=== PATIENT | female | born 1940 | race Caucasian/White ===

== ENCOUNTER 2019-04-21 13:54 | Inpatient (IN) ==
[~2019-04-21 13:54] MED LIST: CEFAZOLIN 2000MG 2,000 MG/15 ML SYR IV SCH
[2019-04-21] MEDS ORDERED: ONDANSETRON INJ 2 MG/ML 2 ML VIAL IV STA (13:58)
[2019-04-21] MEDS ORDERED: SODIUM CHLORIDE 0.9% 1000ML 1,000 ML IV SCH ×2 (14:00→19:08)
[2019-04-21 14:19] LABS: Basophils # (auto) 0.02 K/uL (0-0.2); Basophils % (auto) 0.5 %; Eosinophils # (auto) 0.08 K/uL (0-0.5); Eosinophils % (auto) 1.9 %; Hematocrit (blood only) 34.7 % (37-47); Hemoglobin 12.6 g/dL (12.0-16.0); Immature Granulocytes # (auto) 0.01 K/uL (0.00-0.02); Immature Granulocytes % (auto) 0.2 %; Lymphocytes # (auto) 1.16 K/uL (1.2-3.4); Mean Corpuscular Hgb Conc 36.3 g/dL (32-36); Mean Corpuscular Volume 87.6 fL (80-100); Mean Platelet Volume 9.5 fL (7.4-10.4); Monocytes # (auto) 0.38 K/uL (0.11-0.59); Monocytes % (auto) 8.8 %; Neutrophils # (auto) 2.65 K/uL (1.4-6.5); Neutrophils % (auto) 61.6 %; Platelet Count 186 K/uL (130-400); RDW Standard Deviation 42.1 fL (36.4-46.3); Red Blood Count 3.96 M/uL (4.2-5.4)
[2019-04-21] MEDS: MoRPHine SULFATE 4 MG/ML 1 ML CARP\\VIAL IV PRN ×2 (14:19→15:04)
--- NOTE | 2019-04-21 14:33 | Emergency Department Note ---
Entered by Raeann Gifford acting as a scribe for Raffy Juarez DO History of Present Illness General Chief complaint: Hip Pain Source: patient Limitations: no limitations History of Present Illness Provider complaint: Hip Pain Onset (ago): hour(s) Location: hip and right Maximum Pain Intensity: 10 Relieved By: + rest Exacerbated By: + movement Associated symptoms: + denies other symptoms (-neck pain, -LOC); no headaches and no syncope Treatments prior to arrival: none The patient is an 79-year-old female who presented to the emergency department by ambulance for an evaluation after a fall. The patient fell from a standing position onto her right side. She suffered an injury to her right hip. The patient has very severe pain with any range of motion. She keeps the right leg flexed at the hip as well as the knee. The patient states that she has very minimal pain with holding the leg still. She has very severe pain with any movement or rotation. She lateralizes the pain to her right lateral hip. She denies any other injury. She has no neck pain headache. She has no loss of consciousness. The patient was unable to stand. The patient states that she took no pain medication prior to arrival. Home Medications Home Medications Medication Instructions Recorded Confirmed Type alendronate [Fosamax] 70 mg PO UD 04/21/19 04/21/19 History aspirin [Aspirin Low Dose] 81 mg PO DAILY 04/21/19 04/21/19 History cholecalciferol (vitamin D3) 2,000 unit PO DAILY 04/21/19 04/21/19 History [Vitamin D3] oxybutynin chloride 5 mg PO DAILY 04/21/19 04/21/19 History rosuvastatin [Crestor] 10 mg PO DAILY 04/21/19 04/21/19 History Allergies Allergy/AdvReac Type Severity Reaction Status Date / Time No Known Allergies Allergy Unverified 04/21/19 14:36 Past Med/Surg History Medical History Osteoporosis (Chronic) History of cataract (Chronic) Left eye History of hysterectomy (Chronic) Dyslipidemia (Chronic) Overactive bladder (Chronic) Surgical History History of bladder repair surgery (Chronic) 2008 History of lumpectomy of both breasts (Chronic) 1962 - Left breast lumpectomy - pt reports was benign 1980 - R breast lumpectomy - pt reports was benign History of tonsillectomy and adenoidectomy (Chronic) H/O eye surgery (Chronic) 1944 - Right eye surgery 1947 - Right eye surgery H/O malignant hyperthermia (Chronic) Family History Other Cancer Hypertension Malignant hyperthermia due to anesthesia Social History Preferred Language: [place]ese Communication Ability: Effective Customer Sales Representative Required: No Beliefs That Will Affect Care: Evangelical Evangelical Beliefs: Yazidism marital status: / Current Living Situation: Alone Feels Safe at Home: Yes Safety Concerns: Feels Safe At This Time Smoking Status: Former smoker Do You Dip or Chew Tobacco: No Smoking End Date: quit at age 59 Hx Alcohol Use: No Hx Substance Use: No Review of Systems See HPI for pertinent positives & negatives. and A total of 10 systems reviewed and were otherwise negative Physical Exam Vital Signs Vital Signs - 24 hr 04/21/19 14:04 04/21/19 15:05 04/21/19 15:12 Temperature 37.0 C Temperature Source Oral Sepsis Recent Fever Within 48 Hours No Sepsis New/Unexplained Change in Mental Status No Sepsis Action Taken by Nursing No Action Required Pulse Rate 87 Pulse Rate [Right Finger] 94 H Pulse Rate from SpO2 Sensor Respiratory Rate 19 16 Respiratory Effort / Characteristics Non-Labored Spontaneous Respiratory Depth Normal Respiratory Pattern Regular Blood Pressure 183/93 H Blood Pressure [Right Arm] 150/80 H Blood Pressure Mean 123 Blood Pressure Mean [Right Arm] 103 Pulse Oximetry 95 84 L 96 Oxygen Delivery Method Room Air Room Air Nasal Cannula Oxygen Flow Rate 2 04/21/19 15:30 04/21/19 15:42 04/21/19 16:00 Temperature Temperature Source Sepsis Recent Fever Within 48 Hours Sepsis New/Unexplained Change in Mental Status Sepsis Action Taken by Nursing Pulse Rate 87 117 H 85 Pulse Rate [Right Finger] Pulse Rate from SpO2 Sensor 88 96 H 82 Respiratory Rate 21 26 H 17 Respiratory Effort / Characteristics Respiratory Depth Respiratory Pattern Blood Pressure 149/83 H Blood Pressure [Right Arm] Blood Pressure Mean 105 Blood Pressure Mean [Right Arm] Pulse Oximetry 91 94 98 Oxygen Delivery Method Oxygen Flow Rate 04/21/19 16:01 Temperature Temperature Source Sepsis Recent Fever Within 48 Hours Sepsis New/Unexplained Change in Mental Status Sepsis Action Taken by Nursing Pulse Rate 82 Pulse Rate [Right Finger] Pulse Rate from SpO2 Sensor 82 Respiratory Rate 17 Respiratory Effort / Characteristics Respiratory Depth Respiratory Pattern Blood Pressure 124/81 Blood Pressure [Right Arm] Blood Pressure Mean 95 Blood Pressure Mean [Right Arm] Pulse Oximetry 96 Oxygen Delivery Method Oxygen Flow Rate GENERAL: Patient is awake and alert. She appears to be in significant pain. EYES: The conjunctivae are clear. The pupils are round and reactive. EARS, NOSE, MOUTH AND THROAT: The nose is without any evidence of any deformity. Mucous membranes are moist tongue is midline NECK: The neck is nontender and supple. RESPIRATORY: Normal respiratory effort is noted there is no evidence of wheezing rhonchi or rales CARDIOVASCULAR: Regular rate and rhythm noted there no murmurs rubs or gallops normal S1 normal S2 GASTROINTESTINAL: The abdomen is soft. Bowel sounds are present in all quadrants. Abdomen is nontender BACK: No midline tenderness or or step-off noted range of motion in flexion extension as well as rotation no signs of muscle spasm noted MUSCULOSKELETAL/EXTREMITIES: There is pain with range of motion testing of the right hip. Patient prefers to keep the hip in the flexed position. SKIN: There is no obvious evidence of any rash. There are no petechiae, pallor or cyanosis noted. Pulses are symmetric in both feet. NEUROLOGIC: Patient is awake alert and oriented x3. Course 1400: The patient was evaluated in room C5, and a complete history and physical examination were performed. 1513: I checked on the patient and updated her on her results. 1524: I discussed the patient's case with Halina [facility] Hospitalist who will evaluate the patient for further hospitalization. The patient will be admitted to Dr. Rhoades- Internal Medicine. Consultations Consultation #1: Halina Martínezist admitting to Dr. Rhoades- Internal Medicine Time: 15:24 Administered Medications Acetaminophen (Tylenol) 650 mg PO Q6H PRN PRN Reason: MILD Pain (Scale 1,2,3) Stop: 05/21/19 19:07 Last Admin: 04/22/19 08:09 Dose: 650 mg Documented by: [id number] Lactated Ringer's (Lr) 1,000 mls @ 80 mls/hr IV .[id number] [facility] Stop: 05/21/19 18:29 Last Admin: 04/22/19 08:08 Dose: 80 mls/hr Documented by: [id number] Infusion: 04/22/19 06:47 Dose: 0 mls/hr Documented by: [id number] Admin: 04/21/19 20:05 Dose: 80 mls/hr Documented by: [id number] Morphine Sulfate (Morphine Sulfate) 2 mg IV Q2H PRN PRN Reason: MODERATE Pain (Scale 4,5,6) Stop: 05/05/19 19:07 Last Admin: 04/22/19 12:11 Dose: 2 mg Documented by: [id number] Admin: 04/22/19 07:01 Dose: 2 mg Documented by: [id number] Admin: 04/22/19 04:19 Dose: 2 mg Documented by: [id number] Oxybutynin Chloride (Ditropan) 5 mg PO DAILY [facility] Stop: 05/22/19 08:59 Last Admin: 04/22/19 08:09 Dose: 5 mg Documented by: [id number] Rosuvastatin Calcium (Crestor) 10 mg PO DAILY [facility] Stop: 05/22/19 08:59 Last Admin: 04/22/19 08:09 Dose: 10 mg Documented by: [id number] Senna/Docusate Sodium (Senokot S) 2 tab PO HS [facility] Stop: 05/21/19 20:59 Last Admin: 04/21/19 20:41 Dose: 2 tab Documented by: [id number] Discontinued Medications Sodium Chloride (Nss 1000ml) 1,000 mls @ 150 mls/hr IV .[id number] [facility] Stop: 04/21/19 20:39 Last Infusion: 04/21/19 19:11 Dose: 0 mls/hr Documented by: [id number] Admin: 04/21/19 14:21 Dose: 150 mls/hr Documented by: [id number] Cefazolin Sodium (Ancef 2000mg) 2,000 mg in 15 mls @ 3.75 mls/min IV PREOP [facility]; Protocol Stop: 04/21/19 23:59 Last Admin: 04/21/19 19:52 Dose: Not Given Documented by: [id number] Sodium Chloride (Nss 1000ml) 1,000 mls @ 80 mls/hr IV .[id number] [facility] Stop: 04/22/19 07:37 Last Admin: 04/21/19 19:52 Dose: Not Given Documented by: [id number] Morphine Sulfate (Morphine Sulfate) 4 mg IV Q15M PRN PRN Reason: Pain Stop: 05/05/19 13:57 Last Admin: 04/21/19 15:04 Dose: 4 mg Documented by: [id number] Admin: 04/21/19 14:19 Dose: 4 mg Documented by: [id number] Ondansetron HCl (Zofran) 4 mg IV NOW STA Stop: 04/21/19 13:59 Last Admin: 04/21/19 14:19 Dose: 4 mg Documented by: [id number] Medical Decision Making Differential Diagnosis Etiologies such as fracture, dislocation, soft tissue injury, intra-abdominal, intrathoracic, intracranial as well as other traumatic pathologies were entertained. Medical Records Attestation: I reviewed the patient's medical records. Home Medications Current Medication List: was personally reviewed by me Laboratory Data Attestation: I reviewed the patient's lab results. Result diagrams: 04/22/19 06:57 04/22/19 06:57 Lab Results 04/21/19 04/21/19 04/21/19 Range/Units 14:08 14:08 14:08 WBC 4.30 L (4.8-10.8) K/uL RBC 3.96 L (4.2-5.4) M/uL Hgb 12.6 (12.0-16.0) g/dL Hct 34.7 L (37-47) % MCV 87.6 (80-100) fL MCH 31.8 (25-34) pg MCHC 36.3 H (32-36) g/dL RDW Std Deviation 42.1 (36.4-46.3) fL RDW Coeff of Miguel 13.0 (11.5-14.5) % Plt Count 186 (130-400) K/uL MPV 9.5 (7.4-10.4) fL Immature Gran % (Auto) 0.2 % Neut % (Auto) 61.6 % Lymph % (Auto) 27.0 % Brooks % (Auto) 8.8 % Eos % (Auto) 1.9 % Baso % (Auto) 0.5 % Immature Gran # (Auto) 0.01 (0.00-0.02) K/uL Neut # (Auto) 2.65 (1.4-6.5) K/uL Lymph # (Auto) 1.16 L (1.2-3.4) K/uL Brooks # (Auto) 0.38 (0.11-0.59) K/uL Eos # (Auto) 0.08 (0-0.5) K/uL Baso # (Auto) 0.02 (0-0.2) K/uL PT Cancelled INR Cancelled APTT Cancelled PTT Ratio Cancelled Sodium 142 (136-145) mmol/L Potassium 3.8 (3.5-5.1) mmol/L Chloride 107 (98-107) mmol/L Carbon Dioxide 25 (21-32) mmol/L Anion Gap 10.0 (3-11) BUN 10 (7-18) mg/dl Creatinine 0.83 (0.6-1.2) mg/dl Est Cr Clr Drug Dosing 49.0 ml/min Est GFR ( Amer) 77.2 Est GFR (Non-Af Amer) 66.6 BUN/Creatinine Ratio 12.1 (10-20) Glucose 92 (70-99) mg/dl Calcium 9.3 (8.5-10.1) mg/dl Troponin I < 0.015 (0-0.045) ng/ml Specimen Hemolysis Blood Type Antibody Screen 04/21/19 04/21/19 Range/Units 14:08 15:17 WBC (4.8-10.8) K/uL RBC (4.2-5.4) M/uL Hgb (12.0-16.0) g/dL Hct (37-47) % MCV (80-100) fL MCH (25-34) pg MCHC (32-36) g/dL RDW Std Deviation (36.4-46.3) fL RDW Coeff of Miguel (11.5-14.5) % Plt Count (130-400) K/uL MPV (7.4-10.4) fL Immature Gran % (Auto) % Neut % (Auto) % Lymph % (Auto) % Brooks % (Auto) % Eos % (Auto) % Baso % (Auto) % Immature Gran # (Auto) (0.00-0.02) K/uL Neut # (Auto) (1.4-6.5) K/uL Lymph # (Auto) (1.2-3.4) K/uL Brooks # (Auto) (0.11-0.59) K/uL Eos # (Auto) (0-0.5) K/uL Baso # (Auto) (0-0.2) K/uL PT 10.9 INR 1.1 APTT 25.6 PTT Ratio 0.9 Sodium (136-145) mmol/L Potassium (3.5-5.1) mmol/L Chloride (98-107) mmol/L Carbon Dioxide (21-32) mmol/L Anion Gap (3-11) BUN (7-18) mg/dl Creatinine (0.6-1.2) mg/dl Est Cr Clr Drug Dosing ml/min Est GFR ( Amer) Est GFR (Non-Af Amer) BUN/Creatinine Ratio (10-20) Glucose (70-99) mg/dl Calcium (8.5-10.1) mg/dl Troponin I (0-0.045) ng/ml Specimen Hemolysis Blood Type A Positive Antibody Screen NEGATIVE Imaging Data Radiologist's Impression: Radiology results as stated below per my review and the radiologist's interpretation: XR chest 1V portable HISTORY: 79 years-old Female fall acute chest trauma status post fall COMPARISON: None available TECHNIQUE: Supine AP view of the chest FINDINGS: Cardiomediastinal and hilar silhouettes are within normal limits. Calcification of the thoracic aortic arch. No pneumothorax, pleural effusion, focal airspace consolidation or overt pulmonary edema. Bones of the chest appear grossly intact. IMPRESSION: No acute process. The above report was generated using voice recognition software. It may contain grammatical, syntax or spelling errors. Electronically signed by: Alexandru Myers M.D. 04/21/2019 2:41 PM XR hip RT 2-3V w pelvis CLINICAL HISTORY: Fall. COMPARISON: None FINDINGS: The sacroiliac joints and symphysis pubis are intact. There is an acute displaced right femoral neck fracture. No additional fractures are identified within the pelvis or hips. There is no proximal left femoral fra cture. IMPRESSION: Acute displaced right femoral neck fracture. Electronically signed by: Terrance Rock M.D. 04/21/2019 2:41 PM ECG Data Attestation: I personally reviewed and interpreted this ECG as follows: Indication: other (+hip pain) Rate (beats per minute): 79 Findings: no acute ischemic change and no ectopy Comparison ECG Date: no prior available Blood Pressure Blood Pressure Findings: Elevated blood pressure Blood Pressure Disposition: elevated BP felt to be situational MDM Narrative The patient is an 79-year-old female who presented to the emergency department after a fall. The patient fell onto her right hip sustaining isolated right hip fracture. I discussed the patient's laboratory and radiographic studies with her. She was feeling much better after IV pain medication. I discussed her case with the on-call [facility] hospitalist as well as the on-call orthopedic physician for the group that her family member requested. They have agreed to evaluate the patient for further management as well as possible surgical management of this right hip fracture. I discussed this with the patient and she was agreeable to this plan. She was reevaluated multiple times. Impression & Plan Closed fracture of right hip, Fall Discharge Plan Visit Data *Final* Discharge Date/Time: 04/21/19 17:54 Chief Complaint: Hip Pain ED Provider: Raffy Juarez Discharge Problem: Closed fracture of right hip, Fall Patient Disposition: Admitted As Inpatient Discharge Instructions Interventions: ED Discharge Assessment Last Done: 04/21/19 17:54 Discharge Problem: Closed fracture of right hip Qualifiers: Encounter type: initial encounter Qualified Code(s): S72.001A - Fracture of unspecified part of neck of right femur, initial encounter for closed fracture Fall Qualifiers: Encounter type: initial encounter Qualified Code(s): W19.XXXA - Unspecified fall, initial encounter The scribe's documentation has been prepared under my direction and personally reviewed by me in its entirety. I confirm that the note above accurately reflects all work, treatment, procedures, and medical decision making performed by me.
--- NOTE | 2019-04-21 14:42 | XRay Report ---
XR hip RT 2-3V w pelvis CLINICAL HISTORY: Fall. COMPARISON: None FINDINGS: The sacroiliac joints and symphysis pubis are intact. There is an acute displaced right fe moral neck fracture. No additional fractures are identified within the pelvis or hips. There is no pr oximal left femoral fracture. IMPRESSION: Acute displaced right femoral neck fracture. Electronically signed by: Terrance Rock M.D. 04/21/2019 2:41 PM
[2019-04-21 14:43] LABS: BUN Creatinine Ratio 12.1 (10-20); Blood Urea Nitrogen 10 mg/dl (7-18); Calcium 9.3 mg/dl (8.5-10.1); Carbon Dioxide 25 mmol/L (21-32); Chloride 107 mmol/L (98-107); Est GFR (African American) 77.2; Est GFR (Non-African American) 66.6; Glucose 92 mg/dl (70-99); Potassium 3.8 mmol/L (3.5-5.1); Sodium 142 mmol/L (136-145); Troponin I < 0.015 ng/ml (0-0.045)
--- NOTE | 2019-04-21 14:43 | XRay Report ---
XR chest 1V portable HISTORY: 79 years-old Female fall acute chest trauma status post fall COMPARISON: None available TECHNIQUE: Supine AP view of the chest FINDINGS: Cardiomediastinal and hilar silhouettes are within normal limits. Calcification of the thoracic aorti c arch. No pneumothorax, pleural effusion, focal airspace consolidation or overt pulmonary edema. Bon es of the chest appear grossly intact. IMPRESSION: No acute process. The above report was generated using voice recognition software. It may contain grammatical, syntax o r spelling errors. Electronically signed by: Alexandru Myers M.D. 04/21/2019 2:41 PM
[2019-04-21 15:39] LABS: INR 1.1 (0.9-1.1); Partial Thromboplastin Ratio 0.9; Partial Thromboplastin Time 25.6 Seconds (21.0-31.0); Prothrombin Time 10.9 Seconds (9.0-12.0)
[2019-04-21 15:49] LABS: Appearance Urine Clear (Clear); Bilirubin Urine Negative (Negative); Blood Urine Negative (Negative); Color Urine Yellow; Glucose Urine UA Negative (Negative); Ketones Urine Negative (Negative); Leukocyte Esterase Urine Negative (Negative); Nitrite Urine Negative (Negative); Protein Urine Negative (Negative); Specific Gravity Urine 1.009 (1.000-1.030); Urobilinogen Urine Negative (Negative)
--- NOTE | 2019-04-21 16:33 | History & Physical Report ---
Date of Service April 21, 2019 Assessment & Plan (1) Closed right hip fracture: Pt presented with mechanical fall onto R hip In ER pt afebrile, P: 87-94, BP: 183/93 down to 150/80, 95% on RA down to 84% on RA after morphine 4mg IV given and up to 96% on 2L NC R HIP XRAY: Acute displaced right femoral neck fracture. -Bedrest -Morphine prn pain -Oxygen prn -Incentive spirometry -Ortho consult - communications lead made aware from ER (2) H/O malignant hyperthermia: Anesthesia consult (3) Dyslipidemia: -Continue statin (4) Overactive bladder: -Continue oxybutynin DVT Prophylaxis -SCDs as possible procedure Pt reports DNR/DNI but reports willing to be intubated for surgery as per discussion with pt Follows with Dr Martinez for routine care Pt was seen and care coordinated with Dr Rhoades. See addendum History of Present Illness Chief Complaint: R hip pain after fall Primary Care Provider: Shania Martinez, Pt is 79 y/o F with PMH dyslipidemia, osteoporosis, overactive bladder, h/o malignant hyperthermia presented to ER with c/o fall and right hip pain. Patient states prior to arrival she was cleaning her house when she turned and lost her balance falling onto her right hip. Patient states had some pain to her right hip and try to stand up and was unable to bear weight. Denies any extremity paresthesias. Denies hitting head. Denies any other injury. Pt denies any known cardiac history, DM, CHF, TIA or CVA. Denies fever/chills, diaphoresis, N/V/D/C, LARA, dizziness, syncope, vision changes, neck pain, CP, SOB, orthopnea, palpitations, cough, sore throat, choking, otalgia, rhinorrhea, abdominal pain, extremity edema, rashes, urinary symptoms. Allergies Allergy/AdvReac Type Severity Reaction Status Date / Time No Known Allergies Allergy Unverified 04/21/19 14:36 Home Medications Home Medications Medication Instructions Recorded Confirmed Type alendronate [Fosamax] 70 mg PO UD 04/21/19 04/21/19 History aspirin [Aspirin Low Dose] 81 mg PO DAILY 04/21/19 04/21/19 History cholecalciferol (vitamin D3) 2,000 unit PO DAILY 04/21/19 04/21/19 History [Vitamin D3] oxybutynin chloride 5 mg PO DAILY 04/21/19 04/21/19 History rosuvastatin [Crestor] 10 mg PO DAILY 04/21/19 04/21/19 History Past Med/Surg History Medical History Osteoporosis (Chronic) History of cataract (Chronic) Left eye History of hysterectomy (Chronic) Dyslipidemia (Chronic) Overactive bladder (Chronic) Surgical History History of bladder repair surgery (Chronic) 2008 History of lumpectomy of both breasts (Chronic) 1962 - Left breast lumpectomy - pt reports was benign 1980 - R breast lumpectomy - pt reports was benign History of tonsillectomy and adenoidectomy (Chronic) H/O eye surgery (Chronic) 1944 - Right eye surgery 1947 - Right eye surgery H/O malignant hyperthermia (Chronic) Family History Other Cancer Hypertension Malignant hyperthermia due to anesthesia Social History Preferred Language: R[place] Communication Ability: Effective Application Engineer Required: No Beliefs That Will Affect Care: Yazidism Yazidism Beliefs: Cheondoism Current Living Situation: Alone Feels Safe at Home: Yes Safety Concerns: Feels Safe At This Time Smoking Status: Former smoker Do You Dip or Chew Tobacco: No Smoking End Date: quit at age 59 Hx Alcohol Use: No Hx Substance Use: No Review of Systems Review of Systems: All systems reviewed & are unremarkable except as noted in HPI & below Physical Exam Physical Exam: General: no acute distress, WDWN Head: normocephalic, atraumatic Eyes: PERRL, EOM's intact, conjunctiva non-injected, anicteric ENT: normal inspection external ears, nose, mucous membranes moist Neck: supple, trachea midline, non-tender Lungs: Currently on 2L oxygen NC with 95% sat (hypoxia occurred after morphine administration), R:20, lungs clear, no respiratory distress, no wheezing/rhonchi/rales CV: RRR, no murmur, no pretibial edema Abd: normal BS, soft, non-tender Ext: RLE: shortened right leg, +tenderness to palpation right anterior hip, no ROM attempted, distal pulses intact, brisk capillary refill and sensation to light touch intact. Remaining extremities with normal appearance, ROM intact Neuro: A&O x 3, no focal deficits noted, normal affect Skin: warm, dry Results & Data Vital Signs (Past 12 Hours) Vital Signs Temp Pulse Pulse Resp BP BP Pulse Ox 04/21/19 15:42 117 H 26 H 94 04/21/19 15:30 87 21 149/83 H 91 04/21/19 15:12 96 04/21/19 15:05 94 H 16 150/80 H 84 L 04/21/19 14:04 37.0 C 87 19 183/93 H 95 Laboratory Results Short CBC 04/21/19 Range/Units 14:08 WBC 4.30 L (4.8-10.8) K/uL Hgb 12.6 (12.0-16.0) g/dL Hct 34.7 L (37-47) % Plt Count 186 (130-400) K/uL BMP 04/21/19 14:08 Sodium 142 Potassium 3.8 Chloride 107 Carbon Dioxide 25 BUN 10 Creatinine 0.83 Glucose 92 Calcium 9.3 Cardiac Enzymes 04/21/19 Range/Units 14:08 Troponin I < 0.015 (0-0.045) ng/ml Urine 04/21/19 Range/Units Unknown Urine Color Yellow Urine Appearance Clear (Clear) Urine pH 7.0 (4.5-7.5) Ur Specific Clemmons 1.009 (1.000-1.030) Urine Protein Negative (Negative) Urine Glucose (UA) Negative (Negative) Diagnostic Findings R HIP/PELVIS XRAY: IMPRESSION: Acute displaced right femoral neck fracture. CXR: IMPRESSION: No acute process. ECG Rate (beats per minute): 79 Rhythm: sinus rhythm Supervising Physician Co-Signing Physician Notes Patient is an 79-year-old female with history of malignant hyperthermia and other problems presents with history of right hip pain secondary to mechanical fall. Hip x-ray suggestive for acute displaced right femoral neck fracture. No history of head trauma, loss of consciousness, bowel bladder incontinence on exam patient is moderately built and nourished, no apparent distress, normocephalic atraumatic, lungs are clear to auscultation, S1-S2, no murmur, abdomen soft nontender, right hip tenderness, shortened right lower extremity, externally rotated, decreased range of motion due to pain, no pedal edema. orthopedics consulted for further management. N.p.o. after midnight. Pain control. Cautious use of anesthetic medications given history of malignant hyperthermia. I personally reviewed the record. Patient is interviewed and examined at bedside. Patient's care is coordinated with Halina Cox. Please refer to the documentation above for details of patient's presentation and for discussion of other issues.
[2019-04-21] MEDS ORDERED: MAGNESIUM HYDROXIDE SUSP 30 ML UDC PO PRN (19:08)
[2019-04-21] MEDS ORDERED: ACETAMINOPHEN 325 MG TAB PO PRN (19:08)
[2019-04-21] MEDS ORDERED: NALOXONE HCL 0.4 MG/1 ML VIAL/CARP IV PRN (19:08)
[2019-04-21] MEDS ORDERED: BISACODYL 10 MG SUPP PR PRN (19:08)
--- NOTE | 2019-04-21 19:36 | Anesthesiology Consultation ---
Date of Service April 21, 2019 Assessment & Plan (1) Encounter for pre-operative examination: Chart Review Chart Review: Acceptable Risk for Surgery and Patient NOT seen in Pre Admission Testing Will need to employ MH precautions in the OR. Patient also ok with temporarily suspending her DNR/DNI wishes in the perioperative period. Consent was obtained and patient agrees to SAB with sedation. She is NOT on a blood thinner and has no hx/o valvular disease. Consults Requested none History Height/Weight Height: 5 ft 3 in Weight: 64.9 kg Allergies Allergy/AdvReac Type Severity Reaction Status Date / Time No Known Allergies Allergy Unverified 04/21/19 14:36 Medications Home Medications Medication Instructions Recorded Confirmed Last Taken alendronate [Fosamax] 70 mg PO UD 04/21/19 04/21/19 Unknown aspirin [Aspirin Low Dose] 81 mg PO DAILY 04/21/19 04/21/19 04/21/19 cholecalciferol (vitamin D3) 2,000 unit PO DAILY 04/21/19 04/21/19 04/21/19 [Vitamin D3] oxybutynin chloride 5 mg PO DAILY 04/21/19 04/21/19 04/21/19 rosuvastatin [Crestor] 10 mg PO DAILY 04/21/19 04/21/19 04/21/19 Active Medications Generic Name Dose Route Start Last Admin Trade Name Freq PRN Reason Stop Dose Admin Lactated Ringer's 1,000 mls @ 80 mls/hr 04/21/19 18:30 04/21/19 20:05 Lr IV 05/21/19 18:29 80 mls/hr .[id number] [facility] Administration Past Medical History Medical History Osteoporosis (Chronic) History of cataract (Chronic) Left eye History of hysterectomy (Chronic) Dyslipidemia (Chronic) Overactive bladder (Chronic) Exercise / Class Metabolic Activity II 4-5 Yardwork/Stairs/Walk up hill (prior to injury) Past Family History Family History Other Cancer Hypertension Malignant hyperthermia due to anesthesia Past Surgical History Surgical History History of bladder repair surgery (Chronic) 2008 History of lumpectomy of both breasts (Chronic) 1962 - Left breast lumpectomy - pt reports was benign 1980 - breast lumpectomy - pt reports was benign History of tonsillectomy and adenoidectomy (Chronic) H/O eye surgery (Chronic) 1944 - Right eye surgery 1947 - Right eye surgery H/O malignant hyperthermia (Chronic) Patient's daughter had MH reaction as a child in [place]. Patient and her family members told to have MH precautions when undergoing anesthesia. Past Anesthesia History Malignant Hyperthermia History of PONV No Hx of PONV and No Hx of Motion Sickness Social History Smoking Status: Former smoker Do You Dip or Chew Tobacco: No Smoking End Date: quit at age 59 Hx Alcohol Use: No Hx Substance Use: No Physical Exam Vital Signs Last Vital Signs Temp 36.3 C L 04/21/19 18:24 Pulse 77 04/21/19 18:24 Resp 19 04/21/19 18:24 BP 152/73 H 04/21/19 18:24 Pulse Ox 90 04/21/19 18:24 ENMT Mouth: + dentures (full) Thyromental Distance: > or= 3.5 Finger Breadths Mallampati Class: II Neck normal visual inspection Respiratory normal respiratory effort Auscultation: lungs clear to auscultation bilaterally Cardiovascular Rate/Rhythm: regular rate and regular rhythm Heart Sounds: no murmur Neurologic moves all extremities Motor/Sensory: no sensory deficit Psychiatric Orientation: alert and oriented x 3 Testing Laboratory Results 04/21/19 14:08 04/21/19 14:08 04/21/19 04/21/19 04/21/19 14:08 14:08 15:17 PT Cancelled 10.9 INR Cancelled 1.1 APTT Cancelled 25.6 Urine Color Urine Appearance Urine pH Ur Specific [place] Urine Protein Urine Glucose (UA) Urine Ketones Urine Nitrite Ur Leukocyte Esterase Blood Type A Positive Antibody Screen NEGATIVE 04/21/19 Unknown PT INR APTT Urine Color Yellow Urine Appearance Clear Urine pH 7.0 Ur Specific [place] 1.009 Urine Protein Negative Urine Glucose (UA) Negative Urine Ketones Negative Urine Nitrite Negative Ur Leukocyte Esterase Negative Blood Type Antibody Screen Electrocardiogram Date: 04/21/19 Findings: + NSR @ (79) Normal sinus rhythm Low voltage QRS Borderline ECG No previous ECGs available
[2019-04-21] MEDS: LACTATED RINGER'S 1,000 ML IV SCH (20:05)
--- NOTE | 2019-04-21 20:34 | History and Physical Report ---
DATE OF ADMISSION: 04/21/2019 CHIEF COMPLAINT: Right hip pain. HISTORY OF PRESENT ILLNESS: Roma is delightful I am meeting her for the first time. She is 79 years of age, relatively healthy. There are some comorbidities, had a mechanical fall, suffered an acute injury to her right hip and suffered acute displaced right femoral neck fracture, Garden type classification III. She will be admitted to medical service and we are thankful for that. We will keep her at bed rest. We will feed her now and we will keep her n.p.o. after midnight, hopefully get into Surgery approximately 4:00 tomorrow afternoon. MEDICAL HISTORY: Positive for malignant hyperthermia, dyslipidemia, overactive bladder. No history of heart disease, diabetes, heart failure. Denies any fevers, sweats, chills. ALLERGIES: None. MEDICATIONS: Include Flomax, aspirin, vitamin D, oxybutynin and Crestor. PAST MEDICAL HISTORY: Includes osteoporosis and history of cataracts. PAST SURGICAL HISTORY: Hysterectomy, history of bladder repair, lumpectomy both breasts, tonsil and adenoidectomy and left eye surgery. FAMILY HISTORY: Carcinoma, hypertension. REVIEW OF SYSTEMS: Denies any current blurred vision, double vision. Denies chest pain, palpitations. She does have some shakes and shivers, but no fevers. Denies nausea, vomiting, urgency, frequency, or dysuria. OBJECTIVE: GENERAL: She is alert, oriented fearful. VITAL SIGNS: Blood pressure 140/80, pulse 80, respirations 16. CARDIAC: Normal S1, S2. No ectopy. In sinus rhythm. LUNGS: Clear. ABDOMEN: Soft, nontender. MUSCULOSKELETAL: She has pain with any type of motion about the right lower extremity, right hip. She has good pulses, good sensation with no vascular issues. LABORATORY STUDIES: White cell count 14.3, hemoglobin 12.6, hematocrit 34.7. X-rays demonstrate a displaced right femoral neck fracture. ASSESSMENT: Pleasant young lady 79 with other comorbidities significantly of malignant hyperthermia along with a right femoral neck fracture. We will feed the patient now, I have started some IV fluids. We will keep her n.p.o. after midnight. She will need an Anesthesiology consultation hopefully getting the surgery tomorrow sometime mid to late afternoon.
[2019-04-21] MEDS: DOCUSATE SODIUM/SENNA 50/8.6MG TAB PO SCH (20:41)
[2019-04-22] MEDS: MoRPHine SULFATE 2 MG/ML CARP IV PRN ×3 (04:19→12:11)
[2019-04-22] MEDS ORDERED: CEFAZOLIN 2000MG 2,000 MG/15 ML SYR IV SCH (06:00)
[2019-04-22 07:24] LABS: Hematocrit (blood only) 33.1 % (37-47); Mean Corpuscular Hgb Conc 36.3 g/dL (32-36); Mean Corpuscular Volume 89.9 fL (80-100); Platelet Count 144 K/uL (130-400); RDW Coefficient of Variation 13.1 % (11.5-14.5); RDW Standard Deviation 42.4 fL (36.4-46.3); Red Blood Count 3.68 M/uL (4.2-5.4); White Blood Count 6.68 K/uL (4.8-10.8)
[2019-04-22 07:59] LABS: BUN Creatinine Ratio 11.6 (10-20); Calcium 8.4 mg/dl (8.5-10.1); Creatinine Clr Calc Pharmacy 72.6 ml/min; Est GFR (African American) 102.1; Est GFR (Non-African American) 88.1; Potassium 3.5 mmol/L (3.5-5.1)
[2019-04-22] MEDS: LACTATED RINGER'S 1,000 ML IV SCH ×2 (08:08→19:08)
[2019-04-22] MEDS: ROSUVASTATIN CALCIUM 10 MG TAB PO SCH (08:09)
[2019-04-22] MEDS: OXYBUTYNIN CHLORIDE 5 MG TAB PO SCH (08:09)
--- NOTE | 2019-04-22 09:04 | Orthopedic Progress Note ---
Date of Service April 22, 2019 Assessment & Plan (1) Closed fracture of right hip: SHe was seen and examined by Dr. Rae today as well. She denies any pain in hip prior to this fx. She is npo. We will plan on hemiarthroplasty vs Total hip arthroplasty today. Procedure explained including risks, benefits, alternatives and she would like to proceed. Subjective She's c/o right hip pain. No other complaints. Physical Exam Physical Exam: alert and oriented. NAD. NVI. able to DF/PF appropriately. Results & Data Vital Signs (Past 12 Hours) Vital Signs Temp Pulse Pulse Resp BP Pulse Ox Pulse Ox 04/22/19 08:00 37.3 C 98 H 16 128/64 93 04/22/19 07:40 98 04/21/19 23:59 36.9 C 81 16 129/72 98 (1) Closed fracture of right hip Encounter type: initial encounter Qualified Code(s): S72.001A - Fracture of unspecified part of neck of right femur, initial encounter for closed fracture
--- NOTE | 2019-04-22 09:05 | History & Physical Bridge Note ---
Date of Service April 22, 2019 History & Physical Bridge Note I have examined the patient, reviewed the History & Physical and in the interval since the performance of the History & Physical I have noted the following changes of clinical significance: no changes noted
--- NOTE | 2019-04-22 09:42 | Hospitalist Progress Note ---
Date of Service April 22, 2019 Assessment & Plan (1) Closed fracture of right hip: Right hip fracture after mechanical fall. Likely age related pathologic / osteoporotic right femoral neck fracture. Repair per Orthopedic Surgery. (2) Malignant hyperthermia susceptibility: Daughter had episode of malignant hyperthermia years ago. Family members were tested (patient doesn't remember name of test). Patient and her other children were told that they were malignant hyperthermia susceptible, but testing for patient's siblings was reportedly negative. Anesthesia consulted and aware to follow MH precautions. (3) Dyslipidemia: Continue rosuvastatin. (4) Osteoporosis: Check vitamin D level. (5) DVT prophylaxis: SCD's preop. Will coordinate with Ortho postop. (6) Discharge planning issues: Discharge disposition to be determined after postop PT / OT evals. Family Medicine follow-up with Dr. Martinez. Subjective Recheck for right hip fracture . Patient seen in their room around 12:50. Severe right hip pain; analgesics help for a while. Review of Systems: Constitutional- no fever. Cardiac- no chest pain. Pulmonary- no cough or SOB. GI- no nausea, vomiting, diarrhea, melena, hematochezia. - Trotter cath Otherwise, as noted above. Physical Exam Constitutional: no acute distress Respiratory: no respiratory distress Auscultation: lungs clear to auscultation bilaterally Cardiovascular: Rate/Rhythm: regular rate and regular rhythm Heart Sounds: no gallop, no murmur and no cardiac rub Vessels: no JVD Extremities: no calf tenderness and no edema Gastrointestinal (Abdomen): normal bowel sounds, soft, nontender, no hepatosplenomegaly Musculoskeletal: Hip: + hip abnormal to inpsection (pain right hip with movement) Skin: no rashes, warm and dry Psychiatric: Orientation: alert and oriented x 3 Results & Data Vital Signs (Past 12 Hours) Vital Signs Temp Pulse Pulse Resp BP Pulse Ox Pulse Ox 04/22/19 08:00 37.3 C 98 H 16 128/64 93 04/22/19 07:40 98 04/21/19 23:59 36.9 C 81 16 129/72 98 Laboratory Results Short CBC 04/21/19 04/22/19 Range/Units 14:08 06:57 WBC 4.30 L 6.68 (4.8-10.8) K/uL Hgb 12.6 12.0 (12.0-16.0) g/dL Hct 34.7 L 33.1 L (37-47) % Plt Count 186 144 (130-400) K/uL BMP 04/21/19 04/22/19 14:08 06:57 Sodium 142 141 Potassium 3.8 3.5 Chloride 107 109 H Carbon Dioxide 25 24 BUN 10 7 Creatinine 0.83 0.56 L Glucose 92 93 Calcium 9.3 8.4 L Cardiac Enzymes 04/21/19 Range/Units 14:08 Troponin I < 0.015 (0-0.045) ng/ml Urine 04/21/19 Range/Units Unknown Urine Color Yellow Urine Appearance Clear (Clear) Urine pH 7.0 (4.5-7.5) Ur Specific [place] 1.009 (1.000-1.030) Urine Protein Negative (Negative) Urine Glucose (UA) Negative (Negative) (1) Closed fracture of right hip Encounter type: initial encounter Qualified Code(s): S72.001A - Fracture of unspecified part of neck of right femur, initial encounter for closed fracture
[2019-04-22] MEDS ORDERED: fentaNYL citrate 100 MCG/2 ML VIAL ONE (13:16)
[2019-04-22] MEDS ORDERED: MIDAZOLAM HCL 1 MG/ML 2ML VIAL ONE (13:16)
[2019-04-22] MEDS ORDERED: PROPOFOL IV EMULSION 10 MG/ML 20 ML VIAL IV ONE ×2 (13:18→13:20)
[2019-04-22] MEDS ORDERED: BACITRACIN INJ 50,000 UNIT VIAL ONE (14:05)
[2019-04-22] MEDS ORDERED: BUPIVACAINE/EPINEPHRINE 0.5% MPF 1:200,000 30 ML VIAL ONE (14:05)
[2019-04-22] MEDS ORDERED: MoRPHine SULFATE PF 1 MG/ML 10 ML AMP/VIAL ONE (14:08)
[2019-04-22] MEDS ORDERED: BUPIVACAINE 0.5 % 5 MG/1 ML PF 10ML VIAL ONE (14:10)
[2019-04-22] MEDS ORDERED: NALOXONE HCL 0.08 MG in SYRINGE 1.8 ML IV PRN (14:54)
[2019-04-22] MEDS ORDERED: KETOROLAC TROMETHAMINE 15 MG/ML VIAL IV PRN (14:54)
[2019-04-22] MEDS ORDERED: NALBUPHINE HCL INJ 10 MG/ML AMP IV PRN (14:54)
[2019-04-22] MEDS ORDERED: LACTATED RINGER'S 500 ML IV PRN (14:54)
[2019-04-22] MEDS ORDERED: MEPERIDINE HCL 25 MG/ML CARP IV PRN (14:54)
[2019-04-22] MEDS ORDERED: NALOXONE HCL 1 MG in SODIUM CHLORIDE 0.9% 1000ML 1,000 ML IV PRN (14:54)
[2019-04-22] MEDS ORDERED: ePHEDrine sulfate 50 MG/ML AMP IV PRN (14:54)
[2019-04-22] MEDS ORDERED: MoRPHine SULFATE PF 1 MG/ML 10 ML AMP/VIAL INT SPINAL ONE (14:54)
[2019-04-22] MEDS ORDERED: NALOXONE HCL 0.4 MG/1 ML VIAL/CARP IV PRN ×2 (14:54→18:35)
[2019-04-22] MEDS ORDERED: DiphenhydrAMINE HCL 50 MG/ML VIAL IV PRN (14:54)
[2019-04-22] MEDS ORDERED: DC INTRASPINAL MORPHINE SCH (15:00)
[2019-04-22] MEDS ORDERED: NO NARCOTICS OR SEDATIVES SCH (15:00)
[2019-04-22] MEDS ORDERED: SODIUM CHLORIDE 0.9% 1000ML 1,000 ML IV SCH (15:00)
[2019-04-22] MEDS ORDERED: ONDANSETRON INJ 2 MG/ML 2 ML VIAL ONE (15:39)
--- NOTE | 2019-04-22 16:19 | Post Operative Brief Note ---
Immediate Post Op Note v1 Date of Surgery April 22, 2019 Pre & Post Diagnosis Operation Date: 04/22/19 07:05 Pre-Op Diagnosis: Right hip fracture Post-Op Diagnosis: Right hip fracture Procedure Operation Date: 04/22/19 07:05 Actual Procedures p Right Bipolar Hip Hemiarthroplasty - Cemented(Right) - Raphael Rae MD Surgeon Raphael Rae MD Contract Associate Dilip, PAC Estimated Blood Loss 150 Findings Consistent with Post-Op Diagnosis Fluids 1500 cc Specimens Right Femoral Head Drains Trotter Catheter Anesthesia Type Spinal MAC Complications none Disposition Accompanied Patient To Recovery: Yes Disposition: Recovery Room
--- NOTE | 2019-04-22 17:01 | XRay Report ---
RIGHT HIP 2 VIEWS CLINICAL HISTORY: Postoperative examination. FINDINGS AP and crosstable lateral portable views of the right hip are obtained. A unipolar right hip arthroplasty is in near-anatomic alignment. No acute fracture is identified. There are expected post operative changes overlying the right hip including skin clips, subcutaneous gas, and soft tissue swe lling. IMPRESSION: Expected postoperative findings status post right hip arthroplasty. No acute fracture is seen. Electronically signed by: Cody Desai M.D. 04/22/2019 5:00 PM
--- NOTE | 2019-04-22 17:25 | Anesthesiology Progress Note ---
Date of Service April 22, 2019 Anesthesia Post Procedure Vital Signs Vital Signs: Temp Pulse Pulse Pulse Resp BP BP 04/22/19 17:15 102 H 22 103/66 04/22/19 17:05 103 H 22 102/51 L 04/22/19 17:00 103 H 17 105/67 04/22/19 16:50 107 H 20 115/70 04/22/19 16:40 96 H 18 119/63 04/22/19 16:30 107 H 20 115/70 04/22/19 16:22 37.1 C 106 H 18 102/79 04/22/19 13:38 37.7 C H 95 H 19 133/74 04/22/19 11:13 36.9 C 88 16 120/60 04/22/19 08:00 37.3 C 98 H 16 128/64 04/22/19 07:40 04/21/19 23:59 36.9 C 81 16 129/72 04/21/19 18:24 36.3 C L 77 19 152/73 H 04/21/19 18:02 127/72 04/21/19 18:00 77 18 04/21/19 17:32 81 16 04/21/19 17:31 83 17 125/64 04/21/19 17:30 84 20 Pulse Ox Pulse Ox 04/22/19 17:15 93 04/22/19 17:05 94 04/22/19 17:00 94 04/22/19 16:50 95 04/22/19 16:40 96 04/22/19 16:30 95 04/22/19 16:22 100 04/22/19 13:38 96 04/22/19 11:13 94 04/22/19 08:00 93 04/22/19 07:40 98 04/21/19 23:59 98 04/21/19 18:24 90 04/21/19 18:02 04/21/19 18:00 93 04/21/19 17:32 90 04/21/19 17:31 89 L 04/21/19 17:30 88 L Pain Intensity Right Hip: Pain Intensity: 0 Transfer of Care Handoff Completed per policy Notes Mental Status: alert / awake / arousable Patient Amnestic to Procedure: Yes Nausea / Vomiting: adequately controlled Pain: adequately controlled Airway Patency, RR, SpO2: stable & adequate BP & HR: stable & adequate Hydration State: stable & adequate Neuraxial Anesthesia: was administered and sensory block is resolving Anesthetic Complications: no major complications apparent and Pt Satisfied with anesthetic care Notes: The patient was given Duramorph in her spinal. She has some postop itchiness, but her pain is well controlled. Her HR has been 90s to 100s which is her baseline and SBP is in the 100s. She will have continuous pulse oximetry on the floor.
[2019-04-22] MEDS ORDERED: METOPROLOL TARTRATE 1 MG/ML VIAL IV ONE (17:49)
[2019-04-22] MEDS ORDERED: METOPROLOL TARTRATE 1 MG/ML VIAL IV STA (18:09)
[2019-04-22] MEDS ORDERED: COUGH DROP (SUGAR FREE) LOZ 24 LOZ/1 BOX BUCCAL PRN (18:35)
[2019-04-22] MEDS ORDERED: BISACODYL 10 MG SUPP PR PRN (18:35)
[2019-04-22] MEDS ORDERED: PROMETHAZINE HCL 12.5 MG in SODIUM CHLORIDE 0.9% 50 ML IV STA (19:54)
--- NOTE | 2019-04-22 20:20 | XRay Report ---
XR chest 1V portable CLINICAL HISTORY: 79 years-old Female presenting with sob. congestion?. TECHNIQUE: Portable upright AP view of the chest was obtained. COMPARISON: 04/21/2019. FINDINGS: Atherosclerosis of the aortic arch. Cardiac silhouette top normal in size. Mild pulmonary vascular co ngestion. Lungs are hyperinflated. No focal opacity. No pleural effusion or pneumothorax. Osteopenia. Upper abdomen normal. IMPRESSION: 1. Findings suggest emphysema. No focal infiltrate to suggest pneumonia. 2. Mild volume overload. No aleyda pulmonary edema. Electronically signed by: Ac Epstein M.D. 04/22/2019 8:19 PM
[2019-04-22] MEDS: ONDANSETRON INJ 2 MG/ML 2 ML VIAL IV PRN (20:22)
[2019-04-22] MEDS: SENNA 8.6 MG TAB PO SCH (20:54)
[2019-04-22] MEDS: ASPIRIN 81 MG ECTAB PO SCH (20:54)
[2019-04-22] MEDS: DOCUSATE SODIUM/SENNA 50/8.6MG TAB PO SCH (20:54)
[2019-04-22] MEDS: CEFAZOLIN 1000MG 1,000 MG/7.5 ML SYR IV SCH (22:16)
[2019-04-23] MEDS: LACTATED RINGER'S 1,000 ML IV SCH ×3 (05:04→13:50)
[2019-04-23] MEDS: CEFAZOLIN 1000MG 1,000 MG/7.5 ML SYR IV SCH (05:09)
--- NOTE | 2019-04-23 05:18 | Operative Report ---
DATE OF OPERATION: 04/22/2019 SURGEON: Raphael Rae MD ANIMAL CARE SPECIALIST: KYLAH Ospina PREOPERATIVE DIAGNOSIS: Right displaced femoral neck fracture. POSTOPERATIVE DIAGNOSIS: Right displaced femoral neck fracture. PROCEDURE PERFORMED: Right cemented bipolar hip arthroplasty. COMPLICATIONS: None. ESTIMATED BLOOD LOSS: 150 mL. FLUID REPLACEMENT: 1500 mL crystalloid fluid replacement. ANESTHESIA: Spinal. DRAINS: None. SPECIMENS: Right femoral head sent for pathology. OPERATIVE INDICATIONS: The patient is an 79-year-old fairly active, independent female who sustained a fall yesterday. She was apparently cleaning her house when she turned and lost her balance and fell on the right hip. She had acute onset of pain and was unable to ambulate afterwards. She was brought to Emergency Room. X-rays revealed a displaced femoral neck fracture. The patient was admitted by the hospitalist service, medically optimized and indicated for surgical treatment. She had no preexisting hip pain. OPERATIVE IMPLANTS: Operative implants consisted of: 1. A Katelynn size 11 LDFX fracture stem. 2. A size 9 distal centralizer. 3. A 28 mm/ +3.5 articular ball. 4. A 45 mm bipolar shell and liner. 5. A small cement restrictor. OPERATIVE PROCEDURE: The patient was taken to the operating room, identified and placed on the Operating Room table in supine position. All contact areas were appropriately padded. I.V. antibiotics were provided by anesthesia team. A spinal anesthetic had been implemented in the holding area. Trotter catheter had been previously placed. The patient was then placed in the left lateral decubitus position. An axillary roll was placed. Stlberg hip positioner was used for positioning. Right hip and leg were then prepped and draped in usual sterile fashion. A posterolateral approach of the right hip was then performed through a curvilinear incision centered over the greater trochanter. Sharp dissection was carried through the subcutaneous tissue down to the level of the IT band and gluteal fascia. The IT band and gluteal fascia were then incised longitudinally in line with skin incision. The underlying greater trochanteric bursa was excised. The piriformis and external rotators were tagged and taken off the posterior aspect of the hip joint capsule. Great care was taken throughout the procedure to protect the sciatic nerve at all times. Posterior capsulotomy was then performed leaving flaps to be repaired later. Hip was internally rotated. Femoral neck osteotomy cut was made below the fracture site. The femoral neck was removed. The femoral head was removed. I then sized the acetabulum to a size 45. Attention was then drawn to the femur. The proximal femur was entered with a cookie cutter followed by canal finder. I used the lateralizing reamer. The femur was then broached with a size 10 and progressing up to 11. We used a calcar reamer to smoothen off the calcar. I then trialed the hip and +3.5 articular ball seemed to provide optimal stability and leg lengths and soft tissue tension. Hip was fully stable in full extension and external rotation and flexion to 90 degrees and internal rotation over [address] I elected to place these implants. All trial implants were removed. I irrigated the wound extensively. A small cement restrictor was placed 15 cm down the canal. The canal was irrigated and cleaned. A double batch of [place] G cement was mixed and injected into the canal. A size 11 Katelynn LDFX fracture stem was placed with a 9 centralizer. We did antivert this slightly. All extraneous cement was removed. Once the cement hardened, +3.5/28 mm metal articular ball followed by a 45 bipolar shell and liner were placed. Hip was located and once again found to be stable. Attention was then drawn toward closing. The wound was irrigated with copious amount of pulsatile lavage solution. I did inject locally with 40 mL of 0.5% Marcaine with epinephrine. The posterior capsule was then meticulously repaired with #2 Ti-Cron suture. The external rotators were reapproximated to the posterior aspect of the hip abductors with #2 Ti-Cron suture. The IT band and gluteal fascia were then closed with #1 PDS suture in running fashion. The subcutaneous tissues were then closed with 2 layers, the deep layer #1 Vicryl suture and subcutaneous tissue with 2-0 Dexon suture in a buried interrupted fashion. The skin was closed with skin kassandra. Leg was then cleaned, dried and a sterile dressing of Xeroform, 4 x 4's, sterile ABD pad and foam tape was applied. The patient was then transferred to the recovery room in a stable condition. The patient tolerated the procedure well. No complications. All needle and sponge counts were correct at the end of the operation. I attest to the content of the Intraoperative Record and any orders documented therein. Any exception s are noted below.
--- NOTE | 2019-04-23 07:35 | Orthopedic Progress Note ---
Date of Service April 23, 2019 Assessment & Plan (1) Closed fracture of right hip: She was seen and examined by Dr. Rae today. Pain is controlled. continue dvt prophylaxis (teds, scds and aspirin) PT/OT WBAT and total hip precautions Discharge planning Subjective POD 1 from right hip hemiarthroplasty for fx. No pain today. No complaints at all. Physical Exam Physical Exam: alert and oriented. NAD Dressing clean dry and intact hip located/aligned well NVI. able to DF/PF Results & Data Vital Signs (Past 12 Hours) Vital Signs Temp Pulse Pulse Resp BP Pulse Ox Pulse Ox 04/23/19 07:24 37.2 C 111 H 22 93/57 L 93 04/23/19 06:20 98 H 18 95 04/23/19 05:17 98 H 18 96 04/23/19 05:05 100 04/23/19 04:37 18 95 04/23/19 04:25 106 H 18 95 04/23/19 03:37 16 98 04/23/19 03:30 98 H 16 98 04/23/19 03:03 36.9 C 108 H 18 92/57 L 99 04/23/19 02:25 98 H 16 96 04/23/19 01:23 104 H 16 94 04/23/19 00:25 103 H 16 92 91 04/22/19 23:08 36.9 C 106 H 17 96/60 L 94 04/22/19 21:25 18 92 04/22/19 21:06 36.6 C 115 H 20 95/60 L 90 04/22/19 20:25 36.8 C 109 H 18 92/60 L 93 (1) Closed fracture of right hip Encounter type: initial encounter Qualified Code(s): S72.001A - Fracture of unspecified part of neck of right femur, initial encounter for closed fracture
[2019-04-23 07:54] LABS: Basophils # (auto) 0.01 K/uL (0-0.2); Basophils % (auto) 0.1 %; Eosinophils # (auto) 0.01 K/uL (0-0.5); Eosinophils % (auto) 0.1 %; Hematocrit (blood only) 29.2 % (37-47); Immature Granulocytes # (auto) 0.01 K/uL (0.00-0.02); Immature Granulocytes % (auto) 0.1 %; Lymphocytes # (auto) 0.59 K/uL (1.2-3.4); Lymphocytes % (auto) 7.8 %; Mean Corpuscular Hgb Conc 34.2 g/dL (32-36); Mean Corpuscular Volume 91.3 fL (80-100); Mean Platelet Volume 10.3 fL (7.4-10.4); Monocytes # (auto) 0.54 K/uL (0.11-0.59); Monocytes % (auto) 7.2 %; Neutrophils # (auto) 6.37 K/uL (1.4-6.5); Neutrophils % (auto) 84.7 %; Platelet Count 127 K/uL (130-400); RDW Coefficient of Variation 13.4 % (11.5-14.5); RDW Standard Deviation 44.2 fL (36.4-46.3); White Blood Count 7.53 K/uL (4.8-10.8)
[2019-04-23 08:18] LABS: BUN Creatinine Ratio 14.6 (10-20); Calcium 8.3 mg/dl (8.5-10.1); Creatinine Clr Calc Pharmacy 54.9 ml/min; Est GFR (African American) 88.7; Est GFR (Non-African American) 76.5; Potassium 3.7 mmol/L (3.5-5.1)
[2019-04-23] MEDS: ASPIRIN 81 MG ECTAB PO SCH ×2 (08:52→22:02)
[2019-04-23] MEDS: OXYBUTYNIN CHLORIDE 5 MG TAB PO SCH (08:52)
[2019-04-23] MEDS: ROSUVASTATIN CALCIUM 10 MG TAB PO SCH (08:52)
[2019-04-23] MEDS: ONDANSETRON INJ 2 MG/ML 2 ML VIAL IV PRN ×3 (08:52→21:59)
[2019-04-23] MEDS: SODIUM CHLORIDE 0.9% 500 ML IV ONE ×2 (14:51→16:50)
--- NOTE | 2019-04-23 15:57 | XRay Report ---
XR chest 1V portable CLINICAL HISTORY: Chest pain. COMPARISON STUDY: Chest radiograph April 22, 2019. FINDINGS: Lung volumes are normal. There is no pneumothorax or pleural effusion. A density projecting over the right lower lung is likely on the patient. Pulmonary vascular congestion with possible mild pulmonary edema is unchanged. Mild cardiomegaly is again noted. IMPRESSION: No change in pulmonary vascular congestion with possible mild pulmonary edema. Electronically signed by: Terrance Rock M.D. 04/23/2019 3:56 PM
[2019-04-23] MEDS: MoRPHine SULFATE 2 MG/ML CARP IV PRN (16:56)
[2019-04-23] MEDS ORDERED: ALUMINUM/MAGNESIUM/SIMETH (MAALOX MAX) 30 ML UDC PO PRN (17:20)
[2019-04-23] MEDS ORDERED: NITROGLYCERIN SL 0.4 MG/TAB TAB SL PRN (17:20)
[2019-04-23 17:46] LABS: Hematocrit (blood only) 26.9 % (37-47); Hemoglobin 9.4 g/dL (12.0-16.0)
[2019-04-23 17:57] LABS: INR 1.1 (0.9-1.1); Partial Thromboplastin Ratio 1.2; Partial Thromboplastin Time 31.7 Seconds (21.0-31.0); Prothrombin Time 11.3 Seconds (9.0-12.0)
--- NOTE | 2019-04-23 17:57 | Cardiology Consultation ---
Date of Consultation April 23, 2019 Assessment & Plan (1) Chest pain: 79-year-old female with no known past history of coronary heart disease presented with a mechanical fall and underwent hemiarthroplasty of a right hip fracture. Today is postoperative day 1. She had been receiving DVT prophylaxis with aspirin, compression stockings, and sequential pneumatic compression devices. She notes midline chest pressure. Blood pressure is mildly low with systolic reading in the range of 105. On further discussion, the patient states that a few months ago her spouse . She therefore moved from [place] back to [place]. She describes having had on and off again chest pain when she was packing but she had not seen medical care for this. Current pain is typical. She describes it as a pressure. Given her development of sinus tachycardia, low blood pressure, and the fact that she is 1 day removed from orthopedic surgery, I recommend proceeding with a CT angiogram of the chest to exclude venous thromboembolic disease. Dr. Olivas has a page out to Dr Rae to update him. As long as he is deemed allowable from a postoperative orthopedic surgery standpoint, will start unfractionated heparin without bolus for possible venous thromboembolic disease as well as treatment of myocardial ischemia. Although the patient's postoperative state and tachycardia suggest pulmonary embolism, she does recall a history of similar discomfort that makes this sounds like it could also be angina. There are no changes on EKG to suggest ST segment elevation, and emergent cardiac catheterization is not indicated at present. We will gently hydrate her, and treat her medically. She will be made n.p.o. Cardiac catheterization will be considered tomorrow depending upon her course. She has previously expressed that she is a DNR. History of Present Illness Attending Physician: Bebeto Olivas MD History of Present Illness Roma Silver is an 79 year old female seen in stat cardiology consultation per the request of Dr Olivas for the evaluation of chest pain. Patient has a history of dyslipidemia overactive bladder, malignant hypertherm ia. She presented to the emergency department on 04/21/2019 complaining of right hip pain. She was cleaning her house when she lost her balance falling onto her right hip. She subsequent underwent cemented right hemiarthroplasty performed by Dr. Rae yesterday 04/22/2019. Earlier today the patient had been seen on the orthopedic unit by Dr. Olivas and assessed for chest discomfort and transien t low blood pressure. She was transferred to the telemetry unit and received a bolus of IV fluid with transient palliation of her symptoms. She now has had recurrent of midline chest discomfort. Allergies Allergy/AdvReac Type Severity Reaction Status Date / Time hydromorphone [From Dilaudid] Allergy Severe Anaphylaxis Verified 04/22/19 13:46 Home Medications Home Medications Medication Instructions Recorded Confirmed Type alendronate [Fosamax] 70 mg PO UD 04/21/19 04/21/19 History aspirin [Aspirin Low Dose] 81 mg PO DAILY 04/21/19 04/21/19 History cholecalciferol (vitamin D3) 2,000 unit PO DAILY 04/21/19 04/21/19 History [Vitamin D3] oxybutynin chloride 5 mg PO DAILY 04/21/19 04/21/19 History rosuvastatin [Crestor] 10 mg PO DAILY 04/21/19 04/21/19 History Patient History Medical History Osteoporosis (Chronic) History of cataract (Chronic) Left eye History of hysterectomy (Chronic) Dyslipidemia (Chronic) Overactive bladder (Chronic) Surgical History History of bladder repair surgery (Chronic) 2008 History of lumpectomy of both breasts (Chronic) 1962 - Left breast lumpectomy - pt reports was benign 1980 - R breast lumpectomy - pt reports was benign History of tonsillectomy and adenoidectomy (Chronic) H/O eye surgery (Chronic) 1944 - Right eye surgery 1947 - Right eye surgery H/O malignant hyperthermia (Chronic) Family History Other Cancer Hypertension Malignant hyperthermia due to anesthesia Social History Preferred Language: Thai Communication Ability: Effective Strapping Machine Tender Required: No Beliefs That Will Affect Care: Rastafarian Rastafarian Beliefs: Baptist marital status: / Current Living Situation: Alone Feels Safe at Home: Yes Safety Concerns: Feels Safe At This Time Smoking Status: Former smoker Do You Dip or Chew Tobacco: No Smoking End Date: quit at age 59 Hx Alcohol Use: No Hx Substance Use: No Physical Exam Physical Exam: General: no acute distress and stated age Eyes: conjunctiva are pink and non-injected, sclera clear Neck: normal jugular venous pulse, no hepatojugular reflux Chest: normal shape and normal respiratory effort Lungs: clear to auscultation and percussion Cardiac Exam: - regular heart sounds, no murmurs, rubs, or gallops, no jugular venous distention Abdomen: abdomen soft, non-tender, no abnormal masses and no hepatosplenomegaly Extremities: no edema and no cyanosis Neuro:awake, coversant, follows commands, no focal motor deficits Psych: appropriate affect and insight. Results & Data Vital Signs (Past 12 Hours) Vital Signs Temp Pulse Pulse Resp BP BP Pulse Ox 04/23/19 17:39 97 H 20 123/73 94 04/23/19 15:49 98 H 110/67 105/64 04/23/19 15:20 04/23/19 15:01 36.4 C L 91 H 17 90/51 L 94 04/23/19 11:48 36.7 C 105 H 22 92/54 L 92 04/23/19 07:25 14 98 04/23/19 07:24 37.2 C 111 H 22 93/57 L 93 04/23/19 06:20 98 H 18 95 Pulse Ox 04/23/19 17:39 04/23/19 15:49 04/23/19 15:20 94 04/23/19 15:01 04/23/19 11:48 04/23/19 07:25 98 04/23/19 07:24 04/23/19 06:20 Laboratory Results CBC 04/23/19 04/23/19 Range/Units 07:10 17:33 WBC 7.53 (4.8-10.8) K/uL RBC 3.20 L (4.2-5.4) M/uL Hgb 10.0 L 9.4 L (12.0-16.0) g/dL Hct 29.2 L 26.9 L (37-47) % Plt Count 127 L (130-400) K/uL Neut # (Auto) 6.37 (1.4-6.5) K/uL Lymph # (Auto) 0.59 L (1.2-3.4) K/uL [place] # (Auto) 0.54 (0.11-0.59) K/uL Eos # (Auto) 0.01 (0-0.5) K/uL Baso # (Auto) 0.01 (0-0.2) K/uL Comprehensive Metabolic Panel 04/23/19 Range/Units 07:10 Sodium 140 (136-145) mmol/L Potassium 3.7 (3.5-5.1) mmol/L Chloride 105 (98-107) mmol/L Carbon Dioxide 27 (21-32) mmol/L BUN 11 D (7-18) mg/dl Creatinine 0.74 (0.6-1.2) mg/dl Glucose 110 H (70-99) mg/dl Calcium 8.3 L (8.5-10.1) mg/dl Intake and Output 04/23/19 04/23/19 04/23/19 06:59 14:59 22:59 Intake Total 794.667 / 3184.000 2675 / 3170.833 495.833 / 3170.833 Output Total 150 / 975 1000 / 1000 Balance 644.667 / 2209.000 1675 / 2170.833 495.833 / 2170.833 Intake: IV 794.667 / 5491.534 7189 / 2495.833 495.833 / 2495.833 Lr 1,000 ml @ 400 mls/hr IV . 794.667 / 5986.470 1342 / 1999 Q2H30M [facility] Rx#:[id number] Nss 500 ml @ 250 mls/hr IV .Q2H 495.833 / 495.833 ONE Rx#:[id number] Oral 675 / 675 Output: Urine Amount (Catheter) 150 / 775 1000 / 1000 Trotter/Indwelling 150 / 775 1000 / 1000 Diagnostic Findings EKG performed at the bedside 04/23/2019 at 1730 reviewed immediately by the undersigned revealed sinus tachycardia 102 bpm, subtle lateral ST segment depression noted that is a bit more prominent in lead I, and somewhat similar to the previously noted morphology in the lateral precordial leads. Preoperative EKG performed 04/21/2019 revealed sinus rhythm at [address] segments in the lateral leads. Medications Administered Current Inpatient Medications Acetaminophen (Tylenol) 650 mg PO Q6H PRN PRN Reason: Mild Pain (Scale 1,2,3) Stop: 05/22/19 18:34 Al Hydrox/Mg Hydrox/Simethicone (Maalox Max) 30 ml PO Q6H PRN PRN Reason: Indigestion Stop: 05/23/19 17:19 Last Admin: 04/23/19 17:45 Dose: 30 ml Documented by: Aspirin (Ecotrin Ectab) 81 mg PO BID [facility] Stop: 05/22/19 20:59 Last Admin: 04/23/19 08:52 Dose: 81 mg Documented by: Bisacodyl (Dulcolax) 10 mg [place] DAILY PRN PRN Reason: Constipation Stop: 05/22/19 18:34 Sodium Chloride (Nss 1000ml) 500 mls @ 500 mls/hr IV .Q1H ONE Stop: 04/23/19 18:38 Magnesium Hydroxide (Milk Of Magnesia) 30 ml PO DAILY PRN PRN Reason: Constipation Stop: 05/22/19 18:34 Menthol (Nice) 1 isaiah BUCCAL Q2H PRN PRN Reason: Sore Throat Stop: 05/22/19 18:34 Metoprolol Tartrate (Lopressor) 12.5 mg PO ONE ONE Stop: 04/23/19 17:40 Metoprolol Tartrate (Lopressor) 12.5 mg PO BID [facility] Stop: 05/24/19 08:59 Morphine Sulfate (Morphine Sulfate) 2 mg IV Q2H PRN PRN Reason: MODERATE Pain (Scale 4,5,6) Stop: 05/05/19 19:07 Last Admin: 04/23/19 16:56 Dose: 2 mg Documented by: Naloxone HCl (Narcan) 0.1 mg IV UD PRN PRN Reason: Opioid Overdose Stop: 05/22/19 18:34 Nitroglycerin (Nitrostat) 0.4 mg SL PRN PRN PRN Reason: Chest Pain Stop: 05/23/19 17:19 Ondansetron HCl (Zofran) 4 mg IV Q6H PRN PRN Reason: Nausea And Vomiting Stop: 05/23/19 08:59 Last Admin: 04/23/19 09:50 Dose: 4 mg Documented by: Oxybutynin Chloride (Ditropan) 5 mg PO DAILY [facility] Stop: 05/22/19 08:59 Last Admin: 04/23/19 08:52 Dose: 5 mg Documented by: Polyethylene Glycol (Miralax Powder Packet) 17 gm PO Q6 [facility] Stop: 05/24/19 05:59 Rosuvastatin Calcium (Crestor) 10 mg PO DAILY [facility] Stop: 05/22/19 08:59 Last Admin: 04/23/19 08:52 Dose: 10 mg Documented by: Senna/Docusate Sodium (Senokot S) 2 tab PO [facility] Stop: 05/21/19 20:59 Last Admin: 04/22/19 20:54 Dose: Not Given Documented by: Sennosides (Senokot) 17.2 mg PO [facility] Stop: 05/22/19 20:59 Last Admin: 04/22/19 20:54 Dose: Not Given Documented by:
[2019-04-23] MEDS ORDERED: ASPIRIN 81 MG CHEW PO STA (17:59)
[2019-04-23] MEDS ORDERED: SODIUM CHLORIDE 0.9% 1000ML 500 ML IV ONE (18:00)
[2019-04-23] MEDS ORDERED: METOPROLOL TARTRATE 25 MG TAB PO ONE (18:00)
[2019-04-23 18:02] LABS: BUN Creatinine Ratio 16.1 (10-20); Calcium 7.8 mg/dl (8.5-10.1); Creatinine Clr Calc Pharmacy 52.1 ml/min; Est GFR (African American) 83.2; Est GFR (Non-African American) 71.8; Potassium 3.5 mmol/L (3.5-5.1)
[2019-04-23] MEDS ORDERED: OPTIRAY 320 125ml IV PRN (18:07)
[2019-04-23 18:11] LABS: Troponin I 0.943 ng/ml (0-0.045)
--- NOTE | 2019-04-23 18:24 | CT Scan Report ---
CT angio chest PE protocol CT DOSE: 254.40 mGy.cm HISTORY: 79 years-old Female with PE. Acute shortness of breath with recent hip surgery TECHNIQUE: Multiple CTA images of the chest were obtained after the intravenous administration of 86 ml Optiray 320. Coronal and sagittal MIPS were obtained from the axial data set and were submitted f or review. All measurements were obtained according to NASCET criteria. A dose lowering technique wa s utilized adhering to the principles of ALARA. COMPARISON: Chest radiograph of same day FINDINGS: CTA: Heart is mildly enlarged. No large pericardial effusion. Extensive coronary arterial calcifications a re noted. Left heart structures and thoracic aorta are not well opacified to continue to contrast macy us timing. Moderate mixed plaque formation of the aorta without aneurysm or dissection identified. Re flux of contrast into the IVC and hepatic veins. The pulmonary arterial free is opacified to level th e subsegmental branches. Filling defects are noted within segmental and subsegmental branches of the posterior basal, lateral basal and superior segments of the right lower lobe with additional subsegme ntal pulmonary emboli of the apical posterior segment left upper lobe. There is mild straightening of the intraventricular septum. CT CHEST: 1.3 cm posterior left thyroid hypoechoic nodule. Nonspecific prominent hilar and subcarinal lymph nod es measure up to 8 mm. Trace bilateral pleural effusions. Severe emphysema with chronic fibrotic degroot ge. Mild bilateral bronchial wall thickening. No suspicious pulmonary nodules or masses. Mild depende nt subsegmental bibasilar atelectasis. Wedge-shaped groundglass opacity of the posterior basal segmen t right lower lobe, image 66 series 4. Central airways appear to be patent. Mild circumferential wall thickening of the distal esophagus. No acute process of the imaged upper ab domen. Hepatic steatosis. Breast parenchyma and soft tissues appear unremarkable. Degenerative change s of the shoulders and spine. IMPRESSION: 1. Segmental and subsegmental right sided with subsegmental left-sided acute-appearing pulmonary embo li. Additionally, there is straightening of the intraventricular septum suspicious for right heart st rain. 2. Trace bilateral pleural effusions with subsegmental bibasilar atelectasis. Findings suspicious for developing pulmonary infarct about the posterior basal segment of the right lower lobe. 3. Nonspecific mild wall thickening of the distal esophagus. 4. Hepatic steatosis. The above report was generated using voice recognition software. It may contain grammatical, syntax o r spelling errors. Electronically signed by: Alexandru Myers M.D. 04/23/2019 6:23 PM
[2019-04-23] MEDS ORDERED: Heparin IV Low Dose WITH Bolus IV SCH (18:45)
[2019-04-23] MEDS ORDERED: HEPARIN IV BOLUS 3,000 UNITS in SYRINGE 0 ML IV ONE (19:00)
[2019-04-23] MEDS ORDERED: MoRPHine SULFATE 2 MG/ML CARP IV STA (19:07)
[2019-04-23] MEDS: Heparin Adult LOW DOSE Wt-Based Dextrose 5% 25,000 units/500 mL IV SCH (19:20)
--- NOTE | 2019-04-23 20:47 | Ultrasound Report ---
US venous doppler LE CLINICAL HISTORY: 79 years-old Female presenting with pulmonary emboli, evaluate for ETT. TECHNIQUE: Real-time grayscale and color and spectral Doppler ultrasound imaging of the veins of the bilateral lower extremities was performed. Compression and augmentation were also utilized. COMPARISON: None. FINDINGS: RIGHT: Common femoral vein: Patent. Greater saphenous vein (superficial): Patent. Deep femoral vein: Patent. Femoral vein: Patent. Popliteal vein: Patent. Calf veins: Filling defect consistent with thrombus within one of 2 duplicated right peroneal veins. LEFT: Common femoral vein: Patent. Greater saphenous vein (superficial): Patent. Deep femoral vein: Patent. Femoral vein: Patent. Popliteal vein: Patent. Calf veins: Patent. Other: Exaggerated phasicity in the right common femoral vein. Superficial vein within the right popl iteal fossa containing a filling defect consistent with thrombus. This is occlusive or nearly occlusi ve and acute appearing. Note also made of a suspected right popliteal cyst. Superficial vein in the m edial left calf also contains a filling defect concerning for superficial venous thrombosis. This is also acute-appearing. IMPRESSION: 1. Deep venous thrombosis within one of two duplicated right peroneal veins. No other more proximal right lower extremity DVT. 2. No evidence of deep venous thrombosis within the left lower extremity. 3. Acute superficial venous thrombosis in the right popliteal fossa and medial left calf. 4. Exaggerated phasicity in the common femoral veins suggest tricuspid regurgitation or right heart failure. The report will be called/faxed according to standard departmental protocol for a critical finding. Electronically signed by: Ac Epstein M.D. 04/23/2019 8:46 PM
--- NOTE | 2019-04-23 21:36 | Hospitalist Progress Note ---
Date of Service April 23, 2019 Assessment & Plan (1) Closed fracture of right hip: Right hip fracture after mechanical fall. Likely age related pathologic / osteoporotic right femoral neck fracture. Right cemented bipolar hip arthroplasty performed by Dr. Rae on 04/22/2019. POD # 1. (2) Malignant hyperthermia susceptibility: Daughter had episode of malignant hyperthermia years ago. Family members were tested (patient doesn't remember name of test). Patient and her other children were told that they were malignant hyperthermia susceptible, but testing for patient's siblings was reportedly negative. Anesthesia consulted and aware to follow MH precautions. (3) Pulmonary emboli: CTA chest demonstrated bilateral segmental/subsegmental with RV strain. Venous duplex lower extremities demonstrated DVT within 1 of 2 duplicated right peroneal veins as well as superficial thrombosis in the right popliteal fossa and left medial calf. VTE developed despite preop prophylaxis with SCDs and postop prophylaxis with aspirin + SCDs. Patient is only 24 hours postop from repair of her hip fracture, but benefits of anticoagulation outweigh the risk. IV heparin per low-dose protocol initiated. Platelet count 127,000 this morning and will need to be monitored closely. Echocardiogram ordered for further evaluation of RV strain. Elevated troponin 0.9 most likely secondary to pulmonary emboli. However, CT demonstrates coronary calcifications and patient certainly may have coronary artery disease as well. Anticipate transition to oral anticoagulant if IV heparin is tolerated. (4) DVT (deep venous thrombosis): As discussed above. (5) Altered mental status: Episodes of confusion after receiving analgesics earlier in the evening. Episode of more severe confusion associate with dysarthria, apparent right gaze preference, and extension of lower extremities around 2100 while receiving IV heparin. Neurologic symptoms probably improved. CT of head negative for hemorrhage. CTA of cervical and intracranial vessels considered, but not ordered because of recent diet administration with CTA of chest. Case discussed with Neurology. Patient not a candidate for thrombolytic therapy because of right hip repair with spinal anesthesia approximately 24 hours prior to event. No apparent need for consideration of cerebrovascular interventional procedures because of prompt improvement of neurologic symptoms. Check EEG in the morning. MRI recommended. Will defer ordering it until the morning because of her confu tito, acute pulmonary emboli, and need for close monitoring. Check carotid duplex. Check echocardiogram. Patient already already receiving aspirin. Patient already on statin. Check lipid profile. PT/OT/CAR GREASER evaluations when condition permits. (6) Dyslipidemia: Continue rosuvastatin. (7) Osteoporosis: Vitamin D level = 16. (8) DVT prophylaxis: SCD's preop. ASA + SCD's postop. Now on IV heparin. (9) Discharge planning issues: Discharge disposition to be determined after postop PT / OT evals. Pt lives by herself. Anticipate need for skilled care or inpt rehab. Family Medicine follow-up with Dr. Martinez. Subjective Recheck for multiple problems. Patient initially seen this morning during breakfast. She was out of bed in chair. Systolic blood pressures in the 90s, but no lightheadedness or other symptoms. She was seen again later in the morning. Heart rate was between 100 110 and systolic BPs were running in the 90s to 100 range. No chest pain, cough, shortness of breath, nausea, vomiting. Oxygenating well on 3 L nasal cannula. Received bolus of IV fluids for orthostasis. Oxygenation improving with deep breaths and incentive spirometry. Patient experienced chest pain after eating lunch. Chest pain described as midsternal burning/pressure that radiated posteriorly. The pain was not pleuritic in nature. No associated dyspnea, diaphoresis, nausea, vomiting. Oxygenation remained stable on 3 L nasal cannula. Pain improved without administration of any medications or other interventions. EKG showed sinus rhythm, minimal ST depression in lateral leads. Chest x-ray did not show any acute findings. Patient was transferred to the PCU for monitoring and further evaluation. Patient developed worsening chest pain after transfer to the PCU. EKG showed slightly more pronounced ST depression in lateral leads. Cardiology was consulted. Aspirin and metoprolol were ordered. CTA of chest was performed and showed bilateral segmental/subsegmental pulmonary emboli with evidence of RV strain. Anticoagulation indicated, but patient only 24 hours postop from ORIF right hip. Discussed with Ortho. Benefits of anticoagulation outweigh the risk. Patient was started on IV heparin. Son was visiting and given update. Received a dose of IV morphine with some confusion which subsequently improved. Around 2100 nursing staff observe an episode where the patient was confused, dysarthric, eyes gazing to the left, and extending both lower extremities. At the time of my assessment a few minutes later dysarthria and gaze preference had resolved. Patient was anxious and confused. Motor strength was 5/5 bilaterally. Plantar reflexes were downgoing bilaterally. Heparin was held. Stat CT of head was negative for bleed. Physical Exam Constitutional: no acute distress at time of initial evaluation this morning Respiratory: no respiratory distress Auscultation: lungs clear to auscultation bilaterally Cardiovascular: Rate/Rhythm: regular rate and regular rhythm Heart Sounds: no gallop, no murmur and no cardiac rub Vessels: no JVD Extremities: no calf tenderness and no edema Gastrointestinal (Abdomen): normal bowel sounds, soft, nontender, no hepatosplenomegaly Musculoskeletal: Hip: + hip abnormal to inpsection (right hip bandaged) Skin: no rashes, warm and dry Psychiatric: Orientation: alert and oriented x 3 Results & Data Vital Signs (Past 12 Hours) Vital Signs Temp Pulse Pulse Pulse Resp BP BP 04/23/19 20:00 04/23/19 19:15 98 H 18 106/69 04/23/19 19:14 106/67 04/23/19 17:52 105 H 110/68 04/23/19 17:39 97 H 20 123/73 04/23/19 17:16 96 H 96/65 L 04/23/19 15:49 98 H 110/67 105/64 04/23/19 15:20 04/23/19 15:01 36.4 C L 91 H 17 90/51 L 04/23/19 11:48 36.7 C 105 H 22 92/54 L Pulse Ox Pulse Ox 04/23/19 20:00 95 04/23/19 19:15 95 04/23/19 19:14 04/23/19 17:52 04/23/19 17:39 94 04/23/19 17:16 04/23/19 15:49 04/23/19 15:20 94 04/23/19 15:01 94 04/23/19 11:48 92 Laboratory Results Laboratory Results - last 24 hr 04/23/19 04/23/19 04/23/19 07:10 07:10 07:10 WBC 7.53 RBC 3.20 L Hgb 10.0 L Hct 29.2 L MCV 91.3 MCH 31.3 MCHC 34.2 RDW Std Deviation 44.2 RDW Coeff of Miguel 13.4 Plt Count 127 L MPV 10.3 Immature Gran % (Auto) 0.1 Neut % (Auto) 84.7 Lymph % (Auto) 7.8 [place] % (Auto) 7.2 Eos % (Auto) 0.1 Baso % (Auto) 0.1 Immature Gran # (Auto) 0.01 Neut # (Auto) 6.37 Lymph # (Auto) 0.59 L [place] # (Auto) 0.54 Eos # (Auto) 0.01 Baso # (Auto) 0.01 Platelet Estimate PT INR APTT PTT Ratio Sodium 140 Potassium 3.7 Chloride 105 Carbon Dioxide 27 Anion Gap 8.0 BUN 11 D Creatinine 0.74 Est Cr Clr Drug Dosing 54.9 Est GFR ( Amer) 88.7 Est GFR (Non-Af Amer) 76.5 BUN/Creatinine Ratio 14.6 Glucose 110 H POC Glucose Estimat Average Glucose Hemoglobin A1c Calcium 8.3 L Troponin I 25-OH Vitamin D Total 16.8 L Blood Type Antibody Screen 04/23/19 04/23/19 04/23/19 17:33 17:33 17:33 WBC RBC Hgb 9.4 L Hct 26.9 L MCV MCH MCHC RDW Std Deviation RDW Coeff of Miguel Plt Count MPV Immature Gran % (Auto) Neut % (Auto) Lymph % (Auto) [place] % (Auto) Eos % (Auto) Baso % (Auto) Immature Gran # (Auto) Neut # (Auto) Lymph # (Auto) [place] # (Auto) Eos # (Auto) Baso # (Auto) Platelet Estimate PT 11.3 INR 1.1 APTT 31.7 H PTT Ratio 1.2 Sodium 135 L Potassium 3.5 Chloride 103 Carbon Dioxide 25 Anion Gap 7.0 BUN 13 Creatinine 0.78 Est Cr Clr Drug Dosing 52.1 Est GFR ( Amer) 83.2 Est GFR (Non-Af Amer) 71.8 BUN/Creatinine Ratio 16.1 Glucose 113 H POC Glucose Estimat Average Glucose Hemoglobin A1c Calcium 7.8 L Troponin I 0.943 H* 25-OH Vitamin D Total Blood Type Antibody Screen 04/23/19 04/23/19 04/24/19 17:33 21:23 00:11 WBC 6.34 RBC 2.76 L Hgb 8.8 L Hct 24.7 L MCV 89.5 MCH 31.9 MCHC 35.6 RDW Std Deviation 43.6 RDW Coeff of Miguel 13.3 Plt Count 97 L MPV 9.6 Immature Gran % (Auto) Neut % (Auto) Lymph % (Auto) [place] % (Auto) Eos % (Auto) Baso % (Auto) Immature Gran # (Auto) Neut # (Auto) Lymph # (Auto) [place] # (Auto) Eos # (Auto) Baso # (Auto) Platelet Estimate Decreased L PT INR APTT PTT Ratio Sodium Potassium Chloride Carbon Dioxide Anion Gap BUN Creatinine Est Cr Clr Drug Dosing Est GFR ( Amer) Est GFR (Non-Af Amer) BUN/Creatinine Ratio Glucose POC Glucose 146 H Estimat Average Glucose Pending Hemoglobin A1c Pending Calcium Troponin I 25-OH Vitamin D Total Blood Type Antibody Screen 04/24/19 04/24/19 04/24/19 00:11 00:11 00:11 WBC RBC Hgb Hct MCV MCH MCHC RDW Std Deviation RDW Coeff of Miguel Plt Count MPV Immature Gran % (Auto) Neut % (Auto) Lymph % (Auto) [place] % (Auto) Eos % (Auto) Baso % (Auto) Immature Gran # (Auto) Neut # (Auto) Lymph # (Auto) [place] # (Auto) Eos # (Auto) Baso # (Auto) Platelet Estimate PT INR APTT 68.6 H* PTT Ratio 2.5 Sodium Potassium Chloride Carbon Dioxide Anion Gap BUN Creatinine Est Cr Clr Drug Dosing Est GFR ( Amer) Est GFR (Non-Af Amer) BUN/Creatinine Ratio Glucose POC Glucose Estimat Average Glucose Hemoglobin A1c Calcium Troponin I 0.772 H* 25-OH Vitamin D Total Blood Type A Positive Antibody Screen NEGATIVE (1) Closed fracture of right hip Encounter type: initial encounter Qualified Code(s): S72.001A - Fracture of unspecified part of neck of right femur, initial encounter for closed fracture
--- NOTE | 2019-04-23 21:58 | CT Scan Report ---
CT head/brain wo con CLINICAL HISTORY: 79 years-old Female presenting with altered mental status, r/o bleed. TECHNIQUE: Multidetector CT imaging of the head was performed without the use of intravenous contrast . IV contrast: None. One or more dose lowering techniques were used consistent with the principles of ALARA (as low as reasonably achievable), including automatic exposure control, mA or kV adjustment t o individual patient size, and/or use of iterative reconstruction. COMPARISON: None. CT DOSE (mGy.cm): The estimated cumulative dose is 729.78 mGycm. FINDINGS: Surg Physician Asst topogram: The patient is edentulous. Proportional ventricular and sulcal prominence, likely age-related parenchymal volume loss. Asymmetri c dilatation of the temporal horn of the left lateral ventricle likely implies greater left temporal lobe atrophy. No hemorrhage. Periventricular and subcortical white matter hypoattenuation, nonspecifi c but likely indicative of chronic small vessel ischemic change. No acute territorial infarct. No mas s effect or midline shift. No extra-axial fluid collection. Paranasal sinuses and mastoid air cells c lear. Calvarium intact. IMPRESSION: 1. Asymmetric left temporal lobe atrophy. 2. Chronic small vessel ischemic change. 3. No acute intracranial pathology. Electronically signed by: Ac Epstein M.D. 04/23/2019 9:57 PM
[2019-04-23] MEDS: SENNA 8.6 MG TAB PO SCH (22:02)
[2019-04-23] MEDS: DOCUSATE SODIUM/SENNA 50/8.6MG TAB PO SCH (22:02)
[2019-04-23] MEDS ORDERED: LACTATED RINGER'S 500 ML IV ONE (22:05)
[2019-04-23] MEDS ORDERED: PHARMACIST DISCHARGE MED REC CONSULT PRN (22:14)
[2019-04-24 00:22] LABS: Hematocrit (blood only) 24.7 % (37-47); Hemoglobin 8.8 g/dL (12.0-16.0); Mean Corpuscular Hgb Conc 35.6 g/dL (32-36); Mean Corpuscular Volume 89.5 fL (80-100); RDW Coefficient of Variation 13.3 % (11.5-14.5); RDW Standard Deviation 43.6 fL (36.4-46.3); Red Blood Count 2.76 M/uL (4.2-5.4); White Blood Count 6.34 K/uL (4.8-10.8)
[2019-04-24 00:42] LABS: Partial Thromboplastin Ratio 2.5
[2019-04-24 00:46] LABS: Mean Platelet Volume 9.6 fL (7.4-10.4); Platelet Count 97 K/uL (130-400)
[2019-04-24 00:47] LABS: Platelet Estimate Decreased (Normal)
[2019-04-24 01:30] LABS: Partial Thromboplastin Time 68.6 Seconds (21.0-31.0)
[2019-04-24] MEDS ORDERED: HEPARIN SODIUM/DEXTROSE 25,000 UNITS/500 ML BAG IV SCH (01:45)
[2019-04-24] MEDS: Heparin Adult LOW DOSE Wt-Based Dextrose 5% 25,000 units/500 mL IV SCH (01:47)
[2019-04-24] MEDS: D5W AND LACTATED RINGERS 1,000 ML IV SCH ×4 (01:48→21:37)
[2019-04-24] MEDS: POLYETHYLENE (MIRALAX) 17 GM PACK PO SCH ×4 (06:06→23:11)
[2019-04-24 06:10] LABS: Eosinophils # (auto) 0.01 K/uL (0-0.5); Eosinophils % (auto) 0.2 %; Hemoglobin 8.5 g/dL (12.0-16.0); Immature Granulocytes # (auto) 0.01 K/uL (0.00-0.02); Immature Granulocytes % (auto) 0.2 %; Lymphocytes # (auto) 0.49 K/uL (1.2-3.4); Lymphocytes % (auto) 7.7 %; Mean Corpuscular Hgb Conc 35.4 g/dL (32-36); Mean Corpuscular Volume 88.6 fL (80-100); Mean Platelet Volume 9.5 fL (7.4-10.4); Monocytes # (auto) 0.48 K/uL (0.11-0.59); Monocytes % (auto) 7.5 %; Neutrophils # (auto) 5.41 K/uL (1.4-6.5); Neutrophils % (auto) 84.4 %; Platelet Count 111 K/uL (130-400); RDW Coefficient of Variation 13.2 % (11.5-14.5); RDW Standard Deviation 42.8 fL (36.4-46.3); Red Blood Count 2.71 M/uL (4.2-5.4)
[2019-04-24 06:15] LABS: Estimated Average Glucose 105 mg/dl; Hemoglobin A1C 5.3 % (4.5-5.6)
[2019-04-24 06:33] LABS: Partial Thromboplastin Ratio 1.9
[2019-04-24 06:46] LABS: BUN Creatinine Ratio 16.4 (10-20); Calcium 7.5 mg/dl (8.5-10.1); Creatinine Clr Calc Pharmacy 51.5 ml/min; Est GFR (African American) 81.9; Est GFR (Non-African American) 70.7; Potassium 3.5 mmol/L (3.5-5.1)
[2019-04-24 06:57] LABS: Magnesium 1.9 mg/dl (1.8-2.4); Troponin I 0.515 ng/ml (0-0.045)
[2019-04-24] MEDS: METOPROLOL TARTRATE 25 MG TAB PO SCH ×2 (07:52→20:25)
[2019-04-24] MEDS: ASPIRIN 81 MG ECTAB PO SCH (08:16)
[2019-04-24] MEDS: OXYBUTYNIN CHLORIDE 5 MG TAB PO SCH (08:16)
[2019-04-24] MEDS: ROSUVASTATIN CALCIUM 10 MG TAB PO SCH (08:16)
[2019-04-24] MEDS: ONDANSETRON INJ 2 MG/ML 2 ML VIAL IV PRN (08:19)
--- NOTE | 2019-04-24 08:49 | Progress Note ---
DATE: 04/24/2019 SUBJECTIVE: An 79-year-old female postop day 2 from a right cemented bipolar hip arthroplasty for fracture. She had a pretty rough day yesterday. She has some chest pain and was transferred down to the PCU. She had a workup which revealed pulmonary embolism as well as a DVT and concern for a DC. She is doing much better today. She did have some temporary neurological deficits which seemed to have resolved. No new complaints today. Denies any chest pain or current shortness of breath. Hip pain is quite well controlled. Major complaint is just some nausea. OBJECTIVE: VITAL SIGNS: Temperature 36.7. Vital signs stable. GENERAL: Physical examination shows a pleasant elderly female. She is lying in bed and was lying on her side when I went to see her this morning. She is awake, alert and oriented. EXTREMITIES: Examination of the right hip reveals the hip to be located. The dressing is clean, dry and intact. Thigh is soft and supple. She is neurologically intact. LABORATORY DATA: Hemoglobin is 8.5, hematocrit 24.0. Electrolytes are stable. CT scan of her chest reveals pulmonary embolism. Ultrasound of lower extremity reveals some more superficial thrombosis. She also apparently has some distal thrombosis. No real deep vein thrombosis. Head CT, negative for acute bleed or trauma, neurological abnormalities. ASSESSMENT: An 79-year-old female postop day 2 from right cemented bipolar hip arthroplasty with an acute pulmonary embolism, right heart strain. She seems to have gotten over the acute event and seems quite stable currently. PLAN: 1. DVT prophylaxis including thigh-high TEDs, SCDs, and now on heparin and she will need aggressive anticoagulation for this pulmonary embolism. Options include Coumadin versus a newer anticoagulation such as Xarelto or Eliquis. 2. PT/OT. She can weightbear as tolerated. She really needs to obey hip precautions. We need to emphasize this as she is lying in bed in quite an awkward position this morning. 3. Pain control seems to be doing okay with current pain regimen. I would really limit any narcotics to avoid confusion issues. She seems to be easily confused and I would stick to Tylenol for pain. Her pain seems to be well controlled. 4. Medical management as per the medicine service. 5. Disposition: She will likely need a rehab stay. Certainly seems to be medically stabilized before considering transfer. Any orthopedic questions can be directed to me at [phone]. I need to see her 2 weeks out from her surgery date.
--- NOTE | 2019-04-24 11:58 | Cardiology Progress Note ---
Date of Service April 24, 2019 Assessment & Plan (1) Pulmonary emboli: Would appear her chest pain is due to an acute pulmonary embolism. Right ventricular strain pattern noted on CT and echocardiogram, with borderline low blood pressure, but certainly no evidence of hemodynamic collapse. Fibrinolytic therapy is therefore not indicated, especially given the patient's recent operative course. I believe her mild troponin elevation is due to the RV strain. Repeat EKG performed this morning is encouraging. Given the right ventricular strain, I would treat her as a high risk pulmonary embolism event, and would anticoagulate her with unfractionated heparin plus Coumadin. Would overlap therapy for 24 to 48 hours after a therapeutic INR. As noted by Dr. Rae and his orthopedic progress note, alternative would be to consider therapy with a direct oral anticoagulant. We need to assess [id number] cost to determine if this is feasible option for the patient. Eliquis would be my first choice, however the bleeding risk on Eliquis with the additional initial 10 mg twice daily dosing for 7 days would increase her risk of postoperative bleeding, and perhaps traditional heparin or Coumadin would be prudent that we could monitor her level of anticoagulation with labs. Continue low-dose metoprolol, as the patient is at risk for developing atrial arrhythmias. The patient's symptoms of chest pain that preceded her fall and hip fracture, are concerning for potential angina. Also, we cannot be certain of the acuity versus chronicity of the changes of her right heart, as we have no historical echocardiograms. She does have a history of past cigarette smoking. Therefore I cannot say with certainty that the right heart enlargement is acute. After she recovers from her hip and pulmonary embolism, further evaluation for ischemic heart disease will likely be warranted as an outpatient depending upon her course. I have requested additional echocardiogram images with agitated saline contrast to assess for interatrial shunt and for further specimen of the right ventricle and pulmonary pressures. We will review when available. (2) DVT (deep venous thrombosis): Results of lower extremity venous duplex noted as above. Continue anticoagulant agent. (3) Altered mental status: Mental status now improved. CT of the brain negative for acute intracranial pathology. (4) Closed fracture of right hip: Status post intraoperative management, postoperative day 2. Subjective Chief complaint: Follow-up chest discomfort Subjective: Patient states that she feels mildly improved today. She states that the midline chest pressure does still come on in waves. Her most recent repeat blood pressure was improved to 122/76, but for the most part, her systolic blood pressures have been in the range of 100 mmHg overnight. Telemetry revealed sinus rhythm in the 90 be per minute range this morning, and she was in the 100-110's earlier in the evening. Physical Exam Physical Exam: General: Ill-appearing however no acute distress Eyes: conjunctiva are pink and non-injected, sclera clear Neck: normal jugular venous pulse, no hepatojugular reflux Chest: normal shape and normal respiratory effort Lungs: clear to auscultation and percussion Cardiac Exam: - regular heart sounds, no murmurs, rubs, or gallops, no jugular venous distention Abdomen: abdomen soft, non-tender, no abnormal masses and no hepatosplenomegaly Musculoskeletal: no gait disturbance, no weakness Extremities: no edema and no cyanosis Neuro:awake, coversant, follows commands, no focal motor deficits Results & Data Vital Signs (Past 12 Hours) Vital Signs Temp Pulse Pulse Pulse Resp BP BP 04/24/19 11:05 36.4 C L 92 H 20 122/76 04/24/19 08:26 89 16 107/65 04/24/19 07:39 04/24/19 07:38 36.7 C 84 18 93/51 L 04/24/19 07:00 90 04/24/19 04:33 36.2 C L 101 H 18 109/71 04/24/19 04:00 04/24/19 00:00 Pulse Ox Pulse Ox 04/24/19 11:05 95 04/24/19 08:26 99 04/24/19 07:39 98 04/24/19 07:38 74 L 04/24/19 07:00 04/24/19 04:33 92 04/24/19 04:00 91 04/24/19 00:00 94 Diagnostic Findings EKG performed first and this morning was limited by artifact in the lateral precordial leads Repeat EKG was therefore performed at 8:32 AM this morning 04/24/2019 with findings of sinus rhythm with sinus arrhythmia at 90 bpm, the previously noted ST segment depression in the lateral precordial and high lateral leads has resolved. The heart rate has improved. Venous duplex, summary of radiology report: 1. Deep venous thrombosis within 1 of the 2 duplicated right peroneal veins no other more proximal right lower extremity DVT 2. Acute superficial venous thrombosis of the right popliteal fossa and medial left calf 4. Exaggerated phasicity of the common femoral veins suggestive of tricuspid regurgitation or right heart failure Summary of the stat CT of the chest performed 04/23/2019:-Radiology report 1. Segmental and subsegmental right sided with subsegmental left-sided acute- appearing pulmonary emboli. Additionally, there is straightening of the intraventricular septum suspicious for right heart strain. 2. Trace bilateral pleural effusions with subsegmental bibasilar atelectasis. Findings suspicious for developing pulmonary infarct about the posterior basal segment of the right lower lobe. 3. Nonspecific mild wall thickening of the distal esophagus. 4. Hepatic steatosis. Summary of transthoracic echocardiogram performed this morning reviewed and reviewed with the family by the undersigned: The left ventricular myocardial thickness and wall motion is normal without regional wall motion abnormality, the LVEF is normal to hyperdynamic at 65-70%. The right ventricle is severely dilated. There is severe right ventricular hypokinesis with relative sparing of the right ventricular apex Mild tricuspid regurgitation is noted. Mild to moderate pulmonary hypertension is present with estimated pulmonary systolic pressure of 47 mmHg. There is mild flattening of the interventricular septum consistent with right ventricular pressure and volume overload. Echo findings are compatible with pulmonary embolism with right ventricular strain (1) Closed fracture of right hip Encounter type: initial encounter Qualified Code(s): S72.001A - Fracture of unspecified part of neck of right femur, initial encounter for closed fracture
--- NOTE | 2019-04-24 13:03 | Procedure Note ---
EEG Procedure Note Date of Service April 24, 2019 Start / End Times Start Time: 09:47 End Time: 10:[address] Olivas History A 79 year old woman with spell of seizure like activity last night. EEG performed for evaluation of epileptiform activity. Home Medication List Home Medications Medication Instructions Recorded Confirmed Type alendronate [Fosamax] 70 mg PO UD 04/21/19 04/21/19 History aspirin [Aspirin Low Dose] 81 mg PO DAILY 04/21/19 04/21/19 History cholecalciferol (vitamin D3) 2,000 unit PO DAILY 04/21/19 04/21/19 History [Vitamin D3] oxybutynin chloride 5 mg PO DAILY 04/21/19 04/21/19 History rosuvastatin [Crestor] 10 mg PO DAILY 04/21/19 04/21/19 History Inpatient Medication List Al Hydrox/Mg Hydrox/Simethicone (Maalox Max) 30 ml PO Q6H PRN PRN Reason: Indigestion Stop: 05/23/19 17:19 Last Admin: 04/23/19 17:45 Dose: 30 ml Documented by: [id number] Heparin Sodium/Dextrose (Heparin Sodium/Dextrose) 25,000 units in 500 mls @ 13 mls/hr IV .Q24H [facility]; Protocol Stop: 05/23/19 18:59 Last Titration: 04/24/19 07:12 Dose: 650 units/hr, 13 mls/hr Documented by: [id number] Cosigned by: [id number] Admin: 04/24/19 01:47 Dose: 650 units/hr, 13 mls/hr Documented by: [id number] Cosigned by: [id number] Titration: 04/24/19 01:47 Dose: 650 units/hr, 13 mls/hr Documented by: [id number] Cosigned by: [id number] Titration: 04/24/19 01:43 Dose: 650 units/hr, 13 mls/hr Documented by: [id number] Cosigned by: [id number] Titration: 04/23/19 22:04 Dose: 700 units/hr, 14 mls/hr Documented by: [id number] Cosigned by: [id number] Admin: 04/23/19 19:20 Dose: 700 units/hr, 14 mls/hr Documented by: [id number] Cosigned by: [id number] Dextrose/Lactated Ringer's (D5w And Lactated Ringers) 1,000 mls @ 150 mls/hr IV .Q6H40M [facility] Stop: 05/24/19 01:14 Last Admin: 04/24/19 08:19 Dose: 150 mls/hr Documented by: [id number] Infusion: 04/24/19 08:14 Dose: 0 mls/hr Documented by: [id number] Admin: 04/24/19 01:48 Dose: 150 mls/hr Documented by: [id number] Ranitidine HCl 50 mg/ Dextrose 102 mls @ 200 mls/hr IV Q8H [facility] Stop: 05/24/19 11:59 Last Infusion: 04/24/19 12:29 Dose: 0 mls/hr Documented by: [id number] Admin: 04/24/19 11:35 Dose: 200 mls/hr Documented by: [id number] Ioversol (Optiray 320 125ml) 86 ml IV ONCE PRN PRN Reason: Interaction Checking Stop: 04/27/19 18:06 Last Admin: 04/23/19 18:11 Dose: 86 ml Documented by: [id number] Metoprolol Tartrate (Lopressor) 12.5 mg PO BID [facility] Stop: 05/24/19 08:59 Last Admin: 04/24/19 07:52 Dose: Not Given Documented by: [id number] Oxybutynin Chloride (Ditropan) 5 mg PO DAILY [facility] Stop: 05/22/19 08:59 Last Admin: 04/24/19 08:16 Dose: 5 mg Documented by: [id number] Admin: 04/23/19 08:52 Dose: 5 mg Documented by: [id number] Admin: 04/22/19 08:09 Dose: 5 mg Documented by: [id number] Polyethylene Glycol (Miralax Powder Packet) 17 gm PO Q6 [facility] Stop: 05/24/19 05:59 Last Admin: 04/24/19 11:36 Dose: 17 gm Documented by: [id number] Admin: 04/24/19 06:06 Dose: Not Given Documented by: [id number] Rosuvastatin Calcium (Crestor) 10 mg PO DAILY [facility] Stop: 05/22/19 08:59 Last Admin: 04/24/19 08:16 Dose: 10 mg Documented by: [id number] Admin: 04/23/19 08:52 Dose: 10 mg Documented by: [id number] Admin: 04/22/19 08:09 Dose: 10 mg Documented by: [id number] Senna/Docusate Sodium (Senokot S) 2 tab PO HS [facility] Stop: 05/21/19 20:59 Last Admin: 04/23/19 22:02 Dose: Not Given Documented by: [id number] Admin: 04/22/19 20:54 Dose: Not Given Documented by: [id number] Admin: 04/21/19 20:41 Dose: 2 tab Documented by: [id number] Sennosides (Senokot) 17.2 mg PO HS [facility] Stop: 05/22/19 20:59 Last Admin: 04/23/19 22:02 Dose: Not Given Documented by: [id number] Admin: 04/22/19 20:54 Dose: Not Given Documented by: [id number] Discontinued Medications Acetaminophen (Tylenol) 650 mg PO Q6H PRN PRN Reason: MILD Pain (Scale 1,2,3) Stop: 05/21/19 19:07 Last Admin: 04/22/19 08:09 Dose: 650 mg Documented by: [id number] Aspirin (Ecotrin Ectab) 81 mg PO BID [facility] Stop: 05/22/19 20:59 Last Admin: 04/24/19 08:16 Dose: 81 mg Documented by: [id number] Admin: 04/23/19 22:02 Dose: Not Given Documented by: [id number] Admin: 04/23/19 08:52 Dose: 81 mg Documented by: [id number] Admin: 04/22/19 20:54 Dose: Not Given Documented by: [id number] Aspirin (Aspirin Chew) 324 mg PO NOW STA Stop: 04/23/19 18:00 Last Admin: 04/23/19 18:20 Dose: 324 mg Documented by: [id number] Bacitracin (Bacitracin) Confirm Administered Dose 50,000 units .ROUTE .STK-MED ONE Stop: 04/22/19 14:06 Last Admin: 04/22/19 16:04 Dose: 50,000 units Documented by: [id number] Bupivacaine HCl/Epinephrine Bitart (Sensorcaine/Epinephrine 0.5% Mpf 1:200,000) Confirm Administered Dose 60 ml .ROUTE .STK-MED ONE Stop: 04/22/19 14:06 Last Admin: 04/22/19 15:56 Dose: 40 ml Documented by: [id number] Sodium Chloride (Nss 1000ml) 1,000 mls @ 150 mls/hr IV .Q6H40M [facility] Stop: 04/21/19 20:39 Last Infusion: 04/21/19 19:11 Dose: 0 mls/hr Documented by: [id number] Admin: 04/21/19 14:21 Dose: 150 mls/hr Documented by: [id number] Lactated Ringer's (Lr) 1,000 mls @ 80 mls/hr IV .[id number] [facility] Stop: 05/21/19 18:29 Last Infusion: 04/23/19 12:38 Dose: 0 mls/hr Documented by: [id number] Admin: 04/23/19 05:04 Dose: 80 mls/hr Documented by: [id number] Infusion: 04/23/19 05:04 Dose: 80 mls/hr Documented by: [id number] Admin: 04/22/19 19:08 Dose: 80 mls/hr Documented by: [id number] Infusion: 04/22/19 18:53 Dose: 0 mls/hr Documented by: [id number] Infusion: 04/22/19 15:00 Dose: 0 mls/hr Documented by: [id number] Admin: 04/22/19 08:08 Dose: 80 mls/hr Documented by: [id number] Infusion: 04/22/19 06:47 Dose: 0 mls/hr Documented by: [id number] Admin: 04/21/19 20:05 Dose: 80 mls/hr Documented by: [id number] Cefazolin Sodium (Ancef 2000mg) 2,000 mg in 15 mls @ 3.75 mls/min IV PREOP [facility]; Protocol Stop: 04/21/19 23:59 Last Admin: 04/21/19 19:52 Dose: Not Given Documented by: [id number] Sodium Chloride (Nss 1000ml) 1,000 mls @ 80 mls/hr IV .[id number] [facility] Stop: 04/22/19 07:37 Last Admin: 04/21/19 19:52 Dose: Not Given Documented by: [id number] Cefazolin Sodium (Ancef 2000mg) 2,000 mg in 15 mls @ 3.75 mls/min IV PREOP [facility]; Protocol Stop: 04/22/19 18:00 Last Admin: 04/22/19 14:41 Dose: 3.75 mls/min Documented by: [id number] Sodium Chloride (Nss 1000ml) 1,000 mls @ 15 mls/hr IV .Q24H [facility] Stop: 04/23/19 08:54 Last Admin: 04/22/19 18:53 Dose: Not Given Documented by: [id number] Cefazolin Sodium (Ancef 1000mg) 1,000 mg in 7.5 mls @ 2.5 mls/min IV Q8H [facility]; Protocol Stop: 04/23/19 06:02 Last Admin: 04/23/19 05:09 Dose: 2.5 mls/min Documented by: [id number] Admin: 04/22/19 22:16 Dose: 2.5 mls/min Documented by: [id number] Promethazine HCl 12.5 mg/ (Sodium Chloride) 50.5 mls @ 202 mls/hr IV NOW STA Stop: 04/22/19 20:08 Last Admin: 04/22/19 21:37 Dose: Not Given Documented by: [id number] Lactated Ringer's (Lr) 1,000 mls @ 400 mls/hr IV .Q2H30M [facility] Stop: 04/23/19 14:59 Last Admin: 04/23/19 13:50 Dose: Not Given Documented by: [id number] Infusion: 04/23/19 13:50 Dose: 0 mls/hr Documented by: [id number] Admin: 04/23/19 12:40 Dose: 400 mls/hr Documented by: [id number] Sodium Chloride (Nss) 500 mls @ 250 mls/hr IV .Q2H ONE Stop: 04/23/19 16:59 Last Infusion: 04/23/19 17:51 Dose: 0 mls/hr Documented by: [id number] Admin: 04/23/19 16:50 Dose: 250 mls/hr Documented by: [id number] Infusion: 04/23/19 16:50 Dose: 250 mls/hr Documented by: [id number] Admin: 04/23/19 14:51 Dose: 250 mls/hr Documented by: [id number] Sodium Chloride (Nss 1000ml) 500 mls @ 500 mls/hr IV .Q1H ONE Stop: 04/23/19 18:59 Last Infusion: 04/23/19 19:15 Dose: 0 mls/hr Documented by: [id number] Admin: 04/23/19 17:50 Dose: 500 mls/hr Documented by: [id number] Heparin Sodium (Porcine) 3,000 (units/ Syringe) 3 mls @ 10 mls/min IV NOW ONE Stop: 04/23/19 19:01 Last Admin: 04/23/19 19:34 Dose: 10 mls/min Documented by: [id number] Cosigned by: [id number] Lactated Ringer's (Lr) 500 mls @ 500 mls/hr IV .Q1H ONE Stop: 04/23/19 23:04 Last Infusion: 04/23/19 23:11 Dose: 500 mls/hr Documented by: [id number] Admin: 04/23/19 22:11 Dose: 500 mls/hr Documented by: [id number] Ketorolac Tromethamine (Toradol) 15 mg IV Q6H PRN PRN Reason: Breakthrough Surgical Pain Stop: 04/23/19 08:57 Last Admin: 04/23/19 08:52 Dose: 15 mg Documented by: [id number] Metoprolol Tartrate (Lopressor) Confirm Administered Dose 5 mg IV .STK-MED ONE Stop: 04/22/19 17:50 Last Increment: 04/22/19 17:51 Dose: 2.5 mg Documented by: [id number] Metoprolol Tartrate (Lopressor) 12.5 mg PO ONE ONE Stop: 04/23/19 18:01 Last Admin: 04/23/19 18:20 Dose: 12.5 mg Documented by: [id number] Morphine Sulfate (Morphine Sulfate) 4 mg IV Q15M PRN PRN Reason: Pain Stop: 05/05/19 13:57 Last Admin: 04/21/19 15:04 Dose: 4 mg Documented by: [id number] Admin: 04/21/19 14:19 Dose: 4 mg Documented by: [id number] Morphine Sulfate (Morphine Sulfate) 2 mg IV Q2H PRN PRN Reason: MODERATE Pain (Scale 4,5,6) Stop: 05/05/19 19:07 Last Admin: 04/23/19 16:56 Dose: 2 mg Documented by: [id number] Admin: 04/22/19 12:11 Dose: 2 mg Documented by: [id number] Admin: 04/22/19 07:01 Dose: 2 mg Documented by: [id number] Admin: 04/22/19 04:19 Dose: 2 mg Documented by: [id number] Morphine Sulfate (Duramorph Pf) 0.15 mg INT SPINAL ONCE ONE Stop: 04/22/19 14:55 Last Admin: 04/23/19 08:50 Dose: 0.15 mg Documented by: [id number] Morphine Sulfate (Morphine Sulfate) 1 mg IV NOW STA Stop: 04/23/19 19:08 Last Admin: 04/23/19 19:19 Dose: 1 mg Documented by: [id number] Ondansetron HCl (Zofran) 4 mg IV NOW STA Stop: 04/21/19 13:59 Last Admin: 04/21/19 14:19 Dose: 4 mg Documented by: [id number] Ondansetron HCl (Zofran) 4 mg IV Q6H PRN PRN Reason: Nausea And Vomiting Stop: 04/23/19 08:57 Last Admin: 04/23/19 08:52 Dose: 4 mg Documented by: [id number] Admin: 04/22/19 20:22 Dose: 4 mg Documented by: [id number] Ondansetron HCl (Zofran) 4 mg IV Q6H PRN PRN Reason: Nausea And Vomiting Stop: 05/23/19 08:59 Last Admin: 04/24/19 08:19 Dose: 4 mg Documented by: [id number] Admin: 04/23/19 21:59 Dose: 4 mg Documented by: [id number] Admin: 04/23/19 09:50 Dose: 4 mg Documented by: [id number] Description This is a 21 electrode EEG with a single channel dedicated to limited EKG. The electrodes were placed in accordance with the International 10-20 system. REPORT: At the onset of the EEG the patient is sleeping. The posterior dominant rhythm is not well seen during this record. The background predominantly consist of moderate amplitude 6-7 Hz theta activity with intermixed delta activity. There are prominent vertex waves. No stage II sleep transient are seen. IMPRESSION: This is a normal drowsy and sleep EEG. There is no epileptiform activity or focal slowing.
--- NOTE | 2019-04-24 13:14 | Neurology Consultation ---
Date of Consultation April 24, 2019 Assessment & Plan (1) Altered mental status: 1. CT head - no acute findings 2. TTE- NO ASD 3. EEG- no epileptic spikes noted 4. MRI brain pending 5. PT/OT speech for discharge recommendations 6. currently on heparin and transitioning to coumadin as planned 7. optimize HTN, HLD, LDL <70 8. likely start of Keppra will advise after MRI results further recommendations to follow Supervising Physician Co-Signing Physician Notes I have seen and discussed above patient with Dr Ivory Wan, neurology Pt seen and examined. Exam nonfocal. Impression, poss sz, rec mri, consider empiric keppra. History of Present Illness Reason for Consultation: possible seizure TIA Requesting Physician: Bebeto Olivas MD Attending Physician: Bebeto Olivas MD History of Present Illness Roma is an 79 year old female with PMH HLD, blind in right eye, osteoporosis, overactive bladder, h/o malignant hyperthermia presented to ER with c/o fall and right hip pain. She was cleaning her house when she turned and lost her balance falling onto her right hip. There was some pain in her right hip and was unable to bear weight. On 04/22 Right cemented bipolar hip arthr oplasty surgery was performed by Dr Rae. After surgery she had mid sternal CP and was found to have a DVT/PE and was started on heparin gtt. Then on 04/23 she has an episode described by nursing as a head turning to the right legs rigid, unable to speak. lasted several minutes and completely resolved. She was taken to CT to scan her head for bleed but it was normal. She does not remember the event. denies SOB, abdominal pain, one sided weakness, numbness, tingling, vision changes, bowel or bladder issues, +N, +chest heaviness. denies PMH of stroke, TIA or seizure Allergies Allergy/AdvReac Type Severity Reaction Status Date / Time hydromorphone [From Dilaudid] Allergy Severe Anaphylaxis Verified 04/22/19 13:46 Home Medications Home Medications Medication Instructions Recorded Confirmed Type alendronate [Fosamax] 70 mg PO UD 04/21/19 04/21/19 History aspirin [Aspirin Low Dose] 81 mg PO DAILY 04/21/19 04/21/19 History cholecalciferol (vitamin D3) 2,000 unit PO DAILY 04/21/19 04/21/19 History [Vitamin D3] oxybutynin chloride 5 mg PO DAILY 04/21/19 04/21/19 History rosuvastatin [Crestor] 10 mg PO DAILY 04/21/19 04/21/19 History Patient History Medical History Coronary artery disease (Chronic) Depression (Chronic) Discharge planning issues (Chronic) Osteoporosis (Chronic) History of cataract (Chronic) Left eye History of hysterectomy (Chronic) Dyslipidemia (Chronic) Overactive bladder (Chronic) Surgical History History of bladder repair surgery (Chronic) 2008 History of lumpectomy of both breasts (Chronic) 1962 - Left breast lumpectomy - pt reports was benign 1980 - R breast lumpectomy - pt reports was benign History of tonsillectomy and adenoidectomy (Chronic) H/O eye surgery (Chronic) 1944 - Right eye surgery 1947 - Right eye surgery H/O malignant hyperthermia (Chronic) Family History Other Cancer Hypertension Malignant hyperthermia due to anesthesia Social History Preferred Language: Bol[place]ian Communication Ability: Effective Numerical Tool Programmer Required: No Beliefs That Will Affect Care: Denominational Denominational Beliefs: Jewish marital status: / Current Living Situation: Alone Feels Safe at Home: Yes Safety Concerns: Feels Safe At This Time Smoking Status: Former smoker Do You Dip or Chew Tobacco: No Smoking End Date: quit at age 59 Hx Alcohol Use: No Hx Substance Use: No Physical Exam Physical Exam: Physical Exam: Constitutional: appearance nourished, healthy and normal Ears, Nose, Mouth and Throat: mucous membranes moist, no injection and skin normal, eyes normal Cardiovascular: RRR Respiratory: course breath sounds Musculoskeletal: no peripheral edema and good distal pulses, LE braced due to right hip fracture Skin: no stigmata of neurocutaneous disease noted and normal and intact Eyes: extraocular muscles intact (EOMI) and pupils equal, round and reactive to light (PERRL), right eye blind NEUROLOGIC EXAMINATION: Mental status: Alert and interactive Oriented to can say no ifs ands buts, stick out tongue close eye point to ceiling with left hand, [facility], [place] Oriented to person Speech fluent with no evidence of aphasia Cranial Nerves smile eye brow raise symmetric, tongue mid line Reflexes: Deep tendon reflexes were symmetrical and graded 2/5 UE Sensory: light or cool touch Coordination: finger to nose with slight bipass on right due to blind in right eye Gait/Stance: Posture normal. lying in bed Motor: Negative for pronator drift of out stretched arms with eyes closed. Strength: biceps triceps hand director operating bilaterally 5/5, LE not assessed Results & Data Vital Signs (Past 12 Hours) Vital Signs Temp Pulse Pulse Pulse Resp BP BP 04/24/19 11:05 36.4 C L 92 H 20 122/76 04/24/19 08:26 89 16 107/65 04/24/19 07:39 04/24/19 07:38 36.7 C 84 18 93/51 L 04/24/19 07:00 90 04/24/19 04:33 36.2 C L 101 H 18 109/71 04/24/19 04:00 Pulse Ox Pulse Ox 04/24/19 11:05 95 04/24/19 08:26 99 04/24/19 07:39 98 04/24/19 07:38 74 L 04/24/19 07:00 04/24/19 04:33 92 04/24/19 04:00 91 Laboratory Results Abnormal lab results 04/23/19 04/23/19 04/23/19 Range/Units 17:33 17:33 17:33 RBC (4.2-5.4) M/uL Hgb 9.4 L (12.0-16.0) g/dL Hct 26.9 L (37-47) % Plt Count (130-400) K/uL Lymph # (Auto) (1.2-3.4) K/uL Platelet Estimate (Normal) APTT 31.7 H (21.0-31.0) Seconds Sodium 135 L (136-145) mmol/L Glucose 113 H (70-99) mg/dl POC Glucose (70-99) Calcium 7.8 L (8.5-10.1) mg/dl Troponin I 0.943 H* (0-0.045) ng/ml 04/23/19 04/24/19 04/24/19 Range/Units 21:23 00:11 00:11 RBC 2.76 L (4.2-5.4) M/uL Hgb 8.8 L (12.0-16.0) g/dL Hct 24.7 L (37-47) % Plt Count 97 L (130-400) K/uL Lymph # (Auto) (1.2-3.4) K/uL Platelet Estimate Decreased L (Normal) APTT 68.6 H* (21.0-31.0) Seconds Sodium (136-145) mmol/L Glucose (70-99) mg/dl POC Glucose 146 H (70-99) Calcium (8.5-10.1) mg/dl Troponin I (0-0.045) ng/ml 04/24/19 04/24/19 04/24/19 Range/Units 00:11 05:56 05:56 RBC 2.71 L (4.2-5.4) M/uL Hgb 8.5 L (12.0-16.0) g/dL Hct 24.0 L (37-47) % Plt Count 111 L (130-400) K/uL Lymph # (Auto) 0.49 L (1.2-3.4) K/uL Platelet Estimate (Normal) APTT (21.0-31.0) Seconds Sodium 135 L (136-145) mmol/L Glucose 189 H (70-99) mg/dl POC Glucose (70-99) Calcium 7.5 L (8.5-10.1) mg/dl Troponin I 0.772 H* (0-0.045) ng/ml 04/24/19 04/24/19 Range/Units 05:56 05:56 RBC (4.2-5.4) M/uL Hgb (12.0-16.0) g/dL Hct (37-47) % Plt Count (130-400) K/uL Lymph # (Auto) (1.2-3.4) K/uL Platelet Estimate (Normal) APTT 51.0 H* (21.0-31.0) Seconds Sodium (136-145) mmol/L Glucose (70-99) mg/dl POC Glucose (70-99) Calcium (8.5-10.1) mg/dl Troponin I 0.515 H* (0-0.045) ng/ml Diagnostic Findings CTA chest-Segmental and subsegmental right sided with subsegmental left-sided acute-appearing pulmonary emboli. Additionally, there is straightening of the intraventricular septum suspicious for right heart strain. Trace bilateral pleural effusions with subsegmental bibasilar atelectasis. Findings suspicious for developing pulmonary infarct about the posterior basal segment of the right lower lobe. . Nonspecific mild wall thickening of the distal esophagus. Hepatic steatosis. venous doppler- Deep venous thrombosis within one of two duplicated right peroneal veins. No other more proximal right lower extremity DVT. No evidence of deep venous thrombosis within the left lower extremity. Acute superficial venous thrombosis in the right popliteal fossa and medial left calf. Exaggerated phasicity in the common femoral veins suggest tricuspid regurgitation or right heart failure. CT head- Asymmetric left temporal lobe atrophy. Chronic small vessel ischemic change. No acute intracranial pathology. EEG-This is a normal drowsy and sleep EEG. There is no epileptiform activity or focal slowing. EF 65-70% right ventricular strain, no ASD
[2019-04-24] MEDS: ACETAMINOPHEN 325 MG TAB PO PRN (13:50)
--- NOTE | 2019-04-24 16:31 | Magnetic Resonance Report ---
MR brain wo con CLINICAL HISTORY: 79 years-old Female presenting with possible TIA, history of hip replacement on 04/11. TECHNIQUE: Multisequence, multiplanar MR imaging of the brain was performed without the use of intrav enous contrast. IV contrast: None. COMPARISON: Noncontrast CT head from 04/23/2019. FINDINGS: Localizer images: Unremarkable. Normal midline sagittal structures. Proportional ventricular and sulcal prominence, likely age-relate d parenchymal volume loss. No restricted diffusion or hemorrhage. Periventricular and subcortical whi te matter T2/FLAIR hyperintensity, nonspecific but likely indicative of chronic small vessel ischemic change. Asymmetric temporal lobe atrophy on the left. 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 No m ass effect or midline shift. No extra-axial fluid collection. T2 skull base flow voids preserved. Bone marrow signal intensity within the calvarium within normal limits. Abnormal configuration of the right globe. Absent [place] left lens. IMPRESSION: 1. Chronic small vessel ischemic change. No acute intracranial abnormality. 2. Asymmetric left upper lobe atrophy. 3. Abnormal configuration of the right globe. Electronically signed by: Ac Epstein M.D. 04/24/2019 4:30 PM
[2019-04-24] MEDS ORDERED: ACETAMINOPHEN 1,000 MG/100 ML VIAL IV PRN (18:38)
[2019-04-24 18:42] LABS: Hematocrit (blood only) 25.5 % (37-47)
[2019-04-24 18:58] LABS: Partial Thromboplastin Ratio 1.2; Partial Thromboplastin Time 33.8 Seconds (21.0-31.0)
[2019-04-24] MEDS ORDERED: HEPARIN IV BOLUS 4,000 UNITS in SYRINGE 0 ML IV ONE (19:30)
[2019-04-24] MEDS: MIRTAZAPINE SOLTAB 15 MG PO SCH (20:26)
[2019-04-24] MEDS: SENNA 8.6 MG TAB PO SCH (20:27)
[2019-04-24] MEDS: DOCUSATE SODIUM/SENNA 50/8.6MG TAB PO SCH (20:28)
--- NOTE | 2019-04-24 20:29 | Ultrasound Report ---
CAROTID ARTERY ULTRASOUND CLINICAL HISTORY: possible TIA COMPARISON STUDY: None. TECHNIQUE: Real-time, grayscale, and color Doppler sonography of the carotid and vertebral arteries w as performed. Images were viewed in the transverse and longitudinal planes. FINDINGS: There is mild atherosclerotic plaque. Velocity measurements are listed below. COMMON CAROTID PEAK SYSTOLIC VELOCITY (CM/S): RIGHT 74 LEFT 87 ICA PEAK SYSTOLIC VELOCITY (CM/S): RIGHT 69 LEFT 119 Systolic ratios between the internal to common carotid arteries are normal. Antegrade flow is seen in the vertebral arteries. The external carotid arteries are patent. Blood pressure was not obtained in this patient. IMPRESSION: No evidence for a hemodynamically significant stenosis. Electronically signed by: Terrance Rock M.D. 04/24/2019 8:28 PM
--- NOTE | 2019-04-25 00:24 | Hospitalist Progress Note ---
Date of Service April 24, 2019 Assessment & Plan (1) Closed fracture of right hip: Right hip fracture after mechanical fall. Likely age related pathologic / osteoporotic right femoral neck fracture. Right cemented bipolar hip arthroplasty performed by Dr. Rae on 04/22/2019. POD # 2. PT as tolerated. (2) Pulmonary emboli: CTA chest demonstrated bilateral segmental/subsegmental with RV strain. Venous duplex lower extremities demonstrated DVT within 1 of 2 duplicated right peroneal veins as well as superficial thrombosis in the right popliteal fossa and left medial calf. VTE developed despite preop prophylaxis with SCDs and postop prophylaxis with aspirin + SCDs. Patient was only 24 hours postop from repair of her hip fracture, but benefits of anticoagulation outweigh the risk. IV heparin per low-dose protocol initiated. Echocardiogram demonstrated pulmonary hypertension and RV strain. Elevated troponin 0.9 most likely secondary to pulmonary emboli. However, CT demonstrated coronary calcifications and patient certainly may have coronary artery disease as well. Tolerating heparin thus far. Anticipate transition to oral anticoagulant if IV heparin is tolerated. (3) DVT (deep venous thrombosis): As discussed above. (4) Altered mental status: Episodes of confusion after receiving analgesics 04/23. Episode of more severe confusion associate with dysarthria, apparent right gaze preference, and extension of lower extremities around 2100 04/23 while receiving IV heparin. Neurologic symptoms probably improved. CT of head negative for hemorrhage. CTA of cervical and intracranial vessels considered, but not ordered because of recent diet administration with CTA of chest. Case discussed with Neurology. Patient not a candidate for thrombolytic therapy because of right hip repair with spinal anesthesia approximately 24 hours prior to event. No apparent need for consideration of cerebrovascular interventional procedures because of prompt improvement of neurologic symptoms. EEG pending. MRI showed microvascular disease, old cerebellar infarct, no new event. Check carotid duplex. Check echocardiogram. Continue aspirin. LDL-c = 16. Continue rosuvastatin; consider decreasing dose. PT/OT/FRUIT OR NUT FARMER evaluations when condition permits. (5) Coronary artery disease: No clinical history of ischemic heart disease. Intermittent chest pain over past several months, possible exertional angina. CTA chest demonstrated extensive coronary calcification. Probable CAD. Elevated troponin 04/23 most likely secondary to PE. Echo showed normal LV wall motion and function (as well as pulmonary hypertension and RV strain). Continue aspirin and statin. Continue metoprolol as BP allows. Further evaluation and management per Cardiology. (6) Dyslipidemia: Continue rosuvastatin. (7) Osteoporosis: Vitamin D level = 16. Start replacement once nausea improves. (8) Depression: Start mirtazapine HS. (9) Malignant hyperthermia susceptibility: Daughter had episode of malignant hyperthermia years ago. Family members were tested (patient doesn't remember name of test). Patient and her other children were told that they were malignant hyperthermia susceptible, but testing for patient's siblings was reportedly negative. Anesthesia consulted and aware to follow MH precautions. (10) DVT prophylaxis: SCD's preop. ASA + SCD's postop. Now on IV heparin. (11) Discharge planning issues: Discharge disposition to be determined after postop PT / OT evals. Pt lives by herself. Anticipate need for skilled care or inpt rehab. Family Medicine follow-up with Dr. Martinez. Son called this evening to offer update. No answer. Message left. Subjective Recheck for multiple problems. Patient seen in their room around 0940. Intermittent confusion during the night. Alert and oriented this morning. Feels much better. No fever. Still has intermittent midsternal chest pressure, but not nearly as severe as yesterday. No pleuritic chest pain. No cough or shortness of breath. Still experiencing intermittent nausea. No emesis this morning. No melena or hematochezia. Required catheterization last night for urinary retention. No further neurologic symptoms. Mild postoperative right hip pain. Review of Systems: As noted above. Physical Exam Constitutional: no acute distress Respiratory: no respiratory distress Auscultation: lungs clear to auscultation bilaterally Cardiovascular: Rate/Rhythm: regular rate and regular rhythm Heart Sounds: no gallop, no murmur and no cardiac rub Vessels: no JVD Extremities: no calf tenderness and no edema Gastrointestinal (Abdomen): normal bowel sounds, soft, nontender, no hepatosplenomegaly Musculoskeletal: Hip: + hip abnormal to inpsection (right hip bandaged; no apparent hematoma) Skin: no rashes, warm and dry Psychiatric: Orientation: alert and oriented x 3 Results & Data Vital Signs (Past 12 Hours) Vital Signs Temp Pulse Pulse Resp BP BP Pulse Ox 04/24/19 23:42 36.6 C 95 H 16 97/64 L 93 04/24/19 19:36 36.7 C 93 H 18 114/71 99 04/24/19 16:00 90 04/24/19 15:33 36.6 C 87 18 113/72 97 Laboratory Results Laboratory Results - last 24 hr 04/23/19 04/24/19 04/24/19 17:33 00:11 00:11 WBC 6.34 RBC 2.76 L Hgb 8.8 L Hct 24.7 L MCV 89.5 MCH 31.9 MCHC 35.6 RDW Std Deviation 43.6 RDW Coeff of Miguel 13.3 Plt Count 97 L MPV 9.6 Immature Gran % (Auto) Neut % (Auto) Lymph % (Auto) Floyd % (Auto) Eos % (Auto) Baso % (Auto) Immature Gran # (Auto) Neut # (Auto) Lymph # (Auto) Floyd # (Auto) Eos # (Auto) Baso # (Auto) Platelet Estimate Decreased L APTT 68.6 H* PTT Ratio 2.5 Sodium Potassium Chloride Carbon Dioxide Anion Gap BUN Creatinine Est Cr Clr Drug Dosing Est GFR ( Amer) Est GFR (Non-Af Amer) BUN/Creatinine Ratio Glucose Estimat Average Glucose 105 Hemoglobin A1c 5.3 Calcium Magnesium Troponin I Triglycerides Cholesterol LDL Cholesterol, Calc VLDL Cholesterol, Calc HDL Cholesterol Cholesterol/HDL Ratio Blood Type Antibody Screen 04/24/19 04/24/19 04/24/19 00:11 00:11 05:56 WBC 6.40 RBC 2.71 L Hgb 8.5 L Hct 24.0 L MCV 88.6 MCH 31.4 MCHC 35.4 RDW Std Deviation 42.8 RDW Coeff of Miguel 13.2 Plt Count 111 L MPV 9.5 Immature Gran % (Auto) 0.2 Neut % (Auto) 84.4 Lymph % (Auto) 7.7 Floyd % (Auto) 7.5 Eos % (Auto) 0.2 Baso % (Auto) 0.0 Immature Gran # (Auto) 0.01 Neut # (Auto) 5.41 Lymph # (Auto) 0.49 L Floyd # (Auto) 0.48 Eos # (Auto) 0.01 Baso # (Auto) 0.00 Platelet Estimate APTT PTT Ratio Sodium Potassium Chloride Carbon Dioxide Anion Gap BUN Creatinine Est Cr Clr Drug Dosing Est GFR ( Amer) Est GFR (Non-Af Amer) BUN/Creatinine Ratio Glucose Estimat Average Glucose Hemoglobin A1c Calcium Magnesium Troponin I 0.772 H* Triglycerides Cholesterol LDL Cholesterol, Calc VLDL Cholesterol, Calc HDL Cholesterol Cholesterol/HDL Ratio Blood Type A Positive Antibody Screen NEGATIVE 04/24/19 04/24/19 04/24/19 05:56 05:56 05:56 WBC RBC Hgb Hct MCV MCH MCHC RDW Std Deviation RDW Coeff of Miguel Plt Count MPV Immature Gran % (Auto) Neut % (Auto) Lymph % (Auto) Floyd % (Auto) Eos % (Auto) Baso % (Auto) Immature Gran # (Auto) Neut # (Auto) Lymph # (Auto) Floyd # (Auto) Eos # (Auto) Baso # (Auto) Platelet Estimate APTT 51.0 H* PTT Ratio 1.9 Sodium 135 L Potassium 3.5 Chloride 103 Carbon Dioxide 25 Anion Gap 7.0 BUN 13 Creatinine 0.79 Est Cr Clr Drug Dosing 51.5 Est GFR ( Amer) 81.9 Est GFR (Non-Af Amer) 70.7 BUN/Creatinine Ratio 16.4 Glucose 189 H Estimat Average Glucose Hemoglobin A1c Calcium 7.5 L Magnesium 1.9 Troponin I 0.515 H* Triglycerides 111 Cholesterol 87 LDL Cholesterol, Calc 16 VLDL Cholesterol, Calc 22 HDL Cholesterol 49 Cholesterol/HDL Ratio 2 Blood Type Antibody Screen 04/24/19 04/24/19 18:21 18:21 WBC RBC Hgb 9.0 L Hct 25.5 L MCV MCH MCHC RDW Std Deviation RDW Coeff of Miguel Plt Count MPV Immature Gran % (Auto) Neut % (Auto) Lymph % (Auto) Floyd % (Auto) Eos % (Auto) Baso % (Auto) Immature Gran # (Auto) Neut # (Auto) Lymph # (Auto) Floyd # (Auto) Eos # (Auto) Baso # (Auto) Platelet Estimate APTT 33.8 H PTT Ratio 1.2 Sodium Potassium Chloride Carbon Dioxide Anion Gap BUN Creatinine Est Cr Clr Drug Dosing Est GFR ( Amer) Est GFR (Non-Af Amer) BUN/Creatinine Ratio Glucose Estimat Average Glucose Hemoglobin A1c Calcium Magnesium Troponin I Triglycerides Cholesterol LDL Cholesterol, Calc VLDL Cholesterol, Calc HDL Cholesterol Cholesterol/HDL Ratio Blood Type Antibody Screen (1) Closed fracture of right hip Encounter type: initial encounter Qualified Code(s): S72.001A - Fracture of unspecified part of neck of right femur, initial encounter for closed fracture
[2019-04-25 02:32] LABS: Basophils # (auto) 0.01 K/uL (0-0.2); Basophils % (auto) 0.2 %; Eosinophils # (auto) 0.11 K/uL (0-0.5); Eosinophils % (auto) 1.7 %; Hematocrit (blood only) 26.3 % (37-47); Hemoglobin 9.2 g/dL (12.0-16.0); Immature Granulocytes # (auto) 0.01 K/uL (0.00-0.02); Immature Granulocytes % (auto) 0.2 %; Lymphocytes # (auto) 0.93 K/uL (1.2-3.4); Lymphocytes % (auto) 14.4 %; Mean Corpuscular Volume 90.1 fL (80-100); Mean Platelet Volume 10.2 fL (7.4-10.4); Monocytes # (auto) 0.66 K/uL (0.11-0.59); Monocytes % (auto) 10.2 %; Neutrophils # (auto) 4.74 K/uL (1.4-6.5); Neutrophils % (auto) 73.3 %; Platelet Count 138 K/uL (130-400); RDW Coefficient of Variation 13.2 % (11.5-14.5); RDW Standard Deviation 42.9 fL (36.4-46.3); Red Blood Count 2.92 M/uL (4.2-5.4); White Blood Count 6.46 K/uL (4.8-10.8)
[2019-04-25 02:50] LABS: BUN Creatinine Ratio 8.3 (10-20); Creatinine Clr Calc Pharmacy 46.7 ml/min; Est GFR (African American) 72.9; Est GFR (Non-African American) 62.9; Potassium 3.2 mmol/L (3.5-5.1)
[2019-04-25 02:52] LABS: Partial Thromboplastin Ratio 3.2
[2019-04-25] MEDS: D5W AND LACTATED RINGERS 1,000 ML IV SCH (03:06)
[2019-04-25] MEDS: POLYETHYLENE (MIRALAX) 17 GM PACK PO SCH ×3 (03:07→17:10)
[2019-04-25] MEDS ORDERED: POTASSIUM CHLORIDE 10 MEQ TABCR PO STA (03:13)
[2019-04-25 03:16] LABS: Partial Thromboplastin Time 86.5 Seconds (21.0-31.0)
[2019-04-25] MEDS: Heparin Adult LOW DOSE Wt-Based Dextrose 5% 25,000 units/500 mL IV SCH ×2 (08:48→21:07)
--- NOTE | 2019-04-25 09:10 | Progress Note ---
DATE: 04/25/2019 SUBJECTIVE: I am seeing the patient for an episode of right gaze preference and stiffening followed by confusion. Reviewing the chart, there is no obvious hypoxia, hypotension, dysrhythmia, tachy or bradycardia. No clear metabolic abnormalities were noted. The patient's MRI of the brain shows some asymmetric left temporal lobe atrophy, old right cerebellar infarction, no acute infarct and carotid ultrasound shows no high grade stenosis. The patient has not had any recurrent episodes. She has episodically been confused such as when she woke up this morning. OBJECTIVE: She is awake, alert, oriented to person and place. No complaints. No facial asymmetry. Symmetric strength within the limits of testing given the recent hip fracture. IMPRESSION AND PLAN: 1. Probable seizure. Given that this is most likely based on description, I would recommend treating the asymmetric temporal lobe atrophy. It is interesting given that this episode seems to have left hemisphere focality, i.e., deviation of the eyes to the right. Has elected to begin her on Keppra 250 b.i.d. for a week and then 500 b.i.d. Given her age, if this indeed was seizure, the risk of recurrence is high at her age and the fact that she will be on anticoagulants, i.e., a fall or seizure would be at high risk for bleeding for her pushes me in the direction of using an anticonvulsant. I had discussed this with the patient and her son. 2. It sounds as if the patient has some hospital related delirium. We will follow with you.
--- NOTE | 2019-04-25 09:24 | Progress Note ---
DATE: 04/25/2019 SUBJECTIVE: An 79-year-old white female postop day 3 from a right cemented bipolar hip arthroplasty for fracture. This is complicated by PE postoperatively. She seems to be doing much better. She is a little bit confused this morning. Denies any pain. No chest pain or shortness of breath. OBJECTIVE: VITAL SIGNS: Temperature 36.9. Vital signs stable. GENERAL: Physical examination shows a pleasant elderly female. She is lying in bed and seems a little bit confused this morning. EXTREMITIES: Examination of the right hip reveals the dressing to be clean, dry and intact. Leg lengths were equal. Hip is located. She is neurologically intact. LABORATORY DATA: Hemoglobin 9.2. Hematocrit 26.3. Electrolytes are relatively stable. Potassium is a little bit low at 3.2. ASSESSMENT: An 79-year-old female postop day 3 from right cemented bipolar hip arthroplasty for fracture complicated by pulmonary embolism. Orthopedically, she is doing okay. A little bit confused this morning. Her hip is located. She is neurologically intact. PLAN: 1. DVT prophylaxis including thigh-high TEDs, SCDs, and anticoagulation as per the medicine service. 2. PT/OT. She can fully weightbear on this right leg. Needs to obey hip precautions. 3. Pain control. Considering her confusion and her lack of pain, I would stick to Tylenol only for pain control. She should receive no narcotics. 4. Disposition: She is orthopedically okay for discharge any time medically stable. I need to see her back 2 weeks from surgery date. Any orthopedic questions can be directed to me at [phone].
[2019-04-25] MEDS: ROSUVASTATIN CALCIUM 10 MG TAB PO SCH (10:14)
[2019-04-25] MEDS: OXYBUTYNIN CHLORIDE 5 MG TAB PO SCH (10:14)
[2019-04-25] MEDS: levETIRAcetam 250 MG TAB PO SCH ×2 (10:15→21:12)
[2019-04-25] MEDS: METOPROLOL TARTRATE 25 MG TAB PO SCH ×2 (10:15→21:13)
[2019-04-25] MEDS: ASPIRIN 81 MG ECTAB PO SCH (10:15)
[2019-04-25 11:42] LABS: Partial Thromboplastin Ratio 1.8
[2019-04-25 11:53] LABS: Albumin Level 2.8 gm/dl (3.4-5.0); Bilirubin Direct 0.2 mg/dl (0-0.2); Bilirubin,Total 0.7 mg/dl (0.2-1); Potassium 3.7 mmol/L (3.5-5.1); Total Protein 5.8 gm/dl (6.4-8.2)
[2019-04-25 12:10] LABS: Partial Thromboplastin Time 49.1 Seconds (21.0-31.0)
[2019-04-25] MEDS ORDERED: HEPARIN IV BOLUS 2,000 UNITS in SYRINGE 0 ML IV ONE (12:42)
--- NOTE | 2019-04-25 14:48 | XRay Report ---
XR shoulder LT min 2V routine CLINICAL HISTORY: 79 years-old Female presenting with fall, left shoulder pain. TECHNIQUE: Internal rotation and transscapular Y views of the left shoulder were obtained. COMPARISON: Chest x-ray from 04/23/2019. FINDINGS: Interval development of a comminuted fracture of the left humeral neck with a displaced fracture frag ment comprising a portion of the greater tubercle. This is displaced 12 mm posteriorly. The humeral h ead remains congruent with the bony glenoid. No subluxation of the humeral head. Acromioclavicular chapo int congruent. Underlying osteopenia is evident. No significant angulation or malalignment at the fra cture plane though there is some diastases evident. It is difficult to assess for an interposed corti steven fragment within the fracture plane. Mild pulmonary vascular prominence in the left lung. IMPRESSION: 1. Interval development of a comminuted fracture of the left humeral neck with displacement less del n 2 cm of a portion of the greater tubercle. No malalignment. 2. Osteopenia. 3. Volume overload suggested in the left lung. Electronically signed by: Ac Epstein M.D. 04/25/2019 2:46 PM
[2019-04-25] MEDS: MoRPHine SULFATE 2 MG/ML CARP IV PRN ×4 (15:44→23:18)
--- NOTE | 2019-04-25 17:51 | Orthopedic Consultation ---
Date of Consultation April 25, 2019 Assessment & Plan (1) Closed fracture of left proximal humerus: History of Present Illness Attending Physician: Bebeto Olivas MD History of Present Illness Patient is an 79-year-old female. She had been admitted to the hospital for a right hip fracture treated by Dr. aRe with a bipolar hemiarthroplasty. She is in PCU because of a PE. Earlier today she got out of bed and fell injuring her left arm. I was called by Dr. Olivas to see and evaluate her. He has applied a sling and swath.She is generally confused. She does not know where she is although she knows the month and year and her name. She does not know why she is here. Allergies Allergy/AdvReac Type Severity Reaction Status Date / Time hydromorphone [From Dilaudid] Allergy Severe Anaphylaxis Verified 04/22/19 13:46 Home Medications Home Medications Medication Instructions Recorded Confirmed Type alendronate [Fosamax] 70 mg PO UD 04/21/19 04/21/19 History aspirin [Aspirin Low Dose] 81 mg PO DAILY 04/21/19 04/21/19 History cholecalciferol (vitamin D3) 2,000 unit PO DAILY 04/21/19 04/21/19 History [Vitamin D3] oxybutynin chloride 5 mg PO DAILY 04/21/19 04/21/19 History rosuvastatin [Crestor] 10 mg PO DAILY 04/21/19 04/21/19 History Patient History Medical History Osteoporosis (Chronic) History of cataract (Chronic) Left eye History of hysterectomy (Chronic) Dyslipidemia (Chronic) Overactive bladder (Chronic) Surgical History History of bladder repair surgery (Chronic) 2008 History of lumpectomy of both breasts (Chronic) 1962 - Left breast lumpectomy - pt reports was benign 1980 - R breast lumpectomy - pt reports was benign History of tonsillectomy and adenoidectomy (Chronic) H/O eye surgery (Chronic) 1944 - Right eye surgery 1947 - Right eye surgery H/O malignant hyperthermia (Chronic) Family History Other Cancer Hypertension Malignant hyperthermia due to anesthesia Social History (Reviewed 06/11/19 @ 16:56 by TRE Díaz Preferred Language: Bulgarian Communication Ability: Effective Sales Representative Graphic Art Required: No Beliefs That Will Affect Care: Anglican Anglican Beliefs: Uatsdin marital status: / Current Living Situation: Alone Feels Safe at Home: Yes Safety Concerns: Feels Safe At This Time Smoking Status: Former smoker Do You Dip or Chew Tobacco: No Smoking End Date: quit at age 59 Hx Alcohol Use: No Hx Substance Use: No Physical Exam Physical Exam: She can bend both of her knees without any difficulty. There is no pain with gentle range of motion of the right hip. Neither leg is tender to palpation. She has full movement of the right arm and her neck. The left shoulder is in a sling. Median radial and ulnar motor and sensory functions intact. Radial pulse one plus. Hand wrist forearm elbow and lower arm nontender. Clavicle scapula nontender. Left shoulder is tender but not bruised or swollen. Sensation is intact throughout the arm. Results & Data Vital Signs (Past 12 Hours) Vital Signs Temp Pulse Pulse Resp BP BP Pulse Ox 04/25/19 15:14 36.5 C 90 17 134/83 98 04/25/19 13:51 88 129/80 91 04/25/19 11:44 36.5 C 87 20 129/82 93 04/25/19 07:31 36.9 C 89 18 138/80 97 Diagnostic Findings AP and transscapular views of the left shoulder show osteopenia. There is no dislocation. There is a minimally displaced comminuted fracture of the proximal humerus. Probably a 2 part fracture involving the surgical neck and greater tuberosity. Alignment is generally acceptable.
--- NOTE | 2019-04-25 18:05 | Hospitalist Progress Note ---
Date of Service April 25, 2019 Assessment & Plan (1) Closed fracture of right hip: Right hip fracture after mechanical fall. Likely age related pathologic / osteoporotic right femoral neck fracture. Right cemented bipolar hip arthroplasty performed by Dr. Rae on 04/22/2019. POD # 3. PT as tolerated. (2) Pulmonary emboli: CTA chest demonstrated bilateral segmental/subsegmental with RV strain. Venous duplex lower extremities demonstrated DVT within 1 of 2 duplicated right peroneal veins as well as superficial thrombosis in the right popliteal fossa and left medial calf. VTE developed despite preop prophylaxis with SCDs and postop prophylaxis with aspirin + SCDs. Patient was only 24 hours postop from repair of her hip fracture, but benefits of anticoagulation outweigh the risk. IV heparin per low-dose protocol initiated. Echocardiogram demonstrated pulmonary hypertension and RV strain. Elevated troponin 0.9 most likely secondary to pulmonary emboli. However, CT demonstrated coronary calcifications and patient certainly may have coronary artery disease as well. Tolerating heparin thus far. Anticipate transition to oral anticoagulant if IV heparin is tolerated. (3) DVT (deep venous thrombosis): As discussed above. (4) Altered mental status: Episodes of confusion after receiving analgesics 04/23. Episode of more severe confusion associate with dysarthria, apparent right gaze preference, and extension of lower extremities around 2100 04/23 while receiving IV heparin. Neurologic symptoms probably improved. CT of head negative for hemorrhage. CTA of cervical and intracranial vessels considered, but not ordered because of recent diet administration with CTA of chest. Case discussed with Neurology. Patient not a candidate for thrombolytic therapy because of right hip repair with spinal anesthesia approximately 24 hours prior to event. No apparent need for consideration of cerebrovascular interventional procedures because of prompt improvement of neurologic symptoms. EEG pending. MRI showed microvascular disease, old cerebellar infarct, no new event. Carotid duplex showed mild plaque, no significant stenosis. Echocardiogram did not show any evidence of fjvom-ci-pyax shunt or intracardiac thrombus. Remains in normal sinus rhythm on telemetry. Continue aspirin. LDL-c = 16. Continue rosuvastatin; decrease dose because of extremely low LDL. (5) Coronary artery disease: No clinical history of ischemic heart disease. Intermittent chest pain over past several months, possible exertional angina. CTA chest demonstrated extensive coronary calcification. Probable CAD. Elevated troponin 04/23 most likely secondary to PE. Echo showed normal LV wall motion and function (as well as pulmonary hypertension and RV strain). Continue aspirin and statin. Continue metoprolol as BP allows. Further evaluation and management per Cardiology. (6) Hypokalemia: Serum K as low as 3.2. Replace. Follow. (7) Dyslipidemia: LDL-c = 16. Continue rosuvastatin; decrease dose because of extremely low LDL. (8) Acute blood loss anemia: Hemoglobin day of admission was 12.6. Hemoglobin fell as low as 8.5 on 04/24/2019. Acute blood loss anemia secondary to hip fracture. Has not required transfusion. Hemoglobin today = 9.2. Start iron replacement once GI symptoms improve. Follow. (9) Osteoporosis: Vitamin D level = 16. Start replacement once nausea improves. (10) Depression: Started mirtazapine HS. (11) Malignant hyperthermia susceptibility: Daughter had episode of malignant hyperthermia years ago. Family members were tested (patient doesn't remember name of test). Patient and her other children were told that they were malignant hyperthermia susceptible, but testing for patient's siblings was reportedly negative. Anesthesia consulted and aware to follow MH precautions. (12) DVT prophylaxis: SCD's preop. ASA + SCD's postop. Now on IV heparin. (13) Discharge planning issues: Discharge disposition to be determined after postop PT / OT evals. Pt lives by herself. Anticipate need for skilled care or inpt rehab. Family Medicine follow-up with Dr. Martinez. Subjective Recheck for multiple problems. Patient seen in their room around 1120. Feels much better today. Midsternal chest pain essentially resolved. Experiencing intermittent epigastric discomfort with nausea, no further emesis. Has some postop pain in the right hip, aggravated by movement, but not too severe. Review of Systems: Constitutional- no fever. Cardiac- as noted above. Pulmonary- as noted above. GI- as noted above. - no urinary symptoms. Otherwise, as noted above. Physical Exam Constitutional: no acute distress Respiratory: no respiratory distress Auscultation: lungs clear to auscultation bilaterally Cardiovascular: Rate/Rhythm: regular rate and regular rhythm Heart Sounds: no gallop, no murmur and no cardiac rub Vessels: no JVD Extremities: no calf tenderness and no edema Gastrointestinal (Abdomen): normal bowel sounds, soft, nontender, no hepatosplenomegaly Musculoskeletal: Hip: + hip abnormal to inpsection (right hip bandaged; no apparent hematoma) Skin: no rashes, warm and dry Psychiatric: Orientation: alert and oriented x 3 Results & Data Vital Signs (Past 12 Hours) Vital Signs Temp Pulse Pulse Resp BP BP Pulse Ox 04/25/19 15:14 36.5 C 90 17 134/83 98 04/25/19 13:51 88 129/80 91 04/25/19 11:44 36.5 C 87 20 129/82 93 04/25/19 07:31 36.9 C 89 18 138/80 97 Laboratory Results Abnormal Lab Results 04/24/19 04/24/19 04/25/19 18:21 18:21 02:20 WBC 6.46 RBC 2.92 L Hgb 9.0 L 9.2 L Hct 25.5 L 26.3 L MCV 90.1 MCH 31.5 MCHC 35.0 RDW Std Deviation 42.9 RDW Coeff of Miguel 13.2 Plt Count 138 MPV 10.2 Immature Gran % (Auto) 0.2 Neut % (Auto) 73.3 Lymph % (Auto) 14.4 [place] % (Auto) 10.2 Eos % (Auto) 1.7 Baso % (Auto) 0.2 Immature Gran # (Auto) 0.01 Neut # (Auto) 4.74 Lymph # (Auto) 0.93 L [place] # (Auto) 0.66 H Eos # (Auto) 0.11 Baso # (Auto) 0.01 APTT 33.8 H PTT Ratio 1.2 Sodium Potassium Chloride Carbon Dioxide Anion Gap BUN Creatinine Est Cr Clr Drug Dosing Est GFR ( Amer) Est GFR (Non-Af Amer) BUN/Creatinine Ratio Glucose Calcium Total Bilirubin Direct Bilirubin AST ALT Alkaline Phosphatase Total Protein Albumin 04/25/19 04/25/19 04/25/19 02:20 02:20 02:20 WBC RBC Hgb Hct MCV MCH MCHC RDW Std Deviation RDW Coeff of Miguel Plt Count MPV Immature Gran % (Auto) Neut % (Auto) Lymph % (Auto) [place] % (Auto) Eos % (Auto) Baso % (Auto) Immature Gran # (Auto) Neut # (Auto) Lymph # (Auto) [place] # (Auto) Eos # (Auto) Baso # (Auto) APTT 86.5 H* PTT Ratio 3.2 Sodium 139 Potassium 3.2 L Chloride 105 Carbon Dioxide 26 Anion Gap 8.0 BUN 7 D Creatinine 0.87 Est Cr Clr Drug Dosing 46.7 Est GFR ( Amer) 72.9 Est GFR (Non-Af Amer) 62.9 BUN/Creatinine Ratio 8.3 L Glucose 146 H Calcium 8.0 L Total Bilirubin Direct Bilirubin AST ALT Alkaline Phosphatase Total Protein Albumin 3.0 L 04/25/19 04/25/19 10:21 10:21 WBC RBC Hgb Hct MCV MCH MCHC RDW Std Deviation RDW Coeff of Miguel Plt Count MPV Immature Gran % (Auto) Neut % (Auto) Lymph % (Auto) [place] % (Auto) Eos % (Auto) Baso % (Auto) Immature Gran # (Auto) Neut # (Auto) Lymph # (Auto) [place] # (Auto) Eos # (Auto) Baso # (Auto) APTT 49.1 H* PTT Ratio 1.8 Sodium Potassium 3.7 D Chloride Carbon Dioxide Anion Gap BUN Creatinine Est Cr Clr Drug Dosing Est GFR ( Amer) Est GFR (Non-Af Amer) BUN/Creatinine Ratio Glucose Calcium Total Bilirubin 0.7 Direct Bilirubin 0.2 AST 59 H ALT 32 Alkaline Phosphatase 75 Total Protein 5.8 L Albumin 2.8 L (1) Closed fracture of right hip Encounter type: initial encounter Qualified Code(s): S72.001A - Fracture of unspecified part of neck of right femur, initial encounter for closed fracture
[2019-04-25 19:23] LABS: Partial Thromboplastin Ratio 1.3; Partial Thromboplastin Time 36.3 Seconds (21.0-31.0)
[2019-04-25 19:36] LABS: Potassium 3.2 mmol/L (3.5-5.1)
[2019-04-25 19:38] LABS: Magnesium 1.8 mg/dl (1.8-2.4)
[2019-04-25] MEDS ORDERED: HEPARIN IV BOLUS 4,000 UNITS in SYRINGE 0 ML IV ONE (20:00)
[2019-04-25] MEDS: MIRTAZAPINE SOLTAB 15 MG PO SCH (21:14)
[2019-04-25] MEDS: SENNA 8.6 MG TAB PO SCH (21:15)
[2019-04-25] MEDS: DOCUSATE SODIUM/SENNA 50/8.6MG TAB PO SCH (21:15)
[2019-04-25] MEDS: POTASSIUM CHLORIDE / WTR 10 MEQ/100 ML PLCT IV SCH ×2 (22:32→23:53)
[2019-04-25] MEDS ORDERED: LORazepam 0.5 MG/1 ML VIAL IV STA (23:51)
[2019-04-25] MEDS ORDERED: LORazepam 2 MG/4 ML VIAL ONE (23:58)
[2019-04-26] MEDS: POLYETHYLENE (MIRALAX) 17 GM PACK PO SCH ×4 (00:33→15:37)
[2019-04-26 03:56] LABS: Partial Thromboplastin Ratio 2.5
[2019-04-26 03:57] LABS: Hematocrit (blood only) 25.7 % (37-47); Hemoglobin 9.1 g/dL (12.0-16.0); Mean Corpuscular Hgb Conc 35.4 g/dL (32-36); Mean Corpuscular Volume 90.5 fL (80-100); Mean Platelet Volume 9.8 fL (7.4-10.4); Platelet Count 209 K/uL (130-400); RDW Coefficient of Variation 13.7 % (11.5-14.5); RDW Standard Deviation 45.3 fL (36.4-46.3); Red Blood Count 2.84 M/uL (4.2-5.4); White Blood Count 9.55 K/uL (4.8-10.8)
[2019-04-26 04:07] LABS: Partial Thromboplastin Time 67.8 Seconds (21.0-31.0)
[2019-04-26 04:09] LABS: BUN Creatinine Ratio 7.1 (10-20); Calcium 7.8 mg/dl (8.5-10.1); Creatinine Clr Calc Pharmacy 74.2 ml/min; Est GFR (African American) 100.3; Est GFR (Non-African American) 86.6; Potassium 4.1 mmol/L (3.5-5.1)
[2019-04-26 04:10] LABS: Basophils # (auto) 0.04 K/uL (0-0.2); Basophils % (auto) 0.4 %; Eosinophils # (auto) 0.26 K/uL (0-0.5); Eosinophils % (auto) 2.7 %; Immature Granulocytes # (auto) 0.03 K/uL (0.00-0.02); Immature Granulocytes % (auto) 0.3 %; Lymphocytes # (auto) 1.84 K/uL (1.2-3.4); Lymphocytes % (auto) 19.3 %; Monocytes # (auto) 1.04 K/uL (0.11-0.59); Monocytes % (auto) 10.9 %; Neutrophils # (auto) 6.34 K/uL (1.4-6.5); Neutrophils % (auto) 66.4 %
[2019-04-26] MEDS ORDERED: OLANZapine 10 MG/2.1 ML SDV IM STA ×2 (04:41→23:01)
--- NOTE | 2019-04-26 07:28 | XRay Report ---
XR chest 1V portable CLINICAL HISTORY: follow-up fluid overload COMPARISON STUDY: Chest radiograph and chest CT April 23, 2019. FINDINGS: There is no pneumothorax. Mild cardiomegaly is noted. There is emphysema. Small bilateral p leural fusions have increased. Pulmonary edema has increased. IMPRESSION: Increasing pulmonary edema and small bilateral pleural effusions. Electronically signed by: Terrance Rock M.D. 04/26/2019 7:27 AM
[2019-04-26] MEDS: ROSUVASTATIN CALCIUM 5 MG TAB PO SCH (09:47)
[2019-04-26] MEDS: OXYBUTYNIN CHLORIDE 5 MG TAB PO SCH (09:47)
[2019-04-26] MEDS: levETIRAcetam 250 MG TAB PO SCH ×2 (09:47→19:26)
[2019-04-26] MEDS: METOPROLOL TARTRATE 25 MG TAB PO SCH ×2 (09:48→19:27)
[2019-04-26] MEDS: ASPIRIN 81 MG ECTAB PO SCH (09:51)
[2019-04-26] MEDS ORDERED: FUROSEMIDE 20 MG in SYRINGE 0 ML IV ONE (11:00)
[2019-04-26] MEDS: POTASSIUM CHLORIDE / WTR 10 MEQ/100 ML PLCT IV SCH ×2 (11:26→13:35)
[2019-04-26 11:36] LABS: Partial Thromboplastin Ratio 1.8
[2019-04-26 11:43] LABS: Partial Thromboplastin Time 49.1 Seconds (21.0-31.0)
--- NOTE | 2019-04-26 11:59 | CT Scan Report ---
CT OF THE HEAD WITHOUT CONTRAST CLINICAL HISTORY: Fall. Left gaze preference. COMPARISON STUDY: Head CT April 23, 2019. MRI of the brain April 24, 2019. CT DOSE: 614.27 mGy.cm TECHNIQUE: Helical axial images of the head were obtained without IV contrast. Automated exposure con trol was utilized for the study. A dose lowering technique was utilized adhering to the principles o f ALARA. FINDINGS: No acute intracranial hemorrhage, midline shift or mass effect is present. Ventricular syst em is stable. Asymmetric dilatation of the temporal horn of the left lateral ventricle is unchanged. The basilar cisterns are patent. There are no extra axial collections. Howe-white differentiation is maintained. There are no findings to suggest acute dural sinus thrombosis or acute territorial infarc t. White matter hypodensity suggests small vessel disease. Small right sphenoid sinus air-fluid level s noted. There is no calvarial fracture. IMPRESSION: 1. No acute intracranial findings. 2. No calvarial fracture. Electronically signed by: Terrance Rock M.D. 04/26/2019 11:58 AM
--- NOTE | 2019-04-26 13:54 | Progress Note ---
DATE: 04/26/2019 SUBJECTIVE: I am seeing the patient in followup of an episode of right gaze preference and rigidity. EEG normal. MRI not showing any acute infarction. We elected to treat for seizure, although there is very little in terms of detail about the episode. No documented hypoxia or severe hypotension was noted to account for the episode. Last evening, the patient got out of bed on her own, fell and appears to have fractured her left arm. She had marked difficulty sleeping last night. The patient received some Zyprexa in the morning as well as some Ativan. PHYSICAL EXAMINATION: 142/86, 98, respirations 20, O2 sat 99%. The patient is sleepy but arousable. She tends to have a left gaze preference. Pupils are equal, could not visualize the optic nerves. She can hold up her right arm and left leg to command. (rle and LUE fx) No obvious facial asymmetry. She is edentulous, although is wearing her dentures. The patient thinks she is in [place]. IMPRESSION AND PLAN: 1. This patient had an episode of gaze preference and generalized rigidity of uncertain etiology. We elected to begin her on some Keppra with the thought that if this was a seizure, the risk of recurrence would be high and the risk to the patient if she had a recurrent sz, being on anticoagulants would be high for injury. 2. The patient fell last evening fracturing her humerus. Her mentation has changed. It is difficult to assess her neurologic status likely because of sedation, Ativan, Zyprexa. I ordered a stat CT. It has not been read yet, but appears to be grossly unremarkable. We will await the official read. I would monitor the patient carefully, try to avoid sedative hypnotics. The patient should be on one-on-one supervision. I would recommend a followup CT of the head tomorrow morning. Monitor the patient closely for any focal signs as she awakens. If she had a new infarction, which I am not convinced, if it was large, she would be at high risk for hemorrhagic transformation given her anticoagulant status. However, anticoagulants cannot be avoided in this situation. I will follow with you. AMBROSIO
[2019-04-26 14:42] LABS: Appearance Urine Clear (Clear); Bilirubin Urine Negative (Negative); Blood Urine Negative (Negative); Color Urine Yellow; Glucose Urine UA Negative (Negative); Ketones Urine Negative (Negative); Leukocyte Esterase Urine Negative (Negative); Nitrite Urine Negative (Negative); Protein Urine Negative (Negative); Specific Gravity Urine 1.009 (1.000-1.030); Urobilinogen Urine Negative (Negative)
[2019-04-26 17:35] LABS: Partial Thromboplastin Ratio 1.4; Partial Thromboplastin Time 37.7 Seconds (21.0-31.0)
--- NOTE | 2019-04-26 18:31 | Hospitalist Progress Note ---
Date of Service April 26, 2019 Assessment & Plan (1) Closed fracture of right hip: Right hip fracture after mechanical fall. Likely age related pathologic / osteoporotic right femoral neck fracture. Right cemented bipolar hip arthroplasty performed by Dr. Rae on 04/22/2019. POD # 4. PT as tolerated. (2) Pulmonary emboli: CTA chest demonstrated bilateral segmental/subsegmental with RV strain. Venous duplex lower extremities demonstrated DVT within 1 of 2 duplicated right peroneal veins as well as superficial thrombosis in the right popliteal fossa and left medial calf. VTE developed despite preop prophylaxis with SCDs and postop prophylaxis with aspirin + SCDs. Patient was only 24 hours postop from repair of her hip fracture, but benefits of anticoagulation outweigh the risk. IV heparin per low-dose protocol initiated. Echocardiogram demonstrated pulmonary hypertension and RV strain. Elevated troponin 0.9 most likely secondary to pulmonary emboli. However, CT demonstrated coronary calcifications and patient certainly may have coronary artery disease as well. Tolerating heparin thus far. Anticipate transition to oral anticoagulant if IV heparin is tolerated. Warfarin may be safest option, but will need to monitor closely due to variable oral intake. (3) DVT (deep venous thrombosis): As discussed above. (4) Altered mental status: Episode of confusion associate with dysarthria, apparent right gaze preference, and extension of lower extremities around 2100 04/23 while receiving IV heparin. Neurologic symptoms probably improved. CT of head negative for hemorrhage. CTA of cervical and intracranial vessels considered, but not ordered because of recent diet administration with CTA of chest. Case discussed with Neurology. Patient not a candidate for thrombolytic therapy because of right hip repair with spinal anesthesia approximately 24 hours prior to event. No apparent need for consideration of cerebrovascular interventional procedures because of prompt improvement of neurologic symptoms. EEG did not show any epileptogenic foci. MRI showed small vessel ischemic disease, atrophy left temporal lobe, old cerebellar infarct, no new event. Carotid duplex showed mild plaque, no significant stenosis. Echocardiogram did not show any evidence of [id number] shunt or intracardiac thrombus. Repeat CT head today negative for bleed or other acute event. Remains in normal sinus rhythm on telemetry. Continue aspirin. LDL-c = 16. Continue rosuvastatin; decreased dose because of extremely low LDL. Levetiracetam initiated by Neuro for possible seizures. (5) Coronary artery disease: No clinical history of ischemic heart disease. Intermittent chest pain over past several months, possible exertional angina. CTA chest demonstrated extensive coronary calcification. Probable CAD. Elevated troponin 04/23 most likely secondary to PE. Echo showed normal LV wall motion and function (as well as pulmonary hypertension and RV strain). Continue aspirin, metoprolol, statin. Further evaluation and management per Cardiology. (6) Hypokalemia: Serum K as low as 3.2. Replace. Follow. (7) Dyslipidemia: LDL-c = 16. Continue rosuvastatin; decrease dose because of extremely low LDL. (8) Acute blood loss anemia: Hemoglobin day of admission was 12.6. Hemoglobin fell as low as 8.5 on 04/24/2019. Acute blood loss anemia secondary to hip fracture. Has not required transfusion. Hemoglobin today = 9.1. Start iron replacement once GI symptoms improve. Follow. (9) Osteoporosis: Vitamin D level = 16. Start replacement once nausea improves. (10) Depression: Started on mirtazapine, but will discontinue because of worsening confusion. (11) Fracture of left humerus: Fell 04/25 and suffered comminuted fracture of left humeral neck. Seen by Ortho. LUE immobilized with sling. (12) Fluid overload: Received significant amount of IV fluid postoperatively because of hypotension and orthostasis. Chest x-ray this morning showed pulmonary edema. Echo 04/24 showed normal LV wall motion and systolic function. Fluid overload secondary to IV fluids. IV furosemide x 1 today. Check f/u chest x-ray and labs in a.m. (13) Delirium: Intermittent confusion since surgery consistent with delirium. No acute findings on CT imaging, although chronic small vessel ischemic disease and left temporal lobe atrophy was noted. Minimize use of narcotic analgesics. Avoid benzodiazepines. Avoid meds with anticholinergic side effects. DC mirtazapine, ranitidine, oxybutynin. Check B12 and TSH. Check UA. 1:1 staffing for pt's safety. (14) Nausea: Poor PO intake postop. Patient reports chronic symptoms. Anti-emetics PRN. PPI. Consider further evaluation if symptoms persist. (15) Malignant hyperthermia susceptibility: Daughter had episode of malignant hyperthermia years ago. Family members were tested (patient doesn't remember name of test). Patient and her other children were told that they were malignant hyperthermia susceptible, but testing for patient's siblings was reportedly negative. Anesthesia consulted and aware to follow MH precautions. (16) DVT prophylaxis: SCD's preop. ASA + SCD's postop. Now on IV heparin. (17) Discharge planning issues: Discharge disposition to be determined after postop PT / OT evals. Pt lives by herself. Anticipate need for skilled care or inpt rehab. Family Medicine follow-up with Dr. Martinez. Subjective Recheck for multiple problems. Patient seen in their room around 10:40. Worsening delirium during the night. Received lorazepam and olanzapine. Sedated at time of my assessment. Review of Systems: Unable to obtain due to sedation. Physical Exam Constitutional: no acute distress Respiratory: no respiratory distress Auscultation: lungs clear to auscultation bilaterally Cardiovascular: Rate/Rhythm: regular rate and regular rhythm Heart Sounds: no gallop, no murmur and no cardiac rub Vessels: no JVD Extremities: no calf tenderness and no edema Gastrointestinal (Abdomen): normal bowel sounds, soft, nontender, no he patosplenomegaly Musculoskeletal: Extremities: + upper extremity abnormal to inspection (LUE immobilized with sling) Hip: + hip abnormal to inpsection (right hip bandaged; no apparent hematoma) Skin: no rashes, warm and dry Psychiatric: Orientation: + not alert (sedated) Results & Data Vital Signs (Past 12 Hours) Vital Signs Temp Pulse Resp BP Pulse Ox Pulse Ox 04/26/19 15:14 36.6 C 89 20 145/84 H 99 04/26/19 11:25 36.7 C 98 H 20 142/86 H 99 04/26/19 08:00 93 04/26/19 06:52 37.2 C 106 H 20 112/68 90 Laboratory Results Laboratory Results - last 24 hr 04/25/19 04/25/19 04/26/19 18:59 18:59 03:15 WBC RBC Hgb Hct MCV MCH MCHC RDW Std Deviation RDW Coeff of Miguel Plt Count MPV Immature Gran % (Auto) Neut % (Auto) Lymph % (Auto) [place] % (Auto) Eos % (Auto) Baso % (Auto) Immature Gran # (Auto) Neut # (Auto) Lymph # (Auto) [place] # (Auto) Eos # (Auto) Baso # (Auto) APTT 36.3 H 67.8 H* PTT Ratio 1.3 2.5 Sodium Potassium 3.2 L Chloride Carbon Dioxide Anion Gap BUN Creatinine Est Cr Clr Drug Dosing Est GFR ( Amer) Est GFR (Non-Af Amer) BUN/Creatinine Ratio Glucose Calcium Magnesium 1.8 Urine Color Urine Appearance Urine pH Ur Specific [place] Urine Protein Urine Glucose (UA) Urine Ketones Urine Blood Urine Nitrite Urine Bilirubin Urine Urobilinogen Ur Leukocyte Esterase 04/26/19 04/26/19 04/26/19 03:15 03:15 11:05 WBC 9.55 RBC 2.84 L Hgb 9.1 L Hct 25.7 L MCV 90.5 MCH 32.0 MCHC 35.4 RDW Std Deviation 45.3 RDW Coeff of Miguel 13.7 Plt Count 209 D MPV 9.8 Immature Gran % (Auto) 0.3 Neut % (Auto) 66.4 Lymph % (Auto) 19.3 [place] % (Auto) 10.9 Eos % (Auto) 2.7 Baso % (Auto) 0.4 Immature Gran # (Auto) 0.03 H Neut # (Auto) 6.34 Lymph # (Auto) 1.84 [place] # (Auto) 1.04 H Eos # (Auto) 0.26 Baso # (Auto) 0.04 APTT 49.1 H* PTT Ratio 1.8 Sodium 140 Potassium 4.1 D Chloride 106 Carbon Dioxide 29 Anion Gap 5.0 BUN 4 L Creatinine 0.59 L Est Cr Clr Drug Dosing 74.2 Est GFR ( Amer) 100.3 Est GFR (Non-Af Amer) 86.6 BUN/Creatinine Ratio 7.1 L Glucose 121 H Calcium 7.8 L Magnesium Urine Color Urine Appearance Urine pH Ur Specific [place] Urine Protein Urine Glucose (UA) Urine Ketones Urine Blood Urine Nitrite Urine Bilirubin Urine Urobilinogen Ur Leukocyte Esterase 04/26/19 04/26/19 04/26/19 14:20 16:59 16:59 WBC RBC Hgb Hct MCV MCH MCHC RDW Std Deviation RDW Coeff of Miguel Plt Count MPV Immature Gran % (Auto) Neut % (Auto) Lymph % (Auto) [place] % (Auto) Eos % (Auto) Baso % (Auto) Immature Gran # (Auto) Neut # (Auto) Lymph # (Auto) [place] # (Auto) Eos # (Auto) Baso # (Auto) APTT 37.7 H PTT Ratio 1.4 Sodium Potassium 5.4 H D Chloride Carbon Dioxide Anion Gap BUN Creatinine Est Cr Clr Drug Dosing Est GFR ( Amer) Est GFR (Non-Af Amer) BUN/Creatinine Ratio Glucose Calcium Magnesium Urine Color Yellow Urine Appearance Clear Urine pH 8.0 H Ur Specific [place] 1.009 Urine Protein Negative Urine Glucose (UA) Negative Urine Ketones Negative Urine Blood Negative Urine Nitrite Negative Urine Bilirubin Negative Urine Urobilinogen Negative Ur Leukocyte Esterase Negative Diagnostic Findings PORTABLE CXR FINDINGS: There is no pneumothorax. Mild cardiomegaly is noted. There is emphysema. Small bilateral pleural fusions have increased. Pulmonary edema has increased. IMPRESSION: Increasing pulmonary edema and small bilateral pleural effusions. Electronically signed by: Terrance Rock M.D. 04/26/2019 7:[address] OF THE HEAD WITHOUT CONTRAST FINDINGS: No acute intracranial hemorrhage, midline shift or mass effect is present. Ventricular system is stable. Asymmetric dilatation of the temporal horn of the left lateral ventricle is unchanged. The basilar cisterns are patent. There are no extra axial collections. Howe-white differentiation is maintained. There are no findings to suggest acute dural sinus thrombosis or acute territorial infarct. White matter hypodensity suggests small vessel disease. Small right sphenoid sinus air-fluid levels noted. There is no calvarial fracture. IMPRESSION: 1. No acute intracranial findings. 2. No calvarial fracture. Electronically signed by: Terrance Rock M.D. 04/26/2019 11:58 AM (1) Closed fracture of right hip Encounter type: initial encounter Qualified Code(s): S72.001A - Fracture of unspecified part of neck of right femur, initial encounter for closed fracture
[2019-04-26] MEDS: SENNA 8.6 MG TAB PO SCH (19:28)
[2019-04-26] MEDS: DOCUSATE SODIUM/SENNA 50/8.6MG TAB PO SCH (19:28)
[2019-04-26] MEDS: Heparin Adult LOW DOSE Wt-Based Dextrose 5% 25,000 units/500 mL IV SCH (19:35)
[2019-04-27] MEDS: POLYETHYLENE (MIRALAX) 17 GM PACK PO SCH ×3 (01:14→12:53)
[2019-04-27] MEDS: MoRPHine SULFATE 2 MG/ML CARP IV PRN (05:53)
--- NOTE | 2019-04-27 07:00 | XRay Report ---
XR chest 1V portable CLINICAL HISTORY: fluid overload COMPARISON STUDY: 04/26/2019 FINDINGS: The cardiac and mediastinal contours remain stable. There is continued radiographic evidenc e of congestive failure with mild interstitial edema. There are bilateral pleural effusions. There is no lobar consolidation.[ There is a left humeral neck fracture. IMPRESSION: Persistent congestive failure/pulmonary edema with small bilateral pleural effusions Electronically signed by: Dada Nath M.D. 04/27/2019 6:58 AM
[2019-04-27 07:28] LABS: Hematocrit (blood only) 26.2 % (37-47); Mean Corpuscular Hgb Conc 34.4 g/dL (32-36); Mean Corpuscular Volume 91.6 fL (80-100); Mean Platelet Volume 9.9 fL (7.4-10.4); Platelet Count 193 K/uL (130-400); RDW Coefficient of Variation 13.7 % (11.5-14.5); RDW Standard Deviation 44.7 fL (36.4-46.3); Red Blood Count 2.86 M/uL (4.2-5.4); White Blood Count 4.82 K/uL (4.8-10.8)
[2019-04-27 07:42] LABS: INR 1.1 (0.9-1.1); Partial Thromboplastin Ratio 1.5; Partial Thromboplastin Time 39.6 Seconds (21.0-31.0); Prothrombin Time 10.9 Seconds (9.0-12.0)
[2019-04-27 08:04] LABS: BUN Creatinine Ratio 9.9 (10-20); Calcium 7.8 mg/dl (8.5-10.1); Creatinine Clr Calc Pharmacy 96.5 ml/min; Est GFR (African American) 110.5; Est GFR (Non-African American) 95.3; Potassium 3.1 mmol/L (3.5-5.1)
[2019-04-27] MEDS: PANTOprazole 40 MG TAB PO SCH (08:59)
[2019-04-27] MEDS: ROSUVASTATIN CALCIUM 5 MG TAB PO SCH (08:59)
[2019-04-27] MEDS: METOPROLOL TARTRATE 25 MG TAB PO SCH ×2 (08:59→20:14)
[2019-04-27] MEDS: levETIRAcetam 250 MG TAB PO SCH ×2 (08:59→20:14)
[2019-04-27] MEDS: ASPIRIN 81 MG ECTAB PO SCH (08:59)
[2019-04-27] MEDS: ERGOCALCIFEROL 50,000 UNITS CAP PO SCH (09:00)
[2019-04-27] MEDS: POTASSIUM CHLORIDE 20 MEQ TABCR PO SCH ×2 (09:00→16:04)
--- NOTE | 2019-04-27 09:10 | Progress Note ---
DATE: 04/27/2019 SUBJECTIVE: An 79-year-old female now 5 days out from a left cemented bipolar hip arthroplasty for fracture complicated by pulmonary embolism and intermittent confusion episodes. She is lying in bed this morning and looks comfortable. I did not arouse her due to pretty restless state previously. She did have a fall over the weekend with a nondisplaced proximal humerus fracture. OBJECTIVE: VITAL SIGNS: Temperature 36.9. Vital signs stable. GENERAL: Physical examination shows an elderly female. She is lying in bed, resting and sleeping comfortable. EXTREMITIES: Examination of the left shoulder reveals the sling to be in place. There is no obvious deformity. Some slight swelling: Examination of the right hip and leg reveals the leg lengths to be equal. Her hip is located. No new signs of swelling or problems. NEUROLOGICAL: Deferred this morning due to her sleeping. LABORATORY DATA: Labs are pending this morning. Hemoglobin is 9.0. Hematocrit 26.2. Electrolytes are pending. INR is pending. ASSESSMENT: An 79-year-old female, 5 days out from a left cemented bipolar hip arthroplasty complicated by acute pulmonary embolism postoperatively with intermittent bouts of confusion. Her neurological workup has been negative. There have been some concerns for seizure. She is on anticoagulation/heparin for her pulmonary embolism. PLAN: 1. DVT prophylaxis including thigh-high TEDs, SCDs, and anticoagulation as per the medicine service. Currently on heparin and she will need some longer-term anticoagulation. 2. PT/OT. She can fully weightbear as tolerated in the right lower extremity. Unfortunately, now the shoulder fracture makes weightbearing difficult with a walker. 3. Proximal humerus fracture. Continue sling immobilization. She will need the sling for about 6 weeks. 4. Medical/neurological management as per the medicine and neurology services. Treatment as indicated. She is on anticoagulation for her pulmonary embolism. 5. Disposition: She will certainly need a rehab stay. She is okay for discharge any time medically stable, but certainly multiple medical issues to work through before ready for discharge. I will need to see her back 2 weeks out postop. She just needs total hip precautions. She can weightbear as tolerated in the right lower extremity. She will need to wear the sling for the next 4-6 weeks. Any orthopedic questions can be directed to me at [phone].
[2019-04-27] MEDS ORDERED: HEPARIN IV BOLUS 4,000 UNITS in SYRINGE 0 ML IV ONE (10:50)
[2019-04-27] MEDS: ACETAMINOPHEN 325 MG TAB PO PRN (11:09)
[2019-04-27] MEDS ORDERED: POLYETHYLENE (MIRALAX) 17 GM PACK PO PRN (13:44)
--- NOTE | 2019-04-27 13:55 | Hospitalist Progress Note ---
Date of Service April 27, 2019 Assessment & Plan (1) Closed fracture of right hip: Right hip fracture after mechanical fall. Likely age related pathologic / osteoporotic right femoral neck fracture. Right cemented bipolar hip arthroplasty performed by Dr. Rae on 04/22/2019. POD # 5. PT as tolerated. (2) Pulmonary emboli: CTA chest demonstrated bilateral segmental/subsegmental with RV strain. Venous duplex lower extremities demonstrated DVT within 1 of 2 duplicated right peroneal veins as well as superficial thrombosis in the right popliteal fossa and left medial calf. VTE developed despite preop prophylaxis with SCDs and postop prophylaxis with aspirin + SCDs. Patient was only 24 hours postop from repair of her hip fracture, but benefits of anticoagulation outweigh the risk. IV heparin per low-dose protocol initiated. Echocardiogram demonstrated pulmonary hypertension and RV strain. Elevated troponin 0.9 most likely secondary to pulmonary emboli. However, CT demonstrated coronary calcifications and patient certainly may have coronary artery disease as well. Tolerating heparin thus far. Anticipate transition to oral anticoagulant if IV heparin is tolerated. Warfarin may be safest option, but will need to monitor closely due to variable oral intake. (3) DVT (deep venous thrombosis): cont heparin drip. (4) Altered mental status: Episode of confusion associate with dysarthria, apparent right gaze preference, and extension of lower extremities around 2100 04/23 while receiving IV heparin. Neurologic symptoms probably improved. CT of head negative for hemorrhage. CTA of cervical and intracranial vessels considered, but not ordered because of recent diet administration with CTA of chest. Case discussed with Neurology. Patient not a candidate for thrombolytic therapy because of right hip repair with spinal anesthesia approximately 24 hours prior to event. No apparent need for consideration of cerebrovascular interventional procedures because of prompt improvement of neurologic symptoms. EEG did not show any epileptogenic foci. MRI showed small vessel ischemic disease, atrophy left temporal lobe, old cerebellar infarct, no new event. Carotid duplex showed mild plaque, no significant stenosis. Echocardiogram did not show any evidence of [id number] shunt or intracardiac thrombus. Repeat CT head today negative for bleed or other acute event. Remains in normal sinus rhythm on telemetry. Continue aspirin. LDL-c = 16. Continue rosuvastatin; decreased dose because of extremely low LDL. Levetiracetam initiated by Neuro for possible seizures. (5) Coronary artery disease: No clinical history of ischemic heart disease. Intermittent chest pain over past several months, possible exertional angina. CTA chest demonstrated extensive coronary calcification. Probable CAD. Elevated troponin 04/23 most likely secondary to PE. Echo showed normal LV wall motion and function (as well as pulmonary hypertension and RV strain). Continue aspirin, metoprolol, statin. Further evaluation and management per Cardiology. (6) Hypokalemia: Replaced, repeat K and mag in a.m. (7) Acute blood loss anemia: Hemoglobin day of admission was 12.6. Hemoglobin fell as low as 8.5 on 04/24/2019. Acute blood loss anemia secondary to hip fracture. Has not required transfusion. Hemoglobin today = 9.1. (8) Depression: Started on mirtazapine, but this was discontinued secondary to confusion. Patient appears improved today. (9) Fracture of left humerus: Fell 04/25 and suffered comminuted fracture of left humeral neck. Seen by Ortho. LUE immobilized with sling. Will schedule Tylenol for improved pain control. Morphine is also an option as needed. (10) Fluid overload: Received significant amount of IV fluid postoperatively because of hypotension and orthostasis. Chest x-ray revealed pulmonary edema yesterday Lasix was given x1 dose. Repeat chest x-ray this morning also reveals pulmonary edema, however, the patient is not fluid overloaded including clear lungs to auscultation, no JVD, no pulmonary edema and no increased work of breathing. She is on oxygen supplementation but this is not increased from before. Echo 04/24 showed normal LV wall motion and systolic function. (11) Delirium: Intermittent confusion since surgery consistent with delirium. No acute findings on CT imaging, although chronic small vessel ischemic disease and left temporal lobe atrophy was noted. Minimize use of narcotic analgesics. Avoid benzodiazepines. Avoid meds with anticholinergic side effects. mirtazapine, ranitidine, oxybutynin were discontinued TSH and B12 are normal limits; urine is clear. 1:1 staffing for pt's safety. (12) Nausea: Poor PO intake postop. Patient reports chronic symptoms. Anti-emetics PRN. PPI. Consider further evaluation if symptoms persist. 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 Family members were tested (patient doesn't remember name of test). Patient and her other children were told that they were malignant hyperthermia susceptible, but testing for patient's siblings was reportedly negative. Anesthesia consulted and aware to follow MH precautions. (14) DVT prophylaxis: SCD's preop. ASA + SCD's postop. Now on IV heparin. Will need to transition to appropriate oral anticoagulant soon. Will speak with all involved prior to moving forward with this. Sarah Camargo DO [facility] Hospitalist Subjective 79-year-old female who presented for a right hip fracture status post mechanical fall at home who underwent right bipolar hip hemiarthroplasty on 04/[address] Rae. Postoperative course complicated by bilateral pulmonary emboli, and she is on a heparin drip. She also developed spasming concerning for possible seizure activity and was placed on anticonvulsant therapy by Neurology. MRI of the brain revealed no acute infarction but did reveal asymmetric left upper lobe atrophy of uncertain significance. She also had another fall while hospitalized resulting in a comminuted fracture of the left humeral neck with a displaced fragment. Orthopedics saw her and placed her in a sling. Further plans are uncertain at this time. From an encephalopathy standpoint the nurse is with her feels she is at her best today compared with the last several days. She has intermittent memory loss but is rather oriented and can reiterate historical events appropriately for the most part. She reports persistent shoulder pain and continues to go back to this. Her last dose of morphine was yesterday afternoon. She is not consistently on Tylenol or any other scheduled pain med. Review of Systems Review of Systems: All systems reviewed & are unremarkable except as noted in HPI & below Patient has intermittent memory loss and appears to be recovering from some confusion earlier in the hospitalization. However, aside from the left shoulder pain she is reporting no other symptoms. Physical Exam Physical Exam: CONSTITUTIONAL: WNWD, vitals as above, generally well- appearing EYES: normal conjuctivae, no scleral icterus ENT: MMM RESPIRATORY: clear to auscultation bilaterally, no crackles, rales or wheezes, normal respiratory effort CARDIOVASCULAR: regular rate and rhythm, S1 and 2 heard without murmurs, gallops or rubs, no JVD, no peripheral edema GASTROINTESTINAL: soft, nontender, nondistended MUSCULOSKELETAL: strength 5/5 throughout, head is normocephalic and atraumatic SKIN: warm and dry NEUROLOGIC: CN 2-12 grossly intact, no sensory deficit, normal cognition, normal speech PSYCHIATRIC: alert cooperative and oriented to person, place and time. Results & Data Vital Signs (Past 12 Hours) Vital Signs Temp Pulse Pulse Resp BP Pulse Ox Pulse Ox 04/27/19 11:33 37 C 92 H 20 109/70 96 04/27/19 10:47 95 04/27/19 08:00 94 H 96 04/27/19 06:56 36.9 C 90 22 125/78 97 04/27/19 03:45 36.4 C L 89 20 122/76 97 Laboratory Results Short CBC 04/27/19 Range/Units 06:41 WBC 4.82 (4.8-10.8) K/uL Hgb 9.0 L (12.0-16.0) g/dL Hct 26.2 L (37-47) % Plt Count 193 (130-400) K/uL BMP 04/26/19 04/27/19 16:59 06:41 Sodium 141 Potassium 5.4 H D 3.1 L D Chloride 102 Carbon Dioxide 34 H BUN 4 L Creatinine 0.44 L Glucose 98 Calcium 7.8 L Urine 04/26/19 Range/Units 14:20 Urine Color Yellow Urine Appearance Clear (Clear) Urine pH 8.0 H (4.5-7.5) Ur Specific [place] 1.009 (1.000-1.030) Urine Protein Negative (Negative) Urine Glucose (UA) Negative (Negative) Medications Administered Current Inpatient Medications Acetaminophen (Tylenol) 1,000 mg PO Q8H [facility] Stop: 05/27/19 13:44 Al Hydrox/Mg Hydrox/Simethicone (Maalox Max) 30 ml PO Q6H PRN PRN Reason: Indigestion Stop: 05/23/19 17:19 Last Admin: 04/23/19 17:45 Dose: 30 ml Documented by: Aspirin (Ecotrin Ectab) 81 mg PO DAILY [facility] Stop: 05/25/19 08:59 Last Admin: 04/27/19 08:59 Dose: 81 mg Documented by: Bisacodyl (Dulcolax) 10 mg [place] DAILY PRN PRN Reason: Constipation Stop: 05/22/19 18:34 Ergocalciferol (Vitamin D2) 50,000 units PO Mo@0900 [facility] Stop: 05/27/19 08:59 Last Admin: 04/27/19 09:00 Dose: 50,000 units Documented by: Heparin Sodium/Dextrose (Heparin Sodium/Dextrose) 25,000 units in 500 mls @ 16 mls/hr IV .Q24H [facility]; Protocol Stop: 05/23/19 18:59 Last Titration: 04/27/19 10:51 Dose: 800 units/hr, 16 mls/hr Documented by: Ioversol (Optiray 320 125ml) 86 ml IV ONCE PRN PRN Reason: Interaction Checking Stop: 04/27/19 18:06 Last Admin: 04/23/19 18:11 Dose: 86 ml Documented by: Levetiracetam (Keppra) 250 mg PO BID [facility] Stop: 05/25/19 08:59 Last Admin: 04/27/19 08:59 Dose: 250 mg Documented by: Magnesium Hydroxide (Milk Of Magnesia) 30 ml PO DAILY PRN PRN Reason: Constipation Stop: 05/22/19 18:34 Menthol (Nice) 1 isaiah BUCCAL Q2H PRN PRN Reason: Sore Throat Stop: 05/22/19 18:34 Metoprolol Tartrate (Lopressor) 12.5 mg PO BID [facility] Stop: 05/24/19 08:59 Last Admin: 04/27/19 08:59 Dose: 12.5 mg Documented by: Morphine Sulfate (Morphine Sulfate) 1 mg IV Q30M PRN PRN Reason: Severe Pain Stop: 05/07/19 19:17 Last Admin: 04/27/19 05:53 Dose: 1 mg Documented by: Naloxone HCl (Narcan) 0.1 mg IV UD PRN PRN Reason: Opioid Overdose Stop: 05/22/19 18:34 Nitroglycerin (Nitrostat) 0.4 mg SL PRN PRN PRN Reason: Chest Pain Stop: 05/23/19 17:19 Ondansetron HCl (Zofran) 4 mg IV Q4H PRN PRN Reason: Nausea And Vomiting Stop: 05/23/19 08:59 Pantoprazole Sodium (Protonix) 40 mg PO QAM [facility] Stop: 05/27/19 08:59 Last Admin: 04/27/19 08:59 Dose: 40 mg Documented by: Polyethylene Glycol (Miralax Powder Packet) 17 gm PO DAILY PRN PRN Reason: constipation Stop: 05/28/19 08:59 Potassium Chloride (Klor-Con M20) 40 meq PO Q6H [facility] Stop: 04/27/19 15:01 Last Admin: 04/27/19 09:00 Dose: 40 meq Documented by: Rosuvastatin Calcium (Crestor) 5 mg PO QAM [facility] Stop: 05/26/19 08:59 Last Admin: 04/27/19 08:59 Dose: 5 mg Documented by: Sennosides (Senokot) 17.2 mg PO HS [facility] Stop: 05/22/19 20:59 Last Admin: 04/26/19 19:28 Dose: 17.2 mg Documented by: (1) Closed fracture of right hip Encounter type: initial encounter Qualified Code(s): S72.001A - Fracture of unspecified part of neck of right femur, initial encounter for closed fracture
--- NOTE | 2019-04-27 15:10 | Neurology Progress Note ---
Date of Service April 27, 2019 Assessment & Plan (1) Altered mental status: 1. CT head - no acute findings 2. TTE- NO ASD 3. EEG- no epileptic spikes noted 4. MRI brain - no acute findings 5. PT/OT speech for discharge recommendations 6. currently on heparin and transitioning to coumadin as planned 7. optimize HTN, HLD, LDL <70 8. Keppra 250 mg BID started for possible seizure episode Supervising Physician Co-Signing Physician Notes I have seen and discussed above patient with Dr Ivory Wan, neurology Pt seen and examined, MS much improved. Pt alert, oriented, no gaze preference. Moves RUE, LLE symm. Imp probable witnessed sz, continue Keppra with escalation as tolerated. Improved delirium. Pt does not need follow-up CT head today. JUAN MIGUEL Wan MD Lidia will is an 79 year old female with PMH HLD, blind in right eye, osteoporosis, overactive bladder, h/o malignant hyperthermia presented to ER with c/o fall and right hip pain. She was cleaning her house when she turned and lost her balance falling onto her right hip. There was some pain in her right hip and was unable to bear weight. On 04/22 Right cemented bipolar hip arthroplasty surgery was performed by Dr Rae. After surgery she had mid sternal CP and was found to have a DVT/PE and was started on heparin gtt. Then on 04/23 she has an episode described by nursing as a head turning to the right legs rigid, unable to speak. lasted several minutes and completely resolved. She was taken to CT to scan her head for bleed but it was normal. She does not remember the event. Last evening she got herself out of bed and fell and broke her left humerus. denies SOB, abdominal pain, one sided weakness, numbness, tingling, vision changes, bowel or bladder issues, +N, +chest heaviness. denies PMH of stroke, TIA or seizure Physical Exam Physical Exam: Gen: alert with voice command lungs course breath sounds CV RRR right hand digital analytics manager biceps triceps 5/5, left hand digital analytics manager 5/5 unable to assess bilateral LE due to bracing good cap refill pulses intact bilaterally oriented to self, [facility] facial symmetry. Results & Data Vital Signs (Past 12 Hours) Vital Signs Temp Pulse Pulse Resp BP Pulse Ox Pulse Ox 04/27/19 15:05 37 C 86 18 101/60 97 04/27/19 11:33 37 C 92 H 20 109/70 96 04/27/19 10:47 95 04/27/19 08:00 94 H 96 04/27/19 06:56 36.9 C 90 22 125/78 97 04/27/19 03:45 36.4 C L 89 20 122/76 97 Diagnostic Findings MRI brain- Chronic small vessel ischemic change. No acute intracranial abnormality. Asymmetric left upper lobe atrophy. Abnormal configuration of the right globe. shoulder xray- Interval development of a comminuted fracture of the left humeral neck with displacement less than 2 cm of a portion of the greater tubercle. No malalignment. Osteopenia. Volume overload suggested in the left lung.
[2019-04-27] MEDS: ACETAMINOPHEN 500 MG TAB PO SCH ×2 (16:04→20:14)
[2019-04-27] MEDS: WARFARIN SOD 5 MG TAB PO SCH (17:47)
[2019-04-27 17:49] LABS: Partial Thromboplastin Time 53.3 Seconds (21.0-31.0)
[2019-04-28] MEDS: Heparin Adult LOW DOSE Wt-Based Dextrose 5% 25,000 units/500 mL IV SCH (04:04)
[2019-04-28] MEDS: MoRPHine SULFATE 2 MG/ML CARP IV PRN ×3 (04:13→19:27)
[2019-04-28] MEDS: ACETAMINOPHEN 500 MG TAB PO SCH ×3 (05:26→21:03)
[2019-04-28 06:20] LABS: Hematocrit (blood only) 24.1 % (37-47); Hemoglobin 8.2 g/dL (12.0-16.0); Mean Corpuscular Volume 93.1 fL (80-100); Mean Platelet Volume 9.5 fL (7.4-10.4); Platelet Count 195 K/uL (130-400); RDW Standard Deviation 45.3 fL (36.4-46.3); Red Blood Count 2.59 M/uL (4.2-5.4); White Blood Count 4.83 K/uL (4.8-10.8)
[2019-04-28 06:46] LABS: INR 1.4 (0.9-1.1); Partial Thromboplastin Ratio 2.1
[2019-04-28 06:48] LABS: Partial Thromboplastin Time 56.2 Seconds (21.0-31.0)
[2019-04-28 07:03] LABS: BUN Creatinine Ratio 13.7 (10-20); Calcium 7.8 mg/dl (8.5-10.1); Creatinine Clr Calc Pharmacy 99.6 ml/min; Est GFR (African American) 111.3; Est GFR (Non-African American) 96.1; Magnesium 1.8 mg/dl (1.8-2.4)
[2019-04-28] MEDS: METOPROLOL TARTRATE 25 MG TAB PO SCH ×2 (08:40→21:03)
[2019-04-28] MEDS: PANTOprazole 40 MG TAB PO SCH (08:41)
[2019-04-28] MEDS: ASPIRIN 81 MG ECTAB PO SCH (08:41)
[2019-04-28] MEDS: ROSUVASTATIN CALCIUM 5 MG TAB PO SCH (08:41)
[2019-04-28] MEDS: levETIRAcetam 250 MG TAB PO SCH ×2 (08:41→21:03)
--- NOTE | 2019-04-28 13:28 | Neurology Progress Note ---
Date of Service April 28, 2019 Assessment & Plan (1) Altered mental status: 1. CT head - no acute findings 2. TTE- NO ASD 3. EEG- no epileptic spikes noted 4. MRI brain - no acute findings 5. PT/OT speech for discharge recommendations 6. currently on heparin and transitioning to coumadin as planned 7. optimize HTN, HLD, LDL <70 8. Keppra 250 mg BID started for possible seizure episode 9. ok to discharge from neurology standpoint once medically stable follow up in 4-6 weeks after discharge from rehab Ivory Linares PAC schedule. Supervising Physician Co-Signing Physician Notes I have seen and discussed above patient with Dr Ivory Wan, neurology Pt seen and examined, alert, oriented, no facial asymmetry, no asymmetric weakness within limits of testing. Possible sz, continue keppra. Delirium, improving. Subjective Roma is an 79 year old female with PMH HLD, blind in right eye, osteoporosis, overactive bladder, h/o malignant hyperthermia presented to ER with c/o fall and right hip pain. She was cleaning her house when she turned and lost her balance falling onto her right hip. There was some pain in her right hip and was unable to bear weight. On 04/22 Right cemented bipolar hip arthroplasty surgery was performed by Dr Rae. After surgery she had mid sternal CP and was found to have a DVT/PE and was started on heparin gtt. Then o n 04/23 she has an episode described by nursing as a head turning to the right legs rigid, unable to speak. lasted several minutes and completely resolved. She was taken to CT to scan her head for bleed but it was normal. She does not remember the event. On 04/26 she got herself out of bed and fell and broke her left humerus. Today she is sitting beside and feeling pretty good accept her left arm. She states the sling is causing some pain. She is eating some of every meal but doesn't have much of an appetite. She has been up walking to the bathroom without issues with some assistance. denies SOB, abdominal pain, one sided weakness, numbness, tingling, vision changes, bowel or bladder issues, +N, +chest heaviness. denies PMH of stroke, TIA or seizure Physical Exam Physical Exam: Gen: alert NAD lungs Course breath sounds CV RRR left arm in sling able to move digit warm good cap refill right hand biceps triceps hand tnt powder worker 5/5 hip flex bilaterally 4+/5 Results & Data Vital Signs (Past 12 Hours) Vital Signs Temp Pulse Pulse Resp BP Pulse Ox 04/28/19 11:51 36.7 C 73 18 107/66 96 04/28/19 08:00 85 04/28/19 07:48 36.8 C 81 18 107/67 98 04/28/19 03:15 37.0 C 93 H 18 112/69 91 Laboratory Results Abnormal lab results 04/27/19 04/28/19 04/28/19 Range/Units 17:04 05:52 05:52 RBC 2.59 L (4.2-5.4) M/uL Hgb 8.2 L (12.0-16.0) g/dL Hct 24.1 L (37-47) % PT 14.0 H (9.0-12.0) Seconds INR 1.4 H (0.9-1.1) APTT 53.3 H* 56.2 H* (21.0-31.0) Seconds BUN (7-18) mg/dl Creatinine (0.6-1.2) mg/dl Calcium (8.5-10.1) mg/dl 04/28/19 Range/Units 05:52 RBC (4.2-5.4) M/uL Hgb (12.0-16.0) g/dL Hct (37-47) % PT (9.0-12.0) Seconds INR (0.9-1.1) APTT (21.0-31.0) Seconds BUN 6 L (7-18) mg/dl Creatinine 0.43 L (0.6-1.2) mg/dl Calcium 7.8 L (8.5-10.1) mg/dl Diagnostic Findings CXR-Persistent congestive failure/pulmonary edema with small bilateral pleural effusions
--- NOTE | 2019-04-28 14:26 | Progress Note ---
DATE: 04/28/2019 SUBJECTIVE: An 79-year-old female now postop day 6 from a right cemented bipolar hip arthroplasty for fracture. She did have a fall postoperatively, now has a proximal humerus fracture on the left side as well. She is doing well this afternoon. Complaining only of left shoulder pain. Hip is doing well. Denies any chest pain or shortness of breath. OBJECTIVE: VITAL SIGNS: Temperature 36.7. Vital signs stable. GENERAL: Physical examination shows a pleasant elderly female, sitting up in her bedside chair, looks pretty comfortable. EXTREMITIES: Examination of the right hip reveals incision to be clean, dry and intact. Hip is located. She is neurologically intact. NECK: Examination of the left shoulder reveals the sling to be in place. There is some slight swelling around her shoulder. No obvious deformity. She can flex and extend her fingers appropriately. LABORATORY DATA: Her hemoglobin this morning is 8.2. Hematocrit 24.1. INR is 1.4. Electrolytes are stable. Potassium is improved. ASSESSMENT: An 79-year-old female postop day 6 from a right cemented bipolar hip arthroplasty for fracture complicated by PE and then a postoperative fall with a nondisplaced proximal humerus fracture. She seems to be doing much better mentally and confusion nelson. PLAN: 1. DVT prophylaxis and PE treatment with KAMILAH, SCDs, and Coumadin. She is still on heparin until her Coumadin is therapeutic. 2. PT/OT. She will weightbear as tolerated. Total hip precautions on the right side. Limited use of left arm for the next several weeks. She will be in a sling for about 4-6 weeks. The first 2 weeks, we just want to really keep it stable and with little movement. Would benefit her to sleep with the head of the bed up as much as possible while in bed. 3. Medical management as per the medicine service. 4. Disposition: She is orthopedically okay for discharge any time medically stable. I need to see her back 2 weeks out from surgery date. Any orthopedic questions can be directed to me at [phone].
--- NOTE | 2019-04-28 15:00 | Hospitalist Progress Note ---
Date of Service April 28, 2019 Assessment & Plan (1) Closed fracture of right hip: Right hip fracture after mechanical fall. Likely age related pathologic / osteoporotic right femoral neck fracture. Right cemented bipolar hip arthroplasty performed by Dr. Rae on 04/22/2019. Ambulate as tolerated. (2) Pulmonary emboli: CTA chest demonstrated bilateral segmental/subsegmental with RV strain. Venous duplex lower extremities demonstrated DVT within 1 of 2 duplicated right peroneal veins as well as superficial thrombosis in the right popliteal fossa and left medial calf. VTE developed despite preop prophylaxis with SCDs and postop prophylaxis with aspirin + SCDs. Patient was only 24 hours postop from repair of her hip fracture, but benefits of anticoagulation outweigh the risk. IV heparin per low-dose protocol initiated. Echocardiogram demonstrated pulmonary hypertension and RV strain. Elevated troponin 0.9 most likely secondary to pulmonary emboli. However, CT demonstrated coronary calcifications and patient certainly may have coronary artery disease as well. heparin/warfarin ongoing. (3) DVT (deep venous thrombosis): heparin/warfarin as above, (4) Altered mental status: Episode of confusion associate with dysarthria, apparent right gaze preference, and extension of lower extremities around 2100 04/23 while receiving IV heparin. Neurologic symptoms probably improved. CT of head negative for hemorrhage. CTA of cervical and intracranial vessels considered, but not ordered because of recent diet administration with CTA of chest. Case discussed with Neurology. Patient not a candidate for thrombolytic therapy because of right hip repair with spinal anesthesia approximately 24 hours prior to event. No apparent need for consideration of cerebrovascular interventional procedures because of prompt improvement of neurologic symptoms. EEG did not show any epileptogenic foci. MRI showed small vessel ischemic disease, atrophy left temporal lobe, old cerebellar infarct, no new event. Carotid duplex showed mild plaque, no significant stenosis. Echocardiogram did not show any evidence of [id number] shunt or intracardiac thrombus. Repeat CT head today negative for bleed or other acute event. Remains in normal sinus rhythm on telemetry. Continue aspirin. LDL-c = 16. Continue rosuvastatin; decreased dose because of extremely low LDL. Levetiracetam initiated by Neuro for possible seizures. REsolved by 04/28 to baseline. (5) Coronary artery disease: No clinical history of ischemic heart disease. Intermittent chest pain over past several months, possible exertional angina. CTA chest demonstrated extensive coronary calcification. Probable CAD. Elevated troponin 04/23 most likely secondary to PE. Echo showed normal LV wall motion and function (as well as pulmonary hypertension and RV strain). Continue aspirin, metoprolol, statin. Further evaluation and management per Cardiology. (6) Hypokalemia: resolved. (7) Acute blood loss anemia: Hemoglobin day of admission was 12.6. Hemoglobin fell as low as 8.5 on 04/24/2019. Acute blood loss anemia secondary to hip fracture. Has not required transfusion. H/H stable (8) Depression: Started on mirtazapine, but this was discontinued secondary to confusion. Patient appears improved today. (9) Fracture of left humerus: Fell 04/25 and suffered comminuted fracture of left humeral neck. Seen by Ortho. LUE immobilized with sling. Cont schedule Tylenol for improved pain control. Morphine is also an option as needed. 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 Family members were tested (patient doesn't remember name of test). Patient and her other children were told that they were malignant hyperthermia susceptible, but testing for patient's siblings was reportedly negative. Anesthesia consulted and aware to follow precautions. (12) DVT prophylaxis: heparin drip/warfarin DNR Sarah Camargo DO [facility] Hospitalist Subjective doing well improved to baseline mental status shoulder pain still present, however, this is improved with scheduled Tylenol no seizure activity. Review of Systems Review of Systems: All systems reviewed & are unremarkable except as noted in HPI & below Physical Exam Physical Exam: CONSTITUTIONAL: WNWD, vitals as above, generally well- appearing EYES: normal conjuctivae, no scleral icterus ENT: MMM RESPIRATORY: clear to auscultation bilaterally, no crackles, rales or wheezes, normal respiratory effort CARDIOVASCULAR: regular rate and rhythm, S1 and 2 heard without murmurs, gallops or rubs, no JVD, no peripheral edema GASTROINTESTINAL: soft, nontender, nondistended MUSCULOSKELETAL: strength 5/5 throughout, head is normocephalic and atraumatic SKIN: warm and dry NEUROLOGIC: CN 2-12 grossly intact, no sensory deficit, normal cognition, normal speech PSYCHIATRIC: alert cooperative and oriented to person, place and time. Results & Data Vital Signs (Past 12 Hours) Vital Signs Temp Pulse Pulse Resp BP Pulse Ox 04/28/19 11:51 36.7 C 73 18 107/66 96 04/28/19 08:00 85 04/28/19 07:48 36.8 C 81 18 107/67 98 04/28/19 03:15 37.0 C 93 H 18 112/69 91 Laboratory Results Short CBC 04/28/19 Range/Units 05:52 WBC 4.83 (4.8-10.8) K/uL Hgb 8.2 L (12.0-16.0) g/dL Hct 24.1 L (37-47) % Plt Count 195 (130-400) K/uL BMP 04/28/19 05:52 Sodium 142 Potassium 4.0 D Chloride 106 Carbon Dioxide 32 BUN 6 L Creatinine 0.43 L Glucose 94 Calcium 7.8 L Medications Administered Current Inpatient Medications Acetaminophen (Tylenol) 1,000 mg PO Q8H [facility] Stop: 05/27/19 13:44 Last Admin: 04/28/19 14:35 Dose: 1,000 mg Documented by: Al Hydrox/Mg Hydrox/Simethicone (Maalox Max) 30 ml PO Q6H PRN PRN Reason: Indigestion Stop: 05/23/19 17:19 Last Admin: 04/23/19 17:45 Dose: 30 ml Documented by: Aspirin (Ecotrin Ectab) 81 mg PO DAILY [facility] Stop: 05/25/19 08:59 Last Admin: 04/28/19 08:41 Dose: 81 mg Documented by: Bisacodyl (Dulcolax) 10 mg NC DAILY PRN PRN Reason: Constipation Stop: 05/22/19 18:34 Ergocalciferol (Vitamin D2) 50,000 units PO Mo@0900 [facility] Stop: 05/27/19 08:59 Last Admin: 04/27/19 09:00 Dose: 50,000 units Documented by: Heparin Sodium/Dextrose (Heparin Sodium/Dextrose) 25,000 units in 500 mls @ 16 mls/hr IV .Q24H [facility]; Protocol Stop: 05/23/19 18:59 Last Titration: 04/28/19 07:24 Dose: 800 units/hr, 16 mls/hr Documented by: Levetiracetam (Keppra) 250 mg PO BID [facility] Stop: 05/25/19 08:59 Last Admin: 04/28/19 08:41 Dose: 250 mg Documented by: Magnesium Hydroxide (Milk Of Magnesia) 30 ml PO DAILY PRN PRN Reason: Constipation Stop: 05/22/19 18:34 Menthol (Nice) 1 isaiah BUCCAL Q2H PRN PRN Reason: Sore Throat Stop: 05/22/19 18:34 Metoprolol Tartrate (Lopressor) 12.5 mg PO BID [facility] Stop: 05/24/19 08:59 Last Admin: 04/28/19 08:40 Dose: 12.5 mg Documented by: Morphine Sulfate (Morphine Sulfate) 1 mg IV Q30M PRN PRN Reason: Severe Pain Stop: 05/07/19 19:17 Last Admin: 04/28/19 14:36 Dose: 1 mg Documented by: Naloxone HCl (Narcan) 0.1 mg IV UD PRN PRN Reason: Opioid Overdose Stop: 05/22/19 18:34 Nitroglycerin (Nitrostat) 0.4 mg SL PRN PRN PRN Reason: Chest Pain Stop: 05/23/19 17:19 Ondansetron HCl (Zofran) 4 mg IV Q4H PRN PRN Reason: Nausea And Vomiting Stop: 05/23/19 08:59 Pantoprazole Sodium (Protonix) 40 mg PO QAM [facility] Stop: 05/27/19 08:59 Last Admin: 04/28/19 08:41 Dose: 40 mg Documented by: Polyethylene Glycol (Miralax Powder Packet) 17 gm PO DAILY PRN PRN Reason: constipation Stop: 05/28/19 08:59 Rosuvastatin Calcium (Crestor) 5 mg PO QAM [facility] Stop: 05/26/19 08:59 Last Admin: 04/28/19 08:41 Dose: 5 mg Documented by: Sennosides (Senokot) 17.2 mg PO HS [facility] Stop: 05/22/19 20:59 Last Admin: 04/26/19 19:28 Dose: 17.2 mg Documented by: Warfarin Sodium (Coumadin) 5 mg PO DAILY@1600 [facility] Stop: 05/27/19 16:54 Last Admin: 04/27/19 17:47 Dose: 5 mg Documented by: (1) Closed fracture of right hip Encounter type: initial encounter Qualified Code(s): S72.001A - Fracture of unspecified part of neck of right femur, initial encounter for closed fracture
[2019-04-28] MEDS: WARFARIN SOD 5 MG TAB PO SCH (15:29)
[2019-04-29] MEDS: MoRPHine SULFATE 2 MG/ML CARP IV PRN ×2 (02:08→20:01)
[2019-04-29 05:36] LABS: Hematocrit (blood only) 25.9 % (37-47); Hemoglobin 8.8 g/dL (12.0-16.0)
[2019-04-29] MEDS: ACETAMINOPHEN 500 MG TAB PO SCH ×3 (05:40→20:02)
[2019-04-29 06:07] LABS: Partial Thromboplastin Ratio 3.3; Prothrombin Time 35.5 Seconds (9.0-12.0)
[2019-04-29 06:09] LABS: INR 3.8 (0.9-1.1)
[2019-04-29 06:11] LABS: Partial Thromboplastin Time 88.3 Seconds (21.0-31.0)
[2019-04-29] MEDS: ONDANSETRON INJ 2 MG/ML 2 ML VIAL IV PRN (09:30)
[2019-04-29] MEDS: ROSUVASTATIN CALCIUM 5 MG TAB PO SCH (09:36)
[2019-04-29] MEDS: ASPIRIN 81 MG ECTAB PO SCH (09:37)
[2019-04-29] MEDS: levETIRAcetam 250 MG TAB PO SCH ×2 (09:37→20:04)
[2019-04-29] MEDS: PANTOprazole 40 MG TAB PO SCH (09:38)
[2019-04-29] MEDS: METOPROLOL TARTRATE 25 MG TAB PO SCH ×2 (09:40→20:03)
--- NOTE | 2019-04-29 10:11 | Progress Note ---
DATE: 04/29/2019 SUBJECTIVE: An 79-year-old female now 1 week out from a right cemented bipolar hip arthroplasty for fracture complicated by postoperative pulmonary embolism as well as a fall and a left proximal humerus fracture. She seems to continue to make significant improvement over the past several days. No new complaints other than just that shoulder pain. Hip is doing well. Not much pain in her hip. OBJECTIVE: VITAL SIGNS: Temperature 36.7. Vital signs stable. GENERAL: Reveals a pleasant elderly female. She is sitting up in her bedside chair and looks comfortable. EXTREMITIES: Examination of the right hip reveals the dressing to be in place. Just a little bit of serous drainage. Hip is located. She is neurologically intact. Examination of left shoulder reveals the sling to be in place. There is some bruising proximally. No obvious deformity. She is neurologically intact. LABORATORY DATA: Hemoglobin 8.8. Hematocrit 25.9. INR is 3.8. Electrolytes are stable. ASSESSMENT: An 79-year-old female 1 week out from a left cemented bipolar hip arthroplasty for fracture complicated by PE and a subsequent fall with a proximal humerus fracture which is nondisplaced. Clinically, she is doing pretty well now. She is asymptomatic from the PE standpoint. Shoulders are the only thing that really hurts. PLAN: 1. DVT prophylaxis including thigh-high TEDs, SCDs, and she is on Coumadin. A little supratherapeutic and just needs to be adjusted by the Medicine Service. 2. PT/OT. The patient is to weightbear as tolerated in the right lower extremity. She needs to obey hip precautions. 3. Left shoulder fracture. She will be in the sling for 4-6 weeks. We want really minimal movement for the first 2 weeks. Had helped her to sleep with the head of bed elevated. 4. Medical management as per the Medicine Service. 5. Disposition: She is orthopedically okay for discharge any time medically stable. I need to see her back in about a week, which is 2 weeks out from her hip surgery. Any orthopedic questions can be directed at [phone].
[2019-04-29] MEDS: TRAMADOL HCL 50 MG TABLET PO PRN (10:44)
[2019-04-29] MEDS: Heparin Adult LOW DOSE Wt-Based Dextrose 5% 25,000 units/500 mL IV SCH (11:39)
[2019-04-29 13:04] LABS: Partial Thromboplastin Time 53.2 Seconds (21.0-31.0)
[2019-04-29] MEDS ORDERED: MoRPHine SULFATE 4 MG/ML 1 ML CARP\\VIAL IV PRN ×2 (21:08→21:09)
[2019-04-29] MEDS: OXYCODONE/ACETAMINOPHEN 5mg/325mg TAB PO PRN (21:15)
--- NOTE | 2019-04-29 23:53 | Hospitalist Progress Note ---
Date of Service April 29, 2019 Assessment & Plan (1) Closed fracture of right hip: Right hip fracture after mechanical fall. Likely age related pathologic / osteoporotic right femoral neck fracture. Right cemented bipolar hip arthroplasty performed by Dr. Rae on 04/22/2019. Ambulate as tolerated. (2) Pulmonary emboli: CTA chest demonstrated bilateral segmental/subsegmental with RV strain. Venous duplex lower extremities demonstrated DVT within 1 of 2 duplicated right peroneal veins as well as superficial thrombosis in the right popliteal fossa and left medial calf. VTE developed despite preop prophylaxis with SCDs and postop prophylaxis with aspirin + SCDs. Patient was only 24 hours postop from repair of her hip fracture, but benefits of anticoagulation outweigh the risk. IV heparin per low-dose protocol initiated. Echocardiogram demonstrated pulmonary hypertension and RV strain. Elevated troponin 0.9 most likely secondary to pulmonary emboli. However, CT demonstrated coronary calcifications and patient certainly may have coronary artery disease as well. heparin/warfarin ongoing. (3) DVT (deep venous thrombosis): heparin/warfarin as above, (4) Altered mental status: Episode of confusion associate with dysarthria, apparent right gaze preference, and extension of lower extremities around 2100 04/23 while receiving IV heparin. Neurologic symptoms probably improved. CT of head negative for hemorrhage. CTA of cervical and intracranial vessels considered, but not ordered because of recent diet administration with CTA of chest. Case discussed with Neurology. Patient not a candidate for thrombolytic therapy because of right hip repair with spinal anesthesia approximately 24 hours prior to event. No apparent need for consideration of cerebrovascular interventional procedures because of prompt improvement of neurologic symptoms. EEG did not show any epileptogenic foci. MRI showed small vessel ischemic disease, atrophy left temporal lobe, old cerebellar infarct, no new event. Carotid duplex showed mild plaque, no significant stenosis. Echocardiogram did not show any evidence of [id number] shunt or intracardiac thrombus. Repeat CT head today negative for bleed or other acute event. Remains in normal sinus rhythm on telemetry. Continue aspirin. LDL-c = 16. Continue rosuvastatin; decreased dose because of extremely low LDL. Levetiracetam initiated by Neuro for possible seizures. AMS has resolved. (5) Coronary artery disease: No clinical history of ischemic heart disease. Intermittent chest pain over past several months, possible exertional angina. CTA chest demonstrated extensive coronary calcification. Probable CAD. Elevated troponin 04/23 most likely secondary to PE. Echo showed normal LV wall motion and function (as well as pulmonary hypertension and RV strain). Continue aspirin, metoprolol, statin. Further evaluation and management per Cardiology. (6) Acute blood loss anemia: Hemoglobin day of admission was 12.6. Hemoglobin fell as low as 8.5 on 04/24/2019. Acute blood loss anemia secondary to hip fracture. Has not required transfusion. H/H stable (7) Depression: Started on mirtazapine, but this was discontinued secondary to confusion. Patient appears improved today. (8) Fracture of left humerus: Fell 04/25 and suffered comminuted fracture of left humeral neck. Seen by Ortho. MARYLOUE immobilized with sling x 4-6 weeks. Cont schedule Tylenol for improved pain control. TRamadol PRN (9) Malignant hyperthermia susceptibility: Daughter had episode of malignant hyperthermia years ago. Family members were tested (patient doesn't remember name of test). Patient and her other children were told that they were malignant hyperthermia susceptible, but testing for patient's siblings was reportedly negative. Anesthesia consulted and aware to follow precautions. (10) DVT prophylaxis: heparin drip/warfarin DNR Sarah Camargo DO [facility] Hospitalist Subjective doing well reports pain still present in her shoulder today hip pain is not present and she is ambulatory we discussed using tramadol PRN again she is tolerating PO INR 3.8 today-warfarin held. Review of Systems Review of Systems: All systems reviewed & are unremarkable except as noted in HPI & below Physical Exam Physical Exam: CONSTITUTIONAL: WNWD, vitals as above, generally well- appearing EYES: normal conjunctivae, no scleral icterus ENT: MMM RESPIRATORY: clear to auscultation bilaterally, no crackles, rales or wheezes, normal respiratory effort CARDIOVASCULAR: regular rate and rhythm, S1 and 2 heard without murmurs, gallops or rubs, no JVD, no peripheral edema GASTROINTESTINAL: soft, nontender, nondistended MUSCULOSKELETAL: strength 5/5 throughout, head is normocephalic and atraumatic SKIN: warm and dry NEUROLOGIC: CN 2-12 grossly intact, no sensory deficit, normal cognition, normal speech PSYCHIATRIC: alert cooperative and oriented to person, place and time. Results & Data Vital Signs (Past 12 Hours) Vital Signs Temp Pulse Pulse Resp BP Pulse Ox 04/29/19 23:18 36.8 C 83 18 100/59 L 91 06/19/19 19:54 36.8 C 87 17 107/59 L 94 04/29/19 16:00 100 H 04/29/19 15:19 36.4 C L 88 17 119/61 97 Laboratory Results Short CBC 04/29/19 Range/Units 05:20 Hgb 8.8 L (12.0-16.0) g/dL Hct 25.9 L (37-47) % Medications Administered Current Inpatient Medications Acetaminophen (Tylenol) 1,000 mg PO Q8H [facility] Stop: 05/27/19 13:44 Last Admin: 04/29/19 20:02 Dose: 1,000 mg Documented by: Al Hydrox/Mg Hydrox/Simethicone (Maalox Max) 30 ml PO Q6H PRN PRN Reason: Indigestion Stop: 05/23/19 17:19 Last Admin: 04/23/19 17:45 Dose: 30 ml Documented by: Aspirin (Ecotrin Ectab) 81 mg PO DAILY [facility] Stop: 05/25/19 08:59 Last Admin: 04/29/19 09:37 Dose: 81 mg Documented by: Bisacodyl (Dulcolax) 10 mg MO DAILY PRN PRN Reason: Constipation Stop: 05/22/19 18:34 Ergocalciferol (Vitamin D2) 50,000 units PO Mo@0900 [facility] Stop: 05/27/19 08:59 Last Admin: 04/27/19 09:00 Dose: 50,000 units Documented by: Heparin Sodium/Dextrose (Heparin Sodium/Dextrose) 25,000 units in 500 mls @ 14 mls/hr IV .Q24H [facility]; Protocol Stop: 05/23/19 18:59 Last Titration: 04/29/19 23:12 Dose: 700 units/hr, 14 mls/hr Documented by: Levetiracetam (Keppra) 250 mg PO BID [facility] Stop: 05/25/19 08:59 Last Admin: 04/29/19 20:04 Dose: 250 mg Documented by: Magnesium Hydroxide (Milk Of Magnesia) 30 ml PO DAILY PRN PRN Reason: Constipation Stop: 05/22/19 18:34 Menthol (Nice) 1 isaiah BUCCAL Q2H PRN PRN Reason: Sore Throat Stop: 05/22/19 18:34 Metoprolol Tartrate (Lopressor) 12.5 mg PO BID [facility] Stop: 05/24/19 08:59 Last Admin: 04/29/19 20:03 Dose: 12.5 mg Documented by: Morphine Sulfate (Morphine Sulfate) 2 mg IV Q2H PRN PRN Reason: Pain Stop: 05/13/19 21:08 Naloxone HCl (Narcan) 0.1 mg IV UD PRN PRN Reason: Opioid Overdose Stop: 05/22/19 18:34 Nitroglycerin (Nitrostat) 0.4 mg SL PRN PRN PRN Reason: Chest Pain Stop: 05/23/19 17:19 Ondansetron HCl (Zofran) 4 mg IV Q4H PRN PRN Reason: Nausea And Vomiting Stop: 05/23/19 08:59 Last Admin: 04/29/19 09:30 Dose: 4 mg Documented by: Oxycodone/Acetaminophen (Percocet 5mg/325mg) 1 tab PO Q4H PRN PRN Reason: Pain Stop: 05/13/19 21:06 Last Admin: 04/29/19 21:15 Dose: 1 tab Documented by: Pantoprazole Sodium (Protonix) 40 mg PO QAM [facility] Stop: 05/27/19 08:59 Last Admin: 04/29/19 09:38 Dose: 40 mg Documented by: Polyethylene Glycol (Miralax Powder Packet) 17 gm PO DAILY PRN PRN Reason: constipation Stop: 05/28/19 08:59 Rosuvastatin Calcium (Crestor) 5 mg PO QAM [facility] Stop: 05/26/19 08:59 Last Admin: 04/29/19 09:36 Dose: 5 mg Documented by: Tramadol HCl (Ultram) 50 mg PO Q4H PRN PRN Reason: Pain Stop: 05/28/19 16:02 Last Admin: 04/29/19 10:44 Dose: 50 mg Documented by: Warfarin Sodium (Coumadin) 5 mg PO DAILY@1600 [facility] Stop: 05/27/19 16:54 Last Admin: 04/28/19 15:29 Dose: 5 mg Documented by: (1) Closed fracture of right hip Encounter type: initial encounter Qualified Code(s): S72.001A - Fracture of unspecified part of neck of right femur, initial encounter for closed fracture
[2019-04-30] MEDS: OXYCODONE/ACETAMINOPHEN 5mg/325mg TAB PO PRN ×2 (04:44→08:39)
[2019-04-30] MEDS: ACETAMINOPHEN 500 MG TAB PO SCH ×3 (04:45→20:39)
--- NOTE | 2019-04-30 07:48 | Progress Note ---
DATE: 04/30/2019 SUBJECTIVE: An 79-year-old female now postop day 8 from right cemented bipolar hip arthroplasty for fracture complicated by a postoperative PE and then a fall with a proximal humerus fracture. She seems to be back to baseline. No interval changes. Really no pain at all while resting. Shoulder pain with motion. Hip is doing well. OBJECTIVE: VITAL SIGNS: Temperature 36.8. Vital signs stable. GENERAL: Reveals an elderly female. She is lying in bed and getting her blood drawn this morning. MUSCULOSKELETAL: Examination of the right hip reveals incision to be clean, dry and intact. Leg lengths are equal. She is neurologically intact. Examination of the left shoulder reveals a sling to be in place. Some moderate swelling and bruising proximally. No obvious deformity. She is neurologically intact. LABORATORY DATA: Labs are pending. ASSESSMENT: An 79-year-old female now postop day 8 from a right cemented bipolar hip arthroplasty for fracture complicated by postoperative PE and fall with a proximal humerus fracture. She orthopedically appears stable. PLAN: 1. DVT prophylaxis including thigh-high TEDs, SCDs, and Coumadin. 2. PT/OT. She can weightbear as tolerated. Right total hip protocol. 3. Left shoulder fracture. She can continue sling immobilization. I will need to see her back in about a week. 4. Medical management as per the medicine service. 5. Disposition: She is orthopedically okay for discharge any time. Any orthopedic questions can be directed to me at [phone].
[2019-04-30 08:01] LABS: Hematocrit (blood only) 26.5 % (37-47); Hemoglobin 8.8 g/dL (12.0-16.0)
[2019-04-30 08:23] LABS: Partial Thromboplastin Ratio 2.2
[2019-04-30 08:27] LABS: INR 4.3 (0.9-1.1)
[2019-04-30 08:32] LABS: Partial Thromboplastin Time 59.3 Seconds (21.0-31.0)
[2019-04-30 08:34] LABS: BUN Creatinine Ratio 13.1 (10-20); Calcium 8.1 mg/dl (8.5-10.1); Creatinine Clr Calc Pharmacy 78.5 ml/min; Est GFR (African American) 103.3; Est GFR (Non-African American) 89.1; Potassium 3.6 mmol/L (3.5-5.1)
[2019-04-30] MEDS: PANTOprazole 40 MG TAB PO SCH (08:35)
[2019-04-30] MEDS: METOPROLOL TARTRATE 25 MG TAB PO SCH ×2 (08:36→20:39)
[2019-04-30] MEDS: ROSUVASTATIN CALCIUM 5 MG TAB PO SCH (08:36)
[2019-04-30] MEDS: levETIRAcetam 250 MG TAB PO SCH ×2 (08:36→20:39)
[2019-04-30] MEDS: ASPIRIN 81 MG ECTAB PO SCH (08:36)
--- NOTE | 2019-04-30 09:18 | Hospitalist Progress Note ---
Date of Service April 30, 2019 Assessment & Plan (1) Abdominal pain: Acute abdominal pain that lasted >1hr today. Feels like cramping as if she needs to take a BM. She tried but was unable to go much. She has been urinating. She has used percocet for pain today. She ate cereal for breakfast and fish for lunch and has some nausea presently. She had this same pain a couple of days ago. TTP on right side on exam, she appears ill but is mentating well. Uncertain etiology. CT abd/pel and labwork pending. (2) Closed fracture of right hip: Right hip fracture after mechanical fall. Likely age related pathologic / osteoporotic right femoral neck fracture. Right cemented bipolar hip arthroplasty performed by Dr. Rae on 04/22/2019. Ambulate as tolerated. (3) Pulmonary emboli: CTA chest demonstrated bilateral segmental/subsegmental with RV strain. Venous duplex lower extremities demonstrated DVT within 1 of 2 duplicated right peroneal veins as well as superficial thrombosis in the right popliteal fossa and left medial calf. VTE developed despite preop prophylaxis with SCDs and postop prophylaxis with aspirin + SCDs. Patient was only 24 hours postop from repair of her hip fracture, but benefits of anticoagulation outweigh the risk. IV heparin per low-dose protocol initiated. Echocardiogram demonstrated pulmonary hypertension and RV strain. Elevated troponin 0.9 most likely secondary to pulmonary emboli. However, CT demonstrated coronary calcifications and patient certainly may have coronary artery disease as well. Supratherapeutic INR yesterday (3.8) and today (4.2). Warfarin remains on hold and will be initiated when INR falls back around 3 at a lower dose, likely 1-2mg daily. Frequent rechecks of INR will be required when she transitions to [facility] initially. (4) DVT (deep venous thrombosis): heparin/warfarin as above, (5) Altered mental status: Episode of confusion associate with dysarthria, apparent right gaze preference, and extension of lower extremities around 2100 04/23 while receiving IV heparin. Neurologic symptoms probably improved. CT of head negative for hemorrhage. CTA of cervical and intracranial vessels considered, but not ordered because of recent diet administration with CTA of chest. Case discussed with Neurology. Patient not a candidate for thrombolytic therapy because of right hip repair with spinal anesthesia approximately 24 hours prior to event. No apparent need for consideration of cerebrovascular interventional procedures because of prompt improvement of neurologic symptoms. EEG did not show any epileptogenic foci. MRI showed small vessel ischemic disease, atrophy left temporal lobe, old cerebellar infarct, no new event. Carotid duplex showed mild plaque, no significant stenosis. Echocardiogram did not show any evidence of [id number] shunt or intracardiac thrombus. Repeat CT head today negative for bleed or other acute event. Remains in normal sinus rhythm on telemetry. Continue aspirin. LDL-c = 16. Continue rosuvastatin; decreased dose because of extremely low LDL. Levetiracetam initiated by Neuro for possible seizures. AMS has resolved. (6) Coronary artery disease: No clinical history of ischemic heart disease. Intermittent chest pain over past several months, possible exertional angina. CTA chest demonstrated extensive coronary calcification. Probable CAD. Elevated troponin 04/23 most likely secondary to PE. Echo showed normal LV wall motion and function (as well as pulmonary hypertension and RV strain). Continue aspirin, metoprolol, statin. Further evaluation and management per Cardiology as outpatient to workup ischemic heart disease once other issues have resolved. (7) Acute blood loss anemia: Hemoglobin day of admission was 12.6. Hemoglobin fell as low as 8.5 on 04/24/2019. Acute blood loss anemia secondary to hip fracture. Has not required transfusion. H/H stable (8) Depression: Started on mirtazapine, but this was discontinued secondary to confusion. Patient appears improved today. (9) Fracture of left humerus: Fell 04/25 and suffered comminuted fracture of left humeral neck. Seen by Ortho. MARYLOUE immobilized with sling x 4-6 weeks. Cont schedule Tylenol for improved pain control. 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 Family members were tested (patient doesn't remember name of test). Patient and her other children were told that they were malignant hyperthermia susceptible, but testing for patient's siblings was reportedly negative. Anesthesia consulted and aware to follow MH precautions. (11) DVT prophylaxis: warfarin/supratherapeutic INR DNR Dispo-to [facility] in the next 1-2 days. Sarah Camargo DO [facility] Hospitalist Subjective Episode today around 2pm regarding patient becoming diaphoretic with reported abdominal pain. She was nautious and felt like she was going to for her reports. She reported a need to have a BM but was not able to go very much. She has been urinating and tolerating PO today. She is afebrile and vital signs are normal. Orthostatics lying to sitting were negative. She is not in respiratory distress or requiring increased oxygen supplementation. She was unable to stand 2/2/ weakness and malaise. See exam below. Review of Systems Review of Systems: All systems reviewed & are unremarkable except as noted in HPI & below Physical Exam Physical Exam: CONSTITUTIONAL: WNWD, vitals as above, generally ill- appearing, lying in bed EYES: normal conjunctivae, no scleral icterus ENT: MMM RESPIRATORY: clear to auscultation bilaterally, no crackles, rales or wheezes, normal respiratory effort CARDIOVASCULAR: regular rate and rhythm, S1 and 2 heard without murmurs, gallops or rubs, no JVD, no peripheral edema GASTROINTESTINAL: soft, nondistended, TTP in RLQ and RUQ MUSCULOSKELETAL: strength 5/5 throughout, head is normocephalic and atraumatic, L sling in place, LUE NVI SKIN: warm and dry NEUROLOGIC: CN 2-12 grossly intact, no sensory deficit, normal cognition, normal speech PSYCHIATRIC: alert cooperative and oriented to person, place and time. Results & Data Vital Signs (Past 12 Hours) Vital Signs Temp Pulse Pulse Resp BP Pulse Ox 04/30/19 07:00 36.8 C 75 18 123/80 93 04/30/19 03:48 36.9 C 78 19 99/61 L 96 04/30/19 00:00 86 04/29/19 23:18 36.8 C 83 18 100/59 L 91 Laboratory Results Short CBC 04/30/19 Range/Units 07:31 Hgb 8.8 L (12.0-16.0) g/dL Hct 26.5 L (37-47) % BMP 04/30/19 07:31 Sodium 141 Potassium 3.6 Chloride 104 Carbon Dioxide 32 BUN 7 Creatinine 0.54 L Glucose 97 Calcium 8.1 L Medications Administered Current Inpatient Medications Acetaminophen (Tylenol) 1,000 mg PO Q8H [facility] Stop: 05/27/19 13:44 Last Admin: 04/30/19 04:45 Dose: Not Given Documented by: Al Hydrox/Mg Hydrox/Simethicone (Maalox Max) 30 ml PO Q6H PRN PRN Reason: Indigestion Stop: 05/23/19 17:19 Last Admin: 04/23/19 17:45 Dose: 30 ml Documented by: Aspirin (Ecotrin Ectab) 81 mg PO DAILY [facility] Stop: 05/25/19 08:59 Last Admin: 04/30/19 08:36 Dose: 81 mg Documented by: Bisacodyl (Dulcolax) 10 mg AK DAILY PRN PRN Reason: Constipation Stop: 05/22/19 18:34 Ergocalciferol (Vitamin D2) 50,000 units PO Mo@0900 [facility] Stop: 05/27/19 08:59 Last Admin: 04/27/19 09:00 Dose: 50,000 units Documented by: Heparin Sodium/Dextrose (Heparin Sodium/Dextrose) 25,000 units in 500 mls @ 14 mls/hr IV .Q24H [facility]; Protocol Stop: 05/23/19 18:59 Last Titration: 04/30/19 08:53 Dose: 700 units/hr, 14 mls/hr Documented by: Levetiracetam (Keppra) 250 mg PO BID [facility] Stop: 05/25/19 08:59 Last Admin: 04/30/19 08:36 Dose: 250 mg Documented by: Magnesium Hydroxide (Milk Of Magnesia) 30 ml PO DAILY PRN PRN Reason: Constipation Stop: 05/22/19 18:34 Menthol (Nice) 1 isaiah BUCCAL Q2H PRN PRN Reason: Sore Throat Stop: 05/22/19 18:34 Metoprolol Tartrate (Lopressor) 12.5 mg PO BID [facility] Stop: 05/24/19 08:59 Last Admin: 04/30/19 08:36 Dose: 12.5 mg Documented by: Morphine Sulfate (Morphine Sulfate) 2 mg IV Q2H PRN PRN Reason: Pain Stop: 05/13/19 21:08 Naloxone HCl (Narcan) 0.1 mg IV UD PRN PRN Reason: Opioid Overdose Stop: 05/22/19 18:34 Nitroglycerin (Nitrostat) 0.4 mg SL PRN PRN PRN Reason: Chest Pain Stop: 05/23/19 17:19 Ondansetron HCl (Zofran) 4 mg IV Q4H PRN PRN Reason: Nausea And Vomiting Stop: 05/23/19 08:59 Last Admin: 04/29/19 09:30 Dose: 4 mg Documented by: Oxycodone/Acetaminophen (Percocet 5mg/325mg) 1 tab PO Q4H PRN PRN Reason: Pain Stop: 05/13/19 21:06 Last Admin: 04/30/19 08:39 Dose: 1 tab Documented by: Pantoprazole Sodium (Protonix) 40 mg PO QAM [facility] Stop: 05/27/19 08:59 Last Admin: 04/30/19 08:35 Dose: 40 mg Documented by: Polyethylene Glycol (Miralax Powder Packet) 17 gm PO DAILY PRN PRN Reason: constipation Stop: 05/28/19 08:59 Rosuvastatin Calcium (Crestor) 5 mg PO QAM [facility] Stop: 05/26/19 08:59 Last Admin: 04/30/19 08:36 Dose: 5 mg Documented by: Tramadol HCl (Ultram) 50 mg PO Q4H PRN PRN Reason: Pain Stop: 05/28/19 16:02 Last Admin: 04/29/19 10:44 Dose: 50 mg Documented by: Warfarin Sodium (Coumadin) 5 mg PO DAILY@1600 [facility] Stop: 05/27/19 16:54 Last Admin: 04/28/19 15:29 Dose: 5 mg Documented by: (1) Closed fracture of right hip Encounter type: initial encounter Qualified Code(s): S72.001A - Fracture of unspecified part of neck of right femur, initial encounter for closed fracture
[2019-04-30] MEDS: ONDANSETRON INJ 2 MG/ML 2 ML VIAL IV PRN (15:30)
[2019-04-30 16:45] LABS: Hematocrit (blood only) 26.1 % (37-47); Hemoglobin 8.7 g/dL (12.0-16.0); Mean Corpuscular Hgb Conc 33.3 g/dL (32-36); Mean Corpuscular Volume 94.2 fL (80-100); Mean Platelet Volume 9.4 fL (7.4-10.4); Nucleated RBC # (auto) 0.02 K/uL (0-0); Nucleated RBC % (auto) 0.4 %; Platelet Count 256 K/uL (130-400); RDW Coefficient of Variation 14.5 % (11.5-14.5); RDW Standard Deviation 48.6 fL (36.4-46.3); Red Blood Count 2.77 M/uL (4.2-5.4); White Blood Count 5.94 K/uL (4.8-10.8)
[2019-04-30 17:00] LABS: Albumin Level 2.5 gm/dl (3.4-5.0); BUN Creatinine Ratio 13.9 (10-20); Calcium 8.4 mg/dl (8.5-10.1); Creatinine Clr Calc Pharmacy 71.8 ml/min; Est GFR (African American) 100.3; Est GFR (Non-African American) 86.6; Potassium 3.9 mmol/L (3.5-5.1)
--- NOTE | 2019-04-30 17:00 | CT Scan Report ---
CT OF THE ABDOMEN AND PELVIS WITHOUT CONTRAST CLINICAL HISTORY: Severe postoperative abdominal pain. COMPARISON STUDY: No previous studies for comparison. TECHNIQUE: Axial images of the abdomen and pelvis were obtained without IV contrast. Images were revi ewed in the axial, sagittal, and coronal planes. Automated exposure control was utilized for the william dy. A dose lowering technique was utilized adhering to the principles of ALARA. FINDINGS: Visualized portions the lower chest demonstrate small left and trace left pleural effusions with associated atelectasis. The heart is mildly enlarged. No pneumatosis, free air or portal venous gas is present. Evaluation of the abdomen and pelvis is suboptimal on this unenhanced exam. The live r, spleen, adrenal glands and pancreas are unremarkable. Her is no biliary or pancreatic ductal dilat ation. There is no hydronephrosis or hydroureter. No urinary calculi are identified although evaluati on of the pelvis is difficult given streak artifact from a right hip arthroplasty. There is hyperdens e material within the appendix without evidence for acute appendicitis. There is trace ascites within the pelvis. Sigmoid diverticulosis is noted without evidence for acute diverticulitis. Layering hype rdense material within the gallbladder is noted. There is possible mild gallbladder wall thickening. Right hip arthroplasty is noted. Hardware is intact. No acute pelvic or lumbar spine fracture is iden tified. IMPRESSION: 1. Layering material within the gallbladder which may reflect gallstones or sludge. Suspected mild ga llbladder wall thickening. Acute cholecystitis cannot be excluded. A right upper quadrant ultrasound is recommended if right-sided abdominal pain. 2. Small right and trace left pleural effusions with associated atelectasis. Trace ascites within the pelvis. 3. Expected postoperative findings following recent right hip arthroplasty. Electronically signed by: Terrance Rock M.D. 04/30/2019 4:59 PM
[2019-04-30 17:03] LABS: Albumin Globulin Ratio 0.9 (0.9-2); Bilirubin,Total 0.6 mg/dl (0.2-1); Globulin 2.7 gm/dl (2.5-4.0); Total Protein 5.2 gm/dl (6.4-8.2)
--- NOTE | 2019-04-30 18:59 | Ultrasound Report ---
US liver CLINICAL HISTORY: RUQ pain, sludge/stone on CT COMPARISON STUDY: CT of the abdomen and pelvis April 30, 2019. FINDINGS: The liver is sonographically normal. There is no biliary ductal dilatation. Common bile cecilio t measures 6 mm in caliber. The gallbladder is mildly distended. There is sludge within the gallbladd er. No gallstones are identified. There is no gallbladder wall thickening. No sonographic Dailey sign was elicited. The pancreas is within normal limits although the tail is slightly tear. There is no r ight hydronephrosis. IMPRESSION: 1. Moderate sludge within the gallbladder. Mild gallbladder distention. No gallstones or sonographic Dailey sign. No sonographic evidence for acute cholecystitis however a hepatobiliary scan could be o btained as clinically indicated. 2. No biliary ductal dilatation. Electronically signed by: Terrance Rock M.D. 04/30/2019 6:57 PM
[2019-04-30] MEDS: TRAMADOL HCL 50 MG TABLET PO PRN (20:38)
[2019-04-30 21:08] LABS: Prothrombin Time 40.1 Seconds (9.0-12.0)
[2019-04-30 21:14] LABS: INR 4.3 (0.9-1.1)
--- NOTE | 2019-04-30 22:32 | Surgery Consultation ---
Date of Consultation April 30, 2019 Assessment & Plan (1) Abdominal pain: pt is consult for abdominal pain, now, pt has no abdominal pain, the pain is relate to food, IMP: abdominal pain, possible is not relate to gallbladder, po miralax may help BM, now no surgical indication for cholecystectomy, sign off today, please call with any questions or concern, Thanks, History of Present Illness Attending Physician: CC: abdominal pain HPI: Roma is delightful I am meeting her for the first time. She is 79 years of age, relatively healthy. There are some comorbidities, had a mechanical fall, suffered an acute injury to her right hip and suffered acute displaced right femoral neck fracture, Garden type classification III.pt had Right cemented bipolar hip arthroplasty on 04/22/2019. I got a call for consult gallbladder sludge, I reviewed pt's H/P with pt, pt said pt had abdominal pain this morning, the pain is located lower abdomen, the pain is last only one hour so, the pain is gone, pt said the pain is not relate to food, pt denies nausea, no vomiting, no fever.last BM 2 days ago, pt had Ct scan and U/S study today, dx gallbladder sludge. no acute cholecystitis signs. Allergies Allergy/AdvReac Type Severity Reaction Status Date / Time hydromorphone [From Dilaudid] Allergy Severe Anaphylaxis Verified 04/22/19 13:46 Home Medications Home Medications Medication Instructions Recorded Confirmed Type alendronate [Fosamax] 70 mg PO UD 04/21/19 04/21/19 History aspirin [Aspirin Low Dose] 81 mg PO DAILY 04/21/19 04/21/19 History cholecalciferol (vitamin D3) 2,000 unit PO DAILY 04/21/19 04/21/19 History [Vitamin D3] oxybutynin chloride 5 mg PO DAILY 04/21/19 04/21/19 History rosuvastatin [Crestor] 10 mg PO DAILY 04/21/19 04/21/19 History Patient History Medical History Abdominal pain Coronary artery disease (Chronic) Depression (Chronic) Discharge planning issues (Chronic) Osteoporosis (Chronic) History of cataract (Chronic) Left eye History of hysterectomy (Chronic) Dyslipidemia (Chronic) Overactive bladder (Chronic) Surgical History History of bladder repair surgery (Chronic) 2008 History of lumpectomy of both breasts (Chronic) 1962 - Left breast lumpectomy - pt reports was benign 1980 - R breast lumpectomy - pt reports was benign History of tonsillectomy and adenoidectomy (Chronic) H/O eye surgery (Chronic) 1944 - Right eye surgery 1947 - Right eye surgery H/O malignant hyperthermia (Chronic) Family History Other Cancer Hypertension Malignant hyperthermia due to anesthesia Social History Preferred Language: Marshallese Communication Ability: Effective Manager Laundry Required: No Beliefs That Will Affect Care: Roman Catholic Roman Catholic Beliefs: Buddhist marital status: / Current Living Situation: Alone Feels Safe at Home: Yes Safety Concerns: Feels Safe At This Time Smoking Status: Former smoker Do You Dip or Chew Tobacco: No Smoking End Date: quit at age 59 Hx Alcohol Use: No Hx Substance Use: No Review of Systems Review of Systems: All systems reviewed & are unremarkable except as noted in HPI & below Constitutional: as per Subjective / HPI Ear, Nose, Mouth, Throat: as per Subjective / HPI Respiratory: as per Subjective / HPI Cardiovascular: as per Subjective / HPI Additional Comments: CAD, DVT Gastrointestinal: as per Subjective / HPI Integumentary: as per Subjective / HPI Neurologic: depression, delirium Psychiatric: as per Subjective / HPI Endocrine: as per Subjective / HPI Hematologic / Lymphatic: as per Subjective / HPI Physical Exam Constitutional: WD/WN, vitals as above well developed and well nourished ENMT: external ear and nose normal, oropharynx normal Neck: trachea midline, no thyromegaly Respiratory: normal respiratory effort, lungs clear to auscultation Cardiovascular: RRR, no murmur, no edema Gastrointestinal (Abdomen): normal bowel sounds, soft, nontender, no hepatosplenomegaly no distend, BS + Neurologic: patellar DTR's 2+ bilat, sensation intact Psychiatric: A+Ox3, euthymic affect Orientation: alert and oriented x 3 Results & Data Vital Signs (Past 12 Hours) Vital Signs Temp Pulse Pulse Resp BP Pulse Ox 04/30/19 20:41 96 H 04/30/19 19:50 36.8 C 18 121/71 93 04/30/19 18:00 83 04/30/19 15:24 77 110/67 04/30/19 15:00 76 92/57 L 95 04/30/19 11:08 36.9 C 77 20 117/59 L 95 Laboratory Results Abnormal lab results 04/30/19 04/30/19 04/30/19 Range/Units 07:31 07:31 07:31 RBC (4.2-5.4) M/uL Hgb 8.8 L (12.0-16.0) g/dL Hct 26.5 L (37-47) % RDW Std Deviation (36.4-46.3) fL Absolute Nucleated RBC (0-0) K/uL PT 40.0 H (9.0-12.0) Seconds INR 4.3 H (0.9-1.1) APTT 59.3 H* (21.0-31.0) Seconds Creatinine 0.54 L (0.6-1.2) mg/dl Glucose (70-99) mg/dl POC Glucose (70-99) Calcium 8.1 L (8.5-10.1) mg/dl Total Protein (6.4-8.2) gm/dl Albumin (3.4-5.0) gm/dl 04/30/19 04/30/19 04/30/19 Range/Units 15:24 16:31 16:31 RBC 2.77 L (4.2-5.4) M/uL Hgb 8.7 L (12.0-16.0) g/dL Hct 26.1 L (37-47) % RDW Std Deviation 48.6 H (36.4-46.3) fL Absolute Nucleated RBC 0.02 H (0-0) K/uL PT (9.0-12.0) Seconds INR (0.9-1.1) APTT (21.0-31.0) Seconds Creatinine 0.59 L (0.6-1.2) mg/dl Glucose 113 H (70-99) mg/dl POC Glucose 126 H (70-99) Calcium 8.4 L (8.5-10.1) mg/dl Total Protein 5.2 L (6.4-8.2) gm/dl Albumin 2.5 L (3.4-5.0) gm/dl 04/30/19 Range/Units 20:36 RBC (4.2-5.4) M/uL Hgb (12.0-16.0) g/dL Hct (37-47) % RDW Std Deviation (36.4-46.3) fL Absolute Nucleated RBC (0-0) K/uL PT 40.1 H (9.0-12.0) Seconds INR 4.3 H (0.9-1.1) APTT (21.0-31.0) Seconds Creatinine (0.6-1.2) mg/dl Glucose (70-99) mg/dl POC Glucose (70-99) Calcium (8.5-10.1) mg/dl Total Protein (6.4-8.2) gm/dl Albumin (3.4-5.0) gm/dl Diagnostic Findings US liver CLINICAL HISTORY: RUQ pain, sludge/stone on CT COMPARISON STUDY: CT of the abdomen and pelvis April 30, 2019. FINDINGS: The liver is sonographically normal. There is no biliary ductal dilatation. Common bile duct measures 6 mm in caliber. The gallbladder is mildly distended. There is sludge within the gallbladder. No gallstones are identified. There is no gallbladder wall thickening. No sonographic Dailey sign was elicited. The pancreas is within normal limits although the tail is slightly tear. There is no right hydronephrosis. IMPRESSION: 1. Moderate sludge within the gallbladder. Mild gallbladder distention. No gallstones or sonographic Dailey sign. No sonographic evidence for acute cholecystitis however a hepatobiliary scan could be obtained as clinically indicated. 2. No biliary ductal dilatation. CT OF THE ABDOMEN AND PELVIS WITHOUT CONTRAST CLINICAL HISTORY: Severe postoperative abdominal pain. COMPARISON STUDY: No previous studies for comparison. TECHNIQUE: Axial images of the abdomen and pelvis were obtained without IV contrast. Images were reviewed in the axial, sagittal, and coronal planes. Automated exposure control was utilized for the study. A dose lowering technique was utilized adhering to the principles of ALARA. FINDINGS: Visualized portions the lower chest demonstrate small left and trace left pleural effusions with associated atelectasis. The heart is mildly enlarged. No pneumatosis, free air or portal venous gas is present. Evaluation of the abdomen and pelvis is suboptimal on this unenhanced exam. The liver, spleen, adrenal glands and pancreas are unremarkable. Her is no biliary or pancreatic ductal dilatation. There is no hydronephrosis or hydroureter. No urinary calculi are identified although evaluation of the pelvis is difficult given streak artifact from a right hip arthroplasty. There is hyperdense material within the appendix without evidence for acute appendicitis. There is trace ascites within the pelvis. Sigmoid diverticulosis is noted without evidence for acute diverticulitis. Layering hyperdense material within the gallbladder is noted. There is possible mild gallbladder wall thickening. Right hip arthroplasty is noted. Hardware is intact. No acute pelvic or lumbar spine fracture is identified. IMPRESSION: 1. Layering material within the gallbladder which may reflect gallstones or sludge. Suspected mild gallbladder wall thickening. Acute cholecystitis cannot be excluded. A right upper quadrant ultrasound is recommended if right-sided abdominal pain. 2. Small right and trace left pleural effusions with associated atelectasis. Trace ascites within the pelvis. 3. Expected postoperative findings following recent right hip arthroplasty.
[2019-05-01] MEDS: ACETAMINOPHEN 500 MG TAB PO SCH ×3 (06:08→21:07)
[2019-05-01] MEDS: MAGNESIUM HYDROXIDE SUSP 30 ML UDC PO PRN (06:11)
[2019-05-01 06:53] LABS: Hematocrit (blood only) 26.3 % (37-47); Hemoglobin 8.8 g/dL (12.0-16.0)
[2019-05-01 07:16] LABS: Prothrombin Time 38.2 Seconds (9.0-12.0)
[2019-05-01 07:19] LABS: INR 4.1 (0.9-1.1)
[2019-05-01] MEDS: levETIRAcetam 250 MG TAB PO SCH ×2 (08:30→21:07)
[2019-05-01] MEDS: ASPIRIN 81 MG ECTAB PO SCH (08:30)
[2019-05-01] MEDS: ROSUVASTATIN CALCIUM 5 MG TAB PO SCH (08:30)
[2019-05-01] MEDS: TRAMADOL HCL 50 MG TABLET PO PRN ×2 (08:30→21:06)
[2019-05-01] MEDS: PANTOprazole 40 MG TAB PO SCH (08:30)
[2019-05-01] MEDS: METOPROLOL TARTRATE 25 MG TAB PO SCH ×2 (08:31→21:08)
[2019-05-01] MEDS: ONDANSETRON INJ 2 MG/ML 2 ML VIAL IV PRN (09:56)
--- NOTE | 2019-05-01 15:32 | Hospitalist Progress Note ---
Date of Service May 01, 2019 Assessment & Plan (1) Abdominal pain: resolved, uncertain cause. Possibly from something she ate. She reports having these issues in the past and an issue with chronic nausea. (2) Closed fracture of right hip: Right hip fracture after mechanical fall. Likely age related pathologic / osteoporotic right femoral neck fracture. Right cemented bipolar hip arthroplasty performed by Dr. Rae on 04/22/2019. Ambulate as tolerated. (3) Pulmonary emboli: CTA chest demonstrated bilateral segmental/subsegmental with RV strain. Venous duplex lower extremities demonstrated DVT within 1 of 2 duplicated right peroneal veins as well as superficial thrombosis in the right popliteal fossa and left medial calf. VTE developed despite preop prophylaxis with SCDs and postop prophylaxis with aspirin + SCDs. Patient was only 24 hours postop from repair of her hip fracture, but benefits of anticoagulation outweigh the risk. IV heparin per low-dose protocol initiated. Echocardiogram demonstrated pulmonary hypertension and RV strain. Elevated troponin 0.9 most likely secondary to pulmonary emboli. However, CT demonstrated coronary calcifications and patient certainly may have coronary artery disease as well. Supratherapeutic INR currently. Warfarin remains on hold and will be initiated when INR falls back around 3 at a lower dose, likely 1-2mg daily. Frequent rechecks of INR will be required when she transitions to SNF initially. (4) DVT (deep venous thrombosis): heparin/warfarin as above (5) Altered mental status: Episode of confusion associate with dysarthria, apparent right gaze preference, and extension of lower extremities around 2100 6/13 while receiving IV heparin. Neurologic symptoms probably improved. CT of head negative for hemorrhage. CTA of cervical and intracranial vessels considered, but not ordered because of recent diet administration with CTA of chest. Case discussed with Neurology. Patient not a candidate for thrombolytic therapy because of right hip repair with spinal anesthesia approximately 24 hours prior to event. No apparent need for consideration of cerebrovascular interventional procedures because of prompt improvement of neurologic symptoms. EEG did not show any epileptogenic foci. MRI showed small vessel ischemic disease, atrophy left temporal lobe, old cerebellar infarct, no new event. Carotid duplex showed mild plaque, no significant stenosis. Echocardiogram did not show any evidence of [id number] shunt or intracardiac thrombus. Repeat CT head negative for bleed or other acute event. Remains in normal sinus rhythm on telemetry. Continue aspirin. Continue rosuvastatin; decreased dose because of extremely low LDL (16). Levetiracetam initiated by Neuro for possible seizures. AMS has resolved. (6) Coronary artery disease: No clinical history of ischemic heart disease. Intermittent chest pain over past several months, possible exertional angina. CTA chest demonstrated extensive coronary calcification. Probable CAD. Elevated troponin 04/23 most likely secondary to PE. Echo showed normal LV wall motion and function (as well as pulmonary hypertension and RV strain). Continue aspirin, metoprolol, statin. Further evaluation and management per Cardiology as outpatient to workup ischemic heart disease once other issues have resolved. (7) Acute blood loss anemia: Hemoglobin day of admission was 12.6. Hemoglobin fell as low as 8.5 on 04/24/2019. Acute blood loss anemia secondary to hip fracture. Has not required transfusion. H/H stable (8) Depression: Started on mirtazapine, but this was discontinued secondary to confusion. Patient appears improved today. (9) Fracture of left humerus: Fell 04/25 and suffered comminuted fracture of left humeral neck. Seen by Ortho. LUE immobilized with sling x 4-6 weeks. Cont schedule Tylenol for improved pain control. 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 Family members were tested (patient doesn't remember name of test). Patient and her other children were told that they were malignant hyperthermia susceptible, but testing for patient's siblings was reportedly negative. Anesthesia consulted and aware to follow MH precautions. (11) DVT prophylaxis: warfarin/supratherapeutic INR DNR Dispo-to SNF in the next 1-2 days. She is medically stable for discharge at this time-awaiting insurance authorization to go. Sarah Camargo DO [facility] Hospitalist Results & Data Vital Signs (Past 12 Hours) Vital Signs Temp Pulse Pulse Resp BP Pulse Ox 05/01/19 11:28 36.8 C 79 18 105/67 98 05/01/19 08:00 88 05/01/19 07:51 36.8 C 85 18 117/68 93 05/01/19 04:22 36.5 C 86 18 112/64 91 Laboratory Results Short CBC 04/30/19 05/01/19 Range/Units 16:31 06:30 WBC 5.94 (4.8-10.8) K/uL Hgb 8.7 L 8.8 L (12.0-16.0) g/dL Hct 26.1 L 26.3 L (37-47) % Plt Count 256 (130-400) K/uL BMP 04/30/19 16:31 Sodium 140 Potassium 3.9 Chloride 104 Carbon Dioxide 30 BUN 8 Creatinine 0.59 L Glucose 113 H Calcium 8.4 L Liver Function 04/30/19 Range/Units 16:31 Total Bilirubin 0.6 (0.2-1) mg/dl AST 28 (15-37) U/L ALT 23 (12-78) U/L Alkaline Phosphatase 79 (45-117) U/L Albumin 2.5 L (3.4-5.0) gm/dl Medications Administered Current Inpatient Medications Acetaminophen (Tylenol) 1,000 mg PO Q8H [facility] Stop: 05/27/19 13:44 Last Admin: 05/01/19 06:08 Dose: 1,000 mg Documented by: Al Hydrox/Mg Hydrox/Simethicone (Maalox Max) 30 ml PO Q6H PRN PRN Reason: Indigestion Stop: 05/23/19 17:19 Last Admin: 04/23/19 17:45 Dose: 30 ml Documented by: Aspirin (Ecotrin Ectab) 81 mg PO DAILY [facility] Stop: 05/25/19 08:59 Last Admin: 05/01/19 08:30 Dose: 81 mg Documented by: Bisacodyl (Dulcolax) 10 mg KS DAILY PRN PRN Reason: Constipation Stop: 05/22/19 18:34 Ergocalciferol (Vitamin D2) 50,000 units PO Mo@0900 [facility] Stop: 05/27/19 08:59 Last Admin: 04/27/19 09:00 Dose: 50,000 units Documented by: Levetiracetam (Keppra) 250 mg PO BID [facility] Stop: 05/25/19 08:59 Last Admin: 05/01/19 08:30 Dose: 250 mg Documented by: Magnesium Hydroxide (Milk Of Magnesia) 30 ml PO DAILY PRN PRN Reason: Constipation Stop: 05/22/19 18:34 Last Admin: 05/01/19 06:11 Dose: 30 ml Documented by: Menthol (Nice) 1 isaiah BUCCAL Q2H PRN PRN Reason: Sore Throat Stop: 05/22/19 18:34 Metoprolol Tartrate (Lopressor) 12.5 mg PO BID [facility] Stop: 05/24/19 08:59 Last Admin: 05/01/19 08:31 Dose: 12.5 mg Documented by: Morphine Sulfate (Morphine Sulfate) 2 mg IV Q2H PRN PRN Reason: Pain Stop: 05/13/19 21:08 Naloxone HCl (Narcan) 0.1 mg IV UD PRN PRN Reason: Opioid Overdose Stop: 05/22/19 18:34 Nitroglycerin (Nitrostat) 0.4 mg SL PRN PRN PRN Reason: Chest Pain Stop: 05/23/19 17:19 Ondansetron HCl (Zofran) 4 mg IV Q4H PRN PRN Reason: Nausea And Vomiting Stop: 05/23/19 08:59 Last Admin: 05/01/19 09:56 Dose: 4 mg Documented by: Oxycodone/Acetaminophen (Percocet 5mg/325mg) 1 tab PO Q4H PRN PRN Reason: Pain Stop: 05/13/19 21:06 Last Admin: 04/30/19 08:39 Dose: 1 tab Documented by: Pantoprazole Sodium (Protonix) 40 mg PO QAM [facility] Stop: 05/27/19 08:59 Last Admin: 05/01/19 08:30 Dose: 40 mg Documented by: Polyethylene Glycol (Miralax Powder Packet) 17 gm PO DAILY PRN PRN Reason: constipation Stop: 05/28/19 08:59 Rosuvastatin Calcium (Crestor) 5 mg PO QAM [facility] Stop: 05/26/19 08:59 Last Admin: 05/01/19 08:30 Dose: 5 mg Documented by: Tramadol HCl (Ultram) 50 mg PO Q4H PRN PRN Reason: Pain Stop: 05/28/19 16:02 Last Admin: 05/01/19 08:30 Dose: 50 mg Documented by: Warfarin Sodium (Coumadin) 5 mg PO DAILY@1600 [facility] Stop: 05/27/19 16:54 Last Admin: 04/28/19 15:29 Dose: 5 mg Documented by: (1) Closed fracture of right hip Encounter type: initial encounter Qualified Code(s): S72.001A - Fracture of unspecified part of neck of right femur, initial encounter for closed fracture
[2019-05-02] MEDS: ACETAMINOPHEN 500 MG TAB PO SCH ×3 (06:03→21:23)
[2019-05-02 07:51] LABS: INR 3.2 (0.9-1.1); Prothrombin Time 30.1 Seconds (9.0-12.0)
[2019-05-02] MEDS: TRAMADOL HCL 50 MG TABLET PO PRN ×2 (08:37→21:23)
[2019-05-02] MEDS: levETIRAcetam 250 MG TAB PO SCH ×2 (08:38→20:16)
[2019-05-02] MEDS: ASPIRIN 81 MG ECTAB PO SCH (08:38)
[2019-05-02] MEDS: METOPROLOL TARTRATE 25 MG TAB PO SCH ×2 (08:38→20:15)
[2019-05-02] MEDS: ROSUVASTATIN CALCIUM 5 MG TAB PO SCH (08:38)
[2019-05-02] MEDS: PANTOprazole 40 MG TAB PO SCH (08:39)
--- NOTE | 2019-05-02 09:42 | Hospitalist Progress Note ---
Date of Service May 02, 2019 Assessment & Plan (1) Closed fracture of right hip: Right hip fracture after mechanical fall. Likely age related pathologic / osteoporotic right femoral neck fracture. Right cemented bipolar hip arthroplasty performed by Dr. Rae on 04/22/2019. PT / ambulate as tolerated. (2) Pulmonary emboli: CTA chest demonstrated bilateral segmental/subsegmental with RV strain. Venous duplex lower extremities demonstrated DVT within 1 of 2 duplicated right peroneal veins as well as superficial thrombosis in the right popliteal fossa and left medial calf. VTE developed despite preop prophylaxis with SCDs and postop prophylaxis with aspirin + SCDs. Patient was only 24 hours postop from repair of her hip fracture, but benefits of anticoagulation outweigh the risk. IV heparin per low-dose protocol initiated. Echocardiogram demonstrated pulmonary hypertension and RV strain. Elevated troponin 0.9 most likely secondary to pulmonary emboli. Received IV heparin and transitioned to oral therapy with warfarin. Sensitive to warfarin- titrate dose. Anticipated duration of anticoagulation = 6 months (first episode, provoked). (3) DVT (deep venous thrombosis): Heparin/warfarin as noted above. (4) Altered mental status: Episode of confusion associate with dysarthria, apparent right gaze preference, and extension of lower extremities around 2100 04/23 while receiving IV heparin.. CT of head negative for hemorrhage. CTA of cervical and intracranial vessels considered, but not ordered because of recent diet administration with CTA of chest. Case discussed with Neurology. Patient not a candidate for thrombolytic therapy because of right hip repair with spinal anesthesia approximately 24 hours prior to event. No apparent need for consideration of cerebrovascular interventional procedures because of prompt improvement of neurologic symptoms. EEG did not show any epileptogenic foci. MRI showed small vessel ischemic disease, atrophy left temporal lobe, old cerebellar infarct, no new event. Carotid duplex showed mild plaque, no significant stenosis. Echocardiogram did not show any evidence of [id number] shunt or intracardiac thrombus. Repeat CT head negative for bleed or other acute event. Remains in normal sinus rhythm on telemetry. Continue aspirin. Continue rosuvastatin; decreased dose because of extremely low LDL (16). Levetiracetam initiated by Neuro for possible seizures. (5) Delirium: Fluctuating mental status consistent with delirium. Improved. Avoid narcotics, benzodiazepines, anticholinergic meds, and other meds with TILE PICKER side effects whenever possible. (6) Coronary artery disease: No clinical history of ischemic heart disease. Intermittent chest pain over past several months, possible exertional angina. CTA chest demonstrated extensive coronary calcification. Probable CAD. Elevated troponin 04/23 most likely secondary to PE. Echo showed normal LV wall motion and function (as well as pulmonary hypertension and RV strain). Continue aspirin, metoprolol, statin. Further evaluation and management per Cardiology as outpatient to workup ischemic heart disease once other issues have resolved. (7) Pulmonary edema: Pulmonary edema associated with fluid resuscitation postop. Echo showed normal LV systolic function. Pulmonary edema probably secondary to fluid overload. Follow-up chest x-ray today shows improved, but persistent, pulmonary edema. Furosemide 20 mg PO today x 1. (8) Acute blood loss anemia: Hemoglobin day of admission was 12.6. Hemoglobin fell as low as 8.5 on 04/24/2019. Acute blood loss anemia secondary to hip fracture. Has not required transfusion. Hgb 8.8 on 05/01. Follow. (9) Depression: Started on mirtazapine, but this was discontinued secondary to confusion. (10) Fracture of left humerus: Fell 04/25 and suffered comminuted fracture of left humeral neck. Seen by Ortho. MARYLOUE immobilized with sling x 4-6 weeks. (11) Malignant hyperthermia susceptibility: Daughter had episode of malignant hyperthermia years ago. Family members were tested (patient doesn't remember name of test). Patient and her other children were told that they were malignant hyperthermia susceptible, but testing for patient's siblings was reportedly negative. Anesthesia consulted and aware to follow MH precautions. (12) DVT prophylaxis: SCD's ordered preop. IV heparin --> warfarin postop. (13) Discharge planning issues: Will need skilled care or inpatient rehab. Case Management following. Family Medicine follow-up with Dr. Martinez. Ortho follow-up with Dr. Rae. Subjective Recheck for multiple problems. Patient seen in their room around 9:30. Doing better. No fever. No chest pain. No cough or SOB. Intermittent nausea, improved. No emesis. Passing flatus and stool. No melena or hematochezia. No dysuria. Only has significant right hip and left upper extremity pain with movement. Review of Systems Review of Systems: as noted above Physical Exam Constitutional: no acute distress Respiratory: no respiratory distress Auscultation: lungs clear to auscultation bilaterally Cardiovascular: Rate/Rhythm: regular rate and regular rhythm Heart Sounds: no gallop, no murmur and no cardiac rub Vessels: no JVD Extremities: no calf tenderness and no edema Gastrointestinal (Abdomen): normal bowel sounds, soft, nontender, no hepatosplenomegaly Musculoskeletal: Extremities: + upper extremity abnormal to inspection (LUE immobilized with sling) Skin: no rashes, warm and dry Psychiatric: Orientation: alert (sedated) and oriented x 3 (oriented to person, day of week, year, place, president) Results & Data Vital Signs (Past 12 Hours) Vital Signs Temp Pulse Resp BP Pulse Ox 05/02/19 07:36 36.7 C 86 17 99/57 L 90 05/02/19 03:04 36.7 C 82 16 112/64 91 05/01/19 22:50 36.9 C 77 16 120/71 95 Laboratory Results Laboratory Results - last 24 hr 05/02/19 06:27 PT 30.1 H INR 3.2 H Diagnostic Findings PORTABLE CXR FINDINGS: There are small bilateral pleural effusions. There is no pneumothorax. Mild cardiomegaly is noted. Mild interstitial edema has slightly improved since exam of April 27, 2017. Bibasilar opacities favor atelectasis. IMPRESSION: Persistent, but slightly improved, interstitial pulmonary edema and small bilateral pleural effusions. Electronically signed by: Terrance Rock M.D. 05/02/2019 10:55 AM (1) Closed fracture of right hip Encounter type: initial encounter Qualified Code(s): S72.001A - Fracture of unspecified part of neck of right femur, initial encounter for closed fracture
--- NOTE | 2019-05-02 10:56 | XRay Report ---
XR chest 1V portable CLINICAL HISTORY: f/u fluid overload COMPARISON STUDY: Chest radiograph April 27, 2019. FINDINGS: There are small bilateral pleural effusions. There is no pneumothorax. Mild cardiomegaly is noted. Mild interstitial edema has slightly improved since exam of April 27, 2017. Bibasilar opacitie s favor atelectasis. IMPRESSION: Persistent, but slightly improved, interstitial pulmonary edema and small bilateral pleu ral effusions. Electronically signed by: Terrance Rock M.D. 05/02/2019 10:55 AM
--- NOTE | 2019-05-02 12:44 | Progress Note ---
DATE: 05/02/2019 SUBJECTIVE: An 79-year-old female now about 10 days out from a cemented bipolar hip arthroplasty for fracture of her right hip. This was complicated by a postoperative pulmonary embolism and a fall with a proximal humerus fracture. She is doing pretty well. Really no hip pain. Never really had much hip pain. Her major complaint is shoulder pain. No other complaints. OBJECTIVE: VITAL SIGNS: Temperature is 36.7. Vital signs stable. PHYSICAL EXAMINATION: GENERAL: Reveals a pleasant elderly female. She is sitting up in her bed and looks pretty comfortable. She is awake, alert and oriented. EXTREMITIES: Examination of the right hip reveals incision healed nicely. There is no significant drainage. Leg lengths were equal. She is neurologically intact. Examination of left shoulder reveals a sling to be in place. No abnormal alignment. Bruising and swelling seem to be improving. She can flex and extend her fingers appropriately. ASSESSMENT: An 79-year-old female 10 days out from a cemented bipolar hip arthroplasty for fracture complicated by postoperative pulmonary embolism and then a fall and a proximal humerus fracture on the left side. She is doing pretty well. Orthopedically, she is stable. PLAN: 1. DVT prophylaxis including thigh-high TEDs, SCDs, and Coumadin. She is still supratherapeutic on her Coumadin. 2. PT/OT. She can weightbear as tolerated on the right lower extremity. Needs to obey hip precautions. 3. For her left shoulder, we will keep her in the sling for the next 4-5-6 weeks depending on her healing. 4. Disposition: She is orthopedically okay for discharge at any time. I believe they are just waiting for a bed at the rehab or senior living facility. I need to see her back about 2 weeks out from the surgery date of her hip. Any orthopedic questions can be directed to me at [phone].
[2019-05-02] MEDS ORDERED: POTASSIUM CHLORIDE 10 MEQ TABCR PO ONE (16:00)
[2019-05-02] MEDS ORDERED: FUROSEMIDE 20 MG TAB PO ONE (16:00)
[2019-05-02] MEDS: WARFARIN SOD 0.5 MG TAB PO SCH (16:17)
[2019-05-03 06:25] LABS: Hematocrit (blood only) 28.4 % (37-47); Hemoglobin 9.5 g/dL (12.0-16.0)
[2019-05-03 06:36] LABS: INR 2.8 (0.9-1.1); Prothrombin Time 26.3 Seconds (9.0-12.0)
[2019-05-03 06:57] LABS: BUN Creatinine Ratio 13.4 (10-20); Calcium 8.2 mg/dl (8.5-10.1); Est GFR (African American) 104.6; Est GFR (Non-African American) 90.2
[2019-05-03] MEDS: ACETAMINOPHEN 500 MG TAB PO SCH ×3 (07:11→19:26)
[2019-05-03] MEDS: ROSUVASTATIN CALCIUM 5 MG TAB PO SCH (08:30)
[2019-05-03] MEDS: levETIRAcetam 250 MG TAB PO SCH (08:31)
[2019-05-03] MEDS: ASPIRIN 81 MG ECTAB PO SCH (08:31)
[2019-05-03] MEDS: METOPROLOL TARTRATE 25 MG TAB PO SCH (08:31)
[2019-05-03] MEDS: PANTOprazole 40 MG TAB PO SCH (08:32)
--- NOTE | 2019-05-03 16:00 | Hospitalist Progress Note ---
Date of Service May 03, 2019 Assessment & Plan (1) Closed fracture of right hip: Right hip fracture after mechanical fall. Likely age related pathologic / osteoporotic right femoral neck fracture. Right cemented bipolar hip arthroplasty performed by Dr. Rae on 04/22/2019. PT / ambulate as tolerated. (2) Pulmonary emboli: CTA chest demonstrated bilateral segmental/subsegmental pulmonary emboli with RV strain. Venous duplex lower extremities demonstrated DVT within 1 of 2 duplicated right peroneal veins as well as superficial thrombosis in the right popliteal fossa and left medial calf. VTE developed despite preop prophylaxis with SCDs and postop prophylaxis with aspirin + SCDs. IV heparin per low-dose protocol initiated. Echocardiogram demonstrated pulmonary hypertension and RV strain. Elevated troponin 0.9 most likely secondary to pulmonary emboli. Received IV heparin and transitioned to oral therapy with warfarin. Sensitive to warfarin. INR today = 2.8. Continue warfarin 0.5 mg daily. Anticipated duration of anticoagulation = 6 months (first episode, provoked). (3) DVT (deep venous thrombosis): Heparin/warfarin as noted above. (4) Altered mental status: Episode of confusion associate with dysarthria, apparent right gaze preference, and extension of lower extremities around 2100 04/23 while receiving IV heparin.. CT of head negative for hemorrhage. CTA of cervical and intracranial vessels considered, but not ordered because of recent dye administration with CTA of chest. Patient not a candidate for thrombolytic therapy because of right hip repair with spinal anesthesia approximately 24 hours prior to event. No apparent need for consideration of cerebrovascular interventional procedures because of prompt improvement of neurologic symptoms. EEG did not show any epileptogenic foci. MRI showed small vessel ischemic disease, atrophy left temporal lobe, old cerebellar infarct, no new event. Carotid duplex showed mild plaque, no significant stenosis. Echocardiogram did not show any evidence of [id number]-[id number] shunt or intracardiac thrombus. Repeat CT head negative for bleed or other acute event. Remains in normal sinus rhythm on telemetry. Continue aspirin. Continue rosuvastatin; decreased dose because of extremely low LDL (16). Levetiracetam initiated by Neuro for possible seizures. (5) Seizure: Possible seizure as discussed above. EEG did not show any epileptogenic foci. Started on levetiracetam. (6) Delirium: Fluctuating mental status consistent with delirium. Improved. Avoid narcotics, benzodiazepines, anticholinergic meds, and other meds with VENDER side effects whenever possible. (7) Coronary artery disease: No clinical history of ischemic heart disease. Intermittent chest pain over past several months, possible exertional angina. CTA chest demonstrated extensive coronary calcification. Probable CAD. Elevated troponin 04/23 most likely secondary to PE. Echo showed normal LV wall motion and function (as well as pulmonary hypertension and RV strain). BP's low at times, so will change metoprolol to metoprolol succinate 12.5 mg daily. Continue aspirin, statin. Further evaluation and management per Cardiology as outpatient to workup ischemic heart disease once other issues have resolved. (8) Pulmonary edema: Pulmonary edema associated with fluid resuscitation postop. Echo showed normal LV systolic function. Pulmonary edema probably secondary to fluid overload. Follow-up chest x-ray 05/02 showed improved, but persistent, pulmonary edema. Received furosemide PRN. (9) Acute blood loss anemia: Hemoglobin day of admission was 12.6. Hemoglobin fell as low as 8.5 on 04/24/2019. Acute blood loss anemia secondary to hip fracture. Has not required transfusion. Hgb today = 9.5. Follow. (10) Depression: Started on mirtazapine, but this was discontinued secondary to confusion. (11) Fracture of left humerus: Fell 04/25 and suffered comminuted fracture of left humeral neck. Seen by Ortho. LUE immobilized with sling x 4-6 weeks. 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 Family members were tested (patient doesn't remember name of test). Patient and her other children were told that they were malignant hyperthermia susceptible, but testing for patient's siblings was reportedly negative. Anesthesia consulted and aware to follow MH precautions. (13) Osteoporosis: Fracture of right hip and left humerus. Vitamin D level 16. Started on vitamin D replacement. Add calcium carbonate (TUMS) BID. Resume alendronate when able to take it comfortably / safely. (14) DVT prophylaxis: SCD's ordered preop. IV heparin --> warfarin postop. (15) Discharge planning issues: Will need skilled care or inpatient rehab. Case Management following. Family Medicine follow-up with Dr. Martinez. Ortho follow-up with Dr. Rae. Subjective Recheck for multiple problems. Patient seen in their room around 9:50. Son and grandson visiting. No new problems. No fever. No chest pain. No cough or SOB. No nausea or vomiting. Passing flatus and stool. No melena or hematochezia. No dysuria. Right hip pain minimal; LUE pain with movement. Physical Exam Constitutional: no acute distress Respiratory: no respiratory distress Auscultation: lungs clear to auscultation bilaterally Cardiovascular: Rate/Rhythm: regular rate and regular rhythm Heart Sounds: no gallop, no murmur and no cardiac rub Vessels: no JVD Extremities: no calf tenderness and no edema Gastrointestinal (Abdomen): normal bowel sounds, soft, nontender, no hepatosplenomegaly Musculoskeletal: Extremities: + upper extremity abnormal to inspection (LUE immobilized with sling) Hip: + hip abnormal to inpsection (right hip incision without erythema or drainage) Skin: no rashes, warm and dry Psychiatric: Orientation: alert Results & Data Vital Signs (Past 12 Hours) Vital Signs Temp Pulse Resp BP Pulse Ox 05/03/19 15:15 36.8 C 89 18 86/53 L 95 05/03/19 11:54 36.3 C L 84 16 105/70 97 05/03/19 06:56 36.4 C L 93 H 18 124/74 95 Laboratory Results Laboratory Results - last 24 hr 05/03/19 05/03/19 05/03/19 05:50 05:50 05:50 Hgb 9.5 L Hct 28.4 L PT 26.3 H INR 2.8 H Sodium 140 Potassium 4.0 Chloride 104 Carbon Dioxide 34 H Anion Gap 2.0 L BUN 7 Creatinine 0.52 L Est Cr Clr Drug Dosing 80.0 Est GFR ( Amer) 104.6 Est GFR (Non-Af Amer) 90.2 BUN/Creatinine Ratio 13.4 Glucose 102 H Calcium 8.2 L (1) Closed fracture of right hip Encounter type: initial encounter Qualified Code(s): S72.001A - Fracture of unspecified part of neck of right femur, initial encounter for closed fracture
[2019-05-03] MEDS: WARFARIN SOD 0.5 MG TAB PO SCH (16:11)
[2019-05-03] MEDS: TRAMADOL HCL 50 MG TABLET PO PRN (18:38)
[2019-05-03] MEDS: CALCIUM CARBONATE 500 MG CHEWABLE TAB PO SCH (19:27)
[2019-05-03] MEDS: levETIRAcetam 500 MG TAB PO SCH (19:27)
[2019-05-04] MEDS: TRAMADOL HCL 50 MG TABLET PO PRN ×3 (01:07→18:26)
[2019-05-04] MEDS: ACETAMINOPHEN 500 MG TAB PO SCH ×3 (04:35→20:46)
[2019-05-04 06:57] LABS: INR 2.4 (0.9-1.1); Prothrombin Time 23.4 Seconds (9.0-12.0)
[2019-05-04] MEDS: ASPIRIN 81 MG ECTAB PO SCH (07:49)
[2019-05-04] MEDS: PANTOprazole 40 MG TAB PO SCH (07:49)
[2019-05-04] MEDS: ERGOCALCIFEROL 50,000 UNITS CAP PO SCH (07:49)
[2019-05-04] MEDS: METOPROLOL SUCC 25MG EXT REL TAB PO SCH (07:49)
[2019-05-04] MEDS: ROSUVASTATIN CALCIUM 5 MG TAB PO SCH (07:49)
[2019-05-04] MEDS: levETIRAcetam 500 MG TAB PO SCH ×2 (07:50→20:46)
[2019-05-04] MEDS: CALCIUM CARBONATE 500 MG CHEWABLE TAB PO SCH ×2 (07:50→20:46)
[2019-05-04] MEDS: ONDANSETRON INJ 2 MG/ML 2 ML VIAL IV PRN ×3 (08:57→17:46)
--- NOTE | 2019-05-04 12:24 | Hospitalist Progress Note ---
Date of Service May 04, 2019 Assessment & Plan (1) Closed fracture of right hip: Right hip fracture after mechanical fall. Likely age related pathologic / osteoporotic right femoral neck fracture. Right cemented bipolar hip arthroplasty performed by Dr. Rae on 04/22/2019. PT / ambulate with weightbearing as tolerated. (2) Fracture of left humerus: Fell 04/25 and suffered comminuted fracture of left humeral neck. Seen by Ortho. LUE immobilized with sling x 4-6 weeks. (3) Osteoporosis: Fracture of right hip and left humerus. Vitamin D level 16. Started on vitamin D replacement. Add calcium carbonate (TUMS) BID. Resume alendronate when able to take it comfortably / safely. (4) Pulmonary emboli: CTA chest 04/23/19 demonstrated bilateral segmental/subsegmental pulmonary emboli with RV strain. Venous duplex lower extremities demonstrated DVT within 1 of 2 duplicated right peroneal veins as well as superficial thrombosis in the right popliteal fossa and left medial calf. VTE developed despite preop prophylaxis with SCDs and postop prophylaxis with aspirin + SCDs. IV heparin per low-dose protocol initiated. Echocardiogram demonstrated pulmonary hypertension and RV strain. Elevated troponin 0.9 most likely secondary to pulmonary emboli. Received IV heparin and transitioned to oral therapy with warfarin. Warfarin chosen over DOAC for benefit of reversibility for potential bleeding complications. Sensitive to warfarin. INR today = 2.4. Change warfarin dose to 1 mg daily- dose will be given today early in anticipation of transfer to SNF. INR will need to be monitored closely because of sensitivity to warfarin. Consider transition to DOAC if warfarin difficult to titrate and patient felt not be at high risk for falls or other complications. Anticipated duration of anticoagulation = 6 months (first episode, provoked). (5) DVT (deep venous thrombosis): Heparin/warfarin as noted above. (6) Altered mental status: Episode of confusion associate with dysarthria, apparent right gaze preference, and extension of lower extremities around 2100 04/23 while receiving IV heparin.. CT of head negative for hemorrhage. CTA of cervical and intracranial vessels considered, but not ordered because of recent dye administration with CTA of chest. Patient not a candidate for thrombolytic therapy because of right hip repair with spinal anesthesia approximately 24 hours prior to event. No apparent need for consideration of cerebrovascular interventional procedures because of prompt improvement of neurologic symptoms. EEG did not show any epileptogenic foci. MRI showed small vessel ischemic disease, atrophy left temporal lobe, old cerebellar infarct, no new event. Carotid duplex showed mild plaque, no significant stenosis. Echocardiogram did not show any evidence of [id number] shunt or intracardiac thrombus. Repeat CT head negative for bleed or other acute event. Remains in normal sinus rhythm on telemetry. Continue aspirin. Continue rosuvastatin; decreased dose because of extremely low LDL (16). Levetiracetam initiated by Neuro for possible seizures. (7) Seizure: Possible seizure as discussed above. EEG did not show any epileptogenic foci. Started on levetiracetam. (8) Delirium: Fluctuating mental status consistent with delirium. Improved. Avoid narcotics, benzodiazepines, anticholinergic meds, and other meds with MAMMOGRAPHY TECHNICIAN side effects whenever possible. (9) Coronary artery disease: No clinical history of ischemic heart disease. Intermittent chest pain over past several months, possible exertional angina. CTA chest demonstrated extensive coronary calcification. Probable CAD. Elevated troponin 04/23 most likely secondary to PE. Echo showed normal LV wall motion and function (as well as pulmonary hypertension and RV strain). BP's low at times, so will change metoprolol to metoprolol succinate 12.5 mg daily. Continue aspirin, statin. Further evaluation and management per Cardiology as outpatient to workup ischemic heart disease once other issues have resolved. (10) Pulmonary edema: Pulmonary edema associated with fluid resuscitation postop. Echo showed normal LV systolic function. Pulmonary edema probably secondary to fluid overload. Follow-up chest x-ray 05/02 showed improved, but persistent, pulmonary edema. Received furosemide PRN with improvement. (11) Acute blood loss anemia: Hemoglobin day of admission was 12.6. Hemoglobin fell as low as 8.5 on 04/24/2019. Acute blood loss anemia secondary to hip fracture. Has not required transfusion. Hgb 05/03 was 9.5. Discharge on Fe replacement. Follow. 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 Family members were tested (patient doesn't remember name of test). Patient and her other children were told that they were malignant hyperthermia susceptible, but testing for patient's siblings was reportedly negative. Anesthesia consulted and aware to follow MH precautions. (13) DVT prophylaxis: SCD's ordered preop. Aspirin --> IV heparin --> warfarin postop. (14) Discharge planning issues: Needs skilled care or inpatient rehab. Awaiting insurance auth. Family Medicine follow-up with Dr. Martinez. Ortho follow-up with Dr. Rae in about 1 week. Neurology follow-up with Ivory Linares PA-C in about 1 month. Subjective Recheck for multiple problems. Patient seen in their room around 11:00. Feels well. No fever. No chest pain. O2 discontinued. No cough or SOB. No nausea or vomiting. Passing flatus and stool; no melena or hematochezia. No dysuria. Right hip pain minimal; LUE immobilized in sling, has pain with movement. Physical Exam Constitutional: no acute distress Respiratory: no respiratory distress Auscultation: lungs clear to ausculta tion bilaterally Cardiovascular: Rate/Rhythm: regular rate and regular rhythm Heart Sounds: no gallop, no murmur and no cardiac rub Vessels: no JVD Extremities: no calf tenderness and no edema Gastrointestinal (Abdomen): normal bowel sounds, soft, nontender, no hepatosplenomegaly Musculoskeletal: Extremities: + upper extremity abnormal to inspection (LUE immobilized with sling) Hip: + hip abnormal to inpsection (right hip incision without erythema or drainage) Skin: no rashes, warm and dry Psychiatric: Orientation: alert (oriented, but a little confused about course of events) Results & Data Vital Signs (Past 12 Hours) Vital Signs Temp Pulse Resp BP Pulse Ox 05/04/19 10:57 36.8 C 75 18 101/57 L 90 05/04/19 07:54 36.8 C 94 H 18 102/63 91 05/04/19 04:34 36.6 C 84 18 117/74 90 Laboratory Results Laboratory Results - last 24 hr 05/04/19 05:18 PT 23.4 H INR 2.4 H (1) Closed fracture of right hip Encounter type: initial encounter Qualified Code(s): S72.001A - Fracture of unspecified part of neck of right femur, initial encounter for closed fracture
[2019-05-04] MEDS ORDERED: WARFARIN SOD 1 MG TAB PO ONE (12:42)
[2019-05-05] MEDS: ACETAMINOPHEN 500 MG TAB PO SCH (05:36)
[2019-05-05 06:03] LABS: INR 2.2 (0.9-1.1); Prothrombin Time 21.6 Seconds (9.0-12.0)
[2019-05-05] MEDS: MAGNESIUM HYDROXIDE SUSP 30 ML UDC PO PRN (08:28)
[2019-05-05] MEDS: ONDANSETRON INJ 2 MG/ML 2 ML VIAL IV PRN (08:28)
[2019-05-05] MEDS: ROSUVASTATIN CALCIUM 5 MG TAB PO SCH (08:29)
[2019-05-05] MEDS: METOPROLOL SUCC 25MG EXT REL TAB PO SCH (08:29)
[2019-05-05] MEDS: levETIRAcetam 500 MG TAB PO SCH (08:29)
[2019-05-05] MEDS: ASPIRIN 81 MG ECTAB PO SCH (08:29)
[2019-05-05] MEDS: PANTOprazole 40 MG TAB PO SCH (08:30)
[2019-05-05] MEDS: CALCIUM CARBONATE 500 MG CHEWABLE TAB PO SCH (08:30)
--- NOTE | 2019-05-05 10:15 | Hospitalist Progress Note ---
Date of Service May 05, 2019 Assessment & Plan (1) Closed fracture of right hip: Right hip fracture after mechanical fall. Likely age related pathologic / osteoporotic right femoral neck fracture. Right cemented bipolar hip arthroplasty performed by Dr. Rae on 04/22/2019. PT / ambulate with weightbearing as tolerated. (2) Fracture of left humerus: Fell 04/25 and suffered comminuted fracture of left humeral neck. Seen by Ortho. LUE immobilization with sling x 4-6 weeks. (3) Osteoporosis: Fracture of right hip and left humerus. Vitamin D level 16. Started on vitamin D replacement. Added calcium carbonate (TUMS) BID. Resume alendronate when able to take it comfortably / safely. (4) Pulmonary emboli: CTA chest 04/23/19 demonstrated bilateral segmental/subsegmental pulmonary emboli with RV strain. Venous duplex lower extremities demonstrated DVT within 1 of 2 duplicated right peroneal veins as well as superficial thrombosis in the right popliteal fossa and left medial calf. VTE developed despite preop prophylaxis with SCDs and postop prophylaxis with aspirin + SCDs. IV heparin per low-dose protocol initiated. Echocardiogram demonstrated pulmonary hypertension and RV strain. Elevated troponin 0.9 most likely secondary to pulmonary emboli. Received IV heparin and transitioned to oral therapy with warfarin. Warfarin chosen over DOAC for benefit of reversibility for potential bleeding complications. Sensitive to warfarin. INR today = 2.2. Discharge on warfarin 1 mg daily- will receive dose today prior to transfer to SNF. INR will need to be monitored closely because of sensitivity to warfarin. Consider transition to DOAC if warfarin difficult to titrate and patient felt not be at high risk for falls or other complications. Anticipated duration of anticoagulation = 6 months (first episode, provoked). (5) DVT (deep venous thrombosis): Heparin/warfarin as noted above. (6) Altered mental status: Episode of confusion associate with dysarthria, apparent right gaze preference, and extension of lower extremities around 2100 04/23 while receiving IV heparin.. CT of head negative for hemorrhage. CTA of cervical and intracranial vessels considered, but not ordered because of recent dye administration with CTA of chest. Patient not a candidate for thrombolytic therapy because of right hip repair with spinal anesthesia approximately 24 hours prior to event. No apparent need for consideration of cerebrovascular interventional procedures because of prompt improvement of neurologic symptoms. EEG did not show any epileptogenic foci. MRI showed small vessel ischemic disease, atrophy left temporal lobe, old cerebellar infarct, no new event. Carotid duplex showed mild plaque, no significant stenosis. Echocardiogram did not show any evidence of [id number] shunt or intracardiac thrombus. Repeat CT head negative for bleed or other acute event. Remains in normal sinus rhythm on telemetry. Continue aspirin. Continue rosuvastatin; decreased dose because of extremely low LDL (16). Levetiracetam initiated by Neuro for possible seizures. (7) Seizure: Possible seizure as discussed above. EEG did not show any epileptogenic foci. Started on levetiracetam. (8) Delirium: Fluctuating mental status consistent with delirium. Improved. Avoid narcotics, benzodiazepines, anticholinergic meds, and other meds with ELECTRONIC TECHNICIAN side effects whenever possible. (9) Coronary artery disease: No clinical history of ischemic heart disease. Intermittent chest pain over past several months, possible exertional angina. CTA chest demonstrated extensive coronary calcification. Probable CAD. Elevated troponin 04/23 most likely secondary to PE. Echo showed normal LV wall motion and function (as well as pulmonary hyperten tito and RV strain). BP's low at times, so will change metoprolol to metoprolol succinate 12.5 mg daily. Continue aspirin, statin. Further evaluation and management per Cardiology as outpatient to workup ischemic heart disease once other issues have resolved. (10) Pulmonary edema: Pulmonary edema associated with fluid resuscitation postop. Echo showed normal LV systolic function. Pulmonary edema probably secondary to fluid overload. Follow-up chest x-ray 05/02 showed improved, but persistent, pulmonary edema. Received furosemide PRN with improvement. (11) Acute blood loss anemia: Hemoglobin day of admission was 12.6. Hemoglobin fell as low as 8.5 on 04/24/2019. Acute blood loss anemia secondary to hip fracture. Has not required transfusion. Hgb 05/03 was 9.5. Discharge on Fe replacement. Follow. (12) Overactive bladder: History of overactive bladder treated with oxybutynin. Oxybutynin held due to delirium. Voiding without difficulty. Try to avoid oxybutynin and related meds if possible. 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 Family members were tested (patient doesn't remember name of test). Patient and her other children were told that they were malignant hyperthermia susceptible, but testing for patient's siblings was reportedly negative. Anesthesia consulted and aware to follow precautions. (14) DVT prophylaxis: SCD's ordered preop. Aspirin --> IV heparin --> warfarin postop. (15) Discharge planning issues: Needs skilled care or inpatient rehab. Received insurance auth for skilled care at [facility]. Family Medicine follow-up with Dr. Martinez. Ortho follow-up with Dr. Rae in about 1 week. Neurology follow-up with Ivory Linares PA-C in about 1 month. Subjective Recheck for multiple problems. Patient seen in their room around 10:00. Ambulated in hallway this morning with PT. Not much pain right hip. Has pain LUE with movement. Having some nausea this morning- lifelong problem, no worse than norm. No fever. No chest pain. No cough or SOB. Passing stool without melena or hematochezia. No urinary symptoms. Review of Systems Review of Systems: as noted above Physical Exam Constitutional: no acute distress Respiratory: no respiratory distress Auscultation: lungs clear to auscultation bilaterally Cardiovascular: Rate/Rhythm: regular rate and regular rhythm Heart Sounds: no gallop, no murmur and no cardiac rub Vessels: no JVD Extremities: no ca lf tenderness and no edema Gastrointestinal (Abdomen): normal bowel sounds, soft, nontender, no hepatosplenomegaly Musculoskeletal: Extremities: + upper extremity abnormal to inspection (LUE immobilized with sling) Skin: no rashes, warm and dry Psychiatric: Orientation: oriented x 3 Results & Data Vital Signs (Past 12 Hours) Vital Signs Temp Pulse Resp BP Pulse Ox 05/05/19 07:13 36.6 C 80 18 102/60 97 05/05/19 04:32 36.9 C 81 16 105/63 94 05/05/19 00:02 36.9 C 80 16 110/63 92 Laboratory Results Laboratory Results - last 24 hr 05/05/19 05:31 PT 21.6 H INR 2.2 H (1) Closed fracture of right hip Encounter type: initial encounter Qualified Code(s): S72.001A - Fracture of unspecified part of neck of right femur, initial encounter for closed fracture
--- NOTE | 2019-05-05 10:30 | Discharge Summary ---
Date of Service Date of Admission: 04/21/19 Date of Discharge: 05/05/19 Admission HPI Per Admitting Provider Pt is 79 y/o F with PMH dyslipidemia, osteoporosis, overactive bladder, h/o malignant hyperthermia presented to ER with c/o fall and right hip pain. Patient states prior to arrival she was cleaning her house when she turned and lost her balance falling onto her right hip. Patient states had some pain to her right hip and try to stand up and was unable to bear weight. Denies any extremity paresthesias. Denies hitting head. Denies any other injury. Pt denies any known cardiac history, DM, CHF, TIA or CVA. Denies fever/chills, diaphoresis, N/V/D/C, LARA, dizziness, syncope, vision changes, neck pain, CP, SOB, orthopnea, palpitations, cough, sore throat, choking, otalgia, rhinorrhea, abdominal pain, extremity edema, rashes, urinary symptoms. Admission Exam Per Admitting Provider General: no acute distress, WDWN Head: normocephalic, atraumatic Eyes: PERRL, EOM's intact, conjunctiva non-injected, anicteric ENT: normal inspection external ears, nose, mucous membranes moist Neck: supple, trachea midline, non-tender Lungs: Currently on 2L oxygen NC with 95% sat (hypoxia occurred after morphine administration), R:20, lungs clear, no respiratory distress, no wheezing/rhonchi/rales CV: RRR, no murmur, no pretibial edema Abd: normal BS, soft, non-tender Ext: RLE: shortened right leg, +tenderness to palpation right anterior hip, no ROM attempted, distal pulses intact, brisk capillary refill and sensation to light touch intact. Remaining extremities with normal appearance, ROM intact Neuro: A&O x 3, no focal deficits noted, normal affect Skin: warm, dry Principal Diagnosis displaced fracture right femoral neck OTHER ACUTE / NEW DIAGNOSES: pulmonary embolism deep venous thrombosis fracture left humeral neck acute blood loss anemia delirium possible seizure probable coronary artery disease Discharge Data Allergies Allergy/AdvReac Type Severity Reaction Status Date / Time hydromorphone [From Dilaudid] Allergy Severe Anaphylaxis Verified 04/22/19 13:46 Consultations 04/21/19 15:56 ED Decision to Admit Stat 04/21/19 19:08 Consult Anesthesiology Routine Consult Orthopedic Surgery Routine 04/23/19 17:38 Consult Cardiology Routine 04/23/19 22:14 Consult Case Management - Discharge Planning Routine Consult Neurology Routine 04/30/19 18:07 Consult General Surgery Routine Procedures Performed Operation Date: 04/22/19 07:05 Actual Procedures p Right Bipolar Hip Hemiarthroplasty - Cemented(Right) - Raphael Rae MD Ordered Studies 04/23/19 17:40 CT angio chest PE protocol Stat 04/23/19 18:39 US venous doppler LE BI Routine 04/23/19 21:27 CT head/brain wo con Stat 04/24/19 09:00 US carotid doppler BI Routine 04/24/19 10:24 MR brain wo con Urgent 04/26/19 11:19 CT head/brain wo con Stat 04/30/19 16:04 CT abd pelvis wo con Urgent 04/30/19 18:10 US liver Urgent Hospital Course (1) Closed fracture of right hip: Right hip fracture after mechanical fall at home. Likely age related pathologic / osteoporotic right femoral neck fracture. Right cemented bipolar hip arthroplasty performed by Dr. Rae on 04/22/2019. PT / ambulate with weightbearing as tolerated. (2) Fracture of left humerus: Fell 04/25 and suffered comminuted fracture of left humeral neck. Seen by Ortho. LUE immobilization with sling x 4-6 weeks. (3) Osteoporosis: Fracture of right hip and left humerus. Vitamin D level 16. Started on vitamin D replacement. Added calcium carbonate (TUMS) BID. Resume alendronate when able to take it comfortably / safely if GI symptoms allow. (4) Pulmonary emboli: Developed chest pain postoperatively on 04/23/19. CTA chest demonstrated bilateral segmental/subsegmental pulmonary emboli with RV strain. Venous duplex lower extremities demonstrated DVT within 1 of 2 duplicated right peroneal veins as well as superficial thrombosis in the right popliteal fossa and left medial calf. VTE developed despite preop prophylaxis with SCDs and postop prophylaxis with aspirin + SCDs. IV heparin per low-dose protocol initiated. Echocardiogram demonstrated pulmonary hypertension and RV strain. Elevated troponin 0.9 most likely secondary to pulmonary emboli. Received IV heparin and transitioned to oral therapy with warfarin. Warfarin chosen over DOAC for benefit of reversibility for potential bleeding complications. Sensitive to warfarin. INR day of discharge was 2.2. Discharge on warfarin 1 mg daily- will receive dose today prior to transfer to SNF. INR will need to be monitored closely because of sensitivity to warfarin. Consider transition to DOAC if warfarin difficult to titrate and patient felt not be at high risk for falls or other complications. Anticipated duration of anticoagulation = 6 months (first episode, provoked). (5) DVT (deep venous thrombosis): Heparin/warfarin as noted above. (6) Altered mental status: Episode of confusion associate with dysarthria, apparent right gaze preference, and extension of lower extremities 04/23 while receiving IV heparin.. CT of head negative for hemorrhage. CTA of cervical and intracranial vessels considered, but not ordered because of recent dye administration with CTA of chest. Patient not a candidate for thrombolytic therapy because of right hip repair with spinal anesthesia approximately 24 hours prior to event. No apparent need for consideration of cerebrovascular interventional procedures because of prompt improvement of neurologic symptoms. EEG did not show any epileptogenic foci. MRI showed small vessel ischemic disease, atrophy left temporal lobe, old cerebellar infarct, no new event. Carotid duplex showed mild plaque, no significant stenosis. Echocardiogram did not show any evidence of [id number] shunt or intracardiac thrombus. Repeat CT head negative for bleed or other acute event. Remained in normal sinus rhythm on telemetry. Continue aspirin. Continue rosuvastatin; decreased dose because of extremely low LDL (16). Levetiracetam initiated by Neuro for possible seizures. (7) Seizure: Possible seizure as discussed above. EEG did not show any epileptogenic foci. Started on levetiracetam. (8) Delirium: Fluctuating mental status consistent with delirium. Improved. Avoid narcotics, benzodiazepines, anticholinergic meds, and other meds with DOOR TO [employer] SELLING [employer]BUTOR side effects whenever possible. (9) Coronary artery disease: No clinical history of ischemic heart disease. Intermittent chest pain over past several months, possible exertional angina. CTA chest demonstrated extensive coronary calcification. Probable CAD. Elevated troponin 04/23 most likely secondary to PE. Echo showed normal LV wall motion and function (as well as pulmonary hypertension and RV strain). BP's low at times, so will change metoprolol to metoprolol succinate 12.5 mg daily. Continue aspirin, statin. Further evaluation and management per Cardiology as outpatient to workup ischemic heart disease once other issues have resolved. (10) Pulmonary edema: Pulmonary edema associated with fluid resuscitation postop. Echo showed normal LV systolic function. Pulmonary edema probably secondary to fluid overload. Follow-up chest x-ray 05/02 showed improved, but persistent, pulmonary edema. Received furosemide PRN with improvement. (11) Acute blood loss anemia: Hemoglobin day of admission was 12.6. Hemoglobin fell as low as 8.5 on 04/24/2019. Acute blood loss anemia secondary to hip fracture. Has not required transfusion. Hgb 05/03 was 9.5. Discharge on Fe replacement. Follow. (12) Overactive bladder: History of overactive bladder treated with oxybutynin. Oxybutynin held due to delirium. Voiding without difficulty. Try to avoid oxybutynin and related meds if possible. 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 Family members were tested (patient doesn't remember name of test). Patient and her other children were told that they were malignant hyperthermia susceptible, but testing for patient's siblings was reportedly negative. Anesthesia consulted and aware to follow MH precautions. (14) Nausea: Patient experienced frequent nausea. She indicates that it is a lifelong problem and no worse than usual. No acute findings on CT or US of abdomen. Placed on PPI + ondansetron PRN. Takes alendronate at home; resume with caution. Consider EGD if symptoms worsen. (15) DVT prophylaxis: SCD's ordered preop. Aspirin --> IV heparin --> warfarin postop. (16) Discharge planning issues: Needs skilled care or inpatient rehab. Received insurance auth for skilled care at [facility]. Family Medicine follow-up with Dr. Martinez. Ortho follow-up with Dr. Rae in about 1 week. Neurology follow-up with Ivory Linares PA-C in about 1 month. Total Time Total Time Spent Total Time Spent (In Minutes): 50 Discharge Plan Discharge Items Patient Disposition: Transfer [facility] Reason For Visit: RT HIP FRACTURE Discharge Diagnosis: right hip fracture left humerus fracture pulmonary embolism Condition: Fair Discharge Goals: Decrease discomfort, Improve disease control, Improve function and Therapeutic intervention Activity: Per 'Additional Instructions' section Activity Comment: Obey/Follow hip precautions at all times. Sling LUE at all times. Weightbearing: Right weightbearing Weightbearing Comment: Weightbear as tolerated following hip precautions. Non-emergency contact: Primary Care Provider, Hospitalist and Surgeon Call non-emergency contact if: you have any medication questions and your symptoms worsen Follow-up/Referrals: Shania Martinez DO [Primary Care Provider] - (Please arrange for follow-up in clinic after discharge from your facility.) Ivory Linares PA-C [Physician Junior Linux Systems Administrator] - (Please call office for follow-up appointment in about 1 month.) Raphael Rae MD [Surgeon] - (Orthopedic follow-up 2 weeks from surgery date (around 05/06). Please call office for appointment.) Diet: Heart Healthy Addtl Provider Instructions: MEDICAL INSTRUCTIONS: Fall precautions. Delirium precautions. O2 by NC PRN. Incentive spirometry / encourage deep breathing. Pt received her dose of warfarin 1 mg on 05/05 @ [facility]. INR goal 2-3. Please monitor INR's very closely (at least every other day) until stable, then decrease frequency as able. Anticipated duration of warfarin therapy 6 months. Please check H/H and BMP weekly until stable. Thank you for receiving this patient in transfer. Please call or TigerText if you have any questions. Bebeto Olivas ACTIVITY RECOMMENDATIONS: Physical Therapy: * Aggressive physical therapy is not usually needed. You will learn to take care of yourself safely and walk. * Follow the "Hip Precautions Instructions." * In some cases, the psychologist social at the hospital will arrange to have a therapist come to your house for the first couple of weeks to help you learn these skills. * You need to practice on your own or with the help of a family member as needed. * When you learn these skills, most of the therapy can be done on your own. Home Exercise: * You were shown a series of exercises in the hospital. Do these exercises three to four times each day including the exercises you were shown in physical therapy. Walking: * Get up and walk several times each day. For the first four weeks, try not to stand or walk for more than one hour at a time. If you do stand or walk for more than one hour, you will not hurt anything, but your leg will likely swell. * As you feel comfortable, you may change from the walker or crutches to a cane and then to independent walking. Pain: * The immediate post-operative period after hip replacement surgery is often quite painful. * You are given a prescription for pain medicine. You should take it, as directed, when you need it, especially before physical therapy and before going to bed. Pain that interferes with sleep is very common and can last several months. * You will likely need pain medicine for the first two to four weeks. It will not stop all of the pain. The pain will lessen and as you feel better, you may change to milder pain medicine such as Tylenol. * The most common side effects of pain medicine are nausea and constipation, so don't take more than you need. SPECIAL CARE INSTRUCTIONS: TEDs/Elastic Stockings: * The white elastic stockings help limit swelling and prevent blood clots from forming in your legs. The more you wear them, the more they work. * Wear them for six weeks. Prevention of Infection: * Take antibiotics one hour before any dental cleaning, dental work, urological procedure, gastrointestinal procedure or any invasive surgery in order to prevent your new joint from getting infected. * You may get the antibiotics from the doctor performing the procedure or you may call our office at before and we will call in a prescription to the pharmacy of your choice. Things to Watch For: * Drainage from the incision site that occurs more than one week after your surgery. * Severely increased leg pain or swelling. * Increased redness at the incision site. * Fever above 102 degrees Fahrenheit. * Unusual chest pain or shortness of breath. * Unusual pain or burning with urination. Call [facility] at with any of the above problems or if you have any questions about your medicines or recovery. FOLLOW UP VISIT: Make an appointment to see your doctor for approximately two weeks after surgery for a progress check and staple removal by calling the office at . Prescriptions: New metoprolol succinate 25 mg Tablet Extended Release 24 Hr 12.5 mg PO QAM Qty: 30 RF: 0 rosuvastatin [Crestor] 5 mg Tablet 5 mg PO QAM Qty: 30 RF: 0 levetiracetam [Keppra] 500 mg Tablet 500 mg PO BID Qty: 60 RF: 0 acetaminophen [Tylenol Extra Strength] 500 mg Tablet 1,000 mg PO Q8H PRN (Reason: Pain) Qty: 60 RF: 0 calcium carbonate [Tums] 200 mg calcium (500 mg) Tablet,Chewable 500 mg PO BID Qty: 60 RF: 0 pantoprazole 40 mg Tablet,Delayed Release (Dr/Ec) 40 mg PO QAM Qty: 30 RF: 0 polyethylene glycol 3350 [Miralax] 17 gram Powder In Packet 17 g PO DAILY PRN (Reason: constipation) Qty: 1 RF: 0 warfarin 1 mg tablet 1 mg PO DAILY Qty: 30 RF: 0 ondansetron 4 mg tablet,disintegrating 4 mg PO Q6H PRN (Reason: nausea and vomiting) Qty: 10 RF: 0 ferrous sulfate 325 mg (65 mg iron) tablet,delayed release (DR/EC) 325 mg PO DAILY Qty: 30 RF: 0 ascorbic acid (vitamin C) 500 mg tablet 500 mg PO DAILY Qty: 30 RF: 0 Continued aspirin [Aspirin Low Dose] 81 mg Tablet,Delayed Release (Dr/Ec) 81 mg PO DAILY RF: 0 cholecalciferol (vitamin D3) [Vitamin D3] 1,000 unit Capsule 2,000 unit PO DAILY RF: 0 Changed alendronate [Fosamax] 70 mg Tablet 70 mg PO WK Qty: 0 RF: 0 Discontinued oxybutynin chloride 5 mg Tablet 5 mg PO DAILY RF: 0 rosuvastatin [Crestor] 10 mg Tablet 10 mg PO DAILY RF: 0 Stand-Alone Forms: [facility] Skilled Items Patient informed of condition?: Yes DNR: Yes Discharge Level of Care: Skilled Communicable Disease: No Discharge Prognosis: Improving Admission Data Admit Date/Time: 04/21/19 16:24 Attending Provider: Bebeto Olivas Admit Provider: Rick Rhoades Primary Care Provider: Shania Martinez Other Providers: Sarah Camargo ; Rick Rhoades ; Bebeto Vargas ; Elvin Martines ; Raphael Monge ; Cong Adler ; Naty Ye Service: Telemetry
[2019-05-05] MEDS ORDERED: WARFARIN SOD 1 MG TAB PO ONE (10:32)
== END 2019-05-05 13:15 | DRG 470 ==
LOC: ED 13:54 → 3N 16:24 → SUATTDRO 16:24 → 3N 17:54 → 2S 04-23 17:21
DX: R41.0 Disorientation, unspecified; F32.9 Major depressive disorder, single episode, unspecified; W06.XXXA Fall from bed, initial encounter; M80.051A Age-related osteoporosis with current pathological fracture, right femur, initial encounter for fracture; W18.30XA Fall on same level, unspecified, initial encounter; E87.6 Hypokalemia; I82.431 Acute embolism and thrombosis of right popliteal vein; Y92.230 Patient room in hospital as the place of occurrence of the external cause; Z79.899 Other long term (current) drug therapy; N32.81 Overactive bladder; R11.0 Nausea; E87.70 Fluid overload, unspecified; R10.9 Unspecified abdominal pain; Z79.82 Long term (current) use of aspirin; M80.022A Age-related osteoporosis with current pathological fracture, left humerus, initial encounter for fracture; I26.99 Other pulmonary embolism without acute cor pulmonale; Z88.4 Allergy status to anesthetic agent; E78.5 Hyperlipidemia, unspecified; Z66 Do not resuscitate; R56.9 Unspecified convulsions; D62 Acute posthemorrhagic anemia; I25.10 Atherosclerotic heart disease of native coronary artery without angina pectoris

== ENCOUNTER 2020-02-09 12:52 | Observation (INO) ==
[2020-02-09] MEDS ORDERED: ONDANSETRON INJ 2 MG/ML 2 ML VIAL IV STA (13:13)
[2020-02-09 13:27] LABS: Basophils # (auto) 0.02 K/uL (0-0.2); Basophils % (auto) 0.3 %; Eosinophils # (auto) 0.05 K/uL (0-0.5); Eosinophils % (auto) 0.6 %; Hematocrit (blood only) 37.6 % (37-47); Immature Granulocytes # (auto) 0.01 K/uL (0.00-0.02); Immature Granulocytes % (auto) 0.1 %; Lymphocytes # (auto) 0.88 K/uL (1.2-3.4); Lymphocytes % (auto) 11.3 %; Mean Corpuscular Hemoglobin 30.7 pg (25-34); Mean Corpuscular Hgb Conc 34.6 g/dL (32-36); Mean Corpuscular Volume 88.9 fL (80-100); Mean Platelet Volume 9.8 fL (7.4-10.4); Monocytes # (auto) 0.45 K/uL (0.11-0.59); Monocytes % (auto) 5.8 %; Neutrophils # (auto) 6.39 K/uL (1.4-6.5); Neutrophils % (auto) 81.9 %; Platelet Count 198 K/uL (130-400); RDW Coefficient of Variation 12.4 % (11.5-14.5); RDW Standard Deviation 39.9 fL (36.4-46.3); Red Blood Count 4.23 M/uL (4.2-5.4)
[2020-02-09 13:34] LABS: iSTAT Creatinine 0.8 mg/dl (0.6-1.3); iSTAT Hemoglobin 12.6 g/dl (12.0-16.0); iSTAT Ionized Calcium 1.19 mmol/l (1.12-1.32); iSTAT Potassium 3.8 mmol/L (3.3-5.0)
--- NOTE | 2020-02-09 13:42 | Emergency Department Note ---
Impression & Plan Abdominal pain, RUQ, Elevated liver enzymes, Gallbladder sludge ED Provider Note NAME: MARLYS REYES AGE: 79 SEX: F : 1940 ARRIVES VIA: Ambulance INFORMANT: Patient, ED PROVIDER(S): Power Gale MD Chief Complaint: Abdominal pain HPI: Patient does present with abdominal pain. The patient states that it started in the epigastric area and radiated lower as well as to the right back. The patient states it is constant and achy. No recent trauma. The patient has not taking anything at home. The patient has been compliant with her normal medications. The patient has had nausea but no vomiting. The patient has had a normal bowel movement. No blood in the urine or stool. Patient states that nothing is made her symptoms any better or worse. ROS: See HPI for pertinent positives and negatives. A total of 10 systems were reviewed and otherwise negative. Past medical history: See below Surgical history: See below Social history: See below Physical Exam: GENERAL: Well appearing, well nourished, NAD, non-toxic. EYE EXAM: Normal conjunctiva. PERRL, no anisocoria and EOM's grossly intact w/o pain. OROPHARYNX: Moist mucus membranes. Grossly normal dentition. NECK: Supple, no nuchal rigidity, no adenopathy, non-tender. No signs of meningismus. LUNGS: Clear to auscultation. Normal chest wall mechanics. HEART: NSR, no MRG. ABDOMEN: Abdomen soft, right upper quadrant and epigastric pain without peritonitis, normo-active bowel sounds, no masses, no rebound or guarding. BACK: No CVA TTP. SKIN: No rashes and no bruising. UPPER EXTREMITIES: Upper extremities are grossly normal. LOWER EXTREMITIES: Grossly normal, no edema. Equal and symmetric DP pulses bilaterally. NEURO EXAM: A&O x3, cranial nerves II-XII grossly intact, normal speech, moves all 4 extremities on command w/o issue. Differential diagnoses: Appendicitis, ovarian cyst, ovarian torsion, ectopic , TOA, PID, infections, diverticulitis, UTI, obstruction, mesenteric ischemia, aortic pathology, inflammatory bowel disease, renal colic, PUD, pancreatitis, biliary pathology, hernia, volvulus, constipation, as well as other pathologies. Course: Patient was seen and evaluated the bedside. A complete history and physical exam was performed. Patient's pain is improved but the patient does have elevations in LFTs and concern for gallbladder wall thickening on CT. Consult consult general surgery, Melinda Nunez PA-C. They would like the patient admitted to the medicine service and they will be on his consult. Patient did go to her ultrasound. I did speak with the on-call hospitalist agreed to further evaluate treat the patient. EKG: Indication: Epigastric pain Normal sinus rhythm, 65, normal intervals, normal axis, no ST changes or T WI. Imaging Studies: Radiology results as stated below per my review in the radiologist's interpretation: CT OF THE ABDOMEN AND PELVIS WITH CONTRAST CLINICAL HISTORY: Upper abdominal pain. COMPARISON STUDY: CT of the abdomen and pelvis and right upper quadrant ultrasound April 30, 2019. TECHNIQUE: Following IV administration of 94 mL of Optiray-320, axial images of the abdomen and pelvis were obtained from the lung bases to the proximal femurs. Images were reviewed in the axial, sagittal, and coronal planes. IV contrast was administered without complication. Automated exposure control was utilized for the study. A dose lowering technique was utilized adhering to the principles of ALARA. CT DOSE: 355.80 mGy.cm FINDINGS: Lung bases are unremarkable. No pneumatosis, free air or portal venous gas is present. The liver, spleen, adrenal glands and pancreas are normal as are the kidneys. There is no hydronephrosis. There is no biliary or pancreatic ductal dilatation. Mild gallbladder wall thickening is noted. The gallbladder is not distended. Prominent mucosal enhancement of the gallbladder is noted. The appendix is unremarkable. There is no evidence for a bowel obstruction. Sigmoid diverticulosis is noted without evidence for acute diverticulitis. Images of the pelvis are degraded by streak artifact from right hip arthroplasty. There are no suspicious osseous lesions. IMPRESSION: 1. Mild gallbladder wall thickening. This is nonspecific and may reflect acute cholecystitis. A right upper quadrant ultrasound could be obtained for further evaluation. 2. No bowel obstruction. No bowel wall thickening. 3. Sigmoid diverticulosis without evidence for acute diverticulitis. ACT 112: Negative or not required by law. Electronically signed by: Terrance Rock M.D. 02/09/2020 2:38 PM Dictated: 02/09/20 1424 Transcribed: 02/09/20 1424 ABDOMINAL ULTRASOUND, RIGHT UPPER QUADRANT HISTORY: RUQ/epigastric pain. COMPARISON: Abdomen and pelvis CT 02/09/2020. FINDINGS: Pancreas: The pancreas demonstrates a normal echotexture. Liver: Unremarkable. Gallbladder: The gallbladder is contracted. There is trace pericholecystic fluid. There is borderline gallbladder wall thickening at 3 mm. Trace gallbladder sludge. No definite gallstones. Negative sonographic Dailey sign. CBD: 4 mm. Right kidney: No hydronephrosis. IMPRESSION: Borderline thickened gallbladder wall which could be due to the contracted appearance. There is trace pericholecystic fluid and trace gallbladder sludge. No definite gallstones. Therefore, this is indeterminate but is less likely to represent an acute cholecystitis. ACT 112: Negative or not required by law. Electronically signed by: Roland Ellington M.D. 02/09/2020 3:31 PM Dictated: 02/09/201526 Transcribed: 02/09/201526 Cardiac monitoring: An order was placed for continuous cardiac monitoring. The monitor shows a rate of 93 with sinus rhythm. MDM: Patient was seen and evaluated at the bedside. The patient did present with a complaint of abdominal pain. The patient does have epigastric and right upper quadrant pain. The patient did state that it felt like it was moving to the back but was achy in nature. Not tearing or searing and the patient does have symmetric DP pulses in the lower extremities. The patient blood work shows a normal white count and H&H. The patient's kidney function is unremarkable. LFTs do show an elevation in AST as well as bilirubin. CT abdomen pelvis does show concern for gallbladder wall thickening but without any other acute findings. Diverticulosis but without diverticulitis noted. Given the patient's pain gallbladder wall thickening and associated elevation in LFTs I did speak with the on-call surgery who recommended medical admission right upper quadrant ultrasound and they would be on his consult. The patient did have a right upper quadrant ultrasound completed. Gallbladder sludge and borderline gallbladder wall thickening. There is some trace per icholecystic fluid. Given this I did order HIDA scan. Surgery will be on as a consult. I did convey to the hospitalist as well as the general surgery team that HIDA scan could be obtained but without an ejection fraction after hours otherwise it would need to wait till tomorrow morning. I did speak with 1 of the [facility] physicians assistants and the patient would be admitted by the medicine service. I did consider atypical chest pain but the patient's EKG is fairly unremarkable with a negative troponin. Believe this is more related to her stomach or gallbladder. Past Med/Surg History Medical History (Updated 02/09/20 @ 16:58 by Power Gale MD) Abdominal pain Coronary artery disease (Chronic) Depression (Chronic) Discharge planning issues (Chronic) Dyslipidemia (Chronic) History of cataract (Chronic) Left eye Osteoporosis (Chronic) Overactive bladder (Chronic) Surgical History (Updated 04/21/19 @ 19:35 by Elvin Martines MD) H/O eye surgery (Chronic) 1944 - Right eye surgery 1947 - Right eye surgery H/O malignant hyperthermia (Chronic) History of bladder repair surgery (Chronic) 2008 History of hysterectomy (Chronic) History of lumpectomy of both breasts (Chronic) 1962 - Left breast lumpectomy - pt reports was benign 1980 - R breast lumpectomy - pt reports was benign History of tonsillectomy and adenoidectomy (Chronic) Social History Preferred Language: Luxembourgish Communication Ability: Effective [employer] Products Inspectors Required: No Beliefs That Will Affect Care: Alevism Alevism Beliefs: Jehovah'S Witness marital status: / Current Living Situation: Alone Feels Safe at Home: Yes Smoking Status: Former smoker Hx Alcohol Use: No Hx Substance Use: No Allergies Allergies Allergy/AdvReac Type Severity Reaction Status Date / Time hydromorphone [From Dilaudid] Allergy Severe Anaphylaxis Verified 02/09/20 13:25 Home Meds Home Medications Medication Instructions Recorded Confirmed aspirin [Aspirin Low Dose] 81 mg PO DAILY 04/21/19 02/09/20 cholecalciferol (vitamin D3) 2,000 unit PO DAILY 04/21/19 02/09/20 [Vitamin D3] alendronate [Fosamax] 70 mg PO MO 02/09/20 02/09/20 oxybutynin chloride 5 mg PO BID 02/09/20 02/09/20 potassium chloride 10 meq PO BID 02/09/20 02/09/20 Previous Rx's Medication Instructions Recorded ascorbic acid (vitamin C) 500 mg PO DAILY #30 tab 05/04/19 calcium carbonate [Tums] 500 mg PO BID #60 tab 05/04/19 ferrous sulfate 325 mg PO DAILY #30 tab 05/04/19 levetiracetam [Keppra] 500 mg PO BID #60 tab 05/04/19 rosuvastatin [Crestor] 5 mg PO QAM #30 tab 05/04/19 Results & Data (ED) Vital Signs Vital Signs - 24 hr 02/09/20 12:58 02/09/20 13:02 02/09/20 13:24 Temperature 36.5 C Temperature Source Oral Pulse Rate 70 73 Pulse Rate from SpO2 Sensor 70 Respiratory Rate 21 22 Respiratory Effort / Characteristics Non-Labored Respiratory Depth Normal Respiratory Pattern Regular Blood Pressure 134/82 134/82 Blood Pressure Mean 99 99 Pulse Oximetry 99 100 100 Oxygen Delivery Method Room Air Room Air Sepsis Recent Fever Within 48 Hours No Sepsis New/Unexplained Change in Mental Status No Sepsis Action Taken by Nursing No Action Required 02/09/20 13:50 02/09/20 14:00 02/09/20 15:05 Temperature Temperature Source Pulse Rate 74 78 93 H Pulse Rate from SpO2 Sensor 73 78 Respiratory Rate 24 29 H 15 Respiratory Effort / Characteristics Respiratory Depth Respiratory Pattern Blood Pressure 113/65 119/60 117/79 Blood Pressure Mean 77 80 84 Pulse Oximetry 94 93 95 Oxygen Delivery Method Sepsis Recent Fever Within 48 Hours Sepsis New/Unexplained Change in Mental Status Sepsis Action Taken by Nursing 02/09/20 15:28 02/09/20 15:30 02/09/20 16:00 Temperature Temperature Source Pulse Rate 86 78 75 Pulse Rate from SpO2 Sensor 85 79 78 Respiratory Rate 24 22 24 Respiratory Effort / Characteristics Respiratory Depth Respiratory Pattern Blood Pressure 143/116 H 117/71 129/110 H Blood Pressure Mean 125 76 116 Pulse Oximetry 93 95 94 Oxygen Delivery Method Sepsis Recent Fever Within 48 Hours Sepsis New/Unexplained Change in Mental Status Sepsis Action Taken by Nursing 02/09/20 16:24 02/09/20 16:30 Temperature Temperature Source Pulse Rate 96 H 86 Pulse Rate from SpO2 Sensor 94 H 87 Respiratory Rate 27 H 26 H Respiratory Effort / Characteristics Respiratory Depth Respiratory Pattern Blood Pressure 146/88 H 126/108 H Blood Pressure Mean 98 117 Pulse Oximetry 96 95 Oxygen Delivery Method Sepsis Recent Fever Within 48 Hours Sepsis New/Unexplained Change in Mental Status Sepsis Action Taken by Care Home Medications Current Medication List: was personally reviewed by me Laboratory Data Attestation: I reviewed the patient's lab results. Result diagrams: 02/09/20 13:15 02/09/20 13:15 Lab Results 02/09/20 02/09/20 02/09/20 Range/Units 13:15 13:15 13:22 WBC 7.80 (4.8-10.8) K/uL RBC 4.23 (4.2-5.4) M/uL Hgb 13.0 (12.0-16.0) g/dL POC Hgb 12.6 (12.0-16.0) g/dl Hct 37.6 (37-47) % POC Hct 37 (37-47) % MCV 88.9 (80-100) fL MCH 30.7 (25-34) pg MCHC 34.6 (32-36) g/dL RDW Std Deviation 39.9 (36.4-46.3) fL RDW Coeff of Miguel 12.4 (11.5-14.5) % Plt Count 198 (130-400) K/uL MPV 9.8 (7.4-10.4) fL Immature Gran % (Auto) 0.1 % Neut % (Auto) 81.9 % Lymph % (Auto) 11.3 % Terrell % (Auto) 5.8 % Eos % (Auto) 0.6 % Baso % (Auto) 0.3 % Immature Gran # (Auto) 0.01 (0.00-0.02) K/uL Neut # (Auto) 6.39 (1.4-6.5) K/uL Lymph # (Auto) 0.88 L (1.2-3.4) K/uL Terrell # (Auto) 0.45 (0.11-0.59) K/uL Eos # (Auto) 0.05 (0-0.5) K/uL Baso # (Auto) 0.02 (0-0.2) K/uL POC Sodium 137 (135-144) mmol/L Sodium 137 (136-145) mmol/L POC Potassium 3.8 (3.3-5.0) mmol/L Potassium 3.7 (3.5-5.1) mmol/L POC Chloride 101 (101-112) mmol/L Chloride 104 (98-107) mmol/L Carbon Dioxide 27 (21-32) mmol/L POC Total CO2 25 (24-31) mEq/l Anion Gap 6.0 (3-11) POC Anion Gap 16.0 (16-25) mmol/L POC BUN 9 (7-18) mg/dl BUN 11 (7-18) mg/dl Creatinine 0.89 (0.6-1.2) mg/dl POC Creatinine 0.8 (0.6-1.3) mg/dl Est Cr Clr Drug Dosing 45.4 ml/min Est GFR ( Amer) 70.9 Est GFR (Non-Af Amer) 61.2 BUN/Creatinine Ratio 11.9 (10-20) Glucose 128 H (70-99) mg/dl POC Glucose (other) 132 H (70-99) mg/dl Calcium 9.9 (8.5-10.1) mg/dl POC Ioniz Calcium Susanna 1.19 (1.12-1.32) mmol/l Total Bilirubin 1.2 H (0.2-1) mg/dl AST 78 H (15-37) U/L ALT 39 (12-78) U/L Alkaline Phosphatase 106 (45-117) U/L Troponin I < 0.015 (0-0.045) ng/ml Total Protein 7.7 (6.4-8.2) gm/dl Albumin 4.1 (3.4-5.0) gm/dl Globulin 3.6 (2.5-4.0) gm/dl Albumin/Globulin Ratio 1.1 (0.9-2) Lipase 134 (73-393) U/L Urine Color Urine Appearance (Clear) Urine pH (4.5-7.5) Ur Specific [place] (1.000-1.030) Urine Protein (Negative) Urine Glucose (UA) (Negative) Urine Ketones (Negative) Urine Blood (Negative) Urine Nitrite (Negative) Urine Bilirubin (Negative) Urine Urobilinogen (Negative) Ur Leukocyte Esterase (Negative) 02/09/20 Range/Units 15:00 WBC (4.8-10.8) K/uL RBC (4.2-5.4) M/uL Hgb (12.0-16.0) g/dL POC Hgb (12.0-16.0) g/dl Hct (37-47) % POC Hct (37-47) % MCV (80-100) fL MCH (25-34) pg MCHC (32-36) g/dL RDW Std Deviation (36.4-46.3) fL RDW Coeff of Miguel (11.5-14.5) % Plt Count (130-400) K/uL MPV (7.4-10.4) fL Immature Gran % (Auto) % Neut % (Auto) % Lymph % (Auto) % Terrell % (Auto) % Eos % (Auto) % Baso % (Auto) % Immature Gran # (Auto) (0.00-0.02) K/uL Neut # (Auto) (1.4-6.5) K/uL Lymph # (Auto) (1.2-3.4) K/uL Terrell # (Auto) (0.11-0.59) K/uL Eos # (Auto) (0-0.5) K/uL Baso # (Auto) (0-0.2) K/uL POC Sodium (135-144) mmol/L Sodium (136-145) mmol/L POC Potassium (3.3-5.0) mmol/L Potassium (3.5-5.1) mmol/L POC Chloride (101-112) mmol/L Chloride (98-107) mmol/L Carbon Dioxide (21-32) mmol/L POC Total CO2 (24-31) mEq/l Anion Gap (3-11) POC Anion Gap (16-25) mmol/L POC BUN (7-18) mg/dl BUN (7-18) mg/dl Creatinine (0.6-1.2) mg/dl POC Creatinine (0.6-1.3) mg/dl Est Cr Clr Drug Dosing ml/min Est GFR ( Amer) Est GFR (Non-Af Amer) BUN/Creatinine Ratio (10-20) Glucose (70-99) mg/dl POC Glucose (other) (70-99) mg/dl Calcium (8.5-10.1) mg/dl POC Ioniz Calcium Susanna (1.12-1.32) mmol/l Total Bilirubin (0.2-1) mg/dl AST (15-37) U/L ALT (12-78) U/L Alkaline Phosphatase (45-117) U/L Troponin I (0-0.045) ng/ml Total Protein (6.4-8.2) gm/dl Albumin (3.4-5.0) gm/dl Globulin (2.5-4.0) gm/dl Albumin/Globulin Ratio (0.9-2) Lipase (73-393) U/L Urine Color Yellow Urine Appearance Clear (Clear) Urine pH 7.5 (4.5-7.5) Ur Specific [place] 1.035 H (1.000-1.030) Urine Protein Negative (Negative) Urine Glucose (UA) Negative (Negative) Urine Ketones Negative (Negative) Urine Blood Negative (Negative) Urine Nitrite Negative (Negative) Urine Bilirubin Negative (Negative) Urine Urobilinogen Negative (Negative) Ur Leukocyte Esterase Negative (Negative) Administered Medications Ioversol (Optiray 320 100ml) 94 ml IV ONCE PRN PRN Reason: Interaction Checking Stop: 02/13/20 14:16 Last Admin: 02/09/20 14:18 Dose: 94 ml Documented by: [id number] Blood Pressure Blood Pressure Findings: Elevated blood pressure Blood Pressure Disposition: further management by hospitalist Discharge Plan Visit Data Chief Complaint: Abdominal Pain ED Provider: Power Gale Discharge Problem: Abdominal pain, RUQ, Elevated liver enzymes, Gallbladder sludge Forms Stand Alone Forms: [facility] [employer] Prescriptions Prescriptions: No Action aspirin [Aspirin Low Dose] 81 mg Tablet,Delayed Release (Dr/Ec) 81 mg PO DAILY RF: 0 cholecalciferol (vitamin D3) [Vitamin D3] 1,000 unit Capsule 2,000 unit PO DAILY RF: 0 rosuvastatin [Crestor] 5 mg Tablet 5 mg PO QAM Qty: 30 RF: 0 levetiracetam [Keppra] 500 mg Tablet 500 mg PO BID Qty: 60 RF: 0 calcium carbonate [Tums] 200 mg calcium (500 mg) Tablet,Chewable 500 mg PO BID Qty: 60 RF: 0 ferrous sulfate 325 mg (65 mg iron) tablet,delayed release (DR/EC) 325 mg PO DAILY Qty: 30 RF: 0 ascorbic acid (vitamin C) 500 mg tablet 500 mg PO DAILY Qty: 30 RF: 0 potassium chloride 10 mEq capsule, extended release 10 meq PO BID RF: 0 oxybutynin chloride 5 mg tablet 5 mg PO BID RF: 0 alendronate [Fosamax] 70 mg tablet 70 mg PO MO RF: 0
[2020-02-09 13:46] LABS: Alanine Aminotransferase 39 U/L (12-78); Albumin Level 4.1 gm/dl (3.4-5.0); Aspartate Aminotransferase 78 U/L (15-37); BUN Creatinine Ratio 11.9 (10-20); Blood Urea Nitrogen 11 mg/dl (7-18); Calcium 9.9 mg/dl (8.5-10.1); Carbon Dioxide 27 mmol/L (21-32); Chloride 104 mmol/L (98-107); Creatinine Clr Calc Pharmacy 45.4 ml/min; Est GFR (African American) 70.9; Est GFR (Non-African American) 61.2; Glucose 128 mg/dl (70-99); Lipase 134 U/L (73-393); Potassium 3.7 mmol/L (3.5-5.1); Sodium 137 mmol/L (136-145)
[2020-02-09 13:50] LABS: Albumin Globulin Ratio 1.1 (0.9-2); Alkaline Phosphatase 106 U/L (45-117); Bilirubin,Total 1.2 mg/dl (0.2-1); Globulin 3.6 gm/dl (2.5-4.0); Total Protein 7.7 gm/dl (6.4-8.2); Troponin I < 0.015 ng/ml (0-0.045)
[2020-02-09] MEDS ORDERED: MoRPHine SULFATE 4 MG/ML 1 ML CARP\\VIAL IV STA (13:57)
[2020-02-09] MEDS ORDERED: IOVERSOL 100ml IV PRN (14:17)
--- NOTE | 2020-02-09 14:39 | CT Scan Report ---
CT OF THE ABDOMEN AND PELVIS WITH CONTRAST CLINICAL HISTORY: Upper abdominal pain. COMPARISON STUDY: CT of the abdomen and pelvis and right upper quadrant ultrasound April 30, 2019. TECHNIQUE: Following IV administration of 94 mL of Optiray-320, axial images of the abdomen and pelvi s were obtained from the lung bases to the proximal femurs. Images were reviewed in the axial, sagitt al, and coronal planes. IV contrast was administered without complication. Automated exposure contro l was utilized for the study. A dose lowering technique was utilized adhering to the principles of A BROOKS. CT DOSE: 355.80 mGy.cm FINDINGS: Lung bases are unremarkable. No pneumatosis, free air or portal venous gas is present. The liver, spleen, adrenal glands and pancreas are normal as are the kidneys. There is no hydronephrosis. There is no biliary or pancreatic ductal dilatation. Mild gallbladder wall thickening is noted. The gallbladder is not distended. Prominent mucosal enhancement of the gallbladder is noted. The appendix is unremarkable. There is no evidence for a bowel obstruction. Sigmoid diverticulosis is noted witho ut evidence for acute diverticulitis. Images of the pelvis are degraded by streak artifact from right hip arthroplasty. There are no suspicious osseous lesions. IMPRESSION: 1. Mild gallbladder wall thickening. This is nonspecific and may reflect acute cholecystitis. A right upper quadrant ultrasound could be obtained for further evaluation. 2. No bowel obstruction. No bowel wall thickening. 3. Sigmoid diverticulosis without evidence for acute diverticulitis. ACT 112: Negative or not required by law. Electronically signed by: Terrance Rock M.D. 02/09/2020 2:38 PM
--- NOTE | 2020-02-09 15:33 | Ultrasound Report ---
ABDOMINAL ULTRASOUND, RIGHT UPPER QUADRANT HISTORY: RUQ/epigastric pain. COMPARISON: Abdomen and pelvis CT 02/09/2020. FINDINGS: Pancreas: The pancreas demonstrates a normal echotexture. Liver: Unremarkable. Gallbladder: The gallbladder is contracted. There is trace pericholecystic fluid. There is borderline gallbladder wall thickening at 3 mm. Trace gallbladder sludge. No definite gallstones. Negative sono graphic Dailey sign. CBD: 4 mm. Right kidney: No hydronephrosis. IMPRESSION: Borderline thickened gallbladder wall which could be due to the contracted appearance. There is trace pericholecystic fluid and trace gallbladder sludge. No definite gallstones. Therefore, this is indet erminate but is less likely to represent an acute cholecystitis. ACT 112: Negative or not required by law. Electronically signed by: Roland Ellington M.D. 02/09/2020 3:31 PM
[2020-02-09 15:36] LABS: Appearance Urine Clear (Clear); Bilirubin Urine Negative (Negative); Blood Urine Negative (Negative); Color Urine Yellow; Glucose Urine UA Negative (Negative); Ketones Urine Negative (Negative); Leukocyte Esterase Urine Negative (Negative); Nitrite Urine Negative (Negative); Protein Urine Negative (Negative); Specific Gravity Urine 1.035 (1.000-1.030); Urobilinogen Urine Negative (Negative); pH Urine 7.5 (4.5-7.5)
--- NOTE | 2020-02-09 15:53 | Electrocardiogram Report ---
Test Reason : Blood Pressure : / mmHG Vent. Rate : 065 BPM Atrial Rate : 065 BPM P-R Int : 152 ms QRS Dur : 080 ms QT Int : 392 ms P-R-T Axes : 056 009 049 degrees QTc Int : 407 ms Normal sinus rhythm Low voltage QRS Borderline ECG When compared with ECG of 24-APR-2019 08:32, No significant change was found Confirmed by Raffy Sadler ([id number]) on 02/09/2020 3:52:57 PM Referred By: REFERRED SELF Confirmed By:Raffy Sadler
[2020-02-09] MEDS ORDERED: CONSULT PHARMACY STA (17:31)
--- NOTE | 2020-02-09 17:40 | History & Physical Report ---
Date of Service February 09, 2020 Assessment & Plan (1) Abdominal pain, RUQ: (2) Cholecystitis: Pt is 79 y/o F with PMH dyslipidemia, osteoporosis, overactive bladder, h/o malignant hyperthermia susceptibility, h/o seizure, h/o PE presented to ER with c/o epigastric, RUQ abdominal pain today. Denies N/V, fever/chills In ER afebrile, P: 73, R: 22, BP: 134/82, 100% RA. No leukocytosis, T.Bili: 1.2, AST: 78, ALT: 39, Alk Phos: 106, Lipase: 134 CT ABD/PELVIS: 1. Mild gallbladder wall thickening. This is nonspecific and may reflect acute cholecystitis. 2. No bowel obstruction. No bowel wall thickening. 3. Sigmoid diverticulosis without evidence for acute diverticulitis. GALLBLADDER US: Borderline thickened gallbladder wall which could be due to the contracted appearance. There is trace pericholecystic fluid and trace gallbladder sludge. No definite gallstones. Therefore, this is indeterminate but is less likely to represent an acute cholecystitis. Biliary Colic, Possible Acute Cholecystitis -In ER given morphine 4mg IV, zofran with improvement of abdominal pain -NPO for now -IVF -Morphine prn pain -Zosyn -Hida scan pending -General surgery consult, Dr Ye aware and to see pt -CBC, CMP in am (3) Malignant hyperthermia susceptibility: FH malignant hyperthermia If planning surgical procedure, recommend anesthesia consult (4) Seizure: H/O seizure while hospitalized summer 2018 -Continue Keppra (5) Overactive bladder: -Continue oxybutynin (6) Dyslipidemia: -Hold statin for now DVT Prophylaxis - HIGH RISK for DVT (has history of PE) -SCDs for now in case of surgical procedure start Lovenox or Heparin SC once cleared by Gen Surg DNR/DNI as per discussion with pt Follows with Dr Juarez Adams for routine care Pt was seen and care coordinated with Dr Ayoub. See addendum History of Present Illness Chief Complaint: Abdominal pain Primary Care Provider: Juarez Adams, DO Pt is 79 y/o F with PMH dyslipidemia, osteoporosis, overactive bladder, h/o malignant hyperthermia susceptibility, h/o seizure, h/o PE presented to ER with c/o abdominal pain today. Pt states ate cinnamon toast and coffee this morning, a couple hours later started with epigastric and RUQ pain that was constant, pain radiated around to right back and to RLQ. Denies nausea or vomiting, fever or chills. Denies history food intolerances in the past. Yesterday ate cinnamon toast and chicken noodle soup. Last ate breakfast around 8:00am today. Denies diaphoresis, diarrhea, constipation, LARA, dizziness, syncope, vision changes, neck pain, CP, SOB, orthopnea, palpitations, cough, sore throat, choking, otalgia, rhinorrhea, paresthesias, weakness, extremity weakness, extremity edema, rashes, urinary symptoms. Allergies Allergy/AdvReac Type Severity Reaction Status Date / Time hydromorphone [From Dilaudid] Allergy Severe Anaphylaxis Verified 02/09/20 13:25 Home Medications Home Medications Medication Instructions Recorded Confirmed Type aspirin [Aspirin Low Dose] 81 mg PO DAILY 04/21/19 02/09/20 History cholecalciferol (vitamin D3) 2,000 unit PO DAILY 04/21/19 02/09/20 History [Vitamin D3] calcium carbonate [Tums] 500 mg PO BID #60 tab 05/04/19 02/09/20 Rx levetiracetam [Keppra] 500 mg PO BID #60 tab 05/04/19 02/09/20 Rx alendronate [Fosamax] 70 mg PO MO 02/09/20 02/09/20 History oxybutynin chloride 5 mg PO BID 02/09/20 02/09/20 History potassium chloride 10 meq PO BID 02/09/20 02/09/20 History rosuvastatin 10 mg PO DAILY 02/09/20 02/09/20 History Past Med/Surg History Medical History Abdominal pain Coronary artery disease (Chronic) Depression (Chronic) Discharge planning issues (Chronic) Dyslipidemia (Chronic) History of cataract (Chronic) Left eye Osteoporosis (Chronic) Overactive bladder (Chronic) Surgical History H/O eye surgery (Chronic) 1944 - Right eye surgery 1947 - Right eye surgery H/O malignant hyperthermia (Chronic) History of arthroplasty of right hip History of bladder repair surgery (Chronic) 2009 History of hysterectomy (Chronic) History of lumpectomy of both breasts (Chronic) 1962 - Left breast lumpectomy - pt reports was benign 1980 - R breast lumpectomy - pt reports was benign History of tonsillectomy and adenoidectomy (Chronic) Family History Other Cancer Hypertension Malignant hyperthermia due to anesthesia Social History Preferred Language: [place] Communication Ability: Effective Shagger Required: No Beliefs That Will Affect Care: Orthodox Orthodox Beliefs: Congregational marital status: / Current Living Situation: Alone Feels Safe at Home: Yes Safety Concerns: Feels Safe At This Time Smoking Status: Former smoker Hx Alcohol Use: No Hx Substance Use: No Review of Systems Review of Systems: All systems reviewed & are unremarkable except as noted in HPI & below Physical Exam Physical Exam: General: no distress, WDWN Head: normocephalic, atraumatic Eyes: PERRL, EOM's intact, conjunctiva non-injected, anicteric ENT: normal inspection external ears, nose, mucous membranes moist Neck: supple, trachea midline Lungs: clear, no respiratory distress, no wheezing/rhonchi/rales CV: RRR, no murmur, no pretibial edema Abd: normal BS, soft, mild tenderness to palpation RUQ without rebound Ext: no cyanosis, no calf tenderness Neuro: A&O x 3, no focal deficits noted, normal affect Skin: warm, dry Results & Data Results & Data ([facility]) Vital Signs (Past 12 Hours) Vital Signs Temp Pulse Resp BP Pulse Ox 02/09/20 17:02 97 H 21 144/92 H 98 02/09/20 16:30 86 26 H 126/108 H 95 02/09/20 16:24 96 H 27 H 146/88 H 96 02/09/20 16:00 75 24 129/110 H 94 02/09/20 15:30 78 22 117/71 95 02/09/20 15:28 86 24 143/116 H 93 02/09/20 15:05 93 H 15 117/79 95 02/09/20 14:00 78 29 H 119/60 93 02/09/20 13:50 74 24 113/65 94 02/09/20 13:24 100 02/09/20 13:02 36.5 C 73 22 134/82 100 02/09/20 12:58 70 21 134/82 99 Laboratory Results Short CBC 02/09/20 Range/Units 13:15 WBC 7.80 (4.8-10.8) K/uL Hgb 13.0 (12.0-16.0) g/dL Hct 37.6 (37-47) % Plt Count 198 (130-400) K/uL BMP 02/09/20 13:15 Sodium 137 Potassium 3.7 Chloride 104 Carbon Dioxide 27 BUN 11 Creatinine 0.89 Glucose 128 H Calcium 9.9 Cardiac Enzymes 02/09/20 Range/Units 13:15 Troponin I < 0.015 (0-0.045) ng/ml Liver Function 02/09/20 Range/Units 13:15 Total Bilirubin 1.2 H (0.2-1) mg/dl AST 78 H (15-37) U/L ALT 39 (12-78) U/L Alkaline Phosphatase 106 (45-117) U/L Albumin 4.1 (3.4-5.0) gm/dl Urine 02/09/20 Range/Units 15:00 Urine Color Yellow Urine Appearance Clear (Clear) Urine pH 7.5 (4.5-7.5) Ur Specific [place] 1.035 H (1.000-1.030) Urine Protein Negative (Negative) Urine Glucose (UA) Negative (Negative) Diagnostic Findings CT ABD/PELVIS: IMPRESSION: 1. Mild gallbladder wall thickening. This is nonspecific and may reflect acute cholecystitis. A right upper quadrant ultrasound could be obtained for further evaluation. 2. No bowel obstruction. No bowel wall thickening. 3. Sigmoid diverticulosis without evidence for acute diverticulitis. GALLBLADDER US: IMPRESSION: Borderline thickened gallbladder wall which could be due to the contracted appearance. There is trace pericholecystic fluid and trace gallbladder sludge. No definite gallstones. Therefore, this is indeterminate but is less likely to represent an acute cholecystitis. Code Status & VTE Plan VTE Prophylaxis Plan VTE Prophylaxis will be ordered: Yes Supervising Physician Co-Signing Physician Notes Attending Addendum: care coordinated with KYLAH Mcgarry please refer to her notes for full details, I agree with her notes patient seen and examined, records reviewed by myself as well on exam, patient seen resting in bed, comfortable, in good spirits states she feels much improved since admission reports Right sided abdominal pain has resolved no SOB, chest pain, headache, dizziness, nausea no other symptoms VS noted and reviewed oriented x 3 , not in distress, speaks in sentences with no effort nor accessory muscle use normal rate, regular rhythm, no murmurs clear breath sounds bilaterally normal bowel sounds, non distended, soft, (+) moderate tenderness RLQ, no Dailey's sign no bipedal edema, erythema, warmth no neuro deficits WBC 7.8 Hg 13[address] abdomen/pelvis: 1. Mild gallbladder wall thickening. This is nonspecific and may reflect acute cholecystitis. A right upper quadrant ultrasound could be obtained for further evaluation. 2. No bowel obstruction. No bowel wall thickening. 3. Sigmoid diverticulosis without evidence for acute diverticulitis. Gallbladder US: Borderline thickened gallbladder wall which could be due to the contracted appearance. There is trace pericholecystic fluid and trace gallbladder sludge. No definite gallstones. Therefore, this is indeterminate but is less likely to represent an acute cholecystitis. ASSESSMENT AND PLAN POSSIBLE ACUTE CHOLECYSTITIS -- HIDA scan pending -- NPO IV Zosyn IV fluids -- patient has history of malignant hypertension: in case of surgery, anesthesia must be informed patient has history of PE: will need Lovenox or heparin for DVT prophylaxis once ok with Surgery HISTORY OF SEIZURE -- continue Keppra other diagnoses and plan of care as per KYLAH Ayoub MD
[2020-02-09] MEDS ORDERED: PIPERACILLIN/TAZOBACTAM 3.375 GM in DEXTROSE 5% 100 ML IV STA (17:44)
--- NOTE | 2020-02-09 17:44 | Surgery Consultation ---
Date of Consultation February 09, 2020 Assessment & Plan (1) Abdominal pain, RUQ: pt is a 79 year-old female who presents to ER with right side abdominal pain, IMP: gallbladder wall thickening, sludge, I agree with that hospitalist admit pt to hospital, NPO except po meds, iv fluid, HIDA scan tomorrow, without EF, control pain, repeat labs in am, will F/U, pt agrees with the plan, I answered all questions, possible do laparoscopic cholecystectomy depend on HIDA scan result, (2) Gallbladder sludge: History of Present Illness History of Present Illness Chief Complaint: Abdominal pain HPI: Patient does present with abdominal pain. The patient states that it started in the epigastric area and radiated lower as well as to the right back. The patient states it is constant and achy. No recent trauma. The patient has not taking anything at home. The patient has been compliant with her normal medications. The patient has had nausea but no vomiting. The patient has had a normal bowel movement. No blood in the urine or stool. Patient states that nothing is made her symptoms any better or worse. I ( Naty Ye MD ) got a call for consult gallbladder wall thickening, abdominal pain, I reviewed pt's H/P , labs, CT scan and U/S study with pt, now pt feels better, no significant abdominal pain, no nausea, no vomiting, pt denies fever, no diarrhea, Allergies Allergy/AdvReac Type Severity Reaction Status Date / Time hydromorphone [From Dilaudid] Allergy Severe Anaphylaxis Verified 02/09/20 13:25 Home Medications Home Medications Medication Instructions Recorded Confirmed Type aspirin [Aspirin Low Dose] 81 mg PO DAILY 04/21/19 02/09/20 History cholecalciferol (vitamin D3) 2,000 unit PO DAILY 04/21/19 02/09/20 History [Vitamin D3] calcium carbonate [Tums] 500 mg PO BID #60 tab 05/04/19 02/09/20 Rx levetiracetam [Keppra] 500 mg PO BID #60 tab 05/04/19 02/09/20 Rx alendronate [Fosamax] 70 mg PO MO 02/09/20 02/09/20 History oxybutynin chloride 5 mg PO BID 02/09/20 02/09/20 History potassium chloride 10 meq PO BID 02/09/20 02/09/20 History rosuvastatin 10 mg PO DAILY 02/09/20 02/09/20 History Patient History Medical History (Updated 02/09/20 @ 16:58 by Power Gale MD) Abdominal pain Coronary artery disease (Chronic) Depression (Chronic) Discharge planning issues (Chronic) Dyslipidemia (Chronic) History of cataract (Chronic) Left eye Osteoporosis (Chronic) Overactive bladder (Chronic) Surgical History (Updated 04/21/19 @ 19:35 by Elvin Martines MD) H/O eye surgery (Chronic) 1944 - Right eye surgery 1947 - Right eye surgery H/O malignant hyperthermia (Chronic) History of bladder repair surgery (Chronic) 2008 History of hysterectomy (Chronic) History of lumpectomy of both breasts (Chronic) 1962 - Left breast lumpectomy - pt reports was benign 1980 - R breast lumpectomy - pt reports was benign History of tonsillectomy and adenoidectomy (Chronic) Social History Preferred Language: Maori Communication Ability: Effective Behavioral Assistant Required: No Beliefs That Will Affect Care: Bahai Bahai Beliefs: Jew marital status: / Current Living Situation: Alone Feels Safe at Home: Yes Smoking Status: Former smoker Hx Alcohol Use: No Hx Substance Use: No Review of Systems Review of Systems: All systems reviewed & are unremarkable except as noted in HPI & below Constitutional: as per Subjective / HPI Eyes: as per Subjective / HPI Ear, Nose, Mouth, Throat: as per Subjective / HPI Respiratory: as per Subjective / HPI Cardiovascular: as per Subjective / HPI Additional Comments: CAD DVT Gastrointestinal: as per Subjective / HPI Genitourinary: as per Subjective / HPI Musculoskeletal: as per Subjective / HPI Integumentary: as per Subjective / HPI Neurologic: as per Subjective / HPI Psychiatric: as per Subjective / HPI Endocrine: as per Subjective / HPI Hematologic / Lymphatic: as per Subjective / HPI Allergy / Immunological: as per Subjective / HPI Physical Exam Constitutional: WD/WN, vitals as above well developed and well nourished Eyes: PERRL, conjunctivae normal, anicteric sclerae ENMT: external ear and nose normal, oropharynx normal Neck: trachea midline, no thyromegaly Respiratory: normal respiratory effort, lungs clear to auscultation normal respiratory effort Cardiovascular: RRR, no murmur, no edema Rate/Rhythm: regular rate and regular rhythm Heart Sounds: normal S1 and normal S2 Gastrointestinal (Abdomen): normal bowel sounds, soft, nontender, no hepatosplenomegaly Percussion/Palpation: abdomen soft mild tenderness at right side abdomen, no rebound pain, BS +, no distend, Musculoskeletal: no cyanosis or clubbing, extremities motor strength 5/5 Skin: no rashes, warm and dry Neurologic: patellar DTR's 2+ bilat, sensation intact Psychiatric: Orientation: alert and oriented x 3 Results & Data Vital Signs (Past 12 Hours) Vital Signs Temp Pulse Resp BP Pulse Ox 02/09/20 17:02 97 H 21 144/92 H 98 02/09/20 16:30 86 26 H 126/108 H 95 02/09/20 16:24 96 H 27 H 146/88 H 96 02/09/20 16:00 75 24 129/110 H 94 02/09/20 15:30 78 22 117/71 95 02/09/20 15:28 86 24 143/116 H 93 02/09/20 15:05 93 H 15 117/79 95 02/09/20 14:00 78 29 H 119/60 93 02/09/20 13:50 74 24 113/65 94 02/09/20 13:24 100 02/09/20 13:02 36.5 C 73 22 134/82 100 02/09/20 12:58 70 21 134/82 99 Laboratory Results Abnormal lab results 02/09/20 02/09/20 02/09/20 Range/Units 13:15 13:15 13:22 Lymph # (Auto) 0.88 L (1.2-3.4) K/uL Glucose 128 H (70-99) mg/dl POC Glucose (other) 132 H (70-99) mg/dl Total Bilirubin 1.2 H (0.2-1) mg/dl AST 78 H (15-37) U/L Ur Specific [place] (1.000-1.030) 02/09/20 Range/Units 15:00 Lymph # (Auto) (1.2-3.4) K/uL Glucose (70-99) mg/dl POC Glucose (other) (70-99) mg/dl Total Bilirubin (0.2-1) mg/dl AST (15-37) U/L Ur Specific [place] 1.035 H (1.000-1.030) Diagnostic Findings ABDOMINAL ULTRASOUND, RIGHT UPPER QUADRANT HISTORY: RUQ/epigastric pain. COMPARISON: Abdomen and pelvis CT 02/09/2020. FINDINGS: Pancreas: The pancreas demonstrates a normal echotexture. Liver: Unremarkable. Gallbladder: The gallbladder is contracted. There is trace pericholecystic fluid. There is borderline gallbladder wall thickening at 3 mm. Trace gallbladder sludge. No definite gallstones. Negative sonographic Dailey sign. CBD: 4 mm. Right kidney: No hydronephrosis. IMPRESSION: Borderline thickened gallbladder wall which could be due to the contracted appearance. There is trace pericholecystic fluid and trace gallbladder sludge. No definite gallstones. Therefore, this is indeterminate but is less likely to represent an acute cholecystitis. CT OF THE ABDOMEN AND PELVIS WITH CONTRAST CLINICAL HISTORY: Upper abdominal pain. COMPARISON STUDY: CT of the abdomen and pelvis and right upper quadrant ultrasound April 30, 2019. TECHNIQUE: Following IV administration of 94 mL of Optiray-320, axial images of the abdomen and pelvis were obtained from the lung bases to the proximal femurs. Images were reviewed in the axial, sagittal, and coronal planes. IV contrast was administered without complication. Automated exposure control was utilized for the study. A dose lowering technique was utilized adhering to the principles of ALARA. CT DOSE: 355.80 mGy.cm FINDINGS: Lung bases are unremarkable. No pneumatosis, free air or portal venous gas is present. The liver, spleen, adrenal glands and pancreas are normal as are the kidneys. There is no hydronephrosis. There is no biliary or pancreatic ductal dilatation. Mild gallbladder wall thickening is noted. The gallbladder is not distended. Prominent mucosal enhancement of the gallbladder is noted. The appendix is unremarkable. There is no evidence for a bowel obstruction. Sigmoid diverticulosis is noted without evidence for acute diverticulitis. Images of the pelvis are degraded by streak artifact from right hip arthroplasty. There are no suspicious osseous lesions. IMPRESSION: 1. Mild gallbladder wall thickening. This is nonspecific and may reflect acute cholecystitis. A right upper quadrant ultrasound could be obtained for further evaluation. 2. No bowel obstruction. No bowel wall thickening. 3. Sigmoid diverticulosis without evidence for acute diverticulitis.
[2020-02-09] MEDS ORDERED: PIPERACILL/TAZOBAC CONSULT ACTIVE PRN (17:45)
[2020-02-09] MEDS ORDERED: ONDANSETRON INJ 2 MG/ML 2 ML VIAL IV PRN (19:23)
[2020-02-09] MEDS ORDERED: MoRPHine SULFATE 2 MG/ML CARP IV PRN (19:23)
[2020-02-09] MEDS ORDERED: ACETAMINOPHEN 325 MG TAB PO PRN (19:23)
[2020-02-09] MEDS: D5W AND NSS 1,000 ML IV SCH (19:52)
[2020-02-09] MEDS: POTASSIUM CHLORIDE 10 MEQ TABCR PO SCH (21:15)
[2020-02-09] MEDS: levETIRAcetam 500 MG TAB PO SCH (21:15)
[2020-02-09] MEDS: OXYBUTYNIN CHLORIDE 5 MG TAB PO SCH (21:15)
[2020-02-09] MEDS: PIPERACILLIN/TAZOBACTAM 3.375 GM in DEXTROSE 5% 100 ML IV SCH (23:50)
[2020-02-10 07:18] LABS: Hematocrit (blood only) 33.9 % (37-47); Hemoglobin 11.6 g/dL (12.0-16.0); Mean Corpuscular Hemoglobin 30.8 pg (25-34); Mean Corpuscular Hgb Conc 34.2 g/dL (32-36); Mean Corpuscular Volume 89.9 fL (80-100); Mean Platelet Volume 9.8 fL (7.4-10.4); Platelet Count 190 K/uL (130-400); RDW Coefficient of Variation 12.3 % (11.5-14.5); RDW Standard Deviation 40.1 fL (36.4-46.3); Red Blood Count 3.77 M/uL (4.2-5.4); White Blood Count 3.28 K/uL (4.8-10.8)
[2020-02-10] MEDS: PIPERACILLIN/TAZOBACTAM 3.375 GM in DEXTROSE 5% 100 ML IV SCH (07:31)
[2020-02-10] MEDS: OXYBUTYNIN CHLORIDE 5 MG TAB PO SCH ×2 (07:34→21:11)
[2020-02-10] MEDS: levETIRAcetam 500 MG TAB PO SCH ×2 (07:34→21:12)
[2020-02-10] MEDS: POTASSIUM CHLORIDE 10 MEQ TABCR PO SCH ×2 (07:34→21:12)
[2020-02-10 07:48] LABS: Albumin Level 3.2 gm/dl (3.4-5.0); BUN Creatinine Ratio 7.9 (10-20); Calcium 8.4 mg/dl (8.5-10.1); Creatinine Clr Calc Pharmacy 41.2 ml/min; Est GFR (Non-African American) 60.4; Potassium 3.9 mmol/L (3.5-5.1)
[2020-02-10 08:03] LABS: Bilirubin,Total 0.7 mg/dl (0.2-1); Globulin 3.1 gm/dl (2.5-4.0); Total Protein 6.3 gm/dl (6.4-8.2)
[2020-02-10] MEDS: D5W AND NSS 1,000 ML IV SCH (08:47)
[2020-02-10] MEDS ORDERED: ASPIRIN 81 MG ECTAB PO SCH (09:00)
--- NOTE | 2020-02-10 10:00 | Hospitalist Progress Note ---
Date of Service February 10, 2020 Assessment & Plan (1) Abdominal pain, RUQ: Admitted with biliary colic/right upper quadrant pain lasting for approximately 3 hours yesterday Pain was localized mostly to right side of abdomen with radiation to back, severe 10-10 in intensity Did not had any nausea, vomiting, no fever or chills CT abdomen pelvis/gallbladder ultrasound shows mild to borderline gallbladder wall thickening, suggestive of cholecystitis Patient is asymptomatic now, no pain or discomfort, did not had any nausea vomiting since admission (2) Cholecystitis: Admitted with right upper quadrant pain as outlined above, CT ABD/PELVIS: 1. Mild gallbladder wall thickening. This is nonspecific and may reflect acute cholecystitis. 2. No bowel obstruction. No bowel wall thickening. 3. Sigmoid diverticulosis without evidence for acute diverticulitis. GALLBLADDER US: Borderline thickened gallbladder wall which could be due to the contracted appearance. There is trace pericholecystic fluid and trace gallbladder sludge. No definite gallstones. Therefore, this is indeterminate but is less likely to represent an acute cholecystitis. Biliary Colic, Possible Acute Cholecystitis Surgery consult appreciated, ordered for HIDA scan May need laparoscopic cholecystectomy if HIDA scan positive for acute cholecystitis Patient is n.p.o. No abdominal pain at present On IV Zosyn empirically (3) Malignant hyperthermia susceptibility: FH malignant hyperthermia She denies of any adverse reaction to anesthesia in her prior procedures Anesthesia consulted for preop evaluation (4) Seizure: H/O seizure while hospitalized summer 2018 -Continue Keppra (5) Overactive bladder: -Continue oxybutynin (6) Dyslipidemia: -Hold statin for now for acute cholecystitis DVT Prophylaxis - HIGH RISK for DVT (has history of PE) -SCDs for now in case of surgical procedure DNR/DNI as per discussion with pt Follows with Dr Juarez Adams for routine care Call to patient's son, to give update, left message Admission and Anticipated Discharge Date Admission Date: February 09, 2020 Subjective Patient seen at bedside, feels comfortable, did not had any right upper quadrant pain, since admission, No complaint of nausea or vomiting, Has been afebrile Review of Systems Review of Systems: All systems reviewed & are unremarkable except as noted in HPI & below Constitutional: no fever, no chills and no anorexia Gastrointestinal: no abdominal pain, no nausea and no vomiting Physical Exam Constitutional: WD/WN, vitals as above no acute distress Eyes: PERRL, conjunctivae normal, anicteric sclerae ENMT: external ear and nose normal, oropharynx normal Neck: trachea midline, no thyromegaly Respiratory: normal respiratory effort, lungs clear to auscultation Cardiovascular: RRR, no murmur, no edema Gastrointestinal (Abdomen): Inspection/Auscultation: normal bowel sounds Percussion/Palpation: abdomen nontender and no guarding No right upper quadrant tenderness Musculoskeletal: no cyanosis or clubbing, extremities motor strength 5/5 Skin: no rashes, warm and dry Neurologic: PERRL, EOMI, accommodation nl, no face palsy, no dysarthria Psychiatric: A+Ox3, euthymic affect Results & Data Results & Data ([facility]) Vital Signs (Past 12 Hours) Vital Signs Temp Pulse Pulse Resp BP Pulse Ox 02/10/20 07:35 36.7 C 75 18 96/60 L 94 02/10/20 03:40 36.8 C 75 20 100/65 95 02/10/20 00:00 81 02/09/20 23:32 36.7 C 76 20 121/[address] ABD/PELVIS: IMPRESSION: 1. Mild gallbladder wall thickening. This is nonspecific and may reflect acute cholecystitis. A right upper quadrant ultrasound could be obtained for further evaluation. 2. No bowel obstruction. No bowel wall thickening. 3. Sigmoid diverticulosis without evidence for acute diverticulitis. GALLBLADDER US: IMPRESSION: Borderline thickened gallbladder wall which could be due to the contracted appearance. There is trace pericholecystic fluid and trace gallbladder sludge. No definite gallstones. Therefore, this is indeterminate but is less likely to represent an acute cholecystitis.
--- NOTE | 2020-02-10 11:32 | Nuclear Medicine Report ---
NM hepatobiliary CLINICAL HISTORY: 79 years-old Female presenting with RUQ pain. TECHNIQUE: Immediately following the intravenous administration of 5.2 mCi Tc-99m Choletec, dynamic a nterior abdominal imaging was performed. No morphine administration was required. COMPARISON: Right upper quadrant ultrasound and CT from yesterday. FINDINGS: Uniform hepatic tracer accumulation is shown. Prompt intrahepatic biliary excretion is seen. The gall bladder and common bile duct are visualized by 6-10 minutes. Expected radiotracer activity within sma ll bowel indicates an unobstructed common duct. IMPRESSION: 1. No evidence of acute or chronic cholecystitis. No evidence of cystic duct obstruction. ACT 112: Negative or not required by law. Electronically signed by: Ac Epstein M.D. 02/10/2020 11:30 AM
--- NOTE | 2020-02-10 12:00 | Surgery Progress Note ---
Date of Service February 10, 2020 Assessment & Plan (1) Abdominal pain, RUQ: HIDA scan showing no evidence of acute or chronic cholecystitis or biliary obstruction No leukocytosis, t. bili wnl and AST improved completely asymptomatic since admission. Plan: no surgical indication , likely had episode of biliary colic due to biliary sludge recommend advancing to low fat diet and discharge if does well no need for surgical follow-up but advised patient could have recurrent symptoms and to adhere to low fat diet. Patient understood. (2) Gallbladder sludge: plan as above Discussed with Dr. Ye who agrees with above Subjective feeling good today abdominal pain resolved and has not returned no nausea or vomiting Physical Exam Constitutional: WD/WN, vitals as above no acute distress Respiratory: normal respiratory effort; no respiratory distress Gastrointestinal (Abdomen): Inspection/Auscultation: abdomen normal to inspection; abdomen not distended Percussion/Palpation: abdomen soft; abdomen nontender, no guarding and abdomen not rigid Skin: no rashes, warm and dry Psychiatric: A+Ox3, euthymic affect Results & Data Vital Signs (Past 12 Hours) Vital Signs Temp Pulse Pulse Resp BP Pulse Ox 02/10/20 07:35 36.7 C 75 18 96/60 L 94 02/10/20 03:40 36.8 C 75 20 100/65 95 02/10/20 00:00 81 Laboratory Results 02/10/20 02/10/20 02/09/20 Range/Units 06:38 06:38 15:00 WBC 3.28 L (4.8-10.8) K/uL RBC 3.77 L (4.2-5.4) M/uL Hgb 11.6 L (12.0-16.0) g/dL POC Hgb (12.0-16.0) g/dl Hct 33.9 L (37-47) % POC Hct (37-47) % MCV 89.9 (80-100) fL MCH 30.8 (25-34) pg MCHC 34.2 (32-36) g/dL RDW Std Deviation 40.1 (36.4-46.3) fL RDW Coeff of Miguel 12.3 (11.5-14.5) % Plt Count 190 (130-400) K/uL MPV 9.8 (7.4-10.4) fL Immature Gran % (Auto) % Neut % (Auto) % Lymph % (Auto) % [place] % (Auto) % Eos % (Auto) % Baso % (Auto) % Immature Gran # (Auto) (0.00-0.02) K/uL Neut # (Auto) (1.4-6.5) K/uL Lymph # (Auto) (1.2-3.4) K/uL [place] # (Auto) (0.11-0.59) K/uL Eos # (Auto) (0-0.5) K/uL Baso # (Auto) (0-0.2) K/uL POC Sodium (135-144) mmol/L Sodium 139 (136-145) mmol/L POC Potassium (3.3-5.0) mmol/L Potassium 3.9 (3.5-5.1) mmol/L POC Chloride (101-112) mmol/L Chloride 109 H (98-107) mmol/L Carbon Dioxide 27 (21-32) mmol/L POC Total CO2 (24-31) mEq/l Anion Gap 3.0 (3-11) POC Anion Gap (16-25) mmol/L POC BUN (7-18) mg/dl BUN 7 (7-18) mg/dl Creatinine 0.90 (0.6-1.2) mg/dl POC Creatinine (0.6-1.3) mg/dl Est Cr Clr Drug Dosing 41.2 ml/min Est GFR ( Amer) 70.0 Est GFR (Non-Af Amer) 60.4 BUN/Creatinine Ratio 7.9 L (10-20) Glucose 96 (70-99) mg/dl POC Glucose (other) (70-99) mg/dl Calcium 8.4 L D (8.5-10.1) mg/dl POC Ioniz Calcium [place] (1.12-1.32) mmol/l Total Bilirubin 0.7 D (0.2-1) mg/dl AST 55 H (15-37) U/L ALT 54 (12-78) U/L Alkaline Phosphatase 105 (45-117) U/L Troponin I (0-0.045) ng/ml Total Protein 6.3 L (6.4-8.2) gm/dl Albumin 3.2 L (3.4-5.0) gm/dl Globulin 3.1 (2.5-4.0) gm/dl Albumin/Globulin Ratio 1.0 (0.9-2) Lipase (73-393) U/L Urine Color Yellow Urine Appearance Clear (Clear) Urine pH 7.5 (4.5-7.5) Ur Specific [place] 1.035 H (1.000-1.030) Urine Protein Negative (Negative) Urine Glucose (UA) Negative (Negative) Urine Ketones Negative (Negative) Urine Blood Negative (Negative) Urine Nitrite Negative (Negative) Urine Bilirubin Negative (Negative) Urine Urobilinogen Negative (Negative) Ur Leukocyte Esterase Negative (Negative) 02/09/20 02/09/20 02/09/20 Range/Units 13:22 13:15 13:15 WBC 7.80 (4.8-10.8) K/uL RBC 4.23 (4.2-5.4) M/uL Hgb 13.0 (12.0-16.0) g/dL POC Hgb 12.6 (12.0-16.0) g/dl Hct 37.6 (37-47) % POC Hct 37 (37-47) % MCV 88.9 (80-100) fL MCH 30.7 (25-34) pg MCHC 34.6 (32-36) g/dL RDW Std Deviation 39.9 (36.4-46.3) fL RDW Coeff of Miguel 12.4 (11.5-14.5) % Plt Count 198 (130-400) K/uL MPV 9.8 (7.4-10.4) fL Immature Gran % (Auto) 0.1 % Neut % (Auto) 81.9 % Lymph % (Auto) 11.3 % [place] % (Auto) 5.8 % Eos % (Auto) 0.6 % Baso % (Auto) 0.3 % Immature Gran # (Auto) 0.01 (0.00-0.02) K/uL Neut # (Auto) 6.39 (1.4-6.5) K/uL Lymph # (Auto) 0.88 L (1.2-3.4) K/uL [place] # (Auto) 0.45 (0.11-0.59) K/uL Eos # (Auto) 0.05 (0-0.5) K/uL Baso # (Auto) 0.02 (0-0.2) K/uL POC Sodium 137 (135-144) mmol/L Sodium 137 (136-145) mmol/L POC Potassium 3.8 (3.3-5.0) mmol/L Potassium 3.7 (3.5-5.1) mmol/L POC Chloride 101 (101-112) mmol/L Chloride 104 (98-107) mmol/L Carbon Dioxide 27 (21-32) mmol/L POC Total CO2 25 (24-31) mEq/l Anion Gap 6.0 (3-11) POC Anion Gap 16.0 (16-25) mmol/L POC BUN 9 (7-18) mg/dl BUN 11 (7-18) mg/dl Creatinine 0.89 (0.6-1.2) mg/dl POC Creatinine 0.8 (0.6-1.3) mg/dl Est Cr Clr Drug Dosing 45.4 ml/min Est GFR ( Amer) 70.9 Est GFR (Non-Af Amer) 61.2 BUN/Creatinine Ratio 11.9 (10-20) Glucose 128 H (70-99) mg/dl POC Glucose (other) 132 H (70-99) mg/dl Calcium 9.9 (8.5-10.1) mg/dl POC Ioniz Calcium [place] 1.19 (1.12-1.32) mmol/l Total Bilirubin 1.2 H (0.2-1) mg/dl AST 78 H (15-37) U/L ALT 39 (12-78) U/L Alkaline Phosphatase 106 (45-117) U/L Troponin I < 0.015 (0-0.045) ng/ml Total Protein 7.7 (6.4-8.2) gm/dl Albumin 4.1 (3.4-5.0) gm/dl Globulin 3.6 (2.5-4.0) gm/dl Albumin/Globulin Ratio 1.1 (0.9-2) Lipase 134 (73-393) U/L Urine Color Urine Appearance (Clear) Urine pH (4.5-7.5) Ur Specific [place] (1.000-1.030) Urine Protein (Negative) Urine Glucose (UA) (Negative) Urine Ketones (Negative) Urine Blood (Negative) Urine Nitrite (Negative) Urine Bilirubin (Negative) Urine Urobilinogen (Negative) Ur Leukocyte Esterase (Negative) Diagnostic Findings NM hepatobiliary CLINICAL HISTORY: 79 years-old Female presenting with RUQ pain. TECHNIQUE: Immediately following the intravenous administration of 5.2 mCi Tc- 99m Choletec, dynamic anterior abdominal imaging was performed. No morphine administration was required. COMPARISON: Right upper quadrant ultrasound and CT from yesterday. FINDINGS: Uniform hepatic tracer accumulation is shown. Prompt intrahepatic biliary excretion is seen. The gallbladder and common bile duct are visualized by 6-10 minutes. Expected radiotracer activity within small bowel indicates an unobstructed common duct. IMPRESSION: 1. No evidence of acute or chronic cholecystitis. No evidence of cystic duct obstruction.
[2020-02-10] MEDS: ASPIRIN 81 MG ECTAB PO SCH (12:54)
[2020-02-10] MEDS: CALCIUM CARBONATE 500 MG CHEWABLE TAB PO SCH (21:11)
[2020-02-11] MEDS: POTASSIUM CHLORIDE 10 MEQ TABCR PO SCH (07:47)
[2020-02-11] MEDS: CALCIUM CARBONATE 500 MG CHEWABLE TAB PO SCH (07:47)
[2020-02-11] MEDS: OXYBUTYNIN CHLORIDE 5 MG TAB PO SCH (07:48)
[2020-02-11] MEDS: ASPIRIN 81 MG ECTAB PO SCH (07:48)
[2020-02-11] MEDS: levETIRAcetam 500 MG TAB PO SCH (07:48)
[2020-02-11] MEDS ORDERED: ROSUVASTATIN CALCIUM 10 MG TAB PO SCH (09:00)
[2020-02-11] MEDS ORDERED: CHOLECALCIFEROL 1,000 UNITS 25 MCG TAB PO SCH (09:00)
--- NOTE | 2020-02-11 10:36 | Hospitalist Progress Note ---
Date of Service February 11, 2020 Assessment & Plan (1) Abdominal pain, RUQ: No further symptom Doing well, stable to be discharged home today HIDA scan negative for any evidence of acute or chronic cholecystitis, no biliary ductal dilatation Appreciate input from surgery, no indication for cholecystectomy, possible gallbladder sludge causing a biliary colic recommends low-fat diet for 4 to 6 weeks diet advanced tolerating well Admitted with biliary colic/right upper quadrant pain lasting for approximately 3 hours yesterday Pain was localized mostly to right side of abdomen with radiation to back, severe 10-10 in intensity Did not had any nausea, vomiting, no fever or chills CT abdomen pelvis/gallbladder ultrasound shows mild to borderline gallbladder wall thickening, suggestive of cholecystitis Patient patient has been asymptomatic, no pain or discomfort, did not had any nausea vomiting since admission (2) Seizure: H/O seizure while hospitalized summer 2018 No further seizure episodes since -Continue Keppra (3) Overactive bladder: -Continue oxybutynin (4) Dyslipidemia: -On statin DVT Prophylaxis -SCD and teds patient is ambulating DNR/DNI as per discussion with pt Follows with Dr Juarez Adams for routine care Patient stable to be discharged home today Admission and Anticipated Discharge Date Admission Date: February 09, 2020 Subjective Patient had no recurrence of abdominal pain No nausea vomiting, diet advanced to low-fat yesterday has been tolerating well No fever or chills Comfortable ambulating in hallway stable to be discharged home today Review of Systems Review of Systems: All systems reviewed & are unremarkable except as noted in HPI & below Constitutional: no fever and no chills Gastrointestinal: no abdominal pain, no nausea and no vomiting Physical Exam Constitutional: WD/WN, vitals as above no acute distress Eyes: PERRL, conjunctivae normal, anicteric sclerae ENMT: external ear and nose normal, oropharynx normal Neck: trachea midline, no thyromegaly Respiratory: normal respiratory effort, lungs clear to auscultation Cardiovascular: RRR, no murmur, no edema Gastrointestinal (Abdomen): Inspection/Auscultation: normal bowel sounds Percussion/Palpation: abdomen nontender and no guarding Musculoskeletal: no cyanosis or clubbing, extremities motor strength 5/5 Skin: no rashes, warm and dry Neurologic: PERRL, EOMI, accommodation nl, no face palsy, no dysarthria Psychiatric: A+Ox3, euthymic affect Results & Data Results & Data ([facility]) Vital Signs (Past 12 Hours) Vital Signs Temp Pulse Resp BP BP Pulse Ox 02/11/20 10:27 36.8 C 86 16 111/68 111/72 97 02/11/20 07:00 36.8 C 86 16 111/72 97 02/10/20 22:34 36.6 C 81 19 111/68 94
--- NOTE | 2020-02-11 10:37 | Discharge Summary ---
Date of Service February 11, 2020 Admission HPI Per Admitting Provider Pt is 79 y/o F with PMH dyslipidemia, osteoporosis, overactive bladder, h/o malignant hyperthermia susceptibility, h/o seizure, h/o PE presented to ER with c/o abdominal pain today. Pt states ate cinnamon toast and coffee this morning, a couple hours later started with epigastric and RUQ pain that was constant, pain radiated around to right back and to RLQ. Denies nausea or vomiting, fever or chills. Denies history food intolerances in the past. Yesterday ate cinnamon toast and chicken noodle soup. Last ate breakfast around 8:00am today. Denies diaphoresis, diarrhea, constipation, LARA, dizziness, syncope, vision changes, neck pain, CP, SOB, orthopnea, palpitations, cough, sore throat, choking, otalgia, rhinorrhea, paresthesias, weakness, extremity weakness, extremity edema, rashes, urinary symptoms. Principal Diagnosis Gallbladder colic-symptom has resolved No evidence of acute cholecystitis Discharge Exam Constitutional WD/WN, vitals as above no acute distress Eyes PERRL, conjunctivae normal, anicteric sclerae ENMT external ear and nose normal, oropharynx normal Neck trachea midline, no thyromegaly Respiratory normal respiratory effort, lungs clear to auscultation Cardiovascular RRR, no murmur, no edema Gastrointestinal (Abdomen) Inspection/Auscultation: normal bowel sounds Percussion/Palpation: abdomen nontender and no guarding Musculoskeletal no cyanosis or clubbing, extremities motor strength 5/5 Skin no rashes, warm and dry Neurologic PERRL, EOMI, accommodation nl, no face palsy, no dysarthria Psychiatric A+Ox3, euthymic affect Discharge Data Allergies Allergy/AdvReac Type Severity Reaction Status Date / Time hydromorphone [From Dilaudid] Allergy Severe Anaphylaxis Verified 02/09/20 13:25 Consultations 02/09/20 16:22 ED Decision to Admit Stat 02/09/20 19:23 Consult Case Management - Discharge Planning Routine Consult General Surgery Routine Ordered Studies 02/09/20 13:13 CT abd pelvis IV con 02/09/20 14:48 US gallbladder Stat 02/10/2020: HIDA scan: IMPRESSION: 1. No evidence of acute or chronic cholecystitis. No evidence of cystic duct obstruction. Hospital Course (1) Abdominal pain, RUQ: No further symptom Doing well, stable to be discharged home today HIDA scan negative for any evidence of acute or chronic cholecystitis, no evidence of cystic duct obstruction Appreciate input from surgery, no indication for cholecystectomy, possible gallbladder sludge causing symptoms of biliary colic recommends low-fat diet for 4 to 6 weeks diet advanced tolerating well Admitted with biliary colic/right upper quadrant pain lasting for approximately 3 hours yesterday Pain was localized mostly to right side of abdomen with radiation to back, severe 10-10 in intensity Did not had any nausea, vomiting, no fever or chills CT abdomen pelvis/gallbladder ultrasound shows mild to borderline gallbladder wall thickening, suggestive of cholecystitis Patient has been asymptomatic since admission , no pain or discomfort, did not had any nausea vomiting (2) Seizure: H/O seizure while hospitalized summer 2018 No further seizure episodes since -Continue Keppra (3) Overactive bladder: -Continue oxybutynin (4) Dyslipidemia: -On statin DVT Prophylaxis -SCD and teds patient is ambulating DNR/DNI as per discussion with pt Follows with Dr Juarez Adams for routine care Patient is stable to be discharged home today Total Time Total Time Spent Total Time Spent (In Minutes): 35 mins Total Time Includes: Examination of the Patient, Discharge Planning and Medication Reconciliation Discharge Plan Discharge Items Patient Disposition: Home - Self-Care Reason For Visit: ABDOMINAL PAIN Discharge Diagnosis: Gallbladder colic-symptom has resolved No evidence of acute cholecystitis Activity: Resume your previous activity Non-emergency contact: Primary Care Provider Call non-emergency contact if: your symptoms worsen Follow-up/Referrals: Juarez Adams, [Primary Care Provider] - (hospital follow up in 1 week . office will call with appointment ) Diet: Low Fat Addtl Attending Provider Instructions: Continue low-fat diet for at least 4-6 weeks Please notify your family physician or return to ER, with recurrence of any similar symptoms: Abdominal pain, nausea or vomiting Pending Studies at Discharge: No Stand-Alone Forms: My [employer], Smoking Cessation Medications and DC Order Prescriptions: Continued aspirin [Aspirin Low Dose] 81 mg Tablet,Delayed Release (Dr/Ec) 81 mg PO DAILY RF: 0 cholecalciferol (vitamin D3) [Vitamin D3] 1,000 unit Capsule 2,000 unit PO DAILY RF: 0 levetiracetam [Keppra] 500 mg Tablet 500 mg PO BID Qty: 60 RF: 0 calcium carbonate [Tums] 200 mg calcium (500 mg) Tablet,Chewable 500 mg PO BID Qty: 60 RF: 0 potassium chloride 10 mEq capsule, extended release 10 meq PO BID RF: 0 oxybutynin chloride 5 mg tablet 5 mg PO BID RF: 0 alendronate [Fosamax] 70 mg tablet 70 mg PO MO RF: 0 rosuvastatin 10 mg tablet 10 mg PO DAILY RF: 0 Discharge Orders: Discharge Order (Routine); Ordered 02/11/20 Ordered By: Anahi Gramajo/Other Patient Handouts: Flavor Add Low Fat Meals, ED Low Fat Diet, ED Gallstones with Biliary Colic Admission Data Admit Date/Time: 02/09/20 16:51 Attending Provider: Anahi Gomez Admit Provider: Shailesh Ayoub Primary Care Provider: Juarez Adams Other Providers: Shailesh Ayoub ; Naty Ye Other Interventions: Discharge Summary Assessment (RN) Last Done: 02/11/20 10:27
== END 2020-02-11 12:05 | disposition home or self-care (01) ==
LOC: 2N 12:52 → ED 12:52 → SUATTDRO 16:51 → 2N 18:55

== ENCOUNTER 2022-04-27 11:21 | Inpatient (IN) ==
--- NOTE | 2022-04-27 11:45 | Emergency Department Note ---
History of Present Illness General Chief complaint: Fall Stated complaint: COUNFUSION, HEAD WOUND Time Seen by Provider: 04/27/22 11:35 Source: EMS Mode of arrival: EMS Limitations: altered mental status History of Present Illness Provider complaint: Altered mental status This is an 82-year-old female brought in by EMS due to altered mental status and head injury. Per EMS report, patient's son reported to them that she called him around 830 this morning stating that she needed to go to the hospital because she had back pain. She then hung up abruptly. The son began to make arrangements to leave his place of employment and get to her and in the interim was trying to call other family/friends to check on her. He as well as other family tried to call the patient back several times and she did not respond so they called 911 to perform a well check. EMS states on arrival the door was open, and patient was laying on the floor, minimally arousable, not using her left side, would not open eyes to voice or answer any questions. States she did have matted blood from likely head wound noted on their exam in addition. They saw 1 spot of blood on the couch, and the coffee table appeared to have been disrupted otherwise they state the house was well kept and appeared in order. I do not know any additional medical history or medications. Patient was not found to be hypoglycemic or hypotensive. She was tachycardic, was initially hypoxic in the 70s and appeared to have slightly labored breathing. Oxygen supplementation was provided and oxygenation improved as did rate of breathing. Patient did not appear to have any obvious respiratory distress. Pt seen during a time of high acuity and national emergency pandemic while wearing PPE. Home Medications Medication Instructions Recorded Confirmed Type aspirin 81 mg tablet,delayed 81 mg PO QAM 04/21/19 05/05/21 History release (Vandana Low Dose Aspirin) cholecalciferol (vitamin D3) 25 2,000 unit PO QAM 04/21/19 05/05/21 History mcg (1,000 unit) capsule (Vitamin D3) calcium carbonate 200 mg calcium 500 mg PO BID #60 tab 05/04/19 05/05/21 Rx (500 mg) chewable tablet (Tums) levetiracetam 500 mg tablet 500 mg PO BID #60 tab 05/04/19 05/05/21 Rx (Keppra) alendronate 70 mg tablet (Fosamax) 70 mg PO MO 02/09/20 05/05/21 History oxybutynin chloride 5 mg tablet 5 mg PO BID 02/09/20 05/05/21 History potassium chloride 10 mEq 10 meq PO BID 02/09/20 05/05/21 History capsule,extended release rosuvastatin 10 mg tablet 10 mg PO QAM 02/09/20 05/05/21 History sulfamethoxazole 800 1 tab PO BID 7 Days #14 tab 04/24/22 Rx mg-trimethoprim 160 mg tablet (Bactrim DS) Allergies Allergy/AdvReac Type Severity Reaction Status Date / Time hydromorphone [From Dilaudid] Allergy Severe Anaphylaxis Verified 05/05/21 10:57 codeine Allergy Intermediate Unknown Unverified 05/05/21 10:57 Past Med/Surg History Medical History (Updated 04/28/22 @ 23:20 by Aziza Warner DO) Abdominal pain Coronary artery disease Depression Discharge planning issues Dyslipidemia History of cataract Left eye Osteoporosis Overactive bladder Surgical History H/O eye surgery 1944 - Right eye surgery 1947 - Right eye surgery H/O malignant hyperthermia History of arthroplasty of right hip History of bladder repair surgery 2008 History of hysterectomy History of lumpectomy of both breasts 1962 - Left breast lumpectomy - pt reports was benign 1980 - R breast lumpectomy - pt reports was benign History of tonsillectomy and adenoidectomy Family History Other Cancer Hypertension Malignant hyperthermia due to anesthesia Social History Smoking Status: Unknown if ever smoked Hx Alcohol Use: No Hx Substance Use: No Preferred Language: Yoruba Communication Ability: Unable Corrosion Engineer Required: No Beliefs That Will Affect Care: Anabaptist Anabaptist Beliefs: Nondenominational marital status: / Current Living Situation: Alone Feels Safe at Home: Declines to Answer Assistive Devices: None Review of Systems See HPI for pertinent positives & negatives. Unobtainable due to cognitive status Physical Exam Vital Signs Vital Signs - 24 hr 04/27/22 11:37 04/27/22 11:40 04/27/22 11:42 Temperature 37.2 C Temperature Source Axillary Pulse Rate 112 H 116 H 118 H Pulse Rate from SpO2 Sensor 117 H 119 H Respiratory Rate 18 31 H 27 H Respiratory Effort / Characteristics Spontaneous Other Respiratory Depth Deep Respiratory Pattern Rapid/Deep Blood Pressure 152/100 H 172/147 H Blood Pressure [Right Arm] Blood Pressure Mean 117 155 Blood Pressure Mean [Right Arm] Pulse Oximetry 89 L 92 81 L Oxygen Delivery Method Nasal Cannula Nasal Cannula Room Air Oxygen Flow Rate 5 Sepsis Recent Fever Within 48 Hours No Sepsis New/Unexplained Change in Mental Status Yes Sepsis Action Taken by Nursing No Action Required 04/27/22 12:00 04/27/22 12:10 04/27/22 12:15 Temperature Temperature Source Pulse Rate Pulse Rate from SpO2 Sensor 127 H 128 H 123 H Respiratory Rate Respiratory Effort / Characteristics Respiratory Depth Respiratory Pattern Blood Pressure 173/121 H Blood Pressure [Right Arm] Blood Pressure Mean 138 Blood Pressure Mean [Right Arm] Pulse Oximetry 99 100 99 Oxygen Delivery Method Non-rebreather Non-rebreather Oxygen Flow Rate Sepsis Recent Fever Within 48 Hours Sepsis New/Unexplained Change in Mental Status Sepsis Action Taken by Nursing 04/27/22 12:20 04/27/22 12:30 04/27/22 12:40 Temperature Temperature Source Pulse Rate 117 H 117 H Pulse Rate from SpO2 Sensor 119 H 119 H 118 H Respiratory Rate 33 H 29 H Respiratory Effort / Characteristics Respiratory Depth Respiratory Pattern Blood Pressure 129/80 161/103 H 140/96 Blood Pressure [Right Arm] Blood Pressure Mean 96 122 110 Blood Pressure Mean [Right Arm] Pulse Oximetry 98 99 97 Oxygen Delivery Method Oxygen Flow Rate Sepsis Recent Fever Within 48 Hours Sepsis New/Unexplained Change in Mental Status Sepsis Action Taken by Nursing 04/27/22 12:45 04/27/22 12:49 04/27/22 12:50 Temperature Temperature Source Pulse Rate 128 H 119 H Pulse Rate from SpO2 Sensor 125 H 116 H Respiratory Rate 24 20 24 Respiratory Effort / Characteristics Pursed Lip Respiratory Depth Deep Respiratory Pattern Blood Pressure 158/96 H Blood Pressure [Right Arm] 158/96 H Blood Pressure Mean 116 Blood Pressure Mean [Right Arm] 116 Pulse Oximetry 94 95 95 Oxygen Delivery Method Nasal Cannula Oxygen Flow Rate Sepsis Recent Fever Within 48 Hours Sepsis New/Unexplained Change in Mental Status Sepsis Action Taken by Nursing 04/27/22 13:00 04/27/22 13:10 04/27/22 13:15 Temperature Temperature Source Pulse Rate 124 H 125 H 132 H Pulse Rate from SpO2 Sensor 123 H 127 H 134 H Respiratory Rate 28 H 32 H 32 H Respiratory Effort / Characteristics Respiratory Depth Respiratory Pattern Blood Pressure 150/96 H 154/88 H Blood Pressure [Right Arm] Blood Pressure Mean 114 110 Blood Pressure Mean [Right Arm] Pulse Oximetry 96 95 93 Oxygen Delivery Method Oxygen Flow Rate Sepsis Recent Fever Within 48 Hours Sepsis New/Unexplained Change in Mental Status Sepsis Action Taken by Nursing 04/27/22 13:20 04/27/22 13:30 04/27/22 13:40 Temperature Temperature Source Pulse Rate 134 H 136 H 141 H Pulse Rate from SpO2 Sensor 134 H 134 H 140 H Respiratory Rate 35 H 37 H 30 H Respiratory Effort / Characteristics Respiratory Depth Respiratory Pattern Blood Pressure 157/111 H 151/94 H 157/94 H Blood Pressure [Right Arm] Blood Pressure Mean 126 113 115 Blood Pressure Mean [Right Arm] Pulse Oximetry 94 94 94 Oxygen Delivery Method Oxygen Flow Rate Sepsis Recent Fever Within 48 Hours Sepsis New/Unexplained Change in Mental Status Sepsis Action Taken by Nursing 04/27/22 13:45 04/27/22 13:50 04/27/22 14:00 Temperature Temperature Source Pulse Rate 135 H 132 H 133 H Pulse Rate from SpO2 Sensor 133 H 133 H 133 H Respiratory Rate 33 H 30 H 34 H Respiratory Effort / Characteristics Respiratory Depth Respiratory Pattern Blood Pressure 158/87 H 145/114 H Blood Pressure [Right Arm] Blood Pressure Mean 110 124 Blood Pressure Mean [Right Arm] Pulse Oximetry 94 95 93 Oxygen Delivery Method Oxygen Flow Rate Sepsis Recent Fever Within 48 Hours Sepsis New/Unexplained Change in Mental Status Sepsis Action Taken by Nursing 04/27/22 14:10 04/27/22 14:15 04/27/22 14:20 Temperature Temperature Source Pulse Rate 138 H 132 H 127 H Pulse Rate from SpO2 Sensor 139 H 130 H 128 H Respiratory Rate 34 H 29 H 34 H Respiratory Effort / Characteristics Respiratory Depth Respiratory Pattern Blood Pressure 154/123 H 143/99 H Blood Pressure [Right Arm] Blood Pressure Mean 133 113 Blood Pressure Mean [Right Arm] Pulse Oximetry 94 94 94 Oxygen Delivery Method Oxygen Flow Rate Sepsis Recent Fever Within 48 Hours Sepsis New/Unexplained Change in Mental Status Sepsis Action Taken by Nursing 04/27/22 14:21 04/27/22 14:30 04/27/22 14:40 Temperature Temperature Source Pulse Rate 123 H 132 H Pulse Rate from SpO2 Sensor 125 H 133 H Respiratory Rate 34 H 34 H Respiratory Effort / Characteristics Non-Labored Respiratory Depth Normal Respiratory Pattern Blood Pressure 145/91 H 135/106 H Blood Pressure [Right Arm] Blood Pressure Mean 109 115 Blood Pressure Mean [Right Arm] Pulse Oximetry 93 90 Oxygen Delivery Method Oxygen Flow Rate Sepsis Recent Fever Within 48 Hours Sepsis New/Unexplained Change in Mental Status Sepsis Action Taken by Nursing 04/27/22 14:45 04/27/22 14:50 04/27/22 15:00 Temperature Temperature Source Pulse Rate 134 H 130 H 120 H Pulse Rate from SpO2 Sensor 133 H 130 H 120 H Respiratory Rate 33 H 32 H 30 H Respiratory Effort / Characteristics Respiratory Depth Respiratory Pattern Blood Pressure 158/86 H 137/80 Blood Pressure [Right Arm] Blood Pressure Mean 110 99 Blood Pressure Mean [Right Arm] Pulse Oximetry 89 L 89 L 90 Oxygen Delivery Method Oxygen Flow Rate Sepsis Recent Fever Within 48 Hours Sepsis New/Unexplained Change in Mental Status Sepsis Action Taken by Nursing GENERAL: alert, well nourished, no distress, non-toxic HEAD: nc, dried matted blood noted to the occipital region with palpable contusion EYE EXAM: normal conjunctiva, PERRL and EOM's grossly intact OROPHARYNX: no exudate, no erythema, lips, buccal mucosa, and tongue normal and mucous membranes are dry NECK: supple, no nuchal rigidity, no adenopathy, non-tender LUNGS: Clear to auscultation. Normal chest wall mechanics, no w/r/r HEART: no murmurs, S1 normal and S2 normal ABDOMEN: abdomen soft, non-tender, normo-active bowel sounds, no masses, no rebo und or guarding. BACK: Back is symmetrical on inspection and there is no deformity, no midline tenderness, no CVA tenderness. SKIN: no rashes and no bruising UPPER EXTREMITIES: upper extremities are grossly normal. FROM, nml pulses b/l. LOWER EXTREMITIES: No pitting edema. FROM, nml pulses b/l. NEURO EXAM: Patient does not open eyes to voice, no verbal response, appears to be spontaneously moving the right upper and lower extremity, no movement noted on the left, patient cannot localize pain, slight grimacing noted although no withdrawal Course Course 1140: I contacted the son, already, he states he is the only local family and is the power of estate attorney. I discussed her current critical condition. He states that she is DNR/DNI and would not want aggressive or invasive measures. We discussed her presentation and concern for several acute problems. He states he had last seen her the end of March, however briefly spoke with her around 830 when she called to state that she needed to go to the hospital and complained of back pain. 1215: I updated the son on CT findings. He is en route to the hospital. 1345: Son now at bedside. We discussed condition and prognosis. Administered Medications Glycopyrrolate (Glycopyrrolate 0.2 Mg/Ml Vial) 0.2 mg IV Q4H PRN PRN Reason: Secretions or Pulm Congestion Stop: 05/27/22 17:35 Last Admin: 04/28/22 16:16 Dose: 0.2 mg Documented by: [id number] Admin: 04/28/22 05:48 Dose: 0.2 mg Documented by: [id number] Lorazepam 0.5 mg/ Syringe 0.5 mls @ 2 mls/min IV Q4H PRN PRN Reason: Anxiety/Agitation Stop: 05/27/22 17:35 Last Admin: 04/28/22 22:33 Dose: 2 mls/min Documented by: [id number] Morphine Sulfate (Morphine Sulfate 2 Mg/Ml Carp) 2 mg IV Q4H PRN PRN Reason: Pain or Respiratory Distress Stop: 05/11/22 17:35 Last Admin: 04/28/22 20:46 Dose: 2 mg Documented by: [id number] Admin: 04/28/22 16:17 Dose: 2 mg Documented by: [id number] Admin: 04/28/22 05:48 Dose: 2 mg Documented by: [id number] Admin: 04/27/22 22:55 Dose: 2 mg Documented by: [id number] Discontinued Medications Sodium Chloride (Nss 1000ml) 1,000 mls @ 200 mls/hr IV .Q5H DUKE Stop: 05/27/22 11:44 Last Admin: 04/28/22 07:14 Dose: Not Given Documented by: [id number] Infusion: 04/27/22 22:54 Dose: 0 mls/hr Documented by: [id number] Admin: 04/27/22 12:30 Dose: 200 mls/hr Documented by: [id number] Acetaminophen (Ofirmev) 1,000 mg in 100 mls @ 400 mls/hr IV NOW STA Stop: 04/27/22 12:31 Last Infusion: 04/27/22 13:58 Dose: 0 mls/hr Documented by: [id number] Admin: 04/27/22 12:30 Dose: 400 mls/hr Documented by: [id number] Morphine Sulfate (Morphine Sulfate 2 Mg/Ml Carp) 2 mg IV NOW STA Stop: 04/27/22 14:49 Last Admin: 04/27/22 15:02 Dose: 2 mg Documented by: [id number] Morphine Sulfate (Morphine Sulfate 2 Mg/Ml Carp) 2 mg IV NOW STA Stop: 04/28/22 00:07 Last Admin: 04/28/22 00:43 Dose: 2 mg Documented by: [id number] Critical Care Time Critical Care Time: Yes Total Critical Care Time: 52 Critical care of 52 min performed to assess and manage high likelihood of life- threatening ICH, involving labs and imaging performed with assessment to evaluate AMS diagnosis with frequent reassessment. This time includes bedside time, treatment discussions with patient/family/consultants, documentation time and excludes procedure time. Medical Decision Making Differential Diagnosis Differential diagnoses includes but is not limited to toxic, metabolic, infectious, traumatic, cardiac, neurologic, hematologic, psychiatric and inflammatory etiologies. Medical Records Attestation: I reviewed the patient's medical records. Home Medications Current Medication List: was personally reviewed by me Laboratory Data Attestation: I reviewed the patient's lab results. Result diagrams: 04/27/22 11:42 04/27/22 11:42 Lab Results 04/27/22 04/27/22 04/27/22 Range/Units 11:31 11:42 11:42 WBC 11.97 H (4.8-10.8) K/uL RBC 3.40 L (4.2-5.4) M/uL Hgb 10.6 L (12.0-16.0) g/dL POC Hgb (12.0-16.0) g/dl Hct 29.9 L (37-47) % POC Hct (37-47) % MCV 87.9 (80-100) fL MCH 31.2 (25-34) pg MCHC 35.5 (32-36) g/dL RDW Std Deviation 42.7 (36.4-46.3) fL RDW Coeff of Miguel 13.3 (11.5-14.5) % Plt Count 195 (130-400) K/uL MPV 10.2 (7.4-10.4) fL Immature Gran % (Auto) 0.3 % Neut % (Auto) 83.3 % Lymph % (Auto) 5.9 % [place] % (Auto) 10.4 % Eos % (Auto) 0.0 % Baso % (Auto) 0.1 % Neut # (Auto) 9.97 H (1.4-6.5) K/uL Lymph # (Auto) 0.71 L (1.2-3.4) K/uL [place] # (Auto) 1.24 H (0.11-0.59) K/uL Eos # (Auto) 0.00 (0-0.5) K/uL Baso # (Auto) 0.01 (0-0.2) K/uL Immature Gran # (Auto) 0.04 H (0.00-0.02) K/uL PT 12.2 H (9.0-12.0) Seconds INR 1.2 H (0.9-1.1) POC Sodium (135-144) mmol/L Sodium (136-145) mmol/L POC Potassium (3.3-5.0) mmol/L Potassium (3.5-5.1) mmol/L POC Chloride (101-112) mmol/L Chloride (98-107) mmol/L Carbon Dioxide (21-32) mmol/L POC Total CO2 (24-31) mmol/L Anion Gap (3-11) POC Anion Gap (16-25) mmol/L POC BUN (7-18) mg/dl BUN (6-23) mg/dl Creatinine (0.6-1.2) mg/dl POC Creatinine (0.6-1.3) mg/dl Est Cr Clr Drug Dosing ml/min Est GFR ( Amer) ml/min Est GFR (Non-Af Amer) ml/min BUN/Creatinine Ratio (10-20) Glucose (70-99(Fasting)) mg/dl POC Glucose 148 H (70-99) mg/dl POC Glucose (other) (70-99) mg/dl Calcium (8.5-10.1) mg/dl POC Ioniz Calcium Susanna (1.12-1.32) mmol/l Magnesium (1.7-2.4) mg/dl Total Bilirubin (0.2-1.0) mg/dl AST (13-39) U/L ALT (7-52) U/L Alkaline Phosphatase (34-104) U/L Troponin I High Sens (0-14) pg/ml Total Protein (6.0-8.3) gm/dl Albumin (3.4-5.0) gm/dl Globulin (2.5-4.0) gm/dl Albumin/Globulin Ratio (0.9-2) Lipase (11-82) U/L TSH (0.300-4.500) uIu/ml SARS-CoV-2, RNA, NAAT (NEGATIVE) 04/27/22 04/27/22 04/27/22 Range/Units 11:42 11:42 11:47 WBC (4.8-10.8) K/uL RBC (4.2-5.4) M/uL Hgb (12.0-16.0) g/dL POC Hgb 10.2 L (12.0-16.0) g/dl Hct (37-47) % POC Hct 30 L (37-47) % MCV (80-100) fL MCH (25-34) pg MCHC (32-36) g/dL RDW Std Deviation (36.4-46.3) fL RDW Coeff of Miguel (11.5-14.5) % Plt Count (130-400) K/uL MPV (7.4-10.4) fL Immature Gran % (Auto) % Neut % (Auto) % Lymph % (Auto) % [place] % (Auto) % Eos % (Auto) % Baso % (Auto) % Neut # (Auto) (1.4-6.5) K/uL Lymph # (Auto) (1.2-3.4) K/uL [place] # (Auto) (0.11-0.59) K/uL Eos # (Auto) (0-0.5) K/uL Baso # (Auto) (0-0.2) K/uL Immature Gran # (Auto) (0.00-0.02) K/uL PT (9.0-12.0) Seconds INR (0.9-1.1) POC Sodium 128 L (135-144) mmol/L Sodium 128 L (136-145) mmol/L POC Potassium 3.8 (3.3-5.0) mmol/L Potassium 3.8 (3.5-5.1) mmol/L POC Chloride 97 L (101-112) mmol/L Chloride 96 L (98-107) mmol/L Carbon Dioxide 18 L (21-32) mmol/L POC Total CO2 19 L (24-31) mmol/L Anion Gap 14 H (3-11) POC Anion Gap 17.0 (16-25) mmol/L POC BUN 11 (7-18) mg/dl BUN 13 (6-23) mg/dl Creatinine 0.95 (0.6-1.2) mg/dl POC Creatinine 0.9 (0.6-1.3) mg/dl Est Cr Clr Drug Dosing 38.7 ml/min Est GFR ( Amer) 64.2 ml/min Est GFR (Non-Af Amer) 55.4 ml/min BUN/Creatinine Ratio 13.7 (10-20) Glucose 145 H (70-99(Fasting)) mg/dl POC Glucose (70-99) mg/dl POC Glucose (other) 153 H (70-99) mg/dl Calcium 9.0 (8.5-10.1) mg/dl POC Ioniz Calcium Susanna 1.16 (1.12-1.32) mmol/l Magnesium 1.7 (1.7-2.4) mg/dl Total Bilirubin 0.8 (0.2-1.0) mg/dl AST 67 H (13-39) U/L ALT 35 (7-52) U/L Alkaline Phosphatase 53 (34-104) U/L Troponin I High Sens 29.1 H (0-14) pg/ml Total Protein 6.5 (6.0-8.3) gm/dl Albumin 4.2 (3.4-5.0) gm/dl Globulin 2.3 L (2.5-4.0) gm/dl Albumin/Globulin Ratio 1.8 (0.9-2) Lipase 13 (11-82) U/L TSH 1.823 (0.300-4.500) uIu/ml SARS-CoV-2, RNA, NAAT (NEGATIVE) 04/27/22 Range/Units 14:19 WBC (4.8-10.8) K/uL RBC (4.2-5.4) M/uL Hgb (12.0-16.0) g/dL POC Hgb (12.0-16.0) g/dl Hct (37-47) % POC Hct (37-47) % MCV (80-100) fL MCH (25-34) pg MCHC (32-36) g/dL RDW Std Deviation (36.4-46.3) fL RDW Coeff of Miguel (11.5-14.5) % Plt Count (130-400) K/uL MPV (7.4-10.4) fL Immature Gran % (Auto) % Neut % (Auto) % Lymph % (Auto) % [place] % (Auto) % Eos % (Auto) % Baso % (Auto) % Neut # (Auto) (1.4-6.5) K/uL Lymph # (Auto) (1.2-3.4) K/uL [place] # (Auto) (0.11-0.59) K/uL Eos # (Auto) (0-0.5) K/uL Baso # (Auto) (0-0.2) K/uL Immature Gran # (Auto) (0.00-0.02) K/uL PT (9.0-12.0) Seconds INR (0.9-1.1) POC Sodium (135-144) mmol/L Sodium (136-145) mmol/L POC Potassium (3.3-5.0) mmol/L Potassium (3.5-5.1) mmol/L POC Chloride (101-112) mmol/L Chloride (98-107) mmol/L Carbon Dioxide (21-32) mmol/L POC Total CO2 (24-31) mmol/L Anion Gap (3-11) POC Anion Gap (16-25) mmol/L POC BUN (7-18) mg/dl BUN (6-23) mg/dl Creatinine (0.6-1.2) mg/dl POC Creatinine (0.6-1.3) mg/dl Est Cr Clr Drug Dosing ml/min Est GFR ( Amer) ml/min Est GFR (Non-Af Amer) ml/min BUN/Creatinine Ratio (10-20) Glucose (70-99(Fasting)) mg/dl POC Glucose (70-99) mg/dl POC Glucose (other) (70-99) mg/dl Calcium (8.5-10.1) mg/dl POC Ioniz Calcium Susanna (1.12-1.32) mmol/l Magnesium (1.7-2.4) mg/dl Total Bilirubin (0.2-1.0) mg/dl AST (13-39) U/L ALT (7-52) U/L Alkaline Phosphatase (34-104) U/L Troponin I High Sens (0-14) pg/ml Total Protein (6.0-8.3) gm/dl Albumin (3.4-5.0) gm/dl Globulin (2.5-4.0) gm/dl Albumin/Globulin Ratio (0.9-2) Lipase (11-82) U/L TSH (0.300-4.500) uIu/ml SARS-CoV-2, RNA, NAAT NEGATIVE (NEGATIVE) Imaging Data Radiologist's Impression: Cervical Spine CT 04/27/22 11:40 CT cervical spine wo con CLINICAL HISTORY: trauma TECHNIQUE: Multidetector row helical CT of the cervical spine was performed without administration of intravenous contrast. Coronal and sagittal reformations were obtained. Automated dose lowering techniques and/or adjustment according to patient size were utilized for this exam. Comparison: None available at the time of this dictation. FINDINGS: No acute fractures or subluxations are identified. Degenerative changes are seen in the visualized spine. The alignment is normal. Soft tissues are unremarkable. IMPRESSION: Degenerative changes without evidence of acute bony injury. ACT 112: Negative or not required by law. Electronically signed by: Sarabjit Oneil M.D. 04/27/2022 12:[address] 04/27/22 11:40 CT SCAN OF THE BRAIN WITHOUT IV CONTRAST CLINICAL HISTORY: Trauma. Change in mental status. COMPARISON STUDY: CT of the brain dated 04/26/2019. TECHNIQUE: Unenhanced axial CT scan of the brain is performed from the vertex to the skull base. A dose lowering technique was utilized adhering to the principles of ALARA. The patient was scanned twice due to motion artifact. FINDINGS: Brain parenchyma: There is a large acute subdural hemorrhage along the right convexity. This measures up to 2.0 cm in dimension and effaces the subjacent cortical sulci and the right lateral ventricle. There is 1.9 cm of right to left midline shift. There is also trace subdural hemorrhage along the anterior and posterior falx as well as the left tentorium cerebelli. There is age-related involutional change noting moderate subcortical and periventricular mi croangiopathic disease. Howe-white matter differentiation is preserved. There is no evidence of acute territorial ischemia by CT criteria. Ventricles, sulci, cisterns: Prominent secondary to involutional change. See above. Intracranial vasculature: There is atherosclerotic calcification of the cavernous carotid arteries. Calvarium: The skeletal structures are osteopenic. No depressed calvarial fracture is identified Soft tissues: Is a large posterior scalp injury/hematoma. Sinuses and mastoids: The visualized paranasal sinuses are clear. The mastoid air cells are well pneumatized. Orbits: The bony orbits are grossly intact. There is a left ocular lens implant. IMPRESSION: 1. There is a large acute subdural hemorrhage along the right convexity with associated mass effect and 1.9 cm of [id number] midline shift. 2. Trace subdural blood is also seen along the midline falx in the left tentorium. 3. There is no evidence of acute territorial ischemia by CT criteria. 4. Posterior scalp injury. ACT 112: Negative or not required by law. Electronically signed by: Cody Desai M.D. 04/27/2022 12:10 PM Chest X-Ray 04/27/22 12:02 XR chest 1V portable CLINICAL HISTORY: trauma TECHNIQUE: Single frontal radiograph of the chest was obtained. Comparison: Comparison is made to chest radiograph 05/05/2021 FINDINGS: No lines and tubes are seen. Calcified aortic knob is seen. Atelectasis is seen at the right lung base. No evidence of pleural effusion or pneumothorax. IMPRESSION: No acute chest disease. ACT 112: Negative or not required by law. Electronically signed by: Sarabjit Oneil M.D. 04/27/2022 12:46 PM Pelvis X-Ray 04/27/22 12:02 XR pelvis 1-2V routine CLINICAL HISTORY: trauma COMPARISON: Pelvis and right hip radiographs April 21, 2019. CT of the abdomen and pelvis May 05, 2021. FINDINGS: Sacroiliac joints and symphysis pubis are intact. Alignment of the right hip arthroplasty is anatomic. There is no periprosthetic fracture. No acute fracture is identified within the pelvis or hips. IMPRESSION: 1. No acute fracture within the pelvis or hips. 2. Intact right hip arthroplasty. No periprosthetic fracture. ACT 112: Negative or not required by law. Electronically signed by: Terrance Rock M.D. 04/27/2022 12:49 PM ECG Data Attestation: I personally reviewed and interpreted this ECG as follows: Indication: + altered mental status Rate (beats per minute): 113 Rhythm: + normal sinus ECG Intervals/blocks: + Normal QRS and + Normal QT ECG Alma: + Normal ECG ST segments: + Nonspecific ST abnormalities ECG Findings: + PACs Additional Comments: baseline artifact noted MDM Narrative An order was placed for continuous cardiac monitoring. The monitor shows a rate of _113__ with sinus tachycardia__ rhythm. This is an 82 yo female brought in by EMS after being found on the floor of her house with altered mental status and hypoxia. Patient ill appearing. Hypoxia improved with oxygen via NC, however pt unresponsive to voice or painful stimuli. Evidence of head trauma noted and multiple contusions noted to hips, knees, and UE suggestive of recent falls. While starting a 2nd IV, obtaining labs, and starting IVF and preparing to intubate, I contacted family. We discussed her critical condition and EMS report as well as code status. Son, who is POA, states she is DNR/DNI and understands gravity and possible mortality of her condition. Patient sent to CT which revealed large subdural with midline shift. Patient remained tachycardic and normotensive, NC remained in place. Additional orders for xrays placed instead of CTs due to concern for stability. Son called and updated and stated she would not want neurosurgical intervention. Verbalized understanding of critical and likely fatal condition at this time. He eventually presented to bedside as did additional family. Case discussed with hospitalist for comfort care treatment at this time. Impression & Plan AMS (altered mental status), Acute subdural hematoma, Hypoxia, Hyponatremia, CHI (closed head injury), Contusion of scalp, Contusion of multiple sites Discharge Plan Visit Data Chief Complaint: Fall Stated Complaint: COUNFUSION, HEAD WOUND ED Provider: Aziza Warner Discharge Problem: AMS (altered mental status), Acute subdural hematoma, Hypoxia, Hyponatremia, CHI (closed head injury), Contusion of scalp, Contusion of multiple sites Patient Disposition: Admitted As Inpatient Discharge Instructions Interventions: ED Discharge Assessment Last Done: 04/28/22 00:53 Discharge Problem: AMS (altered mental status) Qualifiers: Altered mental status type: unspecified Qualified Code(s): R41.82 - Altered mental status, unspecified CHI (closed head injury) Qualifiers: Encounter type: initial encounter Qualified Code(s): S09.90XA - Unspecified injury of head, initial encounter Contusion of scalp Qualifiers: Encounter type: initial encounter Qualified Code(s): S00.03XA - Contusion of scalp, initial encounter
[2022-04-27 12:00] LABS: iSTAT Creatinine 0.9 mg/dl (0.6-1.3); iSTAT Hemoglobin 10.2 g/dl (12.0-16.0); iSTAT Ionized Calcium 1.16 mmol/l (1.12-1.32); iSTAT Potassium 3.8 mmol/L (3.3-5.0)
[2022-04-27 12:08] LABS: Basophils # (auto) 0.01 K/uL (0-0.2); Basophils % (auto) 0.1 %; Hematocrit (blood only) 29.9 % (37-47); Hemoglobin 10.6 g/dL (12.0-16.0); Immature Granulocytes # (auto) 0.04 K/uL (0.00-0.02); Immature Granulocytes % (auto) 0.3 %; Lymphocytes # (auto) 0.71 K/uL (1.2-3.4); Lymphocytes % (auto) 5.9 %; Mean Corpuscular Hemoglobin 31.2 pg (25-34); Mean Corpuscular Hgb Conc 35.5 g/dL (32-36); Mean Corpuscular Volume 87.9 fL (80-100); Mean Platelet Volume 10.2 fL (7.4-10.4); Monocytes # (auto) 1.24 K/uL (0.11-0.59); Monocytes % (auto) 10.4 %; Neutrophils # (auto) 9.97 K/uL (1.4-6.5); Neutrophils % (auto) 83.3 %; Platelet Count 195 K/uL (130-400); RDW Coefficient of Variation 13.3 % (11.5-14.5); RDW Standard Deviation 42.7 fL (36.4-46.3); White Blood Count 11.97 K/uL (4.8-10.8)
--- NOTE | 2022-04-27 12:12 | CT Scan Report ---
CT SCAN OF THE BRAIN WITHOUT IV CONTRAST CLINICAL HISTORY: Trauma. Change in mental status. COMPARISON STUDY: CT of the brain dated 04/26/2019. TECHNIQUE: Unenhanced axial CT scan of the brain is performed from the vertex to the skull base. A do se lowering technique was utilized adhering to the principles of ALARA. The patient was scanned twice due to motion artifact. FINDINGS: Brain parenchyma: There is a large acute subdural hemorrhage along the right convexity. This measures up to 2.0 cm in dimension and effaces the subjacent cortical sulci and the right lateral ventricle. There is 1.9 cm of right to left midline shift. There is also trace subdural hemorrhage along the ant erior and posterior falx as well as the left tentorium cerebelli. There is age-related involutional c hange noting moderate subcortical and periventricular microangiopathic disease. Howe-white matter dif ferentiation is preserved. There is no evidence of acute territorial ischemia by CT criteria. Ventricles, sulci, cisterns: Prominent secondary to involutional change. See above. Intracranial vasculature: There is atherosclerotic calcification of the cavernous carotid arteries. Calvarium: The skeletal structures are osteopenic. No depressed calvarial fracture is identified Soft tissues: Is a large posterior scalp injury/hematoma. Sinuses and mastoids: The visualized paranasal sinuses are clear. The mastoid air cells are well pneu matized. Orbits: The bony orbits are grossly intact. There is a left ocular lens implant. IMPRESSION: 1. There is a large acute subdural hemorrhage along the right convexity with associated mass effect a nd 1.9 cm of [id number] midline shift. 2. Trace subdural blood is also seen along the midline falx in the left tentorium. 3. There is no evidence of acute territorial ischemia by CT criteria. 4. Posterior scalp injury. ACT 112: Negative or not required by law. Electronically signed by: Cody Desai M.D. 04/27/2022 12:10 PM
[2022-04-27] MEDS ORDERED: ACETAMINOPHEN 1,000 MG/100 ML VIAL IV STA (12:17)
--- NOTE | 2022-04-27 12:17 | CT Scan Report ---
CT cervical spine wo con CLINICAL HISTORY: trauma TECHNIQUE: Multidetector row helical CT of the cervical spine was performed without administration of intravenous contrast. Coronal and sagittal reformations were obtained. Automated dose lowering techn iques and/or adjustment according to patient size were utilized for this exam. Comparison: None available at the time of this dictation. FINDINGS: No acute fractures or subluxations are identified. Degenerative changes are seen in the visualized sp ine. The alignment is normal. Soft tissues are unremarkable. IMPRESSION: Degenerative changes without evidence of acute bony injury. ACT 112: Negative or not required by law. Electronically signed by: Sarabjit Oneil M.D. 04/27/2022 12:15 PM
[2022-04-27 12:18] LABS: INR 1.2 (0.9-1.1); Prothrombin Time 12.2 Seconds (9.0-12.0)
[2022-04-27 12:28] LABS: Troponin I High Sensitivity 29.1 pg/ml (0-14)
[2022-04-27] MEDS: SODIUM CHLORIDE 0.9% 1000ML 1,000 ML IV SCH (12:30)
[2022-04-27 12:43] LABS: Albumin Globulin Ratio 1.8 (0.9-2); Albumin Level 4.2 gm/dl (3.4-5.0); BUN Creatinine Ratio 13.7 (10-20); Bilirubin,Total 0.8 mg/dl (0.2-1.0); Creatinine Clr Calc Pharmacy 38.7 ml/min; Est GFR (African American) 64.2 ml/min; Est GFR (Non-African American) 55.4 ml/min; Globulin 2.3 gm/dl (2.5-4.0); Magnesium 1.7 mg/dl (1.7-2.4); Potassium 3.8 mmol/L (3.5-5.1); Total Protein 6.5 gm/dl (6.0-8.3)
--- NOTE | 2022-04-27 12:47 | XRay Report ---
XR chest 1V portable CLINICAL HISTORY: trauma TECHNIQUE: Single frontal radiograph of the chest was obtained. Comparison: Comparison is made to chest radiograph 05/05/2021 FINDINGS: No lines and tubes are seen. Calcified aortic knob is seen. Atelectasis is seen at the right lung bas e. No evidence of pleural effusion or pneumothorax. IMPRESSION: No acute chest disease. ACT 112: Negative or not required by law. Electronically signed by: Sarabjit Oneil M.D. 04/27/2022 12:46 PM
--- NOTE | 2022-04-27 12:50 | XRay Report ---
XR pelvis 1-2V routine CLINICAL HISTORY: trauma COMPARISON: Pelvis and right hip radiographs April 21, 2019. CT of the abdomen and pelvis May 05 1. FINDINGS: Sacroiliac joints and symphysis pubis are intact. Alignment of the right hip arthroplasty is anatomic. There is no periprosthetic fracture. No acute fracture is identified within the pelvis o r hips. IMPRESSION: 1. No acute fracture within the pelvis or hips. 2. Intact right hip arthroplasty. No periprosthetic fracture. ACT 112: Negative or not required by law. Electronically signed by: Terrance Rock M.D. 04/27/2022 12:49 PM
--- NOTE | 2022-04-27 14:41 | Electrocardiogram Report ---
Test Reason : Blood Pressure : / mmHG Vent. Rate : 113 BPM Atrial Rate : 214 BPM P-R Int : 000 ms QRS Dur : 082 ms QT Int : 334 ms P-R-T Axes : 000 -05 054 degrees QTc Int : 458 ms Poor data quality, interpretation may be adversely affected Sinus rhythm with premature atrial contractions Abnormal ECG Confirmed by Madi Negrete ([id number]) on 04/27/2022 2:41:03 PM Referred By: REFERRED SELF Confirmed By:Tarik Negrete
[2022-04-27] MEDS ORDERED: MoRPHine SULFATE 2 MG/ML CARP IV STA (14:48)
--- NOTE | 2022-04-27 15:00 | History & Physical Report ---
Date of Service April 27, 2022 Assessment & Plan (1) Subdural hemorrhage: Plan: Likely Fall Patient is 82-year-old female with PMH dyslipidemia, dementia, history of PE, overactive bladder presented to ER unresponsive. Today patient found by EMS on floor, minimally responsive. Prehospital BSG was reported to be normal. Upon to arrival to ER patient noted to be tachycardic, hypoxic, labored breathing. CT scan head: Large acute subdural hemorrhage with mass-effect and 1.9 cm of right to left midline shift, trace subdural blood seen along mid falx and left tentorium, posterior scalp injury. While in ER patient continues to deteriorate Patient's son as well as other family members are at bedside and wish patient to be on comfort measures only Morphine, ativan, glycopyrrolate prn Pt was seen and care coordinated with Dr Escobedo. See addendum History of Present Illness Chief Complaint: unresponsive Primary Care Provider: Juarez Adams DO Patient is 82-year-old female with PMH dyslipidemia, dementia, history of PE, overactive bladder presented to ER unresponsive. History is obtained from patient's son. Son reports around 830 this morning she called him and said her back hurt and on the phone. Recurrent tries to reach patient by phone after this failed and 911 was called and EMS found patient on floor, minimally responsive, noted to not be moving left side. Patient was noted to have blood on scalp. EMS reports noting a spot of blood on couch and coffee table. To be moved. Prehospital BSG was reported to be normal. Upon to arrival to ER patient noted to be tachycardic, hypoxic, labored breathing. Patient son was contacted who reports patient is DNI DNR so no intubation was performed. CT scan head shows large acute subdural hemorrhage with mass-effect and 1.9 cm of right to left midline shift, trace subdural blood seen along mid falx and left tentorium, posterior scalp injury. While in ER patient continues to deteriorate. Patient's son as well as other family members are at bedside and wish patient to be on comfort measures only. Allergies Allergy/AdvReac Type Severity Reaction Status Date / Time hydromorphone [From Dilaudid] Allergy Severe Anaphylaxis Verified 05/05/21 10:57 codeine Allergy Intermediate Unknown Unverified 05/05/21 10:57 Home Medications Medication Instructions Recorded Confirmed Type aspirin 81 mg tablet,delayed 81 mg PO QAM 04/21/19 05/05/21 History release (Vandana Low Dose Aspirin) cholecalciferol (vitamin D3) 25 2,000 unit PO QAM 04/21/19 05/05/21 History mcg (1,000 unit) capsule (Vitamin D3) calcium carbonate 200 mg calcium 500 mg PO BID #60 tab 05/04/19 05/05/21 Rx (500 mg) chewable tablet (Tums) levetiracetam 500 mg tablet 500 mg PO BID #60 tab 05/04/19 05/05/21 Rx (Keppra) alendronate 70 mg tablet (Fosamax) 70 mg PO MO 02/09/20 05/05/21 History oxybutynin chloride 5 mg tablet 5 mg PO BID 02/09/20 05/05/21 History potassium chloride 10 mEq 10 meq PO BID 02/09/20 05/05/21 History capsule,extended release rosuvastatin 10 mg tablet 10 mg PO QAM 02/09/20 05/05/21 History sulfamethoxazole 800 1 tab PO BID 7 Days #14 tab 04/24/22 Rx mg-trimethoprim 160 mg tablet (Bactrim DS) Past Med/Surg History Medical History (Updated 04/27/22 @ 19:47 by Halina Jackson PA-C) Abdominal pain Coronary artery disease Depression Discharge planning issues Dyslipidemia History of cataract Left eye Osteoporosis Overactive bladder Surgical History H/O eye surgery 5 - Right eye surgery 1947 - Right eye surgery H/O malignant hyperthermia History of arthroplasty of right hip History of bladder repair surgery 2009 History of hysterectomy History of lumpectomy of both breasts 1962 - Left breast lumpectomy - pt reports was benign 1980 - R breast lumpectomy - pt reports was benign History of tonsillectomy and adenoidectomy Family History Other Cancer Hypertension Malignant hyperthermia due to anesthesia Social History Smoking Status: Unknown if ever smoked Hx Alcohol Use: No Hx Substance Use: No Preferred Language: Honduran Communication Ability: Unable [employer] Department Manager Required: No Beliefs That Will Affect Care: Baptism Baptism Beliefs: Quaker marital status: / Current Living Situation: Alone Feels Safe at Home: Declines to Answer Assistive Devices: None Review of Systems Review of Systems: Unobtainable due to cognitive status Physical Exam Physical Exam: PE per Dr Escobedo Results & Data Results & Data ([facility]) Vital Signs (Past 12 Hours) Vital Signs Temp Pulse Resp BP BP Pulse Ox 04/27/22 14:10 138 H 34 H 154/123 H 94 04/27/22 14:00 133 H 34 H 145/114 H 93 04/27/22 13:50 132 H 30 H 158/87 H 95 04/27/22 13:45 135 H 33 H 94 04/27/22 13:40 141 H 30 H 157/94 H 94 04/27/22 13:30 136 H 37 H 151/94 H 94 04/27/22 13:20 134 H 35 H 157/111 H 94 04/27/22 13:15 132 H 32 H 93 04/27/22 13:10 125 H 32 H 154/88 H 95 04/27/22 13:00 124 H 28 H 150/96 H 96 04/27/22 12:50 119 H 24 158/96 H 95 04/27/22 12:49 20 158/96 H 95 04/27/22 12:45 128 H 24 94 04/27/22 12:40 117 H 29 H 140/96 97 04/27/22 12:30 117 H 33 H 161/103 H 99 04/27/22 12:20 129/80 98 04/27/22 12:15 99 04/27/22 12:10 173/121 H 100 04/27/22 12:00 99 04/27/22 11:42 118 H 27 H 172/147 H 81 L 04/27/22 11:40 116 H 31 H 92 04/27/22 11:37 37.2 C 112 H 18 152/100 H 89 L Laboratory Results Short CBC 04/27/22 Range/Units 11:42 WBC 11.97 H (4.8-10.8) K/uL Hgb 10.6 L (12.0-16.0) g/dL Hct 29.9 L (37-47) % Plt Count 195 (130-400) K/uL BMP 04/27/22 11:42 Sodium 128 L Potassium 3.8 Chloride 96 L Carbon Dioxide 18 L BUN 13 Creatinine 0.95 Glucose 145 H Calcium 9.0 Liver Function 04/27/22 Range/Units 11:42 Total Bilirubin 0.8 (0.2-1.0) mg/dl AST 67 H (13-39) U/L ALT 35 (7-52) U/L Alkaline Phosphatase 53 (34-104) U/L Albumin 4.2 (3.4-5.0) gm/dl Diagnostic Findings Cervical Spine CT 04/27/22 11:40 CT cervical spine wo con CLINICAL HISTORY: trauma TECHNIQUE: Multidetector row helical CT of the cervical spine was performed without administration of intravenous contrast. Coronal and sagittal reformations were obtained. Automated dose lowering techniques and/or adjustment according to patient size were utilized for this exam. Comparison: None available at the time of this dictation. FINDINGS: No acute fractures or subluxations are identified. Degenerative changes are seen in the visualized spine. The alignment is normal. Soft tissues are unremarkable. IMPRESSION: Degenerative changes without evidence of acute bony injury. ACT 112: Negative or not required by law. Electronically signed by: Sarabjit Oneil M.D. 04/27/2022 12:[address] 04/27/22 11:40 CT SCAN OF THE BRAIN WITHOUT IV CONTRAST CLINICAL HISTORY: Trauma. Change in mental status. COMPARISON STUDY: CT of the brain dated 04/26/2019. TECHNIQUE: Unenhanced axial CT scan of the brain is performed from the vertex to the skull base. A dose lowering technique was utilized adhering to the principles of ALARA. The patient was scanned twice due to motion artifact. FINDINGS: Brain parenchyma: There is a large acute subdural hemorrhage along the right convexity. This measures up to 2.0 cm in dimension and effaces the subjacent cortical sulci and the right lateral ventricle. There is 1.9 cm of right to left midline shift. There is also trace subdural hemorrhage along the anterior and posterior falx as well as the left tentorium cerebelli. There is age-related involutional change noting moderate subcortical and periventricular microangiopathic disease. Howe-white matter differentiation is preserved. There is no evidence of acute territorial ischemia by CT criteria. Ventricles, sulci, cisterns: Prominent secondary to involutional change. See above. Intracranial vasculature: There is atherosclerotic calcification of the cavernous carotid arteries. Calvarium: The skeletal structures are osteopenic. No depressed calvarial fracture is identified Soft tissues: Is a large posterior scalp injury/hematoma. Sinuses and mastoids: The visualized paranasal sinuses are clear. The mastoid air cells are well pneumatized. Orbits: The bony orbits are grossly intact. There is a left ocular lens implant. IMPRESSION: 1. There is a large acute subdural hemorrhage along the right convexity with associated mass effect and 1.9 cm of [id number] midline shift. 2. Trace subdural blood is also seen along the midline falx in the left tentorium. 3. There is no evidence of acute territorial ischemia by CT criteria. 4. Posterior scalp injury. ACT 112: Negative or not required by law. Electronically signed by: Cody Desai M.D. 04/27/2022 12:10 PM Chest X-Ray 04/27/22 12:02 XR chest 1V portable CLINICAL HISTORY: trauma TECHNIQUE: Single frontal radiograph of the chest was obtained. Comparison: Comparison is made to chest radiograph 05/05/2021 FINDINGS: No lines and tubes are seen. Calcified aortic knob is seen. Atelectasis is seen at the right lung base. No evidence of pleural effusion or pneumothorax. IMPRESSION: No acute chest disease. ACT 112: Negative or not required by law. Electronically signed by: Sarabjit Oneil M.D. 04/27/2022 12:46 PM Pelvis X-Ray 04/27/22 12:02 XR pelvis 1-2V routine CLINICAL HISTORY: trauma COMPARISON: Pelvis and right hip radiographs April 21, 2019. CT of the abdomen and pelvis May 05, 2021. FINDINGS: Sacroiliac joints and symphysis pubis are intact. Alignment of the right hip arthroplasty is anatomic. There is no periprosthetic fracture. No acute fracture is identified within the pelvis or hips. IMPRESSION: 1. No acute fracture within the pelvis or hips. 2. Intact right hip arthroplasty. No periprosthetic fracture. ACT 112: Negative or not required by law. Electronically signed by: Terrance Rock M.D. 04/27/2022 12:49 PM Supervising Physician Co-Signing Physician Notes History and physical exam performed by me History provided by family (son and daughter) at bedside. Patient had called son earlier this today complaining of low back pain and then had not been reachable by phone. Family called 911 for a wellcheck and was brought to ER unconsicous. On exam, General: Unconscious, agonal breathing. Hair behind occipital area matted with blood. Did not see obvious laceration Eyes: Anisocoria (Right pupil dilated compared to left pupil, barely reactive to light) conjunctivae normal, not pale, anicteric sclerae ENMT: External ear and nose normal Respiratory: Agonal breathing, tachypneic, lungs clear to auscultation, no crackles and no wheezes Cardiovascular:Tachycardic, S1 S2 Gastrointestinal (Abdomen): Abdomen is not distended, soft, non-tender to palpation, no guarding, no palpable hepatosplenomegaly, normal bowel sounds Musculoskeletal:Bruises on legs Neurologic: Unconscious GCS 3/15. Facial deviation towards left Psychiatric: Unconscious Labs notable for hemoglobin of 10.6, WBC of 11.97 thousand, sodium of 128, bicarb of 18, troponin at bedtime of 29 CT head showed a large acute subdural hemorrhage along the right convexity with associated mass-effect and 1.9 cm of right to left midline shift, trace subdural blood is also seen along the midline falx of the left tentorium. Acute subdural hemorrhage with midline shift Fall Unclear if fall is result of subdural hemorrhage or if that caused fall. Son and daughter who were at bedside reported patient would not want any intervention or heroic measure. They opted for comfort measures only Comfort measures ordered IV morphine prn respiratory distress. Prognosis is grim Agree with other plans as detailed by Halina Jackson PA-C
--- NOTE | 2022-04-27 15:50 | Communication Note ---
Date of Service: April 27, 2022 History and physical exam performed by me History provided by family (son and daughter) at bedside. Patient had called son earlier this today complaining of low back pain and then had not been reachable by phone. Family called 911 for a wellcheck and was brought to ER unconsicous. On exam, General: Unconscious, agonal breathing. Hair behind occipital area matted with blood. Did not see obvious laceration Eyes: Anisocoria (Right pupil dilated compared to left pupil, barely reactive to light) conjunctivae normal, not pale, anicteric sclerae ENMT: External ear and nose normal Neck: Normal visual inspection, no tracheal deviation, no swelling noted Respiratory: Agonal breathing, tachypneic, lungs clear to auscultation, no crackles and no wheezes Cardiovascular: Tachycardic, S1 S2 Gastrointestinal (Abdomen): Abdomen is not distended, soft, non-tender to palpation, no guarding, no palpable hepatosplenomegaly, normal bowel sounds Musculoskeletal: Bruises on legs Neurologic: Unconscious GCS 3/15. Facial deviation towards left Psychiatric: Unconscious Labs notable for hemoglobin of 10.6, WBC of 11.97 thousand, sodium of 128, bicarb of 18, troponin at bedtime of 29 CT head showed a large acute subdural hemorrhage along the right convexity with associated mass-effect and 1.9 cm of right to left midline shift, trace subdural blood is also seen along the midline falx of the left tentorium. Acute subdural hemorrhage with midline shift Fall Unclear if fall is result of subdural hemorrhage or if that caused fall. Son and daughter who were at bedside reported patient would not want any intervention or heroic measure. They opted for comfort measures only Comfort measures ordered IV morphine prn respiratory distress. Prognosis is grim Agree with other plans as detailed by Halina Jackson PA-C
[2022-04-27] MEDS: MoRPHine SULFATE 2 MG/ML CARP IV PRN (22:55)
[2022-04-28] MEDS ORDERED: MoRPHine SULFATE 2 MG/ML CARP IV STA (00:06)
[2022-04-28] MEDS: GLYCOPYRROLATE 0.2 MG/ML VIAL IV PRN ×2 (05:48→16:16)
[2022-04-28] MEDS: MoRPHine SULFATE 2 MG/ML CARP IV PRN ×3 (05:48→20:46)
[2022-04-28] MEDS: SODIUM CHLORIDE 0.9% 1000ML 1,000 ML IV SCH (07:14)
--- NOTE | 2022-04-28 17:04 | Hospitalist Progress Note ---
Date of Service April 28, 2022 Assessment & Plan (1) Subdural hemorrhage: Plan: Acute subdural hemorrhage with midline shift Suspected secondary to fall CT Head:There is a large acute subdural hemorrhage along the right convexity with associated mass effect and 1.9 cm of [id number] midline shift. Trace subdural blood is also seen along the midline falx in the left tentorium. There is no evidence of acute territorial ischemia by CT criteria. Posterior scalp injury. Patient's family prefers no aggressive measures. Patient's family understands the patient's condition and agrees with current management. All questions answered. Currently on comfort measures only Continue comfort medications as needed Dyslipidemia Dementia H/O PE Overactive bladder On comfort measures only Code Status DNI/DNR Admission and Anticipated Discharge Date Admission Date: April 27, 2022 Subjective Patient is seen and examined at bedside Patient is obtunded Agonal breathing intermittently No obvious distress on exam Discussed with Family at bedside Currently on comfort measures Review of Systems Review of Systems: Unobtainable due to reduced consciousness Physical Exam Physical Exam: Physical Exam: Vitals signs as noted above General Appearance:Thin, Frail, Ill appearing, Obtunded Head: normocephalic Eyes: Anisocoria Neck: supple, Trachea midline Respiratory/Chest: Agonal breath sounds, CTA Cardiovascular: S1, S2, +Tachycardia Abdomen/GI:Soft, Non tender, Bowel sounds present Extremities/Musculoskeletal:normal inspection, no edema Neurologic/Psych:Obtunded Skin: normal color, warm
[2022-04-28] MEDS: LORazepam 0.5 MG in SYRINGE 0.25 ML IV PRN (22:33)
[2022-04-29] MEDS: MoRPHine SULFATE 2 MG/ML CARP IV PRN ×7 (03:38→23:10)
[2022-04-29] MEDS: LORazepam 0.5 MG in SYRINGE 0.25 ML IV PRN ×3 (05:32→22:08)
--- NOTE | 2022-04-29 12:58 | Hospitalist Progress Note ---
Date of Service April 29, 2022 Assessment & Plan (1) Subdural hemorrhage: Plan: Acute subdural hemorrhage with midline shift Suspected secondary to fall CT Head:There is a large acute subdural hemorrhage along the right convexity with associated mass effect and 1.9 cm of [id number] midline shift. Trace subdural blood is also seen along the midline falx in the left tentorium. There is no evidence of acute territorial ischemia by CT criteria. Posterior scalp injury. Patient's family prefers no aggressive measures. Patient's family understands the patient's condition and agrees with current management. All questions answered. Currently on comfort measures only Continue comfort medications as needed Increase Morphine frequency to help with respiratory distress Dyslipidemia Dementia H/O PE Overactive bladder On comfort measures only Code Status DNI/DNR Admission and Anticipated Discharge Date Admission Date: April 27, 2022 Subjective Patient is seen and examined at bedside Remains obtunded Agonal breathing intermittently with mild respiratory distress Discussed with Family at bedside Review of Systems Review of Systems: Unobtainable due to reduced consciousness Physical Exam Physical Exam: Physical Exam: Vitals signs as noted above General Appearance:Thin, Frail, Ill appearing, Obtunded, Mild respiratory distress Head: normocephalic Eyes: Anisocoria Neck: supple, Trachea midline Respiratory/Chest: Agonal breathing Intermittently Cardiovascular: S1, S2, +Tachycardia Abdomen/GI:Soft, Non tender, Bowel sounds present Extremities/Musculoskeletal:normal inspection, no edema Neurologic/Psych:Obtunded Skin: normal color, warm
[2022-04-30] MEDS: MoRPHine SULFATE 2 MG/ML CARP IV PRN ×2 (02:29→04:31)
[2022-04-30] MEDS: LORazepam 0.5 MG in SYRINGE 0.25 ML IV PRN (06:21)
--- NOTE | 2022-04-30 06:49 | Death Pronouncement Note ---
Date of Service April 30, 2022 Pronouncement Note Admission Date April 27, 2022 Date and Time of Date of : 04/30/22 Time of : 06:28 Additional Data Confirmation of : no pulse, no respirations, no heart sounds and pupils fixed and dilated Pronouncement Performed By: Attending Physician Family: at bedside Attending physician: Rodolfo Durham MD
--- NOTE | 2022-04-30 07:35 | Discharge Summary ---
Date of Service April 30, 2022 Admission HPI Per Admitting Provider Patient is 82-year-old female with PMH dyslipidemia, dementia, history of PE, overactive bladder presented to ER unresponsive. History is obtained from patient's son. Son reports around 830 this morning she called him and said her back hurt and on the phone. Recurrent tries to reach patient by phone after this failed and 911 was called and EMS found patient on floor, minimally responsive, noted to not be moving left side. Patient was noted to have blood on scalp. EMS reports noting a spot of blood on couch and coffee table. To be moved. Prehospital BSG was reported to be normal. Upon to arrival to ER cary ent noted to be tachycardic, hypoxic, labored breathing. Patient son was contacted who reports patient is DNI DNR so no intubation was performed. CT scan head shows large acute subdural hemorrhage with mass-effect and 1.9 cm of right to left midline shift, trace subdural blood seen along mid falx and left tentorium, posterior scalp injury. While in ER patient continues to deteriorate. Patient's son as well as other family members are at bedside and wish patient to be on comfort measures only. Admission Exam Per Admitting Provider On exam, General: Unconscious, agonal breathing. Hair behind occipital area matted with blood. Did not see obvious laceration Eyes: Anisocoria (Right pupil dilated compared to left pupil, barely reactive to light) conjunctivae normal, not pale, anicteric sclerae ENMT: External ear and nose normal Respiratory:Agonal breathing, tachypneic, lungs clear to auscultation, no crackles and no wheezes Cardiovascular:Tachycardic, S1 S2 Gastrointestinal (Abdomen): Abdomen is not distended, soft, non-tender to palpation, no guarding, no palpable hepatosplenomegaly, normal bowel sounds Musculoskeletal:Bruises on legs Neurologic: Unconscious GCS 3/15. Facial deviation towards left Psychiatric: Unconscious Principal Diagnosis Acute subdural hemorrhage with midline shift Suspected secondary to fall Dyslipidemia Dementia H/O PE Overactive bladder Discharge Data Allergies Allergy/AdvReac Type Severity Reaction Status Date / Time hydromorphone [From Dilaudid] Allergy Severe Anaphylaxis Verified 05/05/21 10:57 codeine Allergy Intermediate Unknown Unverified 05/05/21 10:57 Consultations 04/27/22 14:46 ED Decision to Admit Stat Ordered Studies 04/27/22 11:40 CT cervical spine wo con Stat CT head/brain wo con Stat Hospital Course (1) Subdural hemorrhage: Acute subdural hemorrhage with midline shift Suspected secondary to fall CT Head:There is a large acute subdural hemorrhage along the right convexity with associated mass effect and 1.9 cm of [id number] midline shift. Trace subdural blood is also seen along the midline falx in the left tentorium. There is no evidence of acute territorial ischemia by CT criteria. Posterior scalp i njury. Patient's family prefers no aggressive measures. Patient's family understands the patient's condition and agrees with current management. All questions answered. on comfort measures only Dyslipidemia Dementia H/O PE Overactive bladder On comfort measures only Code Status DNI/DNR Patient while on comfort measures only on 04/30/22 at 6:28 AM. Total Time Total Time Spent Total Time Spent (In Minutes): 24 minutes Discharge Plan Discharge Items Patient Disposition: Discharge Diagnosis: Acute subdural hemorrhage Other Date/Time: 04/30/22 06:28
== END 2022-04-30 09:45 | disposition expired | DRG 83 ==
LOC: ED 11:21 → SUATTDRO 15:04 → EDINP 15:04 → 3N 04-28 00:52